=== PATIENT | female | born 1950 | race Caucasian/White ===

== ENCOUNTER 2018-04-12 10:02 | Emergency (ER) | payer OTHER, SELFPAY ==
--- OUTSIDE RECORDS SUMMARY | 2018-04-12 10:05 | XMS REPORT | Clinical Summary ---
:1950 Author Organization [facility] Address [address] [place] [id number] Care Team Providers Name Role Phone Addie Meng MD Primary Care Provider Allergies Active Allergy Reactions Severity Noted Date Comments Alendronate 05/09/2017 Stomach cannot tolerate medication Medications No known medications Active Problems Problem Noted Date Encounter for screening mammogram for breast cancer 05/09/2017 Encounters Date Type Specialty Care Team Description 05/09/2017 Office Visit General Surgery Breann Potter Breast boaz ( Primary Dx); MD Ila Encounter for screening mammogram for breast cancer; Discharge from right nipple after 04/11/2017 Family History Medical History Relation Name Comments Breast cancer Maternal Aunt Breast cancer Paternal Aunt Colon cancer Paternal Aunt Breast cancer Paternal Grandmother Colon cancer Paternal Grandmother Relation Name Status Comments Maternal Aunt Paternal Aunt Paternal Grandmother Social History Tobacco Use Types Packs/Day Years Used Date Never Smoker Smokeless Tobacco: Never Used Alcohol Use Drinks/Week oz/Week Comments Yes 1 Glasses of wine 0.6 weekly Sex Assigned at Date Recorded Not on file Job Start Date Occupation Industry Not on file Not on file Not on file Travel History Travel Start Travel End No recent travel history available. Last Filed Vital Signs Vital Sign Reading Time Taken Blood Pressure 128/74 05/09/2017 9:53 AM CLINICAL LABORATORY SCIENTIST Pulse 68 05/09/2017 9:53 AM CLINICAL LABORATORY SCIENTIST Temperature - - Respiratory Rate - - Oxygen Saturation - - Inhaled Oxygen Concentration - - Weight 98.9 kg (218 lb) 05/09/2017 9:53 AM CLINICAL LABORATORY SCIENTIST Height 157.5 cm (5' 2") 05/09/2017 9:53 AM CLINICAL LABORATORY SCIENTIST Body Mass Index 39.87 05/09/2017 9:53 AM CLINICAL LABORATORY SCIENTIST Plan of Treatment Health Maintenance Due Date Last Done Comments COLON CANCER SCREENING 1998 SHINGRIX VACCINE (1 of 2) 1998 ZOSTER VACCINE 2008 PNEUMOCOCCAL POLYSACCHARIDE VACCINE 2013 AGE 65 AND OVER PNEUMOCOCCAL-13 2013 INFLUENZA VACCINE 12/21/2017 BREAST CANCER SCREENING 05/11/2019 05/11/2017, 05/09/2017, 05/09/2017 Procedures Procedure Name Priority Date/Time Associated Diagnosis Comments MAMMO SCREENING W CAD BILATERAL Routine 05/11/2017 after 04/11/2017 Results Mammo Screening w Cad Bilateral (05/11/2017) Narrative Performed At after 04/11/2017 Insurance Payer Benefit Plan / Group Subscriber ID Type Phone Address MEDICARE MEDICARE PART A AND B xxxxxxxxxx Medicare [place], [place] [employer] OF xxxxxxxxxx [employer] Advance Directives Patient has advance care planning documents on file. For more information, please contact:J[id number] [place] [address]
[2018-04-12] MEDS ORDERED: HYDROMORPHONE HCL 1 MG/ML INJ ONE ×3 (10:30→13:49)
[2018-04-12] MEDS ORDERED: KETOROLAC 30 MG/ML INJ ONE (10:30)
[2018-04-12] MEDS ORDERED: ONDANSETRON 4 MG/2 ML VIAL ONE (10:30)
[2018-04-12 10:35] LABS: Absolute Lymphocytes (CBC) 2.7 K/uL (0.7-4.9); Absolute Monocytes 0.7 K/uL (0.1-1.3); Absolute Neutrophil 4.4 K/uL (1.8-8.0); Basophils % 0.6 % (0-1.3); Eosinophils % 0.9 % (0-4.4); Hematocrit 38.9 % (36.0-45.0); Lymphocytes % 34.2 % (15.3-44.8); MCH 30.4 pg (27.0-35.0); MCV 89.8 fL (80-100); MPV 8.7 fL (7.6-11.3); Monocytes % 9.3 % (3.3-12.3); RBC Red Blood Cell Count 4.33 M/uL (3.86-4.86)
[2018-04-12 11:02] LABS: Albumin 3.4 g/dL (3.4-5.0); Bilirubin Total 0.4 mg/dL (0.2-1.0); Potassium 3.9 mmol/L (3.5-5.1)
--- NOTE | 2018-04-12 12:03 | RAD REPORT ---
EXAM DESCRIPTION: RAD - Shoulder Right 2 View - 04/12/2018 11:09 am CLINICAL HISTORY: PAIN Fall, right shoulder pain COMPARISON: No comparisons FINDINGS: Moderately displaced comminuted fracture involves the proximal right humerus. Mild AC join t degenerative changes are seen.
--- NOTE | 2018-04-12 12:29 | RAD REPORT ---
EXAM DESCRIPTION: RAD - Pelvis - 04/12/2018 11:09 am CLINICAL HISTORY: Right hip pain status post fall FINDINGS: No fracture or dislocation is seen. The bones are osteoporotic. If the patient continues to have symptoms to suggest an occult fracture then MRI would be recommended
--- NOTE | 2018-04-12 12:30 | RAD REPORT ---
EXAM DESCRIPTION: RAD - Hip Right 2 View - 04/12/2018 11:09 am CLINICAL HISTORY: Right hip pain status post fall FINDINGS: No fracture or dislocation is seen. The bones are osteoporotic. If the patient continues to have symptoms to suggest an occult fracture then MRI would be recommended
--- NOTE | 2018-04-12 13:33 | ER ---
Nurse's Notes [facility] Name: Patricia Michael Age: 67 yrs Sex: Female : 1950 Arrival Date: 04/12/2018 Time: 10:07 Bed 6 Private MD: Diagnosis: Fall due to bumping against object;3-part fracture of surgical neck of right humerus;Contusion of right hip Presentation: 04/12 10:09 Presenting complaint: EMS states: Mechanical fall from standing, pt tripped while hb ambulating in parking lot at work, c/o severe right shoulder pain 03/01. Negative LOC/blood thinners. 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 Care prior to arrival: Medication(s) given: Fentanyl 150 mcg IV initiated. 20 GA, in the left antecubital area. Mechanism of Injury: Fall from standing position. Trauma event details: Injury occurred in the [facility], Injury occurred: in a public building. Injury occurred: April 12, 2018. 10:09 Acuity: KAVEH 2 hb 10:09 Method Of Arrival: EMS: [facility] hb 10:15 Transition of care: patient was not received from another setting of care. Onset of hb symptoms was April 12, 2018. Risk Assessment: Do you want to hurt yourself or someone else? Patient reports no desire to harm self or others. Initial Sepsis Screen: Does the patient meet any 2 criteria? No. Patient's initial sepsis screen is negative. Does the patient have a suspected source of infection? No. Patient's initial sepsis screen is negative. Trauma Activation: Alert Physician: ED Physician; Name: ; Notified At: ; Arrived At: Physician: General Surgeon; Name: ; Notified At: ; Arrived At: Physician: Radiology; Name: ; Notified At: ; Arrived At: Physician: Respiratory; Name: ; Notified At: ; Arrived At: Physician: Lab; Name: ; Notified At: ; Arrived At: Historical: - Allergies: 10:14 Fosamax; hb - PMHx: 10:14 Asthma; Glaucoma; Pneumonia; Rheumatoid Arthritis; hb - PSHx: 10:14 KNEE REPLACEMENT X 2; SHOULDER X 2; FOOT SURGERY X 8; HAND SURGERY X2; hb - Immunization history: Last tetanus immunization: < 10 years ago. - Social history:: Smoking status: Patient/guardian denies using tobacco. - Ebola Screening: : No symptoms or risks identified at this time. Screenin:14 Abuse screen: Denies threats or abuse. Denies injuries from another. Tuberculosis hb screening: No symptoms or risk factors identified. 10:15 Nutritional screening: No deficits noted. Fall Risk Total Stroud Fall Scale indicates hb Low Risk Score (25-44 pts). Fall prevention measures have been instituted. Side Rails Up X 2 Frequent Obs/Assesments occuring As available Patient and Family Educated on Fall Prevention Program and strategies. Primary Survey: 10:10 A: Airway: patent, No supplemental oxygen in use on arrival. Oral cavity: clear, hb Trachea midline. Breathing/Chest: Respiratory pattern: regular, Respiratory effort: spontaneous, unlabored, Breath sounds: clear, bilaterally. Chest inspection: symmetrical rise and fall of the chest. Circulation: Pulses: palpable . Skin color: pink, Skin temperature: warm, dry. Disability Alert. 11:00 Reassessment Airway Airway Patent Breathing/Chest Respiratory pattern Regular hb Respiratory effort Spontaneous Unlabored Chest inspection Symmetrical Circulation Pulses Palpable Color Sayre Temperature Warm Dry Disability Alert. 12:00 Reassessment Airway Airway Patent Breathing/Chest Respiratory pattern Regular hb Respiratory effort Spontaneous Unlabored Chest inspection Symmetrical Circulation Pulses Palpable Color Sayre Temperature Warm Dry Disability Alert. 13:00 Reassessment Airway Airway Patent Breathing/Chest Respiratory pattern Regular hb Respiratory effort Spontaneous Unlabored Chest inspection Symmetrical Circulation Color Sayre Temperature Warm Dry Disability Alert. Secondary Survey: 10:12 HEENT: No deficits noted. Gastrointestinal: No deficits noted. : No deficits noted. hb Musculoskeletal: Range of motion: limited in right shoulder. Assessment: 10:16 General: Appears in no apparent distress. uncomfortable, Behavior is cooperative, hb anxious, crying. Pain: Pain currently is 10 out of 10 on a pain scale. Neuro: Level of Consciousness is awake, alert, obeys commands, Oriented to person, place, time, situation. EENT: No signs and/or symptoms were reported regarding the EENT system. Cardiovascular: Heart tones S1 S2 present Capillary refill < 3 seconds Patient's skin is warm and dry. Respiratory: Airway is patent Trachea midline Respiratory effort is even, unlabored, Respiratory pattern is regular, symmetrical, Breath sounds are clear bilaterally. GI: No signs and/or symptoms were reported involving the gastrointestinal system. : No signs and/or symptoms were reported regarding the genitourinary system. Derm: No signs and/or symptoms reported regarding the dermatologic system. Skin is intact, is healthy with good turgor, Skin is pink, warm \T\ dry. Musculoskeletal: Range of motion: limited in right shoulder. 11:00 Reassessment: Patient appears in no apparent distress at this time. Patient and/or hb family updated on plan of care and expected duration. Pain level reassessed. Patient is alert, oriented x 3, equal unlabored respirations, skin warm/dry/pink. 11:35 Reassessment: Pt c/o right wrist pain 8/10. Dr. Goldberg notified, wrist xray ordered. hb Vital Signs: 10:10 BP 113 / 95; Pulse 88; Resp 15; Temp 97.9; Pulse Ox 100% on R/A; Pain 10/10; hb 11:00 BP 133 / 52; Pulse 88; Resp 15; Pulse Ox 100% on R/A; Pain 5/10; hb 12:00 BP 136 / 63; Pulse 58; Resp 15; Pulse Ox 100% on R/A; Pain 6/10; hb 13:00 BP 137 / 63; Pulse 61; Resp 16; Pulse Ox 100% on R/A; Pain 8/10; hb Nate Coma Score: 10:10 Eye Response: spontaneous(4). Verbal Response: oriented(5). Motor Response: obeys hb commands(6). Total: 15. Trauma Score (Adult): 10:10 Eye Response: spontaneous(1); Verbal Response: oriented(1); Motor Response: obeys hb commands(2); Systolic BP: > 89 mm Hg(4); Respiratory Rate: 10 to 29 per min(4); Lathrop Score: 15; Trauma Score: 12 11:00 Eye Response: spontaneous(1); Verbal Response: oriented(1); Motor Response: obeys hb commands(2); Systolic BP: > 89 mm Hg(4); Respiratory Rate: 10 to 29 per min(4); Lathrop Score: 15; Trauma Score: 12 12:00 Eye Response: spontaneous(1); Verbal Response: oriented(1); Motor Response: obeys hb commands(2); Systolic BP: > 89 mm Hg(4); Respiratory Rate: 10 to 29 per min(4); Lathrop Score: 15; Trauma Score: 12 13:00 Eye Response: spontaneous(1); Verbal Response: oriented(1); Motor Response: obeys hb commands(2); Systolic BP: > 89 mm Hg(4); Respiratory Rate: 10 to 29 per min(4); Lathrop Score: 15; Trauma Score: 12 ED Course: 10:07 Patient arrived in ED. sg 10:08 Rm Goldberg MD is Attending Physician. hetal 10:09 Sagrario Rose, RN is Primary Nurse. hb 10:12 Triage completed. hb 10:15 Arm band placed on left wrist. hb 10:15 Patient maintains SpO2 saturation greater than 95% on room air. Thermoregulation: warm hb blanket given to patient. 10:17 Patient has correct armband on for positive identification. Placed in gown. Bed in low hb position. Call light in reach. Side rails up X2. 11:06 X-ray completed. Portable x-ray completed in exam room. Patient tolerated procedure mh1 well. 11:09 Hip Right 2 View XRAY In Process Unspecified. EDMS 11:09 Pelvis XRAY In Process Unspecified. EDMS 11:10 Shoulder Right (2 View) XRAY In Process Unspecified. EDMS 13:33 Willie Hubbard MD is Referral Physician. hetal 14:08 Forearm Right XRAY In Process Unspecified. EDMS 14:08 Wrist Right 3 View XRAY In Process Unspecified. EDMS Administered Medications: 10:28 Drug: Dilaudid 1 mg Route: IVP; Site: left antecubital; hb 11:11 Follow up: Response: No adverse reaction; Pain is decreased hb 10:28 Drug: Zofran 4 mg Route: IVP; Site: left antecubital; hb 11:00 Follow up: Response: No adverse reaction hb 10:29 Drug: TORadol 30 mg Route: IVP; Site: left antecubital; hb 11:11 Follow up: Response: No adverse reaction; Pain is decreased hb 12:05 Drug: Dilaudid 1 mg Route: IVP; Site: left antecubital; hb 12:30 Follow up: Response: No adverse reaction; Pain is decreased hb 13:50 Drug: fentaNYL Patch (25 mcg/hr) 1 patches Route: Transdermal; Site: anterior chest hb wall; 13:50 Follow up: Response: Medication administered at discharge. hb 13:50 Drug: fentaNYL Patch (50 mcg/hr) 1 patches Route: Transdermal; Site: anterior chest hb wall; 19:08 Follow up: Response: Medication administered at discharge. hb Outcome: 13:33 Discharge ordered by . hetal 14:20 Patient left the ED. hb Signatures: Dispatcher [employer] EDSean Marsh RN RN Rm Munoz MD MD cha Harvey, [facility] Sagrario Rose RN RN hb Corrections: (The following items were deleted from the chart) 11:50 11:00 BP 133 / 52; Pulse 88bpm; Resp 15bpm; Pulse Ox 100% RA; Pain 8/10; hb hb
--- NOTE | 2018-04-12 13:34 | EDPHYS ---
Physician Documentation [facility] Name: Patricia Micheal Age: 67 yrs Sex: Female : 1950 Arrival Date: 04/12/2018 Time: 10:07 Bed 6 Private MD: ED Physician Rm Goldberg HPI: 04/12 10:21 This 67 yrs old Female presents to ER via EMS with complaints of Hip Pain, hetal Fall Injury. 10:21 The patient or guardian reports decreased range of motion, pain. hetal Historical: - Allergies: 10:14 Fosamax; hb - PMHx: 10:14 Asthma; Glaucoma; Pneumonia; Rheumatoid Arthritis; hb - PSHx: 10:14 KNEE REPLACEMENT X 2; SHOULDER X 2; FOOT SURGERY X 8; HAND SURGERY X2; hb - Immunization history: Last tetanus immunization: < 10 years ago. - Social history:: Smoking status: Patient/guardian denies using tobacco. - Ebola Screening: : No symptoms or risks identified at this time. ROS: 10:21 Constitutional: Negative for fever, chills, and weight loss, Eyes: Negative for injury, hetal pain, redness, and discharge, ENT: Negative for injury, pain, and discharge, Neck: Negative for injury, pain, and swelling, Cardiovascular: Negative for chest pain, palpitations, and edema, Respiratory: Negative for shortness of breath, cough, wheezing, and pleuritic chest pain, Abdomen/GI: Negative for abdominal pain, nausea, vomiting, diarrhea, and constipation, Back: Negative for injury and pain, : Negative for injury, bleeding, discharge, and swelling, Skin: Negative for injury, rash, and discoloration, Neuro: Negative for headache, weakness, numbness, tingling, and seizure, Psych: Negative for depression, anxiety, suicide ideation, homicidal ideation, and hallucinations, Allergy/Immunology: Negative for hives, rash, and allergies, Endocrine: Negative for neck swelling, polydipsia, polyuria, polyphagia, and marked weight changes, Hematologic/Lymphatic: Negative for swollen nodes, abnormal bleeding, and unusual bruising. 10:21 MS/extremity: Positive for injury or acute deformity, decreased range of motion, pain, of the right femoral area and right hip. Exam: 10:21 Constitutional: This is a well developed, well nourished patient who is awake, alert, hetal and in no acute distress. Head/Face: Normocephalic, atraumatic. Eyes: Pupils equal round and reactive to light, extra-ocular motions intact. Lids and lashes normal. Conjunctiva and sclera are non-icteric and not injected. Cornea within normal limits. Periorbital areas with no swelling, redness, or edema. ENT: Nares patent. No nasal discharge, no septal abnormalities noted. Tympanic membranes are normal and external auditory canals are clear. Oropharynx with no redness, swelling, or masses, exudates, or evidence of obstruction, uvula midline. Mucous membranes moist. Neck: Trachea midline, no thyromegaly or masses palpated, and no cervical lymphadenopathy. Supple, full range of motion without nuchal rigidity, or vertebral point tenderness. No Meningismus. Chest/axilla: Normal chest wall appearance and motion. Nontender with no deformity. No lesions are appreciated. Cardiovascular: Regular rate and rhythm with a normal S1 and S2. No gallops, murmurs, or rubs. Normal PMI, no JVD. No pulse deficits. Respiratory: Lungs have equal breath sounds bilaterally, clear to auscultation and percussion. No rales, rhonchi or wheezes noted. No increased work of breathing, no retractions or nasal flaring. Abdomen/GI: Soft, non-tender, with normal bowel sounds. No distension or tympany. No guarding or rebound. No evidence of tenderness throughout. Back: No spinal tenderness. No costovertebral tenderness. Full range of motion. Female : Normal external genitalia. Skin: Warm, dry with normal turgor. Normal color with no rashes, no lesions, and no evidence of cellulitis. Neuro: Awake and alert, GCS 15, oriented to person, place, time, and situation. Cranial nerves II-XII grossly intact. Motor strength 5/5 in all extremities. Sensory grossly intact. Cerebellar exam normal. Normal gait. Psych: Awake, alert, with orientation to person, place and time. Behavior, mood, and affect are within normal limits. 10:21 Musculoskeletal/extremity: Extremities: noted in the right femoral area and right hip: decreased ROM, pain, noted in the anterior aspect of right shoulder and posterior aspect of right shoulder: ROM: limited active range of motion due to pain, limited passive range of motion due to pain, Circulation is intact in all extremities. DVT Exam: negative Homans' sign noted on exam, no appreciated bluish discoloration, no erythema, no increased warmth, pain, swelling, tenderness. Vital Signs: 10:10 BP 113 / 95; Pulse 88; Resp 15; Temp 97.9; Pulse Ox 100% on R/A; Pain 10/10; hb 11:00 BP 133 / 52; Pulse 88; Resp 15; Pulse Ox 100% on R/A; Pain 5/10; hb 12:00 BP 136 / 63; Pulse 58; Resp 15; Pulse Ox 100% on R/A; Pain 6/10; hb 13:00 BP 137 / 63; Pulse 61; Resp 16; Pulse Ox 100% on R/A; Pain 8/10; hb Ossian Coma Score: 10:10 Eye Response: spontaneous(4). Verbal Response: oriented(5). Motor Response: obeys hb commands(6). Total: 15. Trauma Score (Adult): 10:10 Eye Response: spontaneous(1); Verbal Response: oriented(1); Motor Response: obeys hb commands(2); Systolic BP: > 89 mm Hg(4); Respiratory Rate: 10 to 29 per min(4); Ossian Score: 15; Trauma Score: 12 11:00 Eye Response: spontaneous(1); Verbal Response: oriented(1); Motor Response: obeys hb commands(2); Systolic BP: > 89 mm Hg(4); Respiratory Rate: 10 to 29 per min(4); Ossian Score: 15; Trauma Score: 12 12:00 Eye Response: spontaneous(1); Verbal Response: oriented(1); Motor Response: obeys hb commands(2); Systolic BP: > 89 mm Hg(4); Respiratory Rate: 10 to 29 per min(4); Ossian Score: 15; Trauma Score: 12 13:00 Eye Response: spontaneous(1); Verbal Response: oriented(1); Motor Response: obeys hb commands(2); Systolic BP: > 89 mm Hg(4); Respiratory Rate: 10 to 29 per min(4); Nate Score: 15; Trauma Score: 12 MDM: 10:08 Patient medically screened. [facility] 10:23 Data reviewed: vital signs, nurses notes, radiologic studies, plain films. [facility] 04/12 10:23 Order name: CBC with Diff; Complete Time: 11:33 [facility] 04/12 10:23 Order name: Comprehensive Metabolic Panel; Complete Time: 11:33 [facility] 04/12 10:18 Order name: Hip Right 2 View XRAY [facility] 04/12 10:18 Order name: Pelvis XRAY [facility] 04/12 10:18 Order name: Shoulder Right (2 View) XRAY; Complete Time: 12:26 [facility] 04/12 11:33 Order name: Forearm Right XRAY [facility] 04/12 10:20 Order name: Ice pack; Complete Time: 10:27 [facility] 04/12 11:33 Order name: Wrist Right 3 View XRAY [facility] 04/12 10:21 Order name: Shoulder Immobilizer; Complete Time: 13:43 [facility] Administered Medications: 10:28 Drug: Dilaudid 1 mg Route: IVP; Site: left antecubital; hb 11:11 Follow up: Response: No adverse reaction; Pain is decreased hb 10:28 Drug: Zofran 4 mg Route: IVP; Site: left antecubital; hb 11:00 Follow up: Response: No adverse reaction hb 10:29 Drug: TORadol 30 mg Route: IVP; Site: left antecubital; hb 11:11 Follow up: Response: No adverse reaction; Pain is decreased hb 12:05 Drug: Dilaudid 1 mg Route: IVP; Site: left antecubital; hb 12:30 Follow up: Response: No adverse reaction; Pain is decreased hb 13:50 Drug: fentaNYL Patch (25 mcg/hr) 1 patches Route: Transdermal; Site: anterior chest hb wall; 13:50 Follow up: Response: Medication administered at discharge. hb 13:50 Drug: fentaNYL Patch (50 mcg/hr) 1 patches Route: Transdermal; Site: anterior chest hb wall; 19:08 Follow up: Response: Medication administered at discharge. hb Disposition: 04/12/18 13:33 Discharged to Home. Impression: Fall due to bumping against object, 3-part fracture of surgical neck of right humerus, Contusion of right hip. - Condition is Stable. - Discharge Instructions: Contusion, Fall Prevention in the Home, Humerus Fracture Treated With Immobilization, Shoulder Pain, Humerus Fracture Treated With Immobilization, [id number], Contusion, [id number], Fall Prevention in the Home, [id number]. - Prescriptions for Tylenol- Codeine #3 300-30 mg Oral Tablet - take 2 tablet by ORAL route every 6 hours As needed; 30 tablet. - Medication Reconciliation Form, Thank You Letter, Antibiotic Education, Prescription Opioid Use form. - Follow up: Private Physician; When: 2 - 3 days; Reason: Recheck today's complaints, Continuance of care, Re-evaluation by your physician. Follow up: Dr. Willie Hubbard; When: 2 - 3 days; Reason: Recheck today's complaints, Re-evaluation by your physician. - Problem is new. - Symptoms have improved. Signatures: Dispatcher [employer] EDMS Rm Goldberg MD MD cha Baxter, Heather, RN RN Corrections: (The following items were deleted from the chart) 14:20 13:33 04/12/2018 13:33 Discharged to Home. Impression: Fall due to bumping against hb object; 3-part fracture of surgical neck of right humerus; Contusion of right hip. Condition is Stable. Discharge Instructions: Contusion, Fall Prevention in the Home, Humerus Fracture Treated With Immobilization, Shoulder Pain, Humerus Fracture Treated With Immobilization, [id number], Contusion, [id number], Fall Prevention in the Home, [id number]. Prescriptions for Tylenol-Codeine #3 300-30 mg Oral Tablet - take 2 tablet by ORAL route every 6 hours As needed; 30 tablet. and Forms are Medication Reconciliation Form, Thank You Letter, Antibiotic Education, Prescription Opioid Use. Follow up: Private Physician; When: 2 - 3 days; Reason: Recheck today's complaints, Continuance of care, Re-evaluation by your physician. Follow up: Dr. Willie Hubbard; When: 2 - 3 days; Reason: Recheck today's complaints, Re-evaluation by your physician. Problem is new. Symptoms have improved. hetal
[2018-04-12] MEDS ORDERED: FENTANYL 25 MCG/PATCH TD ONE (14:00)
[2018-04-12] MEDS ORDERED: FENTANYL 50 MCG/PATCH TD ONE (14:01)
--- NOTE | 2018-04-12 14:20 | RAD REPORT ---
EXAM DESCRIPTION: RAD - Wrist Right 3 View - 04/12/2018 2:08 pm CLINICAL HISTORY: PAIN Pain COMPARISON: None FINDINGS: Right forearm and right wrist - multiple projections. Diffuse osteopenia is seen. Radiocarpal joint arthritic changes are present. No acute fracture or dis location is seen.
--- NOTE | 2018-04-12 19:47 | RAD REPORT ---
EXAM DESCRIPTION: RAD - Forearm Right - 04/12/2018 2:08 pm CLINICAL HISTORY: PAIN COMPARISON: None FINDINGS: Right forearm and right wrist - multiple projections. Diffuse osteopenia is seen. Radiocarpal joint arthritic changes are present. No acute fracture or dis location is seen.
== END 2018-04-12 14:20 | disposition home or self-care (01) ==
LOC: ER 10:02
DX: S42.231A 3-part fracture of surgical neck of right humerus, initial encounter for closed fracture (principal); S70.01XA Contusion of right hip, initial encounter; W18.00XA Striking against unspecified object with subsequent fall, initial encounter; Y93.9 Activity, unspecified; Y92.9 Unspecified place or not applicable; Z88.8 Allergy status to other drugs, medicaments and biological substances
CPT/HCPCS: 36415; 72170; 80053; 85025; 96374; 96375; 99284; J1170; J2405

== ENCOUNTER 2019-07-02 11:49 | Observation (INO) | payer OTHER ==
--- OUTSIDE RECORDS SUMMARY | 2019-07-02 11:52 | XMS REPORT ---
:1950 Author Organization [facility] Address [address] [place] [address] Dr. Mos[address] [place] [address] Care Team Providers Name Role Phone RENNY CAVAZOS Unavailable Unavailable Problems This patient has no known problems. Allergies, Adverse Reactions, Alerts This patient has no known allergies or adverse reactions. Medications This patient has no known medications. Results Test Description Test Time Test Comments Text Results Atomic Results Result Comments AFB CULTURE + SMEAR 2018-06-28 12:46:00 Test Item Value Reference Range Comments CULTURE (BEAKER) (test teqj=9275) No acid-fast bacilli isolated in 42 days AFB SMEAR (BEAKER) (test sbsv=641) No acid fast bacilli seen AFB CULTURE + [id number] 12:46:00 Test Item Value Reference Range Comments CULTURE (BEAKER) (test No acid-fast bacilli isolated untm=5253) in 42 days AFB SMEAR (BEAKER) (test No acid fast bacilli seen bofs=118) ANAEROBIC [id number] 17:30:00 Test Item Value Reference Range Comments CULTURE (BEAKER) (test crnx=4718) No anaerobes isolated ANAEROBIC [id number] 03:45:00 Test Item Value Reference Range Comments CULTURE (BEAKER) (test efqv=0646) No anaerobes isolated FUNGUS CULTURE + [id number] 15:26:00 Test Item Value Reference Range Comments CULTURE (BEAKER) (test No fungus isolated in 28 days crkx=1422) FUNGUS SMEAR (BEAKER) (test No fungi seen hynx=9479) FUNGUS CULTURE + [id number] 15:26:00 Test Item Value Reference Range Comments CULTURE (BEAKER) (test No fungus isolated in 28 days wwxh=4818) FUNGUS SMEAR (BEAKER) (test No fungi seen rgtt=2769) VANCOMYCIN LEVEL, [id number] 15:05:00 Test Item Value Reference Range Comments VANCOMYCIN TROUGH (BEAKER) (test jbna=143) 20.7 ug/mL 10.0-20.0 RAD, CHEST, PA OR AP, 1 [id number] 18:32:00VAT/Infusion Therapy Nurse to Call Radiology Department when patient is readyReason for exam:->s/p midline placementShould this be performed at the bedside?->YesFINAL REPORT Portable chest. HISTORY: Status post midline insertion. COMPARISON STUDY: None available. FINDINGS: The cardiac size is unremarkable. The aorta is tortuous. A left-sided PICC line has been inserted, the tip projecting over the SVC. There are mild interstitial markings but no focal opacity, pleural effusion or pneumothorax. Degenerative changes are seen with postsurgical changes in the right humerus. Signed: Richard Hampton Verified Date/ Time: 05/14/2018 18:32:41 Reading Location: [address] Ortho Consult Reading Room PROTHROMBIN [id number] 15:27:00 Test Item Value Reference Range Comments PROTIME (BEAKER) (test lpqs=974) 13.2 seconds 11.7-14.7 INR (BEAKER) (test uafn=056) 1.0 <=5.9 RECOMMENDED COUMADIN/WARFARIN INR THERAPY RANGESSTANDARD DOSE: 2.0 - 3.0 Includes: PROPHYLAXIS forvenous thrombosis, systemic embolization; TREATMENT for venous thrombosis and/or pulmonary embolus.HIGH RISK: Target INR is 2.5-3.5 for patients with mechanical heart valves.CBC W/PLT COUNT & AUTO [id number] 15:11:00 Test Item Value Reference Range Comments WHITE BLOOD CELL COUNT (BEAKER) (test nzog=073) 7.6 K/ L 3.5-10.5 RED BLOOD CELL COUNT (BEAKER) (test ybnn=839) 3.71 M/ L 3.93-5.22 HEMOGLOBIN (BEAKER) (test pttn=366) 11.2 GM/DL 11.2-15.7 HEMATOCRIT (BEAKER) (test ohdr=174) 35.3 % 34.1-44.9 MEAN CORPUSCULAR VOLUME (BEAKER) (test mddv=725) 95.1 fL 79.4-94.8 MEAN CORPUSCULAR HEMOGLOBIN (BEAKER) (test 30.2 pg 25.6-32.2 eaqk=703) MEAN CORPUSCULAR HEMOGLOBIN CONC (BEAKER) (test 31.7 GM/DL 32.2-35.5 ifpk=052) RED CELL DISTRIBUTION WIDTH (BEAKER) (test 14.6 % 11.7-14.4 csfq=132) PLATELET COUNT (BEAKER) (test iecs=640) 356 K/CU MM 150-450 MEAN PLATELET VOLUME (BEAKER) (test vepl=084) 9.7 fL 9.4-12.3 NUCLEATED RED BLOOD CELLS (BEAKER) (test 0 /100 WBC 0-0 ieby=472) NEUTROPHILS RELATIVE PERCENT (BEAKER) (test 54 % hbss=860) LYMPHOCYTES RELATIVE PERCENT (BEAKER) (test 31 % lwtf=755) MONOCYTES RELATIVE PERCENT (BEAKER) (test 10 % wnft=186) EOSINOPHILS RELATIVE PERCENT (BEAKER) (test 3 % qshn=295) BASOPHILS RELATIVE PERCENT (BEAKER) (test 1 % qkfk=757) NEUTROPHILS ABSOLUTE COUNT (BEAKER) (test 4.12 K/ L 1.56-6.13 jdlc=149) LYMPHOCYTES ABSOLUTE COUNT (BEAKER) (test 2.37 K/ L 1.18-3.74 tpxf=610) MONOCYTES ABSOLUTE COUNT (BEAKER) (test 0.76 K/ L 0.24-0.36 hhzu=165) EOSINOPHILS ABSOLUTE COUNT (BEAKER) (test 0.25 K/ L 0.04-0.36 vtxf=146) BASOPHILS ABSOLUTE COUNT (BEAKER) (test 0.06 K/ L 0.01-0.08 btds=377) IMMATURE GRANULOCYTES-RELATIVE PERCENT (BEAKER) 0 % 0-1 (test fctv=9461) SURGICALLY OBTAINED CULTURE + GRAM [id number] 12:05:00 Test Item Value Reference Range Comments CULTURE (BEAKER) (test dgfk=9110) No growth GRAM STAIN RESULT (BEAKER) (test <1+ WBCs vtzu=8605) GRAM STAIN RESULT (BEAKER) (test No organisms seen qtab=02927) SURGICALLY OBTAINED CULTURE + GRAM [id number] 11:25:00 Test Item Value Reference Range Comments CULTURE (BEAKER) (test jsww=7281) No growth GRAM STAIN RESULT (BEAKER) (test <1+ WBCs vfco=8429) GRAM STAIN RESULT (BEAKER) (test No organisms seen egye=46291) BASIC METABOLIC [id number] 10:06:00 Test Item Value Reference Range Comments SODIUM (BEAKER) (test 140 meq/L 136-145 ytjo=675) POTASSIUM (BEAKER) (test 4.1 meq/L 3.5-5.1 hndb=884) CHLORIDE (BEAKER) (test 102 meq/L 98-107 peiy=556) CO2 (BEAKER) (test 28 meq/L 22-29 ympb=860) BLOOD UREA NITROGEN 14 mg/dL 7-21 (BEAKER) (test puwq=591) CREATININE (BEAKER) (test 0.82 mg/dL 0.57-1.25 aezn=890) GLUCOSE RANDOM (BEAKER) 156 mg/dL 70-105 (test skxg=009) CALCIUM (BEAKER) (test 9.3 mg/dL 8.4-10.2 dbel=750) EGFR (BEAKER) (test 69 mL/min/1.73 sq m ESTIMATED GFR IS NOT dryo=4956) ACCURATE CREATININE CLEARANCE IN PREDICTING GLOMERULAR FILTRATION RATE. ESTIMATED GFR IS NOT APPLICABLE FOR DIALYSIS PATIENTS. CBC W/PLT COUNT & AUTO [id number] 09:47:00 Test Item Value Reference Range Comments WHITE BLOOD CELL COUNT (BEAKER) (test vdar=141) 7.7 K/ L 3.5-10.5 RED BLOOD CELL COUNT (BEAKER) (test wyjo=623) 3.68 M/ L 3.93-5.22 HEMOGLOBIN (BEAKER) (test fmjc=952) 10.7 GM/DL 11.2-15.7 HEMATOCRIT (BEAKER) (test axuj=736) 35.0 % 34.1-44.9 MEAN CORPUSCULAR VOLUME (BEAKER) (test fsop=949) 95.1 fL 79.4-94.8 MEAN CORPUSCULAR HEMOGLOBIN (BEAKER) (test 29.1 pg 25.6-32.2 yqnt=457) MEAN CORPUSCULAR HEMOGLOBIN CONC (BEAKER) (test 30.6 GM/DL 32.2-35.5 sfkm=091) RED CELL DISTRIBUTION WIDTH (BEAKER) (test 14.6 % 11.7-14.4 hhvb=599) PLATELET COUNT (BEAKER) (test iqak=855) 431 K/CU MM 150-450 MEAN PLATELET VOLUME (BEAKER) (test hyti=944) 9.5 fL 9.4-12.3 NUCLEATED RED BLOOD CELLS (BEAKER) (test 0 /100 WBC 0-0 uzlu=925) NEUTROPHILS RELATIVE PERCENT (BEAKER) (test 52 % rhvt=066) LYMPHOCYTES RELATIVE PERCENT (BEAKER) (test 38 % fone=096) MONOCYTES RELATIVE PERCENT (BEAKER) (test 8 % muha=896) EOSINOPHILS RELATIVE PERCENT (BEAKER) (test 2 % uova=881) BASOPHILS RELATIVE PERCENT (BEAKER) (test 1 % yulg=378) NEUTROPHILS ABSOLUTE COUNT (BEAKER) (test 4.00 K/ L 1.56-6.13 uwta=189) LYMPHOCYTES ABSOLUTE COUNT (BEAKER) (test 2.91 K/ L 1.18-3.74 rpuu=308) MONOCYTES ABSOLUTE COUNT (BEAKER) (test 0.59 K/ L 0.24-0.36 oigl=801) EOSINOPHILS ABSOLUTE COUNT (BEAKER) (test 0.13 K/ L 0.04-0.36 yzrq=999) BASOPHILS ABSOLUTE COUNT (BEAKER) (test 0.05 K/ L 0.01-0.08 upum=271) IMMATURE GRANULOCYTES-RELATIVE PERCENT (BEAKER) 0 % 0-1 (test wpdh=0282) SPIN/CONCENTRATION [id number] 15:32:00 Test Item Value Reference Range Comments CONCENTRATION CHARGED (BEAKER) (test lrte=1614) Done SPIN/CONCENTRATION [id number] 15:31:00 Test Item Value Reference Range Comments CONCENTRATION CHARGED (BEAKER) (test qalw=7300) Done C-REACTIVE [id number] 11:56:00 Test Item Value Reference Range Comments C-REACTIVE PROTEIN (BEAKER) (test kcoh=254) 0.53 mg/dL 0.00-0.50 CBC W/PLT COUNT & AUTO [id number] 11:43:00 Test Item Value Reference Range Comments WHITE BLOOD CELL COUNT (BEAKER) (test ewpc=340) 7.9 K/ L 3.5-10.5 RED BLOOD CELL COUNT (BEAKER) (test pcfu=976) 3.46 M/ L 3.93-5.22 HEMOGLOBIN (BEAKER) (test kchw=125) 10.4 GM/DL 11.2-15.7 HEMATOCRIT (BEAKER) (test xzfe=470) 33.1 % 34.1-44.9 MEAN CORPUSCULAR VOLUME (BEAKER) (test fove=472) 95.7 fL 79.4-94.8 MEAN CORPUSCULAR HEMOGLOBIN (BEAKER) (test 30.1 pg 25.6-32.2 qton=833) MEAN CORPUSCULAR HEMOGLOBIN CONC (BEAKER) (test 31.4 GM/DL 32.2-35.5 luxp=341) RED CELL DISTRIBUTION WIDTH (BEAKER) (test 14.4 % 11.7-14.4 sqoe=022) PLATELET COUNT (BEAKER) (test lnrp=480) 409 K/CU MM 150-450 MEAN PLATELET VOLUME (BEAKER) (test bcio=629) 9.6 fL 9.4-12.3 NUCLEATED RED BLOOD CELLS (BEAKER) (test 0 /100 WBC 0-0 mgef=809) NEUTROPHILS RELATIVE PERCENT (BEAKER) (test 60 % inig=429) LYMPHOCYTES RELATIVE PERCENT (BEAKER) (test 30 % cgho=718) MONOCYTES RELATIVE PERCENT (BEAKER) (test 8 % vryc=448) EOSINOPHILS RELATIVE PERCENT (BEAKER) (test 2 % nfxm=636) BASOPHILS RELATIVE PERCENT (BEAKER) (test 1 % okuu=857) NEUTROPHILS ABSOLUTE COUNT (BEAKER) (test 4.71 K/ L 1.56-6.13 rqic=180) LYMPHOCYTES ABSOLUTE COUNT (BEAKER) (test 2.33 K/ L 1.18-3.74 vzoc=319) MONOCYTES ABSOLUTE COUNT (BEAKER) (test 0.59 K/ L 0.24-0.36 gfmp=304) EOSINOPHILS ABSOLUTE COUNT (BEAKER) (test 0.18 K/ L 0.04-0.36 nqfk=619) BASOPHILS ABSOLUTE COUNT (BEAKER) (test 0.05 K/ L 0.01-0.08 nbsg=151) IMMATURE GRANULOCYTES-RELATIVE PERCENT (BEAKER) 0 % 0-1 (test jvfa=6132) HEMOGLOBIN AND [id number] 06:00:00 Test Item Value Reference Range Comments HEMOGLOBIN (BEAKER) (test zggj=493) 9.2 GM/DL 11.2-15.7 HEMATOCRIT (BEAKER) (test yzgv=627) 29.6 % 34.1-44.9 FL, ORDER CHECKER PACKER PROCESSER IN OR/30 MINUTE [id number] 21:07:00Reason for exam:-> Fracture of humeral head, closed, rightFINAL REPORT Fluoroscopy 1 view intraoperative 04/27/2018 9:06 PM CLINICAL HISTORY: Instrument localization COMPARISON: None available IMPRESSION: Please correlate imaging report findings with the procedure note prepared by Dr. Cavazos, as an intra-procedure imaging consultation was not requested. Reported fluoroscopy time: 2.4 seconds. Signed: Dominic Samuel MDReport Verified Date/Time: 2017 21:07:27 Reading Location: [facility] Radiology Reading Room BLOOD GAS , [id number] 18:50:00 Test Item Value Reference Range Comments PH ARTERIAL (BEAKER) (test luid=980) 7.45 7.35-7.45 PCO2 ARTERIAL (BEAKER) (test dqwp=064) 38 mmHg 35-45 PO2 ARTERIAL (BEAKER) (test wuwz=255) 203 mmHg 80-90 O2 SATURATION ARTERIAL (BEAKER) (test dldd=273) 99.4 % 96.0-97.0 HCO3 ARTERIAL (BEAKER) (test weds=440) 26 mmol/L 21-29 BASE EXCESS ARTERIAL (BEAKER) (test mdbh=110) 1.6 mmol/L -2.0-3.0 PATIENT TEMPERATURE (BEAKER) (test fpzg=6958) 36.7 C FIO2 (BEAKER) (test esmd=3178) 60.0 % BUN AND [id number] 15:18:00 Test Item Value Reference Range Comments BLOOD UREA NITROGEN 15 mg/dL 7-21 (BEAKER) (test emsk=788) CREATININE (BEAKER) (test 0.72 mg/dL 0.57-1.25 pgld=929) EGFR (BEAKER) (test 80 mL/min/1.73 sq m ESTIMATED GFR IS NOT jysh=5385) ACCURATE CREATININE CLEARANCE IN PREDICTING GLOMERULAR FILTRATION RATE. ESTIMATED GFR IS NOT APPLICABLE FOR DIALYSIS PATIENTS. [id number] 15:06:00 Test Item Value Reference Range Comments SODIUM (BEAKER) (test zkrh=484) 139 meq/L 136-145 POTASSIUM (BEAKER) (test vkpd=471) 4.1 meq/L 3.5-5.1 CHLORIDE (BEAKER) (test sdvl=629) 102 meq/L 98-107 CO2 (BEAKER) (test vfqf=240) 25 meq/L 22-29 [id number] 14:25:00 Test Item Value Reference Range Comments HEMOGLOBIN (BEAKER) (test bnam=532) 11.3 GM/DL 11.2-15.7
[2019-07-02] MEDS ORDERED: NA CHLORIDE 0.9% 1,000 ML ONE (13:12)
--- NOTE | 2019-07-02 13:46 | RAD REPORT ---
EXAM DESCRIPTION: CT - Head Brain Wo Cont - 07/02/2019 1:40 pm CLINICAL HISTORY: Dizziness COMPARISON: 2016 TECHNIQUE: Computed axial tomography of the head was obtained. IV contrast was not requested. All CT scans are performed using dose optimization technique as appropriate and may include automated exposure control or mA/KV adjustment according to patient size. FINDINGS: An intracranial bleed is not seen . The ventricles are normal in caliber. No extra-axial fluid collection is noted. Fluid within the sinuses/ mastoids is not seen. IMPRESSION: No acute intracranial abnormality is seen. If patient's symptoms persist MRI of the bra in would be recommended.
[2019-07-02 13:47] LABS: ALT/SGPT 20 U/L (12-78); AST/SGOT 15 U/L (15-37); Albumin 3.3 g/dL (3.4-5.0); Alkaline Phosphatase 99 U/L (45-117); BUN Blood Urea Nitrogen 15 mg/dL (7-18); Bicarbonate 29 mmol/L (21-32); Bilirubin Direct 0.1 mg/dL (0-0.2); Bilirubin Total 0.3 mg/dL (0.2-1.0); Glucose Level 132 mg/dL (74-106); Magnesium 2.3 mg/dL (1.8-2.4); NT PRO-BNP 298 pg/mL (<125); Potassium 3.8 mmol/L (3.5-5.1); Protein, Total 6.9 g/dL (6.4-8.2); Sodium Level 140 mmol/L (136-145); Troponin (Emerg Dept Use Only) < 0.02 ng/mL (0.0-0.045)
--- NOTE | 2019-07-02 14:01 | RAD REPORT ---
EXAM DESCRIPTION: Anabel Single View07/02/2019 1:52 pm CLINICAL HISTORY: Chest pain/dizziness COMPARISON: 2017 FINDINGS: The lungs appear clear of acute infiltrate. The heart is normal size IMPRESSION: No acute abnormalities displayed
[2019-07-02 14:17] LABS: Absolute Lymphocytes (CBC) 1.6 K/uL (0.7-4.9); Basophils % 0.7 % (0-1.3); Hematocrit 37.7 % (36.0-45.0); Lymphocytes % 21.7 % (15.3-44.8); MPV 8.6 fL (7.6-11.3); Protime INR 0.96; RBC Red Blood Cell Count 4.22 M/uL (3.86-4.86)
[2019-07-02 15:05] LABS: Urine Blood NEGATIVE (NEG); Urine Glucose NEGATIVE (NEG); Urine Protein NEGATIVE (NEG); Urine pH 6.5 (5.0-7.0)
[2019-07-02] MEDS ORDERED: ASPIRIN 81 MG CHEWABLE TABLET ONE (15:06)
[2019-07-02] MEDS ORDERED: FOLIC ACID 5 MG/ML VIAL ONE (15:07)
--- NOTE | 2019-07-02 15:12 | ER ---
Nurse's Notes [facility] Name: Patricia Michael Age: 69 yrs Sex: Female : 1950 Arrival Date: 07/02/2019 Time: 11:52 Bed 20 Private MD: Diagnosis: Dizziness and giddiness;Amaurosis fugax Presentation: 07/02 12:20 Presenting complaint: Patient states: Dizziness and dizzy spells that started last ca1 night, N/V last night. Advised by PCP to come to the ER. Drove herself to the ER. Transition of care: patient was not received from another setting of care. Onset of symptoms was July 01, 2019. Risk Assessment: Do you want to hurt yourself or someone else? Patient reports no desire to harm self or others. Initial Sepsis Screen: Does the patient meet any 2 criteria? No. Patient's initial sepsis screen is negative. Does the patient have a suspected source of infection? Yes:. Care prior to arrival: None. 12:20 Method Of Arrival: Ambulatory ca1 12:20 Acuity: KAVEH 3 ca1 Historical: - Allergies: 12:25 Fosamax; ca1 12:25 Vancomycin; ca1 12:25 cefepime; ca1 - Home Meds: 12:25 atorvastatin 20 mg oral tab 1 tab once daily [Active]; Zyrtec Oral [Active]; ca1 montelukast oral oral [Active]; fluticasone nasal nasal [Active]; Symbicort inhalation inhalation [Active]; Orencia (with maltose) 250 mg intravenous solr every 4 wks [Active]; - PMHx: 12:25 Asthma; Glaucoma; Pneumonia; Rheumatoid Arthritis; Macular Degeneration; ca1 - PSHx: 12:25 KNEE REPLACEMENT X 2; SHOULDER X 2; FOOT SURGERY X 8; HAND SURGERY X2; ca1 - Immunization history:: Adult Immunizations up to date, Flu vaccine is up to date. - Coronavirus screen:: The patient has NOT traveled to [place], [place], or [place] in the past 14 days. The patient has NOT had contact with known/suspected case of Coronavirus?. - Social history:: Smoking status: Patient denies any tobacco usage or history of. - Family history:: not pertinent. - Ebola Screening: : Patient negative for fever greater than or equal to 101.5 degrees Fahrenheit, and additional compatible Ebola Virus Disease symptoms Patient denies exposure to infectious person Patient denies travel to an Ebola-affected area in the 21 days before illness onset No symptoms or risks identified at this time. Screenin:00 Abuse screen: Denies threats or abuse. Denies injuries from another. Nutritional sv screening: No deficits noted. Tuberculosis screening: No symptoms or risk factors identified. Fall Risk None identified. Assessment: 12:40 General: Appears in no apparent distress. comfortable, well groomed, well developed, sv Behavior is calm, cooperative, appropriate for age. Pain: Denies pain. Neuro: Level of Consciousness is awake, alert, obeys commands, Oriented to person, place, time, situation, Rig Builder are equal bilaterally Moves all extremities. Full function Gait is steady, Speech is normal, Facial symmetry appears normal, Reports dizziness, since Tuesday but then went away. States last night around 2200 she started having dizziness and it lasted for about an hour and then it went away and she went to bed. She called her doctor this morning and they told her to come to the ER that she has intermittent right eye vision lost since she was told she has macular degeneration.. Neuro: Denies weakness numbness headache. Cardiovascular: Heart tones S1 S2 present Patient's skin is warm and dry. Respiratory: Airway is patent Respiratory effort is even, unlabored, Respiratory pattern is regular, symmetrical, Breath sounds are clear bilaterally. Derm: Skin is intact, Skin is pink, warm \\T\\ dry. Musculoskeletal: Circulation, motion, and sensation intact. Range of motion: intact in all extremities. 13:30 Reassessment: Patient appears in no apparent distress at this time. No changes from sv previously documented assessment. Patient and/or family updated on plan of care and expected duration. Pain level reassessed. Patient is alert, oriented x 3, equal unlabored respirations, skin warm/dry/pink. 14:04 Reassessment: Jaki from inside lab at the bedside recollecting blood. sv 15:19 Reassessment: Patient appears in no apparent distress at this time. No changes from sv previously documented assessment. Patient and/or family updated on plan of care and expected duration. Pain level reassessed. Patient is alert, oriented x 3, equal unlabored respirations, skin warm/dry/pink. 16:00 Reassessment: Patient appears in no apparent distress at this time. No changes from sv previously documented assessment. Patient and/or family updated on plan of care and expected duration. Pain level reassessed. Patient is alert, oriented x 3, equal unlabored respirations, skin warm/dry/pink. 16:30 Reassessment: Dr Guy at the bedside. sv 17:20 Reassessment: Pt given dinner tray. sv 17:40 Reassessment: Patient appears in no apparent distress at this time. No changes from sv previously documented assessment. Patient and/or family updated on plan of care and expected duration. Pain level reassessed. Patient is alert, oriented x 3, equal unlabored respirations, skin warm/dry/pink. 18:44 Reassessment: Dr Mcmullen at the bedside. sv 19:49 Reassessment: Patient and/or family updated on plan of care and expected duration. Pain ea level reassessed. Reassessment: Reassessment: Pt reports she is ready to leave states "I have been here for 8 hours and my dogs are at home alone" Pt requested to speak to charge nurse. General: Appears in no apparent distress. Behavior is calm, cooperative, appropriate for age. Pain: Denies pain. Neuro: Level of Consciousness is awake, alert, obeys commands, Oriented to person, place, time, situation. Cardiovascular: Patient's skin is warm and dry. Respiratory: Airway is patent Respiratory effort is even, unlabored, Respiratory pattern is regular, symmetrical. Derm: Skin is pink, warm \\T\\ dry. Musculoskeletal: Circulation, motion, and sensation intact. 19:50 Reassessment: Pt refused blood pressure cuff states "that damn thing hurts, I don't ea want it". 19:51 Reassessment: Charge nurse at bedside, pt agreed to speak to the physician. Dr. Margarita santana notified of situation. 20:07 Reassessment: Dr. Avila at bedside. ea 20:15 Reassessment: Dr. Avila at bedside gave the ok to be discharged. ea 20:47 Reassessment: Patient and/or family updated on plan of care and expected duration. Pain ea level reassessed. Patient is alert, oriented x 3, equal unlabored respirations, skin warm/dry/pink. [facility] Discharge instruction given to patient, verbalized the understanding of instruction. Pt left ED ambulatory tolerating well. Vital Signs: 12:25 BP 133 / 73; Pulse 80; Resp 17 S; Temp 98.9(O); Pulse Ox 97% on R/A; Weight 93.89 kg ca1 (R); Height 5 ft. 2 in. (157.48 cm) (R); Pain 3/10; 14:04 BP 146 / 69; Pulse 65 MON; Resp 16; Pulse Ox 99% ; sv 15:00 BP 136 / 77; Pulse 69; Resp 21; Pulse Ox 98% ; sv 16:00 BP 149 / 77; Pulse 67; Resp 22; Pulse Ox 100% ; sv 17:00 BP 117 / 56; Pulse 66; Resp 20; Pulse Ox 96% ; sv 18:46 Pulse 68; Resp 16; Pulse Ox 97% ; sv 19:00 Pulse 70; Resp 18; Temp 98; Pulse Ox 100% on R/A; ea 20:00 Pulse 72; Resp 19; Pulse Ox 98% on R/A; ea 12:25 Body Mass Index 37.86 (93.89 kg, 157.48 cm) ca1 14:04 Sinus Rhythm sv 18:46 Pt is taking off her BP cuff and says that it hurts. Informed pt the importance of sv being monitored. ED Course: 11:52 Patient arrived in ED. rg4 12:21 Triage completed. ca1 12:25 Arm band placed on right wrist. ca1 12:30 Denisse Lester, RN is Primary Nurse. iw 12:31 Rm Goldberg MD is Attending Physician. iw 12:50 Patient has correct armband on for positive identification. Placed in gown. Bed in low sv position. Call light in reach. nuclear monitoring technician on. Pulse ox on. NIBP on. Door closed. Head of bed elevated. 13:00 Missed attempt(s): 20 gauge in left forearm. Bleeding controlled, band aid applied, sv catheter tip intact. 13:05 Inserted saline lock: 22 gauge in right forearm, using aseptic technique. ,using sv aseptic technique. diffusics Blood collected. Flushed right forearm with 5 ml normal saline. 13:[address] via wheelchair. sv 13:30 EKG done, by supply chain tech. reviewed by Rm Goldberg MD. at1 13:34 Patient moved back from CT. sv 13:36 CT Head Brain wo Cont Sent. sv 13:36 Basic Metabolic Panel Sent. sv 13:36 CBC with Diff Sent. sv 13:36 LFT's Sent. sv 13:36 Magnesium Sent. sv 13:36 NT PRO-BNP Sent. sv 13:36 PT-INR Sent. sv 13:36 Troponin (emerg Dept Use Only) Sent. sv 13:43 Primary Nurse role handed off by Denisse Lester, RN sv 13:43 Annie Campoverde, CAMACHO is Primary Nurse. sv 14:58 Tori Guy MD is Hospitalizing Provider. hetal 15:23 Urine Culture Sent. sv 15:23 Urine Dipstick--Ancillary (enter results) Sent. sv 15:23 XRAY Chest (1 view) Sent. sv 19:10 Report given to Lisa SAUER. sv 19:14 Primary Nurse role handed off by Annie Campoverde RN sv 19:43 Lisa Garcia RN is Primary Nurse. ea 20:30 No provider procedures requiring assistance completed. IV discontinued, intact, ea bleeding controlled, No redness/swelling at site. Pressure dressing applied. Administered Medications: 13:18 Drug: NS 0.9% 1000 ml Route: IV; Rate: 125 ml/hr; Site: right forearm; sv 15:19 Drug: Aspirin Chewable Tablet 324 mg Route: PO; sv 15:24 Follow up: Response: No adverse reaction sv 15:19 Drug: foLIC Acid 1 mg Route: IVPB; Site: right forearm; sv 15:24 Follow up: Response: No adverse reaction; IV Status: Completed infusion sv Outcome: 15:00 Decision to Hospitalize by Provider. hetal 20:49 Discharged to home ambulatory. ea 20:49 Condition: stable 20:49 Discharge instructions given to patient, Instructed on discharge instructions, follow up and referral plans. medication usage, Demonstrated understanding of instructions, follow-up care, medications. 20:51 Patient left the ED. ea Signatures: Annie Campoverde, RN Rm Piña MD MD cha Williams, Irene, Violet Wood RN, biotechnologist EKG Tat1 Glenny Field rg4 Lisa Garcia RN RN ea Acob, Cheryl RN CAAMCHO ca1 Corrections: (The following items were deleted from the chart) 19:12 18:46 Pulse 68bpm; Resp 16bpm; Pulse Ox 97%; sv sv 19:58 19:49 Reassessment: Pt reports she is ready to leave states "I have been here for 8 ea hours and my dogs are at home alone" Reassessment: Pt reports she is ready to leave states "I have been here for 8 hours and my dogs are at home alone" ea
--- NOTE | 2019-07-02 15:13 | EDPHYS ---
Physician Documentation [facility] Name: Patricia Michael Age: 69 yrs Sex: Female : 1950 Arrival Date: 07/02/2019 Time: 11:52 Bed 20 Private MD: PAULINO Physician Rm Goldberg HPI: 07/02 14:54 This 69 yrs old Female presents to ER via Ambulatory with complaints of hetal Dizziness. 14:54 The patient presents with dizziness, feeling faint. Onset: The symptoms/episode hetal began/occurred yesterday. Modifying factors: The symptoms are alleviated by nothing, the symptoms are aggravated by nothing. Associated signs and symptoms: Pertinent positives: near-syncope. Severity of symptoms: At their worst the symptoms were mild moderate in the emergency department the symptoms have improved moderately. The patient has experienced similar episodes in the past, a few times, loss of vision in right eye, on off last week. Historical: - Allergies: 12:25 Fosamax; ca1 12:25 Vancomycin; ca1 12:25 cefepime; ca1 - Home Meds: 12:25 atorvastatin 20 mg oral tab 1 tab once daily [Active]; Zyrtec Oral [Active]; ca1 montelukast oral oral [Active]; fluticasone nasal nasal [Active]; Symbicort inhalation inhalation [Active]; Orencia (with maltose) 250 mg intravenous solr every 4 wks [Active]; - PMHx: 12:25 Asthma; Glaucoma; Pneumonia; Rheumatoid Arthritis; Macular Degeneration; ca1 - PSHx: 12:25 KNEE REPLACEMENT X 2; SHOULDER X 2; FOOT SURGERY X 8; HAND SURGERY X2; ca1 - Immunization history:: Adult Immunizations up to date, Flu vaccine is up to date. - Coronavirus screen:: The patient has NOT traveled to [place], [place], or [place] in the past 14 days. The patient has NOT had contact with known/suspected case of Coronavirus?. - Social history:: Smoking status: Patient denies any tobacco usage or history of. - Family history:: not pertinent. - Ebola Screening: : Patient negative for fever greater than or equal to 101.5 degrees Fahrenheit, and additional compatible Ebola Virus Disease symptoms Patient denies exposure to infectious person Patient denies travel to an Ebola-affected area in the 21 days before illness onset No symptoms or risks identified at this time. ROS: 14:54 Constitutional: Negative for fever, chills, and weight loss, ENT: Negative for injury, hetal pain, and discharge, Neck: Negative for injury, pain, and swelling, Cardiovascular: Negative for chest pain, palpitations, and edema, Respiratory: Negative for shortness of breath, cough, wheezing, and pleuritic chest pain, Abdomen/GI: Negative for abdominal pain, nausea, vomiting, diarrhea, and constipation, Back: Negative for injury and pain, : Negative for injury, bleeding, discharge, and swelling, MS/Extremity: Negative for injury and deformity, Skin: Negative for injury, rash, and discoloration, Psych: Negative for depression, anxiety, suicide ideation, homicidal ideation, and hallucinations, Allergy/Immunology: Negative for hives, rash, and allergies, Endocrine: Negative for neck swelling, polydipsia, polyuria, polyphagia, and marked weight changes, Hematologic/Lymphatic: Negative for swollen nodes, abnormal bleeding, and unusual bruising. 14:54 Eyes: Positive for vision loss. 14:54 Neuro: Positive for dizziness, weakness. Exam: 14:54 Constitutional: This is a well developed, well nourished patient who is awake, alert, hetal and in no acute distress. Head/Face: Normocephalic, atraumatic. Eyes: Pupils equal round and reactive to light, extra-ocular motions intact. Lids and lashes normal. Conjunctiva and sclera are non-icteric and not injected. Cornea within normal limits. Periorbital areas with no swelling, redness, or edema. ENT: Nares patent. No nasal discharge, no septal abnormalities noted. Tympanic membranes are normal and external auditory canals are clear. Oropharynx with no redness, swelling, or masses, exudates, or evidence of obstruction, uvula midline. Mucous membranes moist. Neck: Trachea midline, no thyromegaly or masses palpated, and no cervical lymphadenopathy. Supple, full range of motion without nuchal rigidity, or vertebral point tenderness. No Meningismus. Chest/axilla: Normal chest wall appearance and motion. Nontender with no deformity. No lesions are appreciated. Cardiovascular: Regular rate and rhythm with a normal S1 and S2. No gallops, murmurs, or rubs. Normal PMI, no JVD. No pulse deficits. Respiratory: Lungs have equal breath sounds bilaterally, clear to auscultation and percussion. No rales, rhonchi or wheezes noted. No increased work of breathing, no retractions or nasal flaring. Abdomen/GI: Soft, non-tender, with normal bowel sounds. No distension or tympany. No guarding or rebound. No evidence of tenderness throughout. Back: No spinal tenderness. No costovertebral tenderness. Full range of motion. Female : Normal external genitalia. Skin: Warm, dry with normal turgor. Normal color with no rashes, no lesions, and no evidence of cellulitis. MS/ Extremity: Pulses equal, no cyanosis. Neurovascular intact. Full, normal range of motion. Neuro: Awake and alert, GCS 15, oriented to person, place, time, and situation. Cranial nerves II-XII grossly intact. Motor strength 5/5 in all extremities. Sensory grossly intact. Cerebellar exam normal. Normal gait. Psych: Awake, alert, with orientation to person, place and time. Behavior, mood, and affect are within normal limits. Vital Signs: 12:25 BP 133 / 73; Pulse 80; Resp 17 S; Temp 98.9(O); Pulse Ox 97% on R/A; Weight 93.89 kg ca1 (R); Height 5 ft. 2 in. (157.48 cm) (R); Pain 3/10; 14:04 BP 146 / 69; Pulse 65 MON; Resp 16; Pulse Ox 99% ; sv 15:00 BP 136 / 77; Pulse 69; Resp 21; Pulse Ox 98% ; sv 16:00 BP 149 / 77; Pulse 67; Resp 22; Pulse Ox 100% ; sv 17:00 BP 117 / 56; Pulse 66; Resp 20; Pulse Ox 96% ; sv 18:46 Pulse 68; Resp 16; Pulse Ox 97% ; sv 19:00 Pulse 70; Resp 18; Temp 98; Pulse Ox 100% on R/A; ea 20:00 Pulse 72; Resp 19; Pulse Ox 98% on R/A; ea 12:25 Body Mass Index 37.86 (93.89 kg, 157.48 cm) ca1 14:04 Sinus Rhythm sv 18:46 Pt is taking off her BP cuff and says that it hurts. Informed pt the importance of sv being monitored. MDM: 12:32 Patient medically screened. [facility] 14:57 Data reviewed: vital signs, nurses notes, EMS record, lab test result(s), EKG, hetal radiologic studies, CT scan, doppler, MRI, plain films. 07/02 12:45 Order name: Basic Metabolic Panel 07/02 12:45 Order name: CBC with Diff 07/02 12:45 Order name: LFT's 07/02 12:45 Order name: Magnesium sv 07/02 12:45 Order name: NT PRO-BNP 07/02 12:45 Order name: PT-INR 07/02 12:45 Order name: Troponin (emerg Dept Use Only) 07/02 12:53 Order name: Urine Culture [facility] 07/02 13:22 Order name: Glucose, Ancillary Testing; Complete Time: 14:36 EDMS 07/02 13:48 Order name: Basic Metabolic Panel; Complete Time: 14:36 EDMS 07/02 13:48 Order name: Liver (Hepatic) Function; Complete Time: 14:36 EDMS 07/02 13:48 Order name: Troponin (Emerg Dept Use Only); Complete Time: 14:36 EDMS 07/02 13:48 Order name: NT PRO-BNP; Complete Time: 14:36 EDMS 07/02 13:48 Order name: Magnesium; Complete Time: 14:36 EDMS 07/02 12:45 Order name: XRAY Chest (1 view) 07/02 12:45 Order name: EKG; Complete Time: 13:20 07/02 12:45 Order name: Cardiac monitoring; Complete Time: 13:37 sv 07/02 12:53 Order name: CT Head Brain wo Cont [facility] 07/02 14:14 Order name: Urine Dipstick--Ancillary (enter results) 07/02 14:14 Order name: CT; Complete Time: 14:36 EDMS 07/02 14:14 Order name: RAD; Complete Time: 14:36 EDMS 07/02 14:19 Order name: CBC with Automated Diff; Complete Time: 14:36 EDMS 07/02 14:19 Order name: Protime (+INR); Complete Time: 14:36 EDMS 07/02 14:54 Order name: MRI Stroke Protocol [facility] 07/02 15:07 Order name: Urine Dipstick-Ancillary; Complete Time: 16:58 EDMS 07/02 19:11 Order name: Thyroid Stimulating Hormone EDSD 02/10 19:30 Order name: Hemoglobin A1c EDMS 07/02 12:45 Order name: EKG - Nurse/Tech; Complete Time: 13:36 07/02 12:45 Order name: IV Saline Lock; Complete Time: 13:36 07/02 12:45 Order name: Labs collected and sent; Complete Time: 13:36 07/02 12:45 Order name: O2 Per Protocol; Complete Time: 13:36 07/02 12:45 Order name: O2 Sat Monitoring; Complete Time: 13:36 07/02 12:53 Order name: Urine Dipstick-Ancillary (obtain specimen); Complete Time: 15:23 [facility] 07/02 13:44 Order name: Labs - recollect needed: recollect blue and lavender top. clotted; Complete bd Time: 15:23 Administered Medications: 13:18 Drug: NS 0.9% 1000 ml Route: IV; Rate: 125 ml/hr; Site: right forearm; sv 15:19 Drug: Aspirin Chewable Tablet 324 mg Route: PO; sv 15:24 Follow up: Response: No adverse reaction sv 15:19 Drug: foLIC Acid 1 mg Route: IVPB; Site: right forearm; sv 15:24 Follow up: Response: No adverse reaction; IV Status: Completed infusion sv Disposition: 07/02/19 15:00 Hospitalization ordered by Tori Guy for Observation. Preliminary diagnosis are Dizziness and giddiness, Amaurosis fugax. - Bed requested for Telemetry/MedSurg (observation). - Status is Observation. ea - Condition is Fair. - Problem is new. - Symptoms have improved. Signatures: Dispatcher [employer] [facility] IsabellafranciaLiya Stephanie, RN RN sv Anderson, Corey, MD MD cha Antunez, Elena, RN RN ea Acob, Cheryl, RN RN ca1 Corrections: (The following items were deleted from the chart) 18:47 15:00 Hospitalization Ordered by Tori Guy MD for Observation. Preliminary diagnosis is bd Dizziness and giddiness; Amaurosis fugax. Bed requested for Telemetry/MedSurg (observation). Status is Observation. Condition is Fair. Problem is new. Symptoms have improved. hetal 20:51 18:47 07/02/2019 15:00 Hospitalization Ordered by Tori Guy MD for Observation. ea Preliminary diagnosis is Dizziness and giddiness; Amaurosis fugax. Bed requested for Telemetry/MedSurg (observation). Status is Observation. Condition is Fair. Problem is new. Symptoms have improved. bd
[2019-07-02] MEDS ORDERED: ONDANSETRON 4 MG/2 ML VIAL IV PRN (17:00)
[2019-07-02] MEDS ORDERED: ZOLPIDEM TARTRATE 5 MG TABLET PO PRN (17:00)
[2019-07-02] MEDS ORDERED: ACETAMINOPHEN 500 MG TAB PO PRN (17:00)
--- NOTE | 2019-07-02 17:42 | EKG ---
Test Date: 2019-07-02 Test Time: 13:21:18 Package Sorter: ANAT MEASUREMENT RESULTS: Intervals: Rate: 61 ME: 168 QRSD: 86 QT: 432 QTc: 434 [place]: P: 51 ME: 168 QRS: -10 T: 53 INTERPRETIVE STATEMENTS: Normal sinus rhythm Normal ECG Compared to ECG 08/15/2016 12:52:42 No significant changes Electronically Signed On 07-02-19 17:42:24 HEEL PACKER by Gopal Mcmullen
[2019-07-02] MEDS ORDERED: NA CHLORIDE 0.9% 1,000 ML IV SCH (18:00)
[2019-07-02] MEDS ORDERED: ENOXAPARIN 40 MG/0.4 ML SQ SCH (18:00)
[2019-07-02 20:20] VITALS: BP 120/70; TEMP 98
--- NOTE | 2019-07-02 20:20 | P.SSS ---
Patient History Date of Service: 07/02/19 Reason for admission: CP R/O ACS Allergies alendronate sodium [From Fosamax] Allergy (Severe, Verified 08/15/16 21:42) Unknown Home Medications: Atorvastatin Calcium [Lipitor*] 10 mg PO BEDTIME 08/16/16 Benzonatate [Tessalon Perle*] 100 mg PO TIDP PRN 08/16/16 Cetirizine HCl [Zyrtec] 10 mg PO BEDTIME 08/16/16 Fluticasone [Flonase 50MCG Nasal [place]*] 2 sprays NS BID 08/16/16 Fluticasone/Salmeterol [Advair 500/50 Diskus*] 1 puff IH BID 08/16/16 Guaifenesin/Codeine Phosphate [Guaifen-Codeine 100-10 mg/5 ml] 10 ml PO Q6HP PRN 08/16/16 Montelukast [Singulair*] 10 mg PO BEDTIME 08/16/16 Phenylephrine HCl [Nasal Decongestant PE] 10 mg PO PRN 08/16/16 levoFLOXacin [Levaquin*] 500 mg PO DAILY #10 tab 08/18/16 predniSONE [Deltasone*] 10 mg PO SEECOM #14 tab 08/18/16 Aspirin [Ecotrin 81 MG] 162 mg PO DAILY #60 tablet. 07/02/19 - Past Medical/Surgical History -: RA -: Dupuytren's Syndrome -: Asthma -: narrow angle glaucoma -: macular degeneration -: bilateral lymphedema -: bilateral knee replacement -: R hand graft -: L foot surgeryx8 -: Bilateral schoulder surgery -: hysterectomy - Family History Father -: Diabetes, Stroke, Other (see notes) Notes: type 1 DM, alcoholism Mother -: Lung disease, Diabetes, Other (see notes) Notes: Alzheimers, black lung from coal Brother -: Diabetes, Other (see notes) Notes: macular degenreation - Social History Alcohol use: Yes CD- Drugs: No Caffeine use: Yes Review of Systems 10-point ROS is otherwise unremarkable Physical Examination - Vital Signs Temperature: 98 F Blood Pressure: 120/70 Pulse: 80 Respirations: 18 Pulse Ox (%): 99 - Physical Exam General: Alert, In no apparent distress, Oriented x3 HEENT: Atraumatic, PERRLA, Mucous membr. moist/pink, EOMI, Sclerae nonicteric Neck: Supple, 2+ carotid pulse no bruit, No LAD, Without JVD or thyroid abnormality Respiratory: Clear to auscultation bilaterally, Normal air movement Cardiovascular: Regular rate/rhythm, Normal S1 S2, No murmurs Gastrointestinal: Normal bowel sounds, Soft and benign, Non-distended, W/out succussion splash, No tenderness Musculoskeletal: No clubbing, No swelling, No tenderness Integumentary: No rashes Neurological: Normal gait, Normal speech, Normal strength at 5/5 x4 extr, Normal tone, Sensation intact, Cranial nerves 3-12 intact, Normal affect Lymphatics: No axilla or inguinal lymphadenopathy - Studies Laboratory Data (last 24 hrs) 07/02/19 14:05: PT 11.4, INR 0.96 07/02/19 14:05: WBC 7.5, Hgb 12.6, Hct 37.7, Plt Count 292 07/02/19 13:05: Sodium 140, Potassium 3.8, BUN 15, Creatinine 0.85, Glucose 132 H, Magnesium 2.3, Total Bilirubin 0.3, AST 15, ALT 20, Alkaline Phosphatase 99 - Disposition Disposition: ROUTINE DISCHARGE Condition: GOOD Patient Discharge Instructions: OK TO DC IV AND DC HOME. FOLLOW-UP WITH PCP IN 1-2 WEEKS. OUTPT FOLLOW-UP WITH CARDIOLOGY IN 1 WEEK FOR FOLLOW-UP STRESS TESTING. CALL DR. MONIQUE AT [phone] IF ANY QUESTIONS REGARDING HER SHORT STAY IN THE ER. RETURN TO THE ER IF CHEST PAIN WORSENS Diet: AHA Activity: Fall precautions Time Spent Managing Pts Care (In Minutes): 30
--- NOTE | 2019-07-02 23:34 | CON ---
Identification: A 69-year-old woman. History Of Present Illness: Ms. Michael recently had an echo and carotid because her eye doctor though t there were some retinal problems that should be explained. Both of those tests were unremarkable a nd would not explain any cardiac or vascular emboli to the brain. She does not seem to be having any of those anyway. She has macular degeneration and glaucoma. Following those tests, she had an inte nse episode of vertigo. She could barely walk to her bathroom. She threw up, felt better after abou t 15 minutes, and that was yesterday. Today, she felt mildly vertiginous, decided to come to the [facility]. She called her doctor to see what the results of the echo and carotid Doppler were and the do ctor told her to go to the ER. Her doctor is at [facility], but she came to our emergency room. The patie nt has never had myocardial infarction or stroke. She has rheumatoid arthritis, glaucoma, macular de generation, hypertension. Allergies: SHE IS ALLERGIC TO ALENDRONATE. Past Surgical History: She has had ankle surgery. No history of vascular surgery, heart caths, sten ts. Social History: She uses no tobacco. Rare alcohol. No illegal drugs. She also has asthma. Medications: Her outpatient medications are atorvastatin, Zyrtec, montelukast, fluticasone nasal spr ay, Symbicort, Orencia. Physical Examination: General: She is alert, oriented, pleasant, not in distress. Very talkative. HEENT: Unremarkable. No carotid bruit. Heart: Within normal limits. Abdomen: Soft. Extremities: No edema, although her legs have a lot of adipose tissue that looks like edema. Distal pulses are normal. Impression: The patient had an episode of vertigo that prompted her emergency room visit. There is nothing that indicated say arrhythmia or an acute coronary syndrome or threatened stroke and I think if we teach her Apley's maneuvers and reassure her, she can probably be discharged soon. HEATHER/TOBY Voice ID: [id number] Report ID: [id number]
--- NOTE | 2019-07-03 02:23 | HP ---
Date of Admission: 07/02/2019 Chief Complaint: Dizziness. History Of Present Illness: This patient is a 69-year-old female who presented for recurrent dizziness. She has a history of asthma and rheumatoid arthritis. She has been living by herself and had been functional until recently. This patient had reportedly been feeling dizzy recently. She said that she worked 2 days ago in the garden at day time without any issue, but she started to experience dizziness at night. She felt very dizzy and almost fell. She did not pass out. This is associated with some nausea and vomiting. No shortness of breath or chest pain. No fever or chills. The dizziness episode got better , but again it came back yesterday. She had a sensation of spilling and she could not get up from sitting. She did not pass out. This is associated with weakness and fatigue. She reported blurred vision recently for which she saw veterinary medical officer. She also underwent carotid artery ultrasound, which demonstrated very mild stenosis. Her echo at last week demonstrated ejection fraction above 60. This patient drove to the emergency room for recurrent dizziness. In the ED, WBC normal. Renal function normal. Liver function within normal range. Blood sugar 132. Head CT does not demonstrate acute intracranial abnormality. EKG and chest x-ray unremarkable. She was admitted for further observation. Past Medical History: 1. Asthma. 2. Rheumatoid arthritis. 3. Knee replacement. Allergies: THE PATIENT IS ALLERGIC TO FOSAMAX AND VANCOMYCIN AND CEFEPIME. Home Medications: Please see home medication list. Review of Systems: No headaches. No hearing change. No runny nose or sore throat. No cough or chest pain. No abdominal pain. No dysuria or hematuria. For the rest of review of systems, please see HPI. Social History: The patient is living by herself. No alcohol abuse, no tobacco abuse. Physical Examination: General: Patient awake and alert, in no acute distress. Vital Signs: Stable. HEENT: Atraumatic, normocephalic. PERRLA. EOMI. Neck: Supple. No JVD. Chest: Clear to auscultation. No respiratory distress. No wheezing. Heart: Normal S1, S2. Regular rhythm and rate. No murmur. Abdomen: Soft, no tenderness, hypoactive bowel sounds. Extremities: No edema. No cyanosis. Neuro: Patient awake, alert, and oriented x3. Nonfocal. Psych: No anxiety or agitation. Skin: No rashes or eczema. Laboratory Data: CMP and CBC unremarkable. Head CT unremarkable. Assessment And Plan: This patient is 69-year-old female, who presented for recurrent dizziness. Workup including CBC, CMP, EKG, chest x-ray, head CT are unremarkable, so underlying etiology is unknown. The possible causes including viral syndrome and cardiac issue. Wide Piece Goods Inspector will be consulted. 1. Dizziness and near syncope. CT head unremarkable. Recent carotid ultrasound and echo are unremarkable. PT was ordered. Wide Piece Goods Inspector will be consulted. We will give gentle hydration. 2. Asthma, this is stable. No wheezing. No shortness of breath. 3. Rheumatoid arthritis, this is relatively stable. 4. Deep venous thrombosis prophylaxis. Lovenox 40 mg daily. Further plan will be based on patient's condition. QT/MODL Voice ID: [id number] MTDD
[2019-07-04 21:09] VITALS: O2SAT 97
== END 2019-07-02 20:52 | disposition home or self-care (01) ==
LOC: ER 11:49 → ERHOLD 17:05 → 4TH 20:10
PROVIDERS: ADMIT Internal Medicine; ATTEND Internal Medicine
DX: R42 Dizziness and giddiness (principal); R55 Syncope and collapse; J45.909 Unspecified asthma, uncomplicated; M06.9 Rheumatoid arthritis, unspecified; Z96.653 Presence of artificial knee joint, bilateral
CPT/HCPCS: 93005; 87088; 85025; 87086; 80048; 36415; 83735; 85610; 82947; 80076; 84443; 81003; 83036; 84484; 83880; 70450; 71045; 94760; 96374; 99285; J7030; G0378 ×2

== ENCOUNTER → 2020-10-01 | Day surgery (SDC) | payer OTHER ==
[~2020-10-01] MED LIST: BUPIVACAINE 0.25% PF 10 ML VIAL ONE; CEFAZOLIN/SWI 1gm 1 GM/10 ML SYR ONE; FENTANYL CITR 100 MCG/2 ML ONE; GLYCOPYRROLATE 0.2 MG/ML SYR ONE; HEPARIN 500 UNIT/5 ML SYR IV ONE; HYDROCODONE/APAP 7.5/325 MG TAB ONE; HYDROCODONE/APAP 7.5/325 MG TAB PO ONE; LIDOCAINE 2% MPF 5 ML VIAL ONE; MIDAZOLAM HCL 2 MG/2 ML INJ ONE; Ringers Lactate 1,000 ML IV ONE; propofoL 200 MG/20 ML VIAL IV ONE
--- NOTE | 2020-10-01 14:29 | P.OP ---
Preoperative diagnosis: RIGHT lower extremity (bravo) chronic wound Postoperative diagnosis: RIGHT lower extremity (bravo) chronic wound Primary procedure: Debridement of RIGHT lower extremity (bravo) chronic wound Anesthesia: GETA + Local Estimated blood loss: <5cc Specimen: debridement tissue Findings: ~5 cm x 3cm down into adipose tissue Complications: None Transferred to: Recovery Room Condition: Good
[2020-10-01] MEDS: MORPHINE 4 MG/ML SYR ONE ×2 (14:49→14:59)
[2020-10-01] MEDS: MEPERIDINE HCL 25 MG/ML SYR ONE ×2 (15:09→15:15)
[2020-10-01 15:13] VITALS: O2SAT 100
[2020-10-01 16:31] VITALS: BP 133/58; TEMP 98.1
--- NOTE | 2020-10-01 22:47 | OP ---
Date of Procedure: 10/01/2020 Surgeon: Rk Parker MD, Preoperative Diagnosis: Right lower extremity bravo chronic wound. Postoperative Diagnosis: Right lower extremity bravo chronic wound. Procedure Performed: Debridement of right lower extremity bravo chronic wound. Anesthesia: General endotracheal plus local. Estimated Blood Loss: Less than 5 cc. Specimen: Debridement of tissue. Findings: A 5 cm x 3 cm wound with skin ischemia down to adipose tissue. Complications: None. Disposition: The patient transferred to recovery room in good condition. Procedure In Detail: Procedure In Detail: After informed consent was obtained, the patient was brought to the operating r oom, prepped and draped in the usual sterile fashion after adequate anesthesia was achieved. With ge neral anesthesia, I anesthetized the area around the right bravo down to subcutaneous tissues and the fatty plane. At this point, I made an elliptical incision for approximately 5 cm x 3 cm down the sub cutaneous fat with a 15 blade removing the skin and subcutaneous tissues. After this was sent off [facility] pathologic examination as a specimen designated as debridement tissue. Achieved hemostasis with el ectrocautery circumferentially around, irrigated the area copiously multiple times and dried it until completely dry with no additional hemostatic measures required. The wound was then packed with ster ile gauze, damp to dry, and sterile wrap placed over the top. The patient tolerated the procedure we ll without evidence of complication and transferred to PACU in good condition. All counts were corre ct at the end of the case. JOSE/TOBY Voice ID: [id number] Report ID: [id number]
== END | disposition home or self-care (01) ==
LOC: OR 11:10
PROVIDERS: ATTEND Surgery
PROC: 0JBN0ZZ Excision of Right Lower Leg Subcutaneous Tissue and Fascia, Open Approach (ICD-10-PCS; principal; 2020-10-01 13:00)
DX: S81.801D Unspecified open wound, right lower leg, subsequent encounter (principal); Z20.822 Contact with and (suspected) exposure to COVID-19
CPT/HCPCS: 88304; 11042; U0003; J2704; J2250; J3010; J2175; J1642 ×2; J0690; J7120

== ENCOUNTER 2022-11-20 15:05 | Emergency (ER) | payer OTHER ==
--- OUTSIDE RECORDS SUMMARY | 2022-11-20 15:39 | XMS REPORT | Continuity of Care Document ---
:1950 Author Organization [facility] t Address [address] [facility] [address] [place] [address] Care Team Providers Name Role Phone Unknown, Physician Primary Care Physician Unavailable BILL FOFANA Attending Clinician Unavailable BILL FOFANA Attending Clinician Unavailable Calvin Goss Attending Clinician Unavailable RADIOLOGY Attending Clinician Unavailable Cira Guerrero Attending Clinician Unavailable Coral Nava Attending Clinician JOSUE Attending Clinician Unavailable JIMY CANCINO Attending Clinician Unavailable Jimy Cancino Attending Clinician Mary Alvarez Attending Clinician Unavailable Jean Paul Carranza RN Attending Clinician Unavailable IHSAN MARQUEZ Attending Clinician Unavailable IHSAN MARQUEZ Attending Clinician Unavailable Fred Glynn Attending Clinician Ryan Hernandez DO Attending Clinician Kaiser Mejia MD Attending Clinician Valerio Laws MD Attending Clinician Ryan Mendosa CRNA Attending Clinician TRINITY SELF Attending Clinician Unavailable Vanessa Ocampo Attending Clinician Unavailable Glenny Jones MD Attending Clinician Radiology Attending Clinician Unavailable Addie Holbrook Attending Clinician [phone] Carlene Dempsey MD Attending Clinician [email or web address]_[email or web address] Attending Clinician Unavailable Doctor Unassigned, [place] Attending Clinician Unavailable RENNY CAVAZOS Attending Clinician Unavailable BILL FOFANA Admitting Clinician Unavailable Physician, No Primary or Family Admitting Clinician Unavaillexi HOLBROOK_Lexi Admitting Clinician Unavailable Mary Alvarez Admitting Clinician Unavailable KAISER MEJIA Admitting Clinician Unavailable josue Admitting Clinician Unavailable ADDIE HOLBROOK Admitting Clinician Unavailable RENNY CAVAZOS Admitting Clinician Unavailable Payers Payer Name Policy Type Policy Number Effective Date Expiration Date S katya MAKTJIM [id number] 2021 2021 00:00:00 00:00:00 MEDICARE PART A \\T\\ [id number] 2013 B 00:00:00 [employer] [id number] 2014 00:00:00 MEDICARE B-[place]: [id number] 2013 [employer] SOLUTIONS 00:00:00 [employer] [id number] INSURANCE (MEDICARE SUPPLEMENT) MEDICARE PART A AND [id number] 2013 B 00:00:00 [place]AN [id number] CONTINENTAL INS CO - PLAN F (MEDICARE SUPPLEMENT) Problems Condition Condition Condition Status Onset Resolution Last Treating Co mments Source Name Details Category Date Date Treatment Clinician Date I89.0 I89.0 Diagnosis Active 2022-11-08 Mem oria Active 10-27 09:15:00 l 10/27/2022 08:00: Cr TELLEZ TIRR 00 Herpes Herpes Problem Active [place] zoster Zoster -17 Communi 00:00: ty 00 [facility]osp[facility] Clinics LYMPHEDEMA LYMPHEDEM Diagnosis Active 2022-08-12 Memoria LEFT LEG A LEFT LEG 3-10 10:39:00 l Active 00:00: Abundio 07/30/2022 00 [facility] Paroxysmal Paroxysmal Problem Active S [place] atrial Atrial 2-07 Communi flutter Flutter 00:00: ty 00 [facility] Atrial Atrial Disease Active Univers fibrillati fibrillati 1-24 it y of on with on with 00:00: [place] RVR RVR 00 Medical Branch Screening Screening Problem Active Swe eboni for for 6-16 Communi malignant Malignant 00:00: ty neoplasm Neoplasm 00 Hospit a of breast of Breast [facility] 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 01-21 Health nonexudati nonexudati 00:00: ve ve 00 age-relate age-relate d macular d macular degenerati degenerati on of both on of both eyes eyes Anatomical Anatomical Disease Active U T narrow narrow 01-21 Health angle of angle of 00:00: both eyes both eyes 00 Right Right Disease Active [facility] posterior posterior 01-21 Heal th capsular capsular 00:00: opacificat opacificat 00 ion ion Pseudophak Pseudophak Disease Active U T ia ia 01-21 Health 00:00: 00 Cellulitis Cellulitis Problem Active S [place] of lower of Lower 4-26 Commun i limb Limb 00:00: ty 00 [facility] Lymphedema Lymphedema Problem Active 2019-05 S [place] 2-17 Communi 00:00: ty 00 [facility] Long-term Long-term Problem Active 2019-05 Swe e[place]i drug Drug 2-17 Communi therapy Therapy 00:00: ty 00 [facility] Cough Cough Problem Active [place] 1-07 Communi 00:00: ty 00 [facility] Right Right Problem Active [place] flank pain Flank Pain 1-07 Co mmuni 00:00: ty 00 [facility] Seasonal Seasonal Problem Active [place] allergic Allergic 9-16 Commun i rhinitis Rhinitis 00:00: ty 00 [facility] Asthma Asthma Problem Active [place] 9-16 Communi 00:00: ty 00 [facility]ospita [facility] Clinics Impaired Impaired Problem Active [place] glucose Glucose 9-16 Communi tolerance Tolerance 00:00: ty 00 [facility]osp[facility] Clin[facility] Hyperlipid Hyperlipid Problem Active S gold emia emia 3-12 Communi 00:00: ty 00 [facility]ospita [facility] Clinics Rheumatoid Rheumatoid Problem Active S gold arthritis Arthritis 3-12 Comm uni 00:00: ty 00 Hospita l Clinics Hyperglyce Hyperglyce Problem Active S gold harmon faustino 3-12 Communi 00:00: ty 00 [facility]ospita [facility] Clinics Pain of Pain of Problem Active [place] right Right 3-12 Communi shoulder Shoulder 00:00: ty joint Joint 00 Hospita l Clinics Surgical Surgical Disease [facility] 2017[facility] infection infection 00:[facility]: Medi angie 00 Center Rheumatoid Rheumatoid Disease Recurre 2017-[address] [facility] arthritis arthritis nce 2-06 [facility] s 00:00: Medical 00 Center Closed Closed Disease Active 2017-[address] [facility] 4-part 4-part 2-06 [facility] fracture fracture 00:00: Medica l of of 00 Center proximal proximal humerus humerus Closed Closed Disease Active 2017-[address] [facility] fracture fracture 2-06 [facility] of right of right 00:00: Medica l proximal proximal 00 Center humerus humerus Encounter Encounter Disease Active 2016-05 Met elieceri for for 2-18 st screening screening 00:00: Hosp gene mammogram mammogram 00 l for breast for breast cancer cancer Fatigue, Fatigue, Disease Active Unive rs unspecifie unspecifie 11-16 it y of d type d type 00:00: [place] [facility] Hypovitami Hypovitami Disease Active U nivers nosis D nosis D 6 ity of 00:00: [place] [facility] Knee joint Knee joint Disease Active U nivers replacemen replacemen 5-12 it y of t status t status 00:00: [place] [facility] Pain in Pain in Disease Active Univers both hands both hands 5-12 it y of 00:00: [place] [facility] H/O H/O Disease Active Univers rheumatoid rheumatoid 5-12 it y of arthritis arthritis 00:[place] Lymphedema Lymphedema Disease Active 2017-0 U nivers 5-12 ity of 00:00: [place] 00 Medical Branch Knee joint Knee joint Disease Active U nivers replacemen replacemen -12 it y of t status t status 00:00: [place] [facility] At risk At risk Disease Active 2016- Univers for bone for bone 5-12 ity of density density 00:00: [place] loss loss 00 Medical Branch Rheumatoid Rheumatoi Problem Active 2022-10-29 Memoria arthritis d - 09:11:18 l (disorder) arthritis 00:00: Her delgado (disorder) 00 Active 06/12/2014 Problem 10/29/2022 Data migrated from [employer] on 06/09/15. Originally documented as Rheumatoid arthritis. [facility] LYMPHEDEMA LYMPHEDEM Diagnosis Active 2022-08-18 Memoria , NOT A, NOT 08:07:00 l ELSEWHERE ELSEWHERE Herm leana CLASSIFIED CLASSIFIED Active [facility] TIRR Allergies, Adverse Reactions, Alerts Allergy Allergy Status Severity Reaction(s) Onset Inactive Treating Comm ents Source Name Type Date Date Clinician vancomyc DA Active SV SKIN TURNS 2022-0 [facility] in RED AND 6-13 Clear PEELS OFF 00:00: Diaz 00 [facility] cefepime DA Active SV SKIN TURNS 2022-0 [facility] RED AND 6-13 Clear PEELS OFF 00:00: Diaz 00 [facility] vancomyc DA Active SV 2020-0 [facility] in 6-11 Clear 00:00: Diaz 00 [facility] cefepime DA Active SV 2020-0 [facility] 6-11 Clear 00:00: Diaz 00 [facility] vancomyc DA Active SV SKIN TURNS 2020-0 [facility] in RED AND 6-11 Clear PEELS OFF 00:00: Diaz 00 [facility] cefepime DA Active SV SKIN TURNS 2020-0 [facility] RED AND 6-11 Clear PEELS OFF 00:00: Diaz 00 [facility] Cefepime Propensi Active Rash 2020-0 Red and Metho di ty to 2-[address] adverse 00:00: skin on Hospita reaction 00 face, l s to arms, and drug abdomen, swollen face and eyes CEFEPIME DRUG Active High Hives 2020-0 Univers INGREDI 2-07 ity of 00:00: [place] [facility] VANCOMYC DRUG Active High Hives 2020-0 Univers IN INGREDI 2-07 ity of 00:00: [place] [facility] Branch Cefepime Propensi Active Rash Red and Unive rs ty to 2-07 scalding ity of adverse 00:00: skin on [place] reaction face, Medical s arms, and Branch abdomen, swollen face and eyes Vancomyc Propensi Active Rash 2019- Severe Univer s in ty to 2-07 redness ity of adverse 00:00: and skin [place] reaction scaling Medical s on face, Branch arms, and abdomen Vancomyc Propensi Active Rash Severe Method i in ty to 1-[address] adverse 00:00: and skin Hospita reaction scaling l s to on face, drug arms, and abdomen Alendron Propensi Active 2017-[address] ate ty to 2-20 stomach [facility] adverse 00:00: Medical reaction 00 Center s Methotre Propensi Active 2017-[address] xate ty to 2-20 stomach [facility] Analogue adverse 00:00: Medical s reaction 00 Center s Ibandron Propensi Active 2017-05 Stomach [facility] t ate ty to 2-05 upset [facility] adverse 00:00: Medical reaction 00 Center s Alendron Propensi Active 2016-05 Stomach Metho di ate ty to 2-[address] adverse 00:00: tolerate Hospita reaction 00 medicatio l s to n drug IBANDRON DRUG Active Unknown-Cmnt Un lelia ATE 5-12 ity of 00:00: [place] 00 Medical Branch PRAVASTA DRUG Active Unknown-Cmnt Un lelia TIN INGREDI 5-12 ity of SODIUM 00:00: [place] [facility] Ibandron Propensi Active Unknown - Uni vers ate ty to See comments 5-12 ity of adverse 00:00: [place] reaction 00 Medical s Branch Pravasta Propensi Active Unknown - Uni vers tin ty to See comments 5-12 ity of Sodium adverse 00:00: [place] reaction Medical s Branch ALENDRON DRUG Active Unknown-Cmnt Un lelia ATE INGREDI 8-30 ity of SODIUM 00:00: [place] [facility] Alendron Propensi Active Unknown - Uni vers ate ty to See comments 8-30 ity of Sodium adverse 00:00: [place] reaction 00 Medical s Branch alendron alendron Active Memori a ate<sup> ate<sup> l 1</sup> 1</sup> Abundio Boniva Allergy Active [place] to Communi substanc ty e Hospita l Clinics Cefepime Allergy Active Severe Anaphylaxis [place] to Communi substanc ty e Hospita l Clinics Fosamax Allergy Active [place] to Communi substanc ty e Hospita l Clinics Vancomyc Allergy Active Moderate Anaphylaxis [place] in to to severe Communi substanc ty e Hospita l Clinics Family History Family Member Diagnosis Comments Start Date Stop Date Source Paternal aunt Breast cancer [facility] Paternal aunt Colon cancer [facility] [place] [facility] Paternal grandmother Breast cancer [facility] Paternal grandmother Colon cancer [facility] Maternal aunt Breast cancer [facility] Natural daughter [facility]rological [facility] [place] Natural mother Diabetes [facility] Social History Social Habit Start Date Stop Date Quantity Comments Source History SDOH Social Unive rsity of Connections [facility] Med ical Together Branch History SDOH Social Unive rsity of Connections [facility] History SDOH Social Unive rsity of Connections [place] [facility] Membership Branch History SDOH Social Unive rsity of Connections [place] [facility] Meetings Branch Gender identity [facility] [place] [facility] Sexual orientation [facility] Exposure to 2022-06-05 2022-06-15 Not sure University of SARS-CoV-2 (event) 00:00:00 11:36:00 [place] [facility] History SDOH 2022-06-15 2022-06-15 2 University o f Alcohol Frequency 00:00:00 00:00:00 [place] M edical Branch History SDOH 2022-06-15 2022-06-15 1 University o f Alcohol Std Drinks 00:00:00 00:00:00 [place] [facility] History SDOH 2022-06-15 2022-06-15 1 University o f Alcohol Binge 00:00:00 00:00:00 [place] Medic al Branch History SDOH Social 2022-06-15 2022-06-15 5 Unive rsity of Connections Phone 00:00:00 00:00:00 [place] M edical Branch History SDOH Social 2022-06-15 2022-06-15 7 Unive rsity of Connections Living 00:00:00 00:00:00 [place] [facility] History SDOH 2022-06-15 2022-06-15 0 University o f Physical Activity 00:00:00 00:00:00 [place] M edical DPW Branch History SDOH 2022-06-15 2022-06-15 0 University o f Physical Activity 00:00:00 00:00:00 [place] M edical MPS Branch History SDOH 2022-06-15 2022-06-15 5 University o f Financial 00:00:00 00:00:00 [place] [facility] History SDOH Food 2022-06-15 2022-06-15 1 Univers ity of Worry 00:00:00 00:00:00 [place] [facility] History SDOH Food 2022-06-15 2022-06-15 1 Univers ity of Scarcity 00:00:00 00:00:00 [place] [facility] History SDOH 2022-06-15 2022-06-15 2 University o f Transport Med 00:00:00 00:00:00 [place] Medic al Branch History SDOH 2022-06-15 2022-06-15 2 University o f Transport Non-Med 00:00:00 00:00:00 [facility] edical Branch History of Social 2021-12-24 2021-12-[address] function 00:00:00 00:00:00 Hospital Alcohol intake 2018-05-12 2018-05-12 [facility] Alcohol Comment 2018-04-26 2018-04-[address] [facility] 00:00:00 00:00:00 [facility] Center Tobacco use and 2017-05-09 2017-05-09 Smokeless tobacco [facility] exposure 00:00:00 00:00:00 non-user Hospital Sex Assigned At [address] [facility] 00:00:00 00:00:00 Medical Center Smoking Status Start Date Stop Date Source Never smoked tobacco [facility] Medications Ordered Filled Start Stop Current Ordering Indication Dosage Frequency Signature Comments Components Source Medication Medication Date Date Medication? Clinician (SIG) Name Name vitamin Yes [id number] 1000ug Take 1 Univers B-12 1,000 2-01 9109 tablet by ity of mcg tablet 00:00: mouth in [place] 00 the Medical morning. Branch vitamin 2023-0 Yes [id number] 1000ug Take 1 Univers B-12 1,000 2 9109 tablet by ity of mcg tablet 00:00: mouth [place] 00 the Medical morning. Branch vitamin 2022-0 3- No [id number] 1000ug Take 1 Univers B-12 1,000 06-23 9109 tablet by ity of mcg tablet 00:00: 05:59 [place] :00 the Medical morning Branch for 30 days. vitamin 2022-0 3- No [id number] 1000ug Take 1 Univers B-12 1,000 06-23 9109 tablet by ity of mcg tablet 00:00: 00:00 [place] :00 the Medical morning Branch for 30 days. heparin 2022-0 2022- No 500U 500 Units, Uni vers lock flush 06-22 IV Push, ity of (HEPARIN 22:45: 22:11 ONCE, 1 [place] LOCKFLUSH(P 00 :00 dose, On Medi angie ORCINE)(PF) [facility] ) 100 06/22/22 at unit/mL 1645, injection Routine 500 Units Cetirizine Yes Take by Univ ers (ZYRTEC) 10 06-22 mouth. ity of mg capsule 16:36: [address] Branch Cholecalcif Yes Take by Uni vers evelin, 06-22 mouth. ity of Vitamin D3, 16:36: [place] 2,000 unit 46 Medical capsule Branch NaCl 0.9% 0 Yes Inject Univer s (NS) 0.9 % 06-22 intravenou ity of SolP 100 mL 16:36: [place]. [place] [id number] Medical abatacept Branch 250 mg SolR Cetirizine 0 Yes Take by Univ ers (ZYRTEC) 10 06-22 mouth. ity of mg capsule 16:36: [address] Branch Cholecalcif 0 Yes Take by Uni vers evelin, 06-22 mouth. ity of Vitamin D3, 16:36: [place] 2,000 unit 46 Medical capsule Branch NaCl 0.9% 0 Yes Inject Univer s (NS) 0.9 % 06-22 intravenou ity of SolP 100 mL 16:36: sly. [place] with 46 Medical abatacept Branch 250 mg SolR Cetirizine Yes Take by Univ ers (ZYRTEC) 10 1-31 mouth. ity of mg capsule 11:36: [place] 40 Medical Branch Cholecalcif Yes Take by Uni vers evelin, -31 mouth. ity of Vitamin D3, 11:36: [place] 2,000 unit 40 Medical capsule Branch NaCl 0.9% Yes Inject Univer s (NS) 0.9 % 06-22 intravenou ity of SolP 100 mL 11:36: y. [place] with 40 Medical abatacept Branch 250 mg SolR metoprolol Yes 25mg 25 mg, Unive rs tartrate 06-22 Oral, BID, ity o f (LOPRESSOR) 02:00: First dose [place] tablet 25 00 (after Medical mg last Branch modificati on) on Tue06/21/22 at 1999, Until Discontinu ed, Routine apixaban 5 0 Yes 1358 5mg Take 1 Unive rs mg tablet 06-22 tablet by ity o f 00:00: mouth in [place] 00 the Medical morning Branch and 1 tablet in the evening. Indication s: atrial fibrillati on metoprolol 0 Yes [id number] 25mg Take 1 Univers tartrate 25 06-22 9109 tablet by ity of mg tablet 00:00: mouth in [facility] s 00 the Medical morning Branch and 1 tablet in the evening. apixaban 5 2022-0 Yes 1358 5mg Take 1 Unive rs mg tablet 06-22 tablet by ity o f 00:00: mouth in [place] 00 the Medical morning Branch and 1 tablet in the evening. Indication s: atrial fibrillati on metoprolol 0 Yes [id number] 25mg Take 1 Univers tartrate 25 06-22 9109 tablet by ity of mg tablet 00:00: mouth in [facility] s 00 the Medical morning Branch and 1 tablet in the evening. metoprolol 2022-0 2022- No [id number] 25mg Take 1 Univers tartrate 25 06-22 04-02 9109 tablet by it y of mg tablet 00:00: 04:59 mouth in [place] :00 the Medical morning Branch and 1 tablet in the evening. Do all this for 60 days. apixaban 5 2022- No 1358 5mg Take 1 Univ ers mg tablet 06-22 0318 tablet by ity of 00:00: 04:59 mouth in [place] 00 :00 the Medical morning Branch and 1 tablet in the evening. Do all this for 45 days. Indication s: atrial fibrillati on apixaban 5 2022- No 1358 5mg Take 1 Univ ers mg tablet 06-22 tablet by ity of 00:00: 00:00 mouth in [place] 00 :00 the Medical morning Branch and 1 tablet in the evening. Do all this for 45 days. Indication s: atrial fibrillati on metoprolol 2022- No [id number] 25mg Take 1 Univers tartrate 25 06-22 9109 tablet by it y of mg tablet 00:00: 00:00 mouth in [place] 00 :00 the Medical morning Branch and 1 tablet in the evening. Do all this for 60 days. apixaban Yes 5mg 5 mg, Univers (ELIQUIS) 06-20 Oral, BID, ity of tablet 5 mg 02:00: First dose [place] 00 on [facility] 06/19/22 at [place] 1999, Until Discontinu ed, Routine
Indicatio ns: Non-Valvul ar Atrial Fibrillati on amiodarone 2022- No 200mg 200 mg, Un lelia (PACERONE) 06-19 Oral, BID, it y of tablet 200 02:00: 22:38 First dose [place] mg 00 :11 on [facility] 06/18/22 at [place] 1999, Until Discontinu ed, Routine aspirin No 81mg 81 mg, Univers chewable 06-17 Oral, ity of tablet 81 15:00: 18:29 DAILY, [place] mg 00 :50 First dose Medical on [facility] 06/17/22 at 0900, Until Discontinu ed, Routine metoprolol 2022- No 75mg 75 mg, Univ ers tartrate 06-17 Oral, BID, ity of (LOPRESSOR) 14:00: 22:38 First dose [place] tablet 75 00 :11 (after Medical mg last Branch modificati on) on [facility] 06/17/22 at 0800, Until Discontinu ed, Routine metoprolol No 50mg 50 mg, Univ ers tartrate 06-17 Oral, BID, ity of (LOPRESSOR) 02:00: 13:44 First dose [place] tablet 50 00 :09 (after Medical mg last Branch modificati on) on Tue06/16/22 at 2000, Until Discontinu ed, Routine perflutren No [id number] 3mL 3 mL, IV Univers protein-A 06-16 9109 Push, ity of microsphr 18:45: 17:06 ONCE, 1 [place] (OPTISON) 00 :00 dose, On Medica l injection 3 Tue Branch mL 06/16/22 at 1245, Routine metoprolol No 25mg 25 mg, Univ ers tartrate 06-16 Oral, ity of (LOPRESSOR) 16:30: 16:09 ONCE, 1 [place] tablet 25 00 :00 dose, On Medica l mg Tue Branch 06/16/22 at 1030, Routine dextrose Yes 250mL 250 mL, IV Un lelia 10% (D10W) -25 Infusion, ity of bolus 15:47: PRN - SEE [place] infusion 20 INSTRUCTIO Medic al 250 mL NS, Branch Administer over 60 Minutes, Other, If blood glucose is < or = 70 mg/dL and patient is unable to swallow or has mental status changes, Starting on Tue06/16/22 at 0947
If blood glucose is < or = 70 mg/dL and patient is unable to swallow or has mental status changes (Give glucagon order if patient needs fluid restrictio n): IF IV access available: Dextrose 10%. 1. 125 mL (? bag) of D10W IV infusion - equivalent to 12.5 g dextrose 2. Blood glucose - draw blood glucose 15 minutes after D10W Administra tion. 3. If blood glucose is < 80 mg/dL, repeat.
glucagon Yes 1mg 1 mg, Univers (GLUCAGEN 1-25 Intramuscu ity of DIAGNOSTIC 15:47: lar, PRN, [place] KIT) 15 Starting Medical injection 1 on Tue Branch mg 06/16/22 at 0947, Until Discontinu ed, MARYCHUY, Blood Glucose < or = 70 mg/dL and patient is NPO, unable to swallow or has mental changes. vitamin 2022-0 Yes 1000ug 1,000 mcg, Un lelia B-12 -25 Oral, ity of (CYANOCOBAL 15:00: DAILY, [place] DA SILVA) 00 First dose Medical tablet on Tue 1,000 mcg 06/16/22 at 0900, Until Discontinu ed, Routine cholecalcif 2022-0 Yes 2000U 2,000 [facility] [place] [facility] ers evelin 1-25 Units, ity of (vitamin 15:00: Oral, [place] D3) tablet 00 DAILY, Medical 2,000 Units First dose Br anch on Tue06/16/22 at 0900, Until Discontinu ed fluticasone 0 Yes 1{spray 1 [place], Univers propionate 1-25 } Nasal, ity of 50 15:00: DAILY, [place] mcg/actuati 00 First dose Me dical on nasal on Tue spray 1 06/16/22 at [place] 0900, Until Discontinu ed, Routine cetirizine Yes 10mg 10 mg, [facility] [place] [facility] (ZY[facility]EC) -25 Oral, ity of tablet 10 15:00: DAILY, [place] mg 00 First dose Medical on Tue06/16/22 at 0900, Until Discontinu ed enoxaparin 2022- No 1mg/kg 90 mg Uni vers (LOVENOX) 06-16 (rounded ity o f injection 14:00: 18:40 [place] 94.3 [place] 90 mg 00 :44 mg = 1 Medical mg/kg Branch ?94.3 kg), Subcutaneo us, Q12H, First dose on Tue06/16/22 at 0800, Until Discontinu ed, Routine montelukast 0 Yes 10mg 10 mg, Univ ers (SINGULAIR) 1-25 Oral, QHS, it y of tablet 10 03:00: First dose [place] mg 00 on Tue Medical 06/15/22 at Branch 2100, Until Discontinu ed, Routine atorvastati 0 Yes 40mg 40 mg, Univ ers n (LIPITOR) 1-25 Oral, QHS, it y of tablet 40 03:00: First dose [place] mg 00 on [facility] Medical 06/15/22 at Branch 2100, Until Discontinu ed, Routine budesonide- Yes 2{puff} 2 Puff, Univers formoteroL 06-16 Inhalation ity of (SYMBICORT) 02:00: , BID, [place] 160-4.5 00 First dose Medica l mcg/actuati on [facility] on inhaler 06/15/22 at 2 Puff 1999, Until Discontinu ed, Routine metoprolol 2022- No 25mg 25 mg, Univ ers tartrate 06-16 Oral, BID, ity of (LOPRESSOR) 02:00: 15:37 First dose [place] tablet 25 00 :30 on [facility] Medical mg 06/15/22 at Branch 2000, Until Discontinu ed, Routine acetaminoph Yes 650mg 650 mg, Un lelia en 06-15 Oral, ity of (TYLENOL) 20:01: Q6HPRN, [place] tablet 650 50 Starting Medic al mg on [facility] 06/15/22 at 1401, Until Discontinu ed, Routine, Pain (scale 1-3) metoprolol 2022- No 50mg 50 mg, Univ ers succinate 06-15 Oral, ity of XL (TOPROL 19:45: 19:22 ONCE, 1 [place] XL) tablet 00 :00 dose, On Medic al 50 mg [facility] 06/15/22 at 1345, Routine metoprolol 2022- No 5mg 5 mg, Unive rs (LOPRESSOR) 06-15 Intravenou i ty of injection 5 18:15: 18:16 s, ONCE, 1 [place] mg 00 :00 dose, On Medical [facility] 06/15/22 at 1215, STAT abatacept Yes 1mL 1 mL. Methodi (Orencia) 12-24 st 125 mg/mL 12:19: Hospita injection 41 l bacitracin Yes bacitracin M ethodi ophthalmic 12-[address] ointment 12:19: unit/gram Hosp gene 41 eye l ointment doxycycline Yes doxycyclin Methodi (VIBRAMYCIN 8-[address] ) 100 MG 12:19: 100 mg Hospita capsule 41 capsule l abatacept 0 Yes 1mL 1 mL. Methodi (Orencia) 8-04 st 125 mg/mL 12:19: Hospita injection 41 l bacitracin 2021-0 Yes bacitracin M ethodi ophthalmic 8-[address] ointment 12:19: unit/gram Hosp gene 41 eye l ointment doxycycline Yes doxycyclin Methodi (VIBRAMYCIN 8-[address] ) 100 MG 12:19: 100 mg Hospita capsule 41 capsule l abatacept 0 Yes 1mL 1 mL. Methodi (Orencia) 8-04 st 125 mg/mL 12:19: Hospita injection 41 l bacitracin 0 Yes bacitracin M ethodi ophthalmic 8-[address] ointment 12:19: unit/gram Hosp gene 41 eye l ointment doxycycline Yes doxycyclin [facility] (VIBRAMYCIN 8-[address] ) 100 MG 12:19: 100 mg [facility] capsule 41 capsule l abatacept 0 Yes 1mL 1 mL. [facility] (Orencia) 8-04 st 125 mg/mL 12:19: [facility]osp[facility] injection 41 l bacitracin 0 Yes bacitracin [facility] ophthalmic 8-[address] ointment 12:19: unit/gram [facility]osp gene 41 eye l ointment doxycycline Yes doxycyclin [facility] (VIBRAMYCIN 8-[address] ) 100 MG 12:19: 100 mg [facility] capsule 41 capsule l abatacept 0 Yes 1mL 1 mL. [facility] ([facility]rencia) 8-04 st 125 mg/mL 12:19: [facility] injection 41 l bacitracin 2021-0 Yes bacitracin [facility] ophthal[facility] 8-[address] ointment 12:19: unit/gram [facility]osp gene 41 eye l ointment doxycycline Yes doxycyclin [facility] (VIBRAMYCIN 8-[address] ) 100 MG 12:19: 100 mg [facility] capsule 41 capsule l nystatin 2021-0 2021- No [id number] Q.25D Take 5 mL [facility] (MYCOSTATIN 6-02 06-10 (500,000 st ) 100,000 00:00: 04:59 Units Hospit a unit/mL 00 :00 total) by l suspension mouth 4 (four) times a day for 7 days. Swish in mouth nystatin 2021-0 2022- No [id number] Q.25D Take 5 mL [facility] (MYCOSTATIN 6-02 06-10 (500,000 st ) 100,000 00:00: 04:59 Units Hospit a unit/mL 00 :00 total) by l suspension mouth 4 (four) times a day for 7 days. Swish in mouth nystatin 2021-0 2- No [id number] Q.25D Take 5 mL [facility] (MYCOSTATIN 6-02 06-10 (500,000 st ) 100,000 00:00: 04:59 Units Hospit a unit/mL 00 :00 total) by l suspension mouth 4 (four) times a day for 7 days. [place] in mouth fluticasone 0 Yes 1{spray QD 1 spray by [facility] propionate 5-10 } Each [facility] (FLONASE) 00:00: route [facility]osp[facility] 50 00 daily. l mcg/actuati on nasal spray fluticasone 0 Yes 1{spray QD 1 spray by [facility] propionate 5-10 } Each [facility] (FLONASE) 00:00: route [facility] 50 00 daily. l mcg/actuati on nasal spray fluticasone 2021-0 Yes 1{spray QD 1 spray by [facility] propionate 5-10 } Each [facility] (FLONASE) 00:00: route [facility]osp[facility] 50 00 daily. l mcg/actuati on nasal spray fluticasone 0 Yes 1{spray QD 1 spray by [facility] propionate 5-10 } Each [facility] (FLONASE) 00:00: route [facility] 50 00 daily. l mcg/actuati on nasal spray fluticasone 2021-0 Yes 1{spray QD 1 spray by [facility] propionate 5-10 } Each [facility] (FLONASE) 00:00: route [facility] 50 00 daily. l mcg/actuati on nasal spray abatacept Yes 125mg Inject 125 [facility] (Orencia) 9-01 mg [facility] 125 MG/ML 14:18: the skin 1 injection 27 (one) time per week. abatacept Yes 125mg Inject 125 [facility] (Orencia) 01-21 mg [facility] 125 MG/ML 14:18: the skin 1 injection 27 (one) time per week. guaiFENesin Yes codeine 10 [facility] -codeine 01-21 mg-guaifen [facility] (Robitussin 13:34: esin 100 -) 100-10 48 mg/5 mL MG/5ML oral syrup liquid montelukast Yes montelukas [facility] (Singulair) 01-21 t 10 mg [facility]alt [facility] 10 MG 13:34: tablet tablet 48 guaiFENesin Yes codeine 10 [facility] -codeine 01-21 mg-guaifen [facility] (Robitussin 13:34: esin 100 -) 100-10 48 mg/5 mL MG/5ML oral syrup liquid montelukast Yes montelukas [facility] (Singulair) 01-21 t 10 mg [facility]alt [facility] 10 MG 13:34: tablet tablet 48 albuterol Yes ProAir HFA [facility] (ProAir 01-21 90 Health HFA) 108 13:34: mcg/actuat (90 Base) 47 ion MCG/ACT aerosol inhaler inhaler atorvastati Yes QD 1 (one) [facility] n (Lipitor) 01-21 time each [facility]a [facility] 20 MG 13:34: day. tablet 47 Cetirizine Yes Take by [facility] HCl 10 MG 01-21 mouth. [facility] capsule 13:34: 47 Cholecalcif Yes Take by [facility] evelin 01-21 mouth. [facility] (Vitamin 13:34: D-3) 2000 47 unit capsule cyanocobala Yes QD 1 (one) [facility] min 01-21 time each Health (Vitamin 13:34: day. B-12) 1000 47 MCG tablet fluticasone 0 Yes fluticason [facility] (Flonase) 01-21 e Health 50 MCG/ACT 13:34: propionate nasal spray 47 50 mcg/actuat ion nasal spray,susp ension albuterol Yes ProAir HFA [facility] (ProAir 01-21 90 Health HFA) 108 13:34: mcg/actuat (90 Base) 47 ion MCG/ACT aerosol inhaler inhaler atorvastati Yes QD 1 (one) [facility] n (Lipitor) 01-21 time each [facility] 20 MG 13:34: day. tablet 47 Cetirizine Yes Take by [facility] HCl 10 MG 01-21 mouth. Health capsule 13:34: 47 Cholecalcif Yes Take by [facility] evelin 01-21 mouth. Health (Vitamin 13:34: D-3) 2000 47 unit capsule cyanocobala Yes QD 1 (one) [facility] min 01-21 time each Health (Vitamin 13:34: day. B-12) 1000 47 MCG tablet fluticasone Yes fluticason [facility] (Flonase) 01-21 e Health 50 MCG/ACT 13:34: propionate nasal spray 47 50 mcg/actuat ion nasal spray,susp ension Symbicort Yes 2{puff} Q.5D Inhale 2 U T 160-4.5 8-16 puffs 2 Health MCG/ACT 00:00: (two) inhaler 00 times a day. Symbicort Yes 2{puff} Q.5D Inhale 2 U T 160-4.5 8-16 puffs 2 Health MCG/ACT 00:00: (two) inhaler 00 times a day. acetaminoph 2019-05 Yes TAKE 1 UT en-codeine 2-01 TABLET(S) Heal th (Tylenol 00:00: 3 TIMES A #3) 300-30 00 DAY BY MG tablet ORAL ROUTE NEEDED FOR 3 DAYS. acetaminoph 2019-05 Yes TAKE 1 [facility] en-codeine 2-01 TABLET(S) [facility]al [facility] (Tylenol 00:00: 3 TIMES A #3) 300-30 00 DAY BY MG tablet ORAL ROUTE NEEDED FOR 3 DAYS. aspirin 81 2019-0 Yes 162mg 162 mg. UT MG EC 2-10 Health tablet 00:00: 00 aspirin 81 2020-0 Yes 162mg 162 mg. [facility] MG EC 2-10 Health tablet 00:00: 00 atorvastati Yes Q24H daily. [facility] n (LIPITOR) 2-11 st 20 mg 00:00: Hospita tablet 00 l atorvastati Yes Q24H daily. [facility] um[facility] n (LIPITOR) 2-11 st 20 mg 00:00: [facility]ospita tablet 00 l atorvastati 20190 Yes Q24H daily. [facility] n (LIPITOR) 2-11 st 20 mg 00:00: Hospita tablet 00 l atorvastati 2018-0 Yes Q24H daily. [facility] n (LIPITOR) 2-11 st 20 mg 00:00: Hospita tablet 00 l atorvastati 0 Yes Q24H daily. [facility] n (LIPITOR) 2-11 st 20 mg 00:00: Hospita tablet 00 l atorvastati 2017-05 Yes 20mg QD Take [address] [facility] n (LIPITOR) 2-26 by mouth [facility] 20 MG 14:19: daily. Medical tablet [address] [place] cholecalcif 2017-05 Yes Take by [facility] evelin, 2-26 [facility]. [facility] D3, 14:19: Med[facility] l 2,000 unit 49 [facility] budesonide- 2017-05 Yes 2{puff} Q.5D Inhale [address] formoterol 2-26 puffs by [facility] (SYMBICORT) 14:19: mouth via M edical 160-4.5 49 inhaler 2 Center mcg/actuati (two) on inhaler times daily. montelukast 2017-05 Yes 10mg QD Take [address] [facility] (SINGULAIR) 2-26 by mouth [facility] 10 mg 14:19: nightly. Medical tablet [address] [place] cetirizine 2017-05 Yes 10mg QD Take [address] (ZYRTEC) 10 2-26 by mouth [facility] MG tablet 14:19: daily. Medica l [address] [place] atorvastati 2017-05 Yes 20mg QD Take [address] [facility] n (LIPITOR) 2-26 by mouth [facility] 20 MG 14:19: daily. Medical tablet [address] [place] cholecalcif 2017-05 Yes Take by [facility] evelin, 2-26 mouth. [facility] vitamin D3, 14:19: Medica l 2,000 unit 49 [facility] budesonide- 2017-05 Yes 2{puff} Q.5D Inhale [address] formoterol 2-26 puffs by [facility] (SYMBICORT) 14:19: mouth via M edical 160-4.5 49 inhaler 2 Center mcg/actuati (two) on inhaler times daily. montelukast 2017-05 Yes 10mg QD Take [address] [facility] (SINGULAIR) 2-26 by mouth [facility] 10 mg 14:19: nightly. Medical tablet [address] [place] cetirizine 2017-05 Yes 10mg QD Take [address] (ZYRTEC) 10 2-26 by mouth [facility] MG tablet 14:19: daily. Medica l [address] [place] atorvastati 2017-05 Yes 20mg QD Take [address] [facility] n (LIPITOR) 2-26 by mouth [facility] 20 MG 14:19: daily. Medical tablet [address] [place] cholecalcif 2017-05 Yes Take by [facility] evelin, 2-26 mouth. [facility] vitamin D3, 14:19: Medica l 2,000 unit 49 [facility] budesonide- 2017-05 Yes 2{puff} Q.5D Inhale [address] formoterol 2-26 puffs by [facility] (SYMBICORT) 14:19: mouth via M edical 160-4.5 49 inhaler 2 Center mcg/actuati (two) on inhaler times daily. montelukast 2017-05 Yes 10mg QD Take [address] [facility] [address] (SINGULAIR) 2-26 by mouth [facility] 10 mg 14:19: nightly. Medical tablet [address] [place] [address] cetirizine 2017-05 Yes 10mg QD Take [address] (ZYRTEC) 10 2-26 by mouth [facility] MG tablet 14:19: daily. Medica l [address] [place] [address] atorvastati 2017-05 Yes 20mg QD Take [address] [facility] n (LIPITOR) 2-26 by mouth [facility] 20 MG 14:19: daily. Medical tablet [address] [place] [address] cholecalcif 2017-05 Yes Take by [facility] evelin, 2-26 mouth. [facility] vitamin D3, 14:19: Medica l 2,000 unit 49 [facility] budesonide- 2017-05 Yes 2{puff} Q.5D Inhale [address] formoterol 2-26 puffs by [facility] (SYMBICORT) 14:19: mouth via M edical 160-4.5 49 inhaler 2 Center mcg/actuati (two) on inhaler times daily. montelukast 2017-05 Yes 10mg QD Take [address] [facility] [address] (SINGULAIR) 2-26 by mouth [facility] 10 mg 14:19: nightly. Medical tablet [address] [place] cetirizine 2017-05 Yes 10mg QD Take [address] (ZYRTEC) 10 2-26 by mouth [facility] MG tablet 14:19: daily. Medica l [address] [place] atorvasta 2017-05 Yes 20mg QD Take [address] [facility] n (LIPITOR) 2-26 by mouth [facility] 20 MG 14:19: daily. Medical tablet [address] [place] cholecalcif 2017-05 Yes Take by [facility] evelin, 2-26 mouth. [facility] vitamin D3, 14:19: Medica l 2,000 unit 49 [facility] budesonide- 2017-05 Yes 2{puff} Q.5D Inhale [address] formoterol 2-26 puffs by [facility] (SYMBICORT) 14:19: mouth via M edical 160-4.5 49 inhaler 2 Center mcg/actuati (two) on inhaler times daily. montelukast 2017- Yes 10mg QD Take [address] [facility] [address] (SINGULAIR) 2-26 by mouth [facility] 10 mg 14:19: nightly. Medical tablet [address] [place] [address] cetirizior 2017-05 Yes 10mg QD Take [address] (ZYRTEC) 10 2-26 by mouth [facility] MG tablet 14:19: daily. Medica l [address] [place] [address] atorvasta 2017-05 Yes 20mg QD Take [address] [facility] n (LIPITOR) 2-26 by mouth [facility] 20 MG 14:19: daily. Medical tablet [address] [place] cholecalcif 2017-05 Yes Take by [facility] evelin, 2-26 mouth. [facility] vitamin D3, 14:19: Medica l 2,000 unit 49 [facility] budesonide- 2017-05 Yes 2{puff} Q.5D Inhale [address] formoterol 2-26 puffs by [facility] (SYMBICORT) 14:19: mouth via M edical 160-4.5 49 inhaler 2 Center mcg/actuati (two) on inhaler times daily. montelukast 2017- Yes 10mg QD Take [address] [facility] (SINGULAIR) 2-26 by mouth [facility] 10 mg 14:19: nightly. Medical tablet [address] [place] cetirizine 2017-05 Yes 10mg QD Take [address] (ZYRTEC) 10 2-26 by mouth [facility] MG tablet 14:19: daily. Medica l [address] [place] [address] cefePIME 2017-05 Yes 1g Inject [address] [facility] (MAXIPIME) 2-26 intravenou [facility] intramuscul 00:00: sly every M edical ar 00 8 (eight) Center injection 1 hours. g heparin 2017-05 Yes 20U 2 mLs (20 [facility] (PF) 2-26 Units [facility] injection 00:00: total) by Med ical 10 units/mL [address] route every 8 (eight) hours. sodium 2017-05 Yes 10mL [address] [facility] chloride 2-26 Intracathe [facility] 0.9%, NS, 00:00: ter route Med ical injection 00 as needed Cente r (for PICC Lines). vancomycin 2017-05 Yes 1500mg Inject [facility] (VANCOCIN) 2-26 1,500 mg [facility] 1500 mg in 00:00: intravenou M edical NS 250 mL 00 sly every Cente r (V2B) IVPB 12 (twelve) hours. cefePIME 2017-05 Yes 1g Inject [address] (MAXIPIME) 2-26 intravenou [facility] intramuscul 00:00: sly every M edical ar 00 8 (eight) Center injection 1 hours. g heparin 2017-05 Yes 20U 2 mLs (20 [facility] (PF) 2-26 Units [facility] injection 00:00: total) by Med ical 10 units/mL [address] route every 8 (eight) hours. sodium 2017-05 Yes 10mL [address] [facility] chloride 2-26 Intracathe [facility] 0.9%, NS, 00:00: ter route Med ical injection 00 as needed Cente r (for PICC Lines). vancomycin 2017-05 Yes 1500mg Inject [facility] (VANCOCIN) 2-26 1,500 mg [facility] 1500 mg in 00:00: intravenou M edical NS 250 mL 00 sly every Cente r (V2B) IVPB 12 (twelve) hours. cefePIME 2017-05 Yes 1g Inject [address] (MAXIPIME) 2-26 intravenou [facility] intramuscul 00:00: sly every M edical ar 00 8 (eight) Center injection 1 hours. g heparin 2017-05 Yes 20U 2 mLs (20 [facility] (PF) 2-26 Units [facility] injection 00:00: total) by Med ical 10 units/mL [address] route every 8 (eight) hours. sodium 2017-05 Yes 10mL [address] [facility] chloride 2-26 Intracathe [facility] 0.9%, NS, 00:00: ter route Med ical injection 00 as needed Cente r (for PICC Lines). vancomycin 2017-05 Yes 1500mg Inject [facility] (VANCOCIN) 2-26 1,500 mg [facility] 1500 mg in 00:00: intravenou M edical NS 250 mL 00 sly every Cente r (V2B) IVPB 12 (twelve) hours. cefePIME 2017-05 Yes 1g Inject [address] (MAXIPIME) 2-26 intravenou [facility] intramuscul 00:00: sly every M edical ar 00 8 (eight) Center injection 1 hours. g heparin 2017-05 Yes 20U 2 mLs (20 [facility] (PF) 2-26 Units [facility] injection 00:00: total) by Med ical 10 units/mL [address] route every 8 (eight) hours. sodium 2017-05 Yes 10mL [address] [facility] chloride 2-26 Intracathe [facility] 0.9%, NS, 00:00: ter route Med ical injection 00 as needed Cente r (for PICC Lines). vancomycin 2017-05 Yes 1500mg Inject [facility] (VANCOCIN) 2-26 1,500 mg [facility] 1500 mg in 00:00: intravenou M edical NS 250 mL 00 sly every Cente r (V2B) IVPB 12 (twelve) hours. cefePIME 2017-05 Yes 1g Inject [address] (MAXIPIME) 2-26 intravenou [facility] intramuscul 00:00: sly every M edical ar 00 8 (eight) Center injection 1 hours. g heparin 2017-05 Yes 20U 2 mLs (20 [facility] (PF) 2-26 Units [facility] injection 00:00: total) by Med ical 10 units/mL [address] route every 8 (eight) hours. sodium 2017-05 Yes 10mL [address] [facility] chloride 2-26 Intracathe [facility] 0.9%, NS, 00:00: ter route Med ical injection 00 as needed Cente r (for PICC Lines). vancomycin 2017-05 Yes 1500mg Inject [facility] (VANCOCIN) 2-26 1,500 mg [facility] 1500 mg in 00:00: intravenou M edical NS 250 mL 00 sly every Cente r (V2B) IVPB 12 (twelve) hours. cefePIME 2017-05 Yes 1g Inject [address] (MAXIPIME) 2-26 intravenou [facility] intramuscul 00:00: sly every M edical ar 00 8 (eight) Center injection 1 hours. g heparin 2017-05 Yes 20U 2 mLs (20 [facility] (PF) 2-26 Units [facility] injection 00:00: total) by Med ical 10 units/mL [address] route every 8 (eight) hours. sodium 2017-05 Yes 10mL [address] [facility] chloride 2-26 Intracathe [facility] 0.9%, NS, 00:00: ter route Med ical injection 00 as needed Cente r (for PICC Lines). vancomycin 2017-05 Yes 1500mg Inject [facility] (VANCOCIN) 2-26 1,500 mg [facility] 1500 mg in 00:00: intravenou M edical NS 250 mL 00 sly every Cente r (V2B) IVPB 12 (twelve) hours. Cholecalcif Yes Take by Uni vers evelin, 11-16 mouth. ity of Vitamin D3, 14:32: [place] 2,000 unit 40 Medical capsule Branch NaCl 0.9% Yes Inject Univer s (NS) 0.9 % 11-16 intravenou ity of SolP 100 mL 14:32: sly. [place] with 40 Medical abatacept Branch 250 mg SolR Cetirizine Yes Take by [facility] [place] [facility] ers (ZYRTEC) 10 11-16 mouth. ity of mg capsule 14:32: [place] 40 Medical Branch Cholecalcif Yes Take by Uni vers evelin, 11-16 mouth. ity of Vitamin D3, 14:32: [place] 2,000 unit 40 Medical capsule Branch NaCl 0.9% 2017 Yes Inject Univer s (NS) 0.9 % 11-16 intravenou ity of SolP 100 mL 14:32: sly. [place] with 40 Medical abatacept Branch 250 mg SolR Cetirizine Yes Take by [facility] ers ([facility]) 10 11-16 mouth. ity of mg capsule 14:32: [place] 40 Medical Branch Cholecalcif 2017 Yes Take by Uni vers evelin, 11-16 mouth. ity of Vitamin D3, 14:32: [place] 2,000 unit 40 Medical capsule Branch NaCl 0.9% 2017 Yes Inject Univer s (NS) 0.9 % 11-16 intravenou ity of SolP 100 mL 14:32: sly. [place] with 40 Medical abatacept Branch 250 mg SolR Cetirizine Yes Take by Univ ers ([facility]) 10 11-16 mouth. ity of mg capsule 14:32: [place] 40 Medical Branch Cholecalcif Yes Take by Uni vers evelin, 11-16 mouth. ity of Vitamin D3, 14:32: [place] 2,000 unit 40 Medical capsule Branch NaCl 0.9% 2017 Yes Inject Univer s (NS) 0.9 % 11-16 intravenou ity of SolP 100 mL 14:32: sly. [place] with 40 Medical abatacept Branch 250 mg SolR Cetirizine Yes Take by [facility] [place] [facility] ers ([facility]) 10 11-16 mouth. ity of mg capsule 14:32: [place] 40 Medical Branch Cholecalcif 2017 Yes Take by Uni vers evelin, 11-16 mouth. ity of Vitamin D3, 14:32: [place] 2,000 unit 40 Medical capsule Branch NaCl 0.9% Yes Inject Univer s (NS) 0.9 % 11-16 intravenou ity of SolP 100 mL 14:32: sly. [place] with 40 Medical abatacept Branch 250 mg SolR Cetirizine Yes Take by Univ ers ([facility]) 10 - mouth. ity of mg capsule 14:32: [place] 40 Medical Branch Cetirizine Yes Take by Univ ers ([facility]) 10 6-27 mouth. ity of mg capsule 09:32: [place] 40 Medical Branch Cholecalcif Yes Take by Uni vers evelin, 11-16 mouth. ity of Vitamin D3, 09:32: [place] 2,000 unit 40 Medical capsule Branch NaCl 0.9% Yes Inject Univer s (NS) 0.9 % 11-16 intravenou ity of SolP 100 mL 09:32: sly. [place] with 40 Medical abatacept Branch 250 mg SolR Cetirizine Yes Take by Univ ers (ZYRTEC) 10 11-16 mouth. ity of mg capsule 09:32: [place] 40 Medical Branch Cholecalcif Yes Take by Uni vers evelin, 11-16 mouth. ity of Vitamin D3, 09:32: [place] 2,000 unit 40 Medical capsule Branch NaCl 0.9% Yes Inject Univer s (NS) 0.9 % 11-16 intravenou ity of SolP 100 mL 09:32: sly. [place] with 40 Medical abatacept Branch 250 mg SolR fluticasone Yes Univer s 50 6-04 ity of mcg/actuati 00:00: [place] on nasal 00 Medical spray Branch fluticasone Yes Univer s 50 6-04 ity of mcg/actuati 00:00: [place] on nasal 00 Medical spray Branch fluticasone Yes Univer s 50 6-04 ity of mcg/actuati 00:00: [place] on nasal 00 Medical spray Branch fluticasone Yes Univer s 50 6-04 ity of mcg/actuati 00:00: [place] on nasal 00 Medical spray Branch fluticasone 2017 Yes Univer s 50 6-04 ity of mcg/actuati 00:00: [place] on nasal 00 Medical spray Branch fluticasone 2017 Yes Univer s 50 6-04 ity of mcg/actuati 00:00: [place] on nasal 00 Medical spray Branch fluticasone Yes Univer s 50 6-04 ity of mcg/actuati 00:00: [place] on nasal 00 Medical spray Branch fluticasone Yes Univer s 50 6-04 ity of mcg/actuati 00:00: [place] on nasal 00 Medical spray Branch fluticasone 2017-0 Yes Univer s 50 6-04 ity of mcg/actuati 00:00: [place] on nasal 00 Medical spray Branch fluticasone 2016-0 Yes Univer s 50 6-04 ity of mcg/actuati 00:00: [place] on nasal 00 Medical spray Branch atorvastati 0 Yes 10mg Take 1 Univ ers n 10 mg 5-12 tablet by ity of tablet 00:00: mouth at [place] [address] bedtime. Medical Branch montelukast 0 Yes 10mg Take 1 Univ ers 10 mg 5-12 tablet by ity of tablet 00:00: mouth. Medical Branch albuterol 20170 Yes 2{puff} Inhale 2 U nivers (VENTOLIN 5-12 Puffs ity of HFA) 90 00:00: every 6 [place] mcg/actuati 00 (six) Medical on inhaler hours as Branc h needed for Wheezing or Shortness of Breath. atorvastati 0 Yes 10mg Take 1 Univ ers n 10 mg 5-12 tablet by ity of tablet 00:00: mouth at [place] [address] bedtime. Medical Branch montelukast 0 Yes 10mg Take 1 Univ ers 10 mg 5-12 tablet by ity of tablet 00:00: mouth. [place] [facility] Branch albuterol 0 Yes 2{puff} Inhale 2 U nivers (VENTOLIN 5-12 Puffs ity of HFA) 90 00:00: every 6 [place] mcg/actuati 00 (six) Medical on inhaler hours as Branc h needed for Wheezing or Shortness of Breath. atorvastati 20170 Yes 10mg Take 1 Univ ers n 10 mg 5-12 tablet by ity of tablet 00:00: mouth at [place] [address] bedtime. Medical Branch montelukast 20170 Yes 10mg Take 1 Univ ers 10 mg 5-12 tablet by ity of tablet 00:00: mouth. [place] [facility] atorvastati 2017-0 Yes 10mg Take 1 Univ ers n 10 mg 5-12 tablet by ity of tablet 00:00: mouth at [place] [address] bedtime. Medical Branch montelukast 2017-0 Yes 10mg Take 1 Univ ers 10 mg 5-12 tablet by ity of tablet 00:00: mouth. [place] [facility] atorvastati 2017-0 Yes 10mg Take 1 Univ ers n 10 mg 5-12 tablet by ity of tablet 00:00: mouth at [place] bedtime. Medical Branch montelukast 0 Yes 10mg Take 1 Univ ers 10 mg 5-12 tablet by ity of tablet 00:00: mouth. Medical Branch atorvastati 2017-0 Yes 10mg Take 1 Univ ers n 10 mg 5-12 tablet by ity of tablet 00:00: mouth at [place] bedtime. Medical Branch montelukast 0 Yes 10mg Take 1 Univ ers 10 mg 5-12 tablet by ity of tablet 00:00: mouth. Medical Branch albuterol 20170 Yes 2{puff} Inhale 2 U nivers (VENTOLIN 5-12 Puffs ity of HFA) 90 00:00: every 6 [place] mcg/actuati 00 (six) Medical on inhaler hours as Branc h needed for Wheezing or Shortness of Breath. atorvastati 0 Yes 10mg Take 1 Univ ers n 10 mg 5-12 tablet by ity of tablet 00:00: mouth at [place] bedtime. Medical Branch montelukast 0 Yes 10mg Take 1 Univ ers 10 mg 5-12 tablet by ity of tablet 00:00: mouth. Medical Branch albuterol 0 Yes 2{puff} Inhale 2 U nivers (VENTOLIN 5-12 Puffs ity of HFA) 90 00:00: every 6 [place] mcg/actuati 00 (six) Medical on inhaler hours as Branc h needed for Wheezing or Shortness of Breath. atorvastati 20170 Yes 10mg Take 1 Univ ers n 10 mg 5-12 tablet by ity of tablet 00:00: mouth at [place] [address] bedtime. Medical Branch montelukast 20170 Yes 10mg Take 1 Univ ers 10 mg 5-12 tablet by ity of tablet 00:00: mouth. Medical Branch albuterol 2017-0 Yes 2{puff} Inhale 2 U nivers (VENTOLIN 5-12 Puffs ity of HFA) 90 00:00: every 6 [place] mcg/actuati 00 (six) Medical on inhaler hours as Branc h needed for Wheezing or Shortness of Breath. atorvastati 2017-0 Yes 10mg Take 1 Univ ers n 10 mg 5-12 tablet by ity of tablet 00:00: mouth at [place] 00 bedtime. Medical Branch montelukast 2017-0 Yes 10mg Take 1 Univ ers 10 mg 5-12 tablet by ity of tablet 00:00: mouth. [place] [facility] Branch albuterol 2017-0 Yes 2{puff} Inhale 2 U nivers (VENTOLIN 5-12 Puffs ity of HFA) 90 00:00: every 6 [place] mcg/actuati 00 (six) Medical on inhaler hours as Branc h needed for Wheezing or Shortness of Breath. atorvastati 20170 Yes 10mg Take 1 Univ ers n 10 mg 5-12 tablet by ity of tablet 00:00: mouth at [place] 00 bedtime. Medical Branch montelukast 2017-0 Yes 10mg Take 1 Univ ers 10 mg 5-12 tablet by ity of tablet 00:00: mouth. [place] [facility] Branch albuterol Yes 2{puff} Inhale 2 U nivers (VENTOLIN 5-12 Puffs ity of HFA) 90 00:00: every 6 [place] mcg/actuati 00 (six) Medical on inhaler hours as Branc h needed for Wheezing or Shortness of Breath. albuterol Yes Pro[facility] HFA [facility] (PROAIR 5-[address] HFA) 90 00:00: mcg/actuat [facility] mcg/actuati 00 ion l on inhaler aerosol inhaler albuterol Yes [facility] HFA [facility] (PROAIR 5-[address] HFA) 90 00:00: mcg/actuat [facility] mcg/actuati 00 ion l on inhaler aerosol inhaler albuterol Yes [facility] HFA [facility] (PROAIR 5-[address] HFA) 90 00:00: mcg/actuat [facility] mcg/actuati 00 ion l on inhaler aerosol inhaler albuterol Yes ProAir HFA [facility] (PROAIR 5-[address] HFA) 90 00:00: mcg/actuat [facility] gene mcg/actuati 00 ion l on inhaler aerosol inhaler albuterol Yes ProAir HFA [facility] (PROAIR 5-[address] HFA) 90 00:00: mcg/actuat [facility]osp gene mcg/actuati 00 ion l on inhaler aerosol inhaler albuterol 2022- No 2{puff} Inhale 2 [facility] (VENTOLIN 5-12 01-31 Puffs ity of HFA) 90 00:00: 00:00 every 6 [place] mcg/actuati 00 :00 (six) Medical on inhaler hours as Branc h needed for Wheezing or Shortness of Breath. albuterol 2022- No 2{puff} Inhale 2 [facility] (VENTOLIN 5-12 01-31 Puffs ity of HFA) 90 00:00: 00:00 every 6 [place] mcg/actuati 00 :00 (six) Medical on inhaler hours as Branc h needed for Wheezing or Shortness of Breath. SYMBICORT 20170 Yes TAKE 2 Univer s 160-4.5 4-20 PUFFS BY ity of mcg/actuati 00:00: MOUTH [place] on inhaler 00 TWICE A Medica l DAY Branch SYMBICORT 2017-0 Yes TAKE 2 Univer s 160-4.5 4-20 PUFFS BY ity of mcg/actuati 00:00: MOUTH [place] on inhaler 00 TWICE A Medica l DAY Branch SYMBICORT 2017-0 Yes TAKE 2 Univer s 160-4.5 4-20 PUFFS BY ity of mcg/actuati 00:00: MOUTH [place] on inhaler 00 TWICE A Medica l DAY Branch SYMBICORT 2017-0 Yes TAKE 2 Univer s 160-4.5 4-20 PUFFS BY ity of mcg/actuati 00:00: MOUTH [place] on inhaler 00 TWICE A Medica l DAY Branch SYMBICORT 2017-0 Yes TAKE 2 Univer s 160-4.5 4-20 PUFFS BY ity of mcg/actuati 00:00: MOUTH [place] on inhaler 00 TWICE A Medica l DAY Branch SYMBICORT 2017-0 Yes TAKE 2 [facility] 160-4.5 4-20 PUFFS BY ity of mcg/actuati 00:00: MOUTH [place] on inhaler 00 TWICE A [facility] DAY [facility] SYMBICORT 2017-0 Yes TAKE 2 [facility] 160-4.5 4-20 PUFFS BY ity of mcg/actuati 00:00: MOUTH [place] on inhaler 00 TWICE A [facility] DAY [facility] SYMBICORT 2017-0 Yes TAKE 2 [facility] 160-4.5 4-20 PUFFS BY ity of mcg/actuati 00:00: MOUTH [place] on inhaler 00 TWICE A [facility] DAY [facility] SYMBICORT Yes TAKE 2 Univer [facility] 160-4.5 4-20 PUFFS BY ity of mcg/actuati 00:00: MOUTH [place] on inhaler 00 TWICE A [facility] DAY [facility] SYMBICORT Yes TAKE 2 [facility] 160-4.5 4-20 PUFFS BY ity of mcg/actuati 00:00: MOUTH [place] on inhaler 00 TWICE A [facility] DAY [facility] albuterol Yes USE IN [facility] 2.5 mg /3 4-10 NEBULIZER ity o f mL (0.083 00:00: 1 VIAL [place] %) 00 EVERY 3 Medical nebulizer HOURS Branch solution NEEDED FOR COUGH/WHEE ZING/SHORT NESS OF BREATH albuterol Yes USE IN [facility]iver [facility] 2.5 mg /3 4-10 NEBULIZER ity o f mL (0.083 00:00: 1 VIAL [place] %) 00 EVERY 3 Medical nebulizer HOURS Branch solution NEEDED FOR COUGH/WHEE ZING/SHORT NESS OF BREATH albuterol Yes USE IN [facility] 2.5 mg /3 4-10 NEBULIZER ity o f mL (0.083 00:00: 1 VIAL [place] %) 00 EVERY 3 Medical nebulizer HOURS Branch solution NEEDED FOR COUGH/WHEE ZING/SHORT NESS OF BREATH albuterol Yes USE IN [facility] 2.5 mg /3 4-10 NEBULIZER ity o f mL (0.083 00:00: 1 VIAL [place] %) 00 EVERY 3 Medical nebulizer HOURS Branch solution NEEDED FOR COUGH/WHEE ZING/SHORT NESS OF BREATH albuterol Yes USE IN [facility] 2.5 mg /3 4-10 NEBULIZER ity o f mL (0.083 00:00: 1 VIAL [place] %) 00 EVERY 3 Medical nebulizer HOURS Branch solution NEEDED FOR COUGH/WHEE ZING/SHORT NESS OF BREATH albuterol Yes USE IN [facility] 2.5 mg /3 4-10 NEBULIZER ity o f mL (0.083 00:00: 1 VIAL [place] %) 00 EVERY 3 Medical nebulizer HOURS Branch solution NEEDED FOR COUGH/WHEE ZING/SHORT NESS OF BREATH albuterol Yes USE IN [facility] 2.5 mg /3 4-10 NEBULIZER ity o f mL (0.083 00:00: 1 VIAL [place] %) 00 EVERY 3 Medical nebulizer HOURS Branch solution NEEDED FOR COUGH/WHEE ZING/SHORT NESS OF BREATH albuterol 2022- No USE IN [facility] 2.5 mg /3 4-10 06-22 NEBULIZER ity of mL (0.083 00:00: 00:00 1 VIAL [place] %) 00 :00 EVERY 3 Medical nebulizer HOURS Branch solution NEEDED FOR COUGH/WHEE ZING/SHORT NESS OF BREATH albuterol 2022- No USE IN [facility] 2.5 mg /3 -06-22 NEBULIZER ity of mL (0.083 00:00: 00:00 1 VIAL [place] %) 00 :00 EVERY 3 Medical nebulizer HOURS Branch solution NEEDED FOR COUGH/WHEE ZING/SHORT NESS OF BREATH budesonide- Yes [facility] formoteroL 01-[address] (SYMBICORT) 00:00: mcg-4.5 [facility] 160-4.5 00 mcg/actuat l mcg/actuati ion HFA on inhaler aerosol inhaler budesonide- Yes [facility] formoteroL 01-[address] (SYMBICORT) 00:00: mcg-4.5 [facility] 160-4.5 00 mcg/actuat l mcg/actuati ion HFA on inhaler aerosol inhaler budesonide- Yes [facility]ort [facility] formoteroL 01-[address] (SYMBICORT) 00:00: mcg-4.5 [facility] 160-4.5 00 mcg/actuat l mcg/actuati ion HFA on inhaler aerosol inhaler budesonide- Yes [facility] form[facility]eroL [address] (SYMBICORT) 00:00: mcg-4.5 [facility] 160-4.5 00 mcg/actuat l mcg/actuati ion HFA on inhaler aerosol inhaler budesonide- Yes [facility] form[facility]eroL 9-[address] (SYMBICORT) 00:00: mcg-4.5 [facility] 160-4.5 00 mcg/actuat l mcg/actuati ion HFA on inhaler aerosol inhaler montelukast 2009-05 Yes montelukas [facility] (SINGULAIR) 2-[address] 10 mg 00:00: tablet [facility] tablet 00 l montelukast 2009-05 Yes montelukas [facility] (SINGULAIR) 2-[address] 10 mg 00:00: tablet [facility] tablet 00 l montelukast 2009-05 Yes montelukas [facility] (SINGULAIR) 2-[address] 10 mg 00:00: tablet [facility] tablet 00 l montelukast 2009-05 Yes montelukas [facility] (SINGULAIR) 2-[address] 10 mg 00:00: tablet [facility] tablet 00 l montelukast 2009-05 Yes montelukas [facility] (SINGULAIR) 2-[address] 10 mg 00:00: tablet [facility] tablet 00 l No known No [facility] medications [facility] l atorvastati atorvastati No atorvastat [place] n 20 mg n 20 mg in 20 mg Com[facility] ni tablet TAKE tablet TAKE tablet ty 1 TABLET BY 1 TABLET BY TAKE 1 Hospita MOUTH EVERY MOUTH EVERY TABLET BY l DAY DAY MOUTH Clinics EVERY DAY D3-1999 one D3-1999 one No D3-1999 [place] tablet tablet one tablet Commu ni daily daily daily ty Hospita l Clinics fluticasone fluticasone No fluticason [place] propionate propionate e Com gaby 50 50 propionate ty mcg/actuati mcg/actuati 50 H [facility]sp[facility] on nasal on nasal mcg/actuat l spray,suspe spray,suspe ion nasal Clinics nsion SPRAY nsion SPRAY spray,susp 1 SPRAY 1 SPRAY ension INTO EACH INTO EACH SPRAY 1 NOSTRIL NOSTRIL SPRAY INTO EVERY DAY EVERY DAY EACH NOSTRIL EVERY DAY hydrocodone hydrocodone No hydrocodon [place] 10 10 e 10 Communi mg-acetamin mg-acetamin mg-acetami ty ophen 325 ophen 325 nophen 325 [facility]ospita mg tablet mg tablet mg tablet l TAKE 1 TAKE 1 TAKE 1 Clinics TABLET BY TABLET BY TABLET BY MOUTH EVERY MOUTH EVERY MOUTH 6 TO 8 6 TO 8 EVERY 6 TO HOURS HOURS 8 HOURS NEEDED NEEDED NEEDED hydrocodone hydrocodone No hydrocodon [place] 5 5 e 5 Communi mg-acetamin mg-acetamin mg-acetami ty ophen 325 ophen 325 nophen 325 [facility]ospita mg tablet mg tablet mg tablet l Clinics montelukast montelukast No montelukas [place] 10 mg 10 mg t 10 mg Communi tablet TAKE tablet TAKE tablet ty 1 TABLET BY 1 TABLET BY TAKE 1 Hospita MOUTH EVERY MOUTH EVERY TABLET BY l DAY DAY MOUTH Clinics EVERY DAY multivitami multivitami No multivitam [place] n one tab n one tab in one tab Communi daily daily daily ty [facility] Orencia Orencia No Orencia [place] 1000 mg IV 1000 mg IV 1000 mg IV Communi q month q month q month ty Hospita Clinics sodium sodium No sodium [place] chloride chloride chloride Com gaby 0.9 % 0.9 % 0.9 % ty irrigation irrigation irrigation Hospita solution solution solution l [facility] Symbicort Symbicort No Symbicort [place] 160 mcg-4.5 160 mcg-4.5 160 C [facility] mcg/actuati mcg/actuati mcg-4.5 ty on HFA on HFA mcg/actuat Hospi ta aerosol aerosol ion HFA l inhaler inhaler aerosol Clinic s TAKE 2 TAKE 2 inhaler PUFFS BY PUFFS BY TAKE 2 MOUTH TWICE MOUTH TWICE PUFFS BY A DAY A DAY MOUTH TWICE A DAY Ventolin Ventolin No Ventolin Swe eboni HFA 90 HFA 90 HFA 90 Communi mcg/actuati mcg/actuati mcg/actuat ty on aerosol on aerosol ion [facility] inhaler inhaler aerosol l Inhale 2 Inhale 2 inhaler Clin ics puffs every puffs every Inhale 2 4 hours by 4 hours by puffs inhalation inhalation every 4 route as route as hours by needed. needed. inhalation route as needed. Vitamin Vitamin No 2 Q1D Vitamin [place] B-12 1,000 B-12 1,000 B-12 1,000 Communi mcg tablet mcg tablet mcg tablet ty Take 2 Take 2 Take 2 Hospita tablets tablets tablets l every day every day every day Clinics by oral by oral by oral route. route. route. Zyrtec 10 Zyrtec 10 No 1 Q1D Zyrtec 10 [place] mg tablet mg tablet mg tablet Communi Take 1 Take 1 Take 1 ty tablet tablet tablet Hospita every day every day every day l by oral by oral by oral Clinic s route. route. route. atorvastati atorvastati No atorvastat [place] n 40 mg n 40 mg in 40 mg Commu ni tablet TAKE tablet TAKE tablet ty 1 TABLET BY 1 TABLET BY TAKE 1 Hospita MOUTH EVERY MOUTH EVERY TABLET BY l DAY DAY MOUTH Clinics EVERY DAY D3-1999 one D3-1999 one No [place] tablet tablet one tablet Commu ni daily daily daily ty [facility] fluticasone fluticasone No fluticason [place] propionate propionate e Com gaby 50 50 propionate ty mcg/actuati mcg/actuati 50 H ospita on nasal on nasal mcg/actuat l spray,suspe spray,suspe ion nasal Clinics nsion SPRAY nsion SPRAY spray,susp 1 SPRAY 1 SPRAY ension INTO EACH INTO EACH SPRAY 1 NOSTRIL NOSTRIL SPRAY INTO EVERY DAY EVERY DAY EACH NOSTRIL EVERY DAY hydrocodone hydrocodone No hydrocodon [place] 10 10 e 10 Communi mg-acetamin mg-acetamin mg-acetami ty ophen 325 ophen 325 nophen 325 Hospita mg tablet mg tablet mg tablet l TAKE 1 TAKE 1 TAKE 1 Clinics TABLET BY TABLET BY TABLET BY MOUTH EVERY MOUTH EVERY MOUTH 6 TO 8 6 TO 8 EVERY 6 TO HOURS HOURS 8 HOURS NEEDED NEEDED NEEDED hydrocodone hydrocodone No hydrocodon [place] 5 5 e 5 Communi mg-acetamin mg-acetamin mg-acetami ty ophen 325 ophen 325 nophen 325 Hospita mg tablet mg tablet mg tablet l Clinics montelukast montelukast No montelukas [place] 10 mg 10 mg t 10 mg Communi tablet TAKE tablet TAKE tablet ty 1 TABLET BY 1 TABLET BY TAKE 1 Hospita MOUTH EVERY MOUTH EVERY TABLET BY l DAY DAY MOUTH Clinics EVERY DAY multivitami multivitami No multivitam [place] n one tab n one tab in one tab Communi daily daily daily ty [facility] Orencia Orencia No Orencia [place] 1000 mg IV 1000 mg IV 1000 mg IV Communi q month q month q month ty [facility] sodium sodium No sodium [place] chloride chloride chloride Com gaby 0.9 % 0.9 % 0.9 % ty irrigation irrigation irrigation Hospita solution solution solution l Clinics sulfamethox sulfamethox No sulfametho [place] azole 800 azole 800 xazole 800 Communi mg-trimetho mg-trimetho mg-trimeth ty prim 160 mg prim 160 mg oprim 160 Hospita tablet TAKE tablet TAKE mg tablet l 1 TABLET BY 1 TABLET BY TAKE 1 Clinics MOUTH TWICE MOUTH TWICE TABLET BY A DAY FOR A DAY FOR MOUTH 10 DAYS 10 DAYS TWICE A DAY FOR 10 DAYS Symbicort Symbicort No Symbicort [place] 160 mcg-4.5 160 mcg-4.5 160 C [facility] mcg/actuati mcg/actuati mcg-4.5 ty on HFA on HFA mcg/actuat Hospi ta aerosol aerosol ion HFA l inhaler inhaler aerosol Clinic s TAKE 2 TAKE 2 inhaler PUFFS BY PUFFS BY TAKE 2 MOUTH TWICE MOUTH TWICE PUFFS BY A DAY A DAY MOUTH TWICE A DAY Ventolin Ventolin No Ventolin Swe eboni HFA 90 HFA 90 HFA 90 Communi mcg/actuati mcg/actuati mcg/actuat ty on aerosol on aerosol ion [facility] inhaler inhaler aerosol l Inhale 2 Inhale 2 inhaler Clin ics puffs every puffs every Inhale 2 4 hours by 4 hours by puffs inhalation inhalation every 4 route as route as hours by needed. needed. inhalation route as needed. Vitamin Vitamin No 2 Q1D Vitamin [place] B-12 1,000 B-12 1,000 B-12 1,000 Communi mcg tablet mcg tablet mcg tablet ty Take 2 Take 2 Take 2 Hospita tablets tablets tablets l every day every day every day Clinics by oral by oral by oral route. route. route. Zyrtec 10 Zyrtec 10 No 1 Q1D Zyrtec 10 [place] mg tablet mg tablet mg tablet Communi Take 1 Take 1 Take 1 ty tablet tablet tablet Hospita every day every day every day l by oral by oral by oral Clinic s route. route. route. atorvastati atorvastati No atorvastat [place] n 40 mg n 40 mg in 40 mg Commu ni tablet TAKE tablet TAKE tablet ty 1 TABLET BY 1 TABLET BY TAKE 1 Hospita MOUTH EVERY MOUTH EVERY TABLET BY l DAY DAY MOUTH Clinics EVERY DAY D3-1999 one D3-1999 one No D3-1999 [place] tablet tablet one tablet Commu ni daily daily daily ty [facility] fluticasone fluticasone No fluticason [place] propionate propionate e Com gaby 50 50 propionate ty mcg/actuati mcg/actuati 50 H ospita on nasal on nasal mcg/actuat l spray,suspe spray,suspe ion nasal Clinics nsion SPRAY nsion SPRAY spray,susp 1 SPRAY 1 SPRAY ension INTO EACH INTO EACH SPRAY 1 NOSTRIL NOSTRIL SPRAY INTO EVERY DAY EVERY DAY EACH NOSTRIL EVERY DAY hydrocodone hydrocodone No hydrocodon [place] 10 10 e 10 Communi mg-acetamin mg-acetamin mg-acetami ty ophen 325 ophen 325 nophen 325 Hospita mg tablet mg tablet mg tablet l TAKE 1 TAKE 1 TAKE 1 Clinics TABLET BY TABLET BY TABLET BY MOUTH EVERY MOUTH EVERY MOUTH 6 TO 8 6 TO 8 EVERY 6 TO HOURS HOURS 8 HOURS NEEDED NEEDED NEEDED montelukast montelukast No montelukas [place] 10 mg 10 mg t 10 mg Communi tablet TAKE tablet TAKE tablet ty 1 TABLET BY 1 TABLET BY TAKE 1 Hospita MOUTH EVERY MOUTH EVERY TABLET BY l DAY DAY MOUTH Clinics EVERY DAY multivitami multivitami No multivitam [place] n one tab n one tab in one tab [facility] No Orencia [place] 1000 mg IV 1000 mg IV 1000 mg IV [facility]i q month q month q [facility] sodium sodium No sodium [place] chloride chloride chloride Com gaby 0.9 % 0.9 % 0.9 % ty irrigation irrigation irrigation Hospita solution solution solution l [facility] Symbicort Symbicort No Symbicort [place] 160 mcg-4.5 160 mcg-4.5 160 C [facility] mcg/actuati mcg/actuati mcg-4.5 ty on HFA on HFA mcg/actuat Hospi ta aerosol aerosol ion HFA l inhaler inhaler aerosol Clinic s TAKE 2 TAKE 2 inhaler PUFFS BY PUFFS BY TAKE 2 MOUTH TWICE MOUTH TWICE PUFFS BY A DAY A DAY MOUTH TWICE A DAY Ventolin Ventolin No Ventolin Swe eboni HFA 90 HFA 90 HFA 90 Communi mcg/actuati mcg/actuati mcg/actuat ty on aerosol on aerosol ion [facility] inhaler inhaler aerosol l Inhale 2 Inhale 2 inhaler Clin ics puffs every puffs every Inhale 2 4 hours by 4 hours by puffs inhalation inhalation every 4 route as route as hours by needed. needed. inhalation route as needed. Vitamin Vitamin No 2 Q1D Vitamin [place] B-12 1,000 B-12 1,000 B-12 1,000 Communi mcg tablet mcg tablet mcg tablet ty Take 2 Take 2 Take 2 Hospita tablets tablets tablets l every day every day every day Clinics by oral by oral by oral route. route. route. Zyrtec 10 Zyrtec 10 No 1 Q1D Zyrtec 10 [place] mg tablet mg tablet mg tablet Communi Take 1 Take 1 Take 1 ty tablet tablet tablet Hospita every day every day every day l by oral by oral by oral Clinic s route. route. route. atorvastati atorvastati No atorvastat [place] n 40 mg n 40 mg in 40 mg Commu ni tablet TAKE tablet TAKE tablet ty 1 TABLET BY 1 TABLET BY TAKE 1 Hospita MOUTH EVERY MOUTH EVERY TABLET BY l DAY DAY MOUTH Clinics EVERY DAY D3-2000 one D3-1999 one No D3-1999 [place] tablet tablet one tablet Commu ni daily daily daily ty Hospita l Clinics fluticasone fluticasone No fluticason [place] propionate propionate e Com gaby 50 50 propionate ty mcg/actuati mcg/actuati 50 H ospita on nasal on nasal mcg/actuat l spray,suspe spray,suspe ion nasal Clinics nsion SPRAY nsion SPRAY spray,susp 1 SPRAY 1 SPRAY ension INTO EACH INTO EACH SPRAY 1 NOSTRIL NOSTRIL SPRAY INTO EVERY DAY EVERY DAY EACH NOSTRIL EVERY DAY montelukast montelukast No montelukas [place] 10 mg 10 mg t 10 mg Communi tablet TAKE tablet TAKE tablet ty 1 TABLET BY 1 TABLET BY TAKE 1 Hospita MOUTH EVERY MOUTH EVERY TABLET BY l DAY DAY MOUTH Clinics EVERY DAY multivitami multivitami No multivitam [place] n one tab n one tab in one tab Communi daily daily daily ty Hospita l Clinics Orencia Orencia No Orencia [place] 1000 mg IV 1000 mg IV 1000 mg IV Communi q month q month q month ty Hospita l Clinics prednisone prednisone No prednisone [place] 5 mg tablet 5 mg tablet 5 mg C [facility] TAKE 1 TAKE 1 tablet ty TABLET BY TABLET BY TAKE 1 [facility] MOUTH EVERY MOUTH EVERY TABLET BY l DAY DAY MOUTH Clinics NEEDED NEEDED EVERY DAY NEEDED sodium sodium No sodium [place] chloride chloride chloride Com gaby 0.9 % 0.9 % 0.9 % ty irrigation irrigation irrigation Hospita solution solution solution l Clinics Symbicort Symbicort No Symbicort [place] 160 mcg-4.5 160 mcg-4.5 160 C [facility] mcg/actuati mcg/actuati mcg-4.5 ty on HFA on HFA mcg/actuat Hospi ta aerosol aerosol ion HFA l inhaler inhaler aerosol Clinic s TAKE 2 TAKE 2 inhaler PUFFS BY PUFFS BY TAKE 2 MOUTH TWICE MOUTH TWICE PUFFS BY A DAY A DAY MOUTH TWICE A DAY Ventolin Ventolin No Ventolin Swe eboni HFA 90 HFA 90 HFA 90 Communi mcg/actuati mcg/actuati mcg/actuat ty on aerosol on aerosol ion [facility] inhaler inhaler aerosol l Inhale 2 Inhale 2 inhaler Clin ics puffs every puffs every Inhale 2 4 hours by 4 hours by puffs inhalation inhalation every 4 route as route as hours by needed. needed. inhalation route as needed. Vitamin Vitamin No 2 Q1D Vitamin [place] B-12 1,000 B-12 1,000 B-12 1,000 Communi mcg tablet mcg tablet mcg tablet ty Take 2 Take 2 Take 2 Hospita tablets tablets tablets l every day every day every day Clinics by oral by oral by oral route. route. route. Zyrtec 10 Zyrtec 10 No 1 Q1D Zyrtec 10 [place] mg tablet mg tablet mg tablet Communi Take 1 Take 1 Take 1 ty tablet tablet tablet Hospita every day every day every day l by oral by oral by oral Clinic s route. route. route. atorvastati atorvastati No atorvastat [place] n 40 mg n 40 mg in 40 mg Commu ni tablet TAKE tablet TAKE tablet ty 1 TABLET BY 1 TABLET BY TAKE 1 Hospita MOUTH EVERY MOUTH EVERY TABLET BY l DAY DAY MOUTH Clinics EVERY DAY D3-2000 one D3-1999 one No D3-1999 [place] tablet tablet one tablet Commu ni daily daily daily ty Hospita l Clinics doxycycline doxycycline No doxycyclin [place] monohydrate monohydrate e C [facility]i 100 mg 100 mg monohydrat ty capsule capsule e 100 mg Hospi ta TAKE 1 TAKE 1 capsule l CAPSULE BY CAPSULE BY TAKE 1 C linics MOUTH EVERY MOUTH EVERY CAPSULE BY DAY FOR 10 DAY FOR 10 MOUTH DAYS DAYS EVERY DAY FOR 10 DAYS fluticasone fluticasone No fluticason [place] propionate propionate e Com gaby 50 50 propionate ty mcg/actuati mcg/actuati 50 H ospita on nasal on nasal mcg/actuat l spray,suspe spray,suspe ion nasal Clinics nsion SPRAY nsion SPRAY spray,susp 1 SPRAY 1 SPRAY ension INTO EACH INTO EACH SPRAY 1 NOSTRIL NOSTRIL SPRAY INTO EVERY DAY EVERY DAY EACH NOSTRIL EVERY DAY montelukast montelukast No montelukas [place] 10 mg 10 mg t 10 mg Communi tablet TAKE tablet TAKE tablet ty 1 TABLET BY 1 TABLET BY TAKE 1 Hospita MOUTH EVERY MOUTH EVERY TABLET BY l DAY DAY MOUTH Clinics EVERY DAY multivitami multivitami No multivitam [place] n one tab n one tab in one tab Communi daily daily daily ty Hospita l Clinics Orencia Orencia No Orencia [place] 1000 mg IV 1000 mg IV 1000 mg IV Communi q month q month q month ty Hospita l Clinics prednisone prednisone No prednisone [place] 5 mg tablet 5 mg tablet 5 mg C [facility]i TAKE 1 TAKE 1 tablet ty TABLET BY TABLET BY TAKE 1 [facility] MOUTH EVERY MOUTH EVERY TABLET BY l DAY DAY MOUTH Clinics NEEDED NEEDED EVERY DAY NEEDED Symbicort Symbicort No Symbicort [place] 160 mcg-4.5 160 mcg-4.5 160 C [facility] mcg/actuati mcg/actuati mcg-4.5 ty on HFA on HFA mcg/actuat Hospi ta aerosol aerosol ion HFA l inhaler inhaler aerosol Clinic s TAKE 2 TAKE 2 inhaler PUFFS BY PUFFS BY TAKE 2 MOUTH TWICE MOUTH TWICE PUFFS BY A DAY A DAY MOUTH TWICE A DAY Ventolin Ventolin No Ventolin Swe eboni HFA 90 HFA 90 HFA 90 Communi mcg/actuati mcg/actuati mcg/actuat ty on aerosol on aerosol ion [facility] inhaler inhaler aerosol l Inhale 2 Inhale 2 inhaler Clin ics puffs every puffs every Inhale 2 4 hours by 4 hours by puffs inhalation inhalation every 4 route as route as hours by needed. needed. inhalation route as needed. Vitamin Vitamin No 2 Q1D Vitamin [place] B-12 1,000 B-12 1,000 B-12 1,000 [facility]i mcg tablet mcg tablet mcg tablet ty Take 2 Take 2 Take 2 Hospita tablets tablets tablets l every day every day every day Clinics by oral by oral by oral route. route. route. Zyrtec 10 Zyrtec 10 No 1 Q1D Zyrtec 10 [place] mg tablet mg tablet mg tablet Communi Take 1 Take 1 Take 1 ty tablet tablet tablet Hospita every day every day every day l by oral by oral by oral Clinic s route. route. route. amiodarone amiodarone No amiodarone [place] 200 mg 200 mg 200 mg Communi tablet TAKE tablet TAKE tablet ty 1 TABLET BY 1 TABLET BY TAKE 1 Hospita MOUTH TWICE MOUTH TWICE TABLET BY l A DAY A DAY MOUTH Clinics TWICE A DAY atorvastati atorvastati No atorvastat [place] n 40 mg n 40 mg in 40 mg Commu ni tablet TAKE tablet TAKE tablet ty 1 TABLET BY 1 TABLET BY TAKE 1 Hospita MOUTH EVERY MOUTH EVERY TABLET BY l DAY DAY MOUTH Clinics EVERY DAY D3-2000 one D3-2000 one No D3-2000 [place] tablet tablet one tablet Commu ni daily daily daily ty Hospita l Clinics Eliquis 5 Eliquis 5 No Eliquis 5 [place] mg tablet mg tablet mg tablet Communi TAKE 1 TAKE 1 TAKE 1 ty TABLET BY TABLET BY TABLET BY Hospita MOUTH TWICE MOUTH TWICE MOUTH l A DAY A DAY TWICE A Clinics DAY fluticasone fluticasone No fluticason [place] propionate propionate e Com gaby 50 50 propionate ty mcg/actuati mcg/actuati 50 H ospita on nasal on nasal mcg/actuat l spray,suspe spray,suspe ion nasal Clinics nsion SPRAY nsion SPRAY spray,susp 1 SPRAY 1 SPRAY ension INTO EACH INTO EACH SPRAY 1 NOSTRIL NOSTRIL SPRAY INTO EVERY DAY EVERY DAY EACH NOSTRIL EVERY DAY metoprolol metoprolol No metoprolol [place] tartrate 25 tartrate 25 tartrate Communi mg tablet mg tablet 25 mg ty TAKE 1 TAKE 1 tablet Hospita TABLET BY TABLET BY TAKE 1 l MOUTH IN MOUTH IN TABLET BY Cl inics THE MORNING THE MORNING MOUTH IN AND 1 AND 1 THE TABLET IN TABLET IN MORNING THE THE AND 1 EVENING. DO EVENING. DO TABLET IN ALL THIS ALL THIS THE FOR 60 FOR 60 EVENING. DAYS. DAYS. DO ALL THIS FOR 60 DAYS. montelukast montelukast No montelukas [place] 10 mg 10 mg t 10 mg Communi tablet TAKE tablet TAKE tablet ty 1 TABLET BY 1 TABLET BY TAKE 1 Hospita MOUTH EVERY MOUTH EVERY TABLET BY l DAY DAY MOUTH Clinics EVERY DAY multivitami multivitami No multivitam [place] n one tab n one tab in one tab Communi daily daily daily ty [facility]ospita Clinics Orencia Orencia No Orencia [place] 1000 mg IV 1000 mg IV 1000 mg IV Communi q month q month q month ty Hospita Clinics Symbicort Symbicort No Symbicort [place] 160 mcg-4.5 160 mcg-4.5 160 [facility] mcg/actuati mcg/actuati mcg-4.5 ty on HFA on HFA mcg/actuat Hospi ta aerosol aerosol ion HFA l inhaler inhaler aerosol Clinic s TAKE 2 TAKE 2 inhaler PUFFS BY PUFFS BY TAKE 2 MOUTH TWICE MOUTH TWICE PUFFS BY A DAY A DAY MOUTH TWICE A DAY Vitamin Vitamin No 2 Q1D Vitamin [place] B-12 1,000 B-12 1,000 B-12 1,000 Communi mcg tablet mcg tablet mcg tablet ty Take 2 Take 2 Take 2 Hospita tablets tablets tablets l every day every day every day Clinics by oral by oral by oral route. route. route. Zyrtec 10 Zyrtec 10 No 1 Q1D Zyrtec 10 [place] mg tablet mg tablet mg tablet Communi Take 1 Take 1 Take 1 ty tablet tablet tablet Hospita every day every day every day l by oral by oral by oral Clinic s route. route. route. acetaminoph acetaminoph No acetaminop [place] en 300 en 300 hen 300 Communi mg-codeine mg-codeine mg-codeine ty 30 mg 30 mg 30 mg Hospita tablet TAKE tablet TAKE tablet l 1 TABLET BY 1 TABLET BY TAKE 1 Clinics MOUTH EVERY MOUTH EVERY TABLET BY 4 HOURS 4 HOURS MOUTH NEEDED FOR NEEDED FOR EVERY 4 PAIN PAIN HOURS NEEDED FOR PAIN amiodarone amiodarone No amiodarone [place] 200 mg 200 mg 200 mg Communi tablet TAKE tablet TAKE tablet ty 1 TABLET BY 1 TABLET BY TAKE 1 Hospita MOUTH EVERY MOUTH EVERY TABLET BY l DAY FOR 90 DAY FOR 90 MOUTH Cl inics DAYS DAYS EVERY DAY FOR 90 DAYS atorvastati atorvastati No atorvastat [place] n 40 mg n 40 mg in 40 mg Commu ni tablet TAKE tablet TAKE tablet ty 1 TABLET BY 1 TABLET BY TAKE 1 Hospita MOUTH EVERY MOUTH EVERY TABLET BY l DAY FOR 90 DAY FOR 90 MOUTH Cl inics DAYS DAYS EVERY DAY FOR 90 DAYS D3-1999 one D3-1999 one No D3 [place] tablet tablet one tablet Commu ni daily daily daily ty [facility] doxycycline doxycycline No doxycyclin [place] hyclate 100 hyclate 100 e hyclate Communi mg tablet mg tablet 100 mg ty tablet [facility] Eliquis 5 Eliquis 5 No Eliquis 5 [place] mg tablet mg tablet mg tablet Communi TAKE 1 TAKE 1 TAKE 1 ty TABLET BY TABLET BY TABLET BY Hospita MOUTH TWICE MOUTH TWICE MOUTH l A DAY A DAY TWICE A Clinics DAY fluticasone fluticasone No fluticason [place] propionate propionate e Com gaby 50 50 propionate ty mcg/actuati mcg/actuati 50 H ospita on nasal on nasal mcg/actuat l spray,suspe spray,suspe ion nasal Clinics nsion SPRAY nsion SPRAY spray,susp 1 SPRAY 1 SPRAY ension INTO EACH INTO EACH SPRAY 1 NOSTRIL NOSTRIL SPRAY INTO EVERY DAY EVERY DAY EACH NOSTRIL EVERY DAY furosemide furosemide No furosemide [place] 40 mg 40 mg 40 mg [facility]i tablet TAKE tablet TAKE tablet ty 1 TABLET 1 TABLET TAKE 1 Hospi ta ORALLY ORALLY TABLET l NEEDED 30 NEEDED 30 ORALLY Clinics DAY(S) DAY(S) NEEDED 30 DAY(S) gabapentin gabapentin No 1capsul TID gabapentin [place] 300 mg 300 mg e(s) 300 mg Communi capsule capsule capsule ty Take 1 Take 1 Take 1 Hospita capsule 3 capsule 3 capsule 3 l times a day times a day times a Clinics by oral by oral day by route. route. oral route. metoprolol metoprolol No metoprolol [place] succinate succinate succinate Communi ER 50 mg ER 50 mg ER 50 mg ty tablet,exte tablet,exte tablet,ext Hospita nded nded ended l release 24 release 24 release 24 Clinics hr TAKE 1 hr TAKE 1 hr TAKE 1 TABLET BY TABLET BY TABLET BY MOUTH TWICE MOUTH TWICE MOUTH A DAY A DAY TWICE A DAY montelukast montelukast No montelukas [place] 10 mg 10 mg t 10 mg Communi tablet TAKE tablet TAKE tablet ty 1 TABLET BY 1 TABLET BY TAKE 1 Hospita MOUTH EVERY MOUTH EVERY TABLET BY l DAY DAY MOUTH Clinics EVERY DAY multivitami multivitami No multivitam [place] n one tab n one tab in one tab [facility] 2 mupirocin 2 No mupirocin [place] % topical % topical 2 % Commu ni ointment ointment topical ty ointment [facility] Orencia Orencia No Orencia [place] 1000 mg IV 1000 mg IV 1000 mg IV Communi q month q month q month ty [facility] sulfamethox sulfamethox No sulfametho [place] azole 800 azole 800 xazole 800 Communi mg-trimetho mg-trimetho mg-trimeth ty prim 160 mg prim 160 mg oprim 160 Hospita tablet TAKE tablet TAKE mg tablet l 1 TABLET BY 1 TABLET BY TAKE 1 Clinics MOUTH EVERY MOUTH EVERY TABLET BY 12 HOURS 12 HOURS MOUTH FOR 7 DAYS FOR 7 DAYS EVERY 12 HOURS FOR 7 DAYS Symbicort Symbicort No Symbicort [place] 160 mcg-4.5 160 mcg-4.5 160 C ommuni mcg/actuati mcg/actuati mcg-4.5 ty on HFA on HFA mcg/actuat Hospi ta aerosol aerosol ion HFA l inhaler inhaler aerosol Clinic s TAKE 2 TAKE 2 inhaler PUFFS BY PUFFS BY TAKE 2 MOUTH TWICE MOUTH TWICE PUFFS BY A DAY A DAY MOUTH TWICE A DAY valacyclovi valacyclovi No valacyclov [place] r 1 gram r 1 gram ir 1 gram Co [facility]i tablet TAKE tablet TAKE tablet ty 1 TABLET BY 1 TABLET BY TAKE 1 Hospita MOUTH EVERY MOUTH EVERY TABLET BY l 8 HOURS FOR 8 HOURS FOR MOUTH Clinics 7 DAYS 7 DAYS EVERY 8 HOURS FOR 7 DAYS Vitamin Vitamin No 2 Q1D Vitamin [place] B-12 1,000 B-12 1,000 B-12 1,000 Communi mcg tablet mcg tablet mcg tablet ty Take 2 Take 2 Take 2 Hospita tablets tablets tablets l every day every day every day Clinics by oral by oral by oral route. route. route. Zyrtec 10 Zyrtec 10 No 1 Q1D Zyrtec 10 [place] mg tablet mg tablet mg tablet Communi Take 1 Take 1 Take 1 ty tablet tablet tablet Hospita every day every day every day l by oral by oral by oral Clinic s route. route. route. atorvastati atorvastati No atorvastat [place] n 40 mg n 40 mg in 40 mg Commu ni tablet TAKE tablet TAKE tablet ty 1 TABLET BY 1 TABLET BY TAKE 1 Hospita MOUTH EVERY MOUTH EVERY TABLET BY l DAY FOR 90 DAY FOR 90 MOUTH Cl inics DAYS DAYS EVERY DAY FOR 90 DAYS D3-1999 one D3-1999 one No [place] tablet tablet one tablet Commu ni daily daily daily ty Hospita l Clinics Eliquis 5 Eliquis 5 No Eliquis 5 [place] mg tablet mg tablet mg tablet Communi TAKE 1 TAKE 1 TAKE 1 ty TABLET BY TABLET BY TABLET BY Hospita MOUTH TWICE MOUTH TWICE MOUTH l A DAY A DAY TWICE A Clinics DAY fluticasone fluticasone No fluticason [place] propionate propionate e Com gaby 50 50 propionate ty mcg/actuati mcg/actuati 50 H ospita on nasal on nasal mcg/actuat l spray,suspe spray,suspe ion nasal Clinics nsion SPRAY nsion SPRAY spray,susp 1 SPRAY 1 SPRAY ension INTO EACH INTO EACH SPRAY 1 NOSTRIL NOSTRIL SPRAY INTO EVERY DAY EVERY DAY EACH NOSTRIL EVERY DAY furosemide furosemide No furosemide [place] 40 mg 40 mg 40 mg Communi tablet TAKE tablet TAKE tablet ty 1 TABLET 1 TABLET TAKE 1 Hospi ta ORALLY ORALLY TABLET l NEEDED 30 NEEDED 30 ORALLY Clinics DAY(S) DAY(S) NEEDED 30 DAY(S) gabapentin gabapentin No 1capsul QID gabapentin [place] 300 mg 300 mg e(s) 300 mg Communi capsule capsule capsule ty Take 1 Take 1 Take 1 Hospita capsule 4 capsule 4 capsule 4 l times a day times a day times a Clinics by oral by oral day by route. route. oral route. metoprolol metoprolol No metoprolol [place] succinate succinate succinate Communi ER 50 mg ER 50 mg ER 50 mg ty tablet,exte tablet,exte tablet,ext Hospita nded nded ended l release 24 release 24 release 24 Clinics hr TAKE 1 hr TAKE 1 hr TAKE 1 TABLET BY TABLET BY TABLET BY MOUTH TWICE MOUTH TWICE MOUTH A DAY A DAY TWICE A DAY montelukast montelukast No montelukas [place] 10 mg 10 mg t 10 mg Communi tablet TAKE tablet TAKE tablet ty 1 TABLET BY 1 TABLET BY TAKE 1 Hospita MOUTH EVERY MOUTH EVERY TABLET BY l DAY DAY MOUTH Clinics EVERY DAY multivitami multivitami No multivitam [place] n one tab n one tab in one tab Communi daily daily daily ty Hospita l Clinics mupirocin 2 mupirocin 2 No mupirocin [place] % topical % topical 2 % Commu ni ointment [facility] Orencia Orencia No Orencia [place] 1000 mg IV 1000 mg IV 1000 mg IV Communi q month q month q month ty Hospita Clinics Symbicort Symbicort No Symbicort [place] 160 mcg-4.5 160 mcg-4.5 160 C om[facility]i mcg/actuati mcg/actuati mcg-4.5 ty on HFA on HFA mcg/actuat Hospi ta aerosol aerosol ion HFA l inhaler inhaler aerosol Clinic s TAKE 2 TAKE 2 inhaler PUFFS BY PUFFS BY TAKE 2 MOUTH TWICE MOUTH TWICE PUFFS BY A DAY A DAY MOUTH TWICE A DAY valacyclovi valacyclovi No valacyclov [place] r 1 gram r 1 gram ir 1 gram Co mmuni tablet TAKE tablet TAKE tablet ty ONE BY ONE BY TAKE ONE Hospita MOUTH 3X MOUTH 3X BY MOUTH l DAILY FOR 7 DAILY FOR 7 3X DAILY Clinics DAYS DAYS FOR 7 DAYS Vitamin Vitamin No 2 Q1D Vitamin [place] B-12 1,000 B-12 1,000 B-12 1,000 Communi mcg tablet mcg tablet mcg tablet ty Take 2 Take 2 Take 2 Hospita tablets tablets tablets l every day every day every day Clinics by oral by oral by oral route. route. route. Zyrtec 10 Zyrtec 10 No 1 Q1D Zyrtec 10 [place] mg tablet mg tablet mg tablet Communi Take 1 Take 1 Take 1 ty tablet tablet tablet Hospita every day every day every day l by oral by oral by oral Clinic s route. route. route. atorvastati atorvastati No atorvastat [place] n 40 mg n 40 mg in 40 mg Commu ni tablet TAKE tablet TAKE tablet ty 1 TABLET BY 1 TABLET BY TAKE 1 Hospita MOUTH EVERY MOUTH EVERY TABLET BY l DAY FOR 90 DAY FOR 90 MOUTH Cl inics DAYS DAYS EVERY DAY FOR 90 DAYS one one No [place] tablet tablet one tablet Commu ni daily daily daily ty Hospita Clinics Eliquis 5 Eliquis 5 No Eliquis 5 [place] mg tablet mg tablet mg tablet Communi TAKE 1 TAKE 1 TAKE 1 ty TABLET BY TABLET BY TABLET BY Hospita MOUTH TWICE MOUTH TWICE MOUTH l A DAY A DAY TWICE A Clinics DAY fluticasone fluticasone No fluticason [place] propionate propionate e Com gaby 50 50 propionate ty mcg/actuati mcg/actuati 50 H ospita on nasal on nasal mcg/actuat l spray,suspe spray,suspe ion nasal Clinics nsion SPRAY nsion SPRAY spray,susp 1 SPRAY 1 SPRAY ension INTO EACH INTO EACH SPRAY 1 NOSTRIL NOSTRIL SPRAY INTO EVERY DAY EVERY DAY EACH NOSTRIL EVERY DAY furosemide furosemide No furosemide [place] 40 mg 40 mg 40 mg Communi tablet TAKE tablet TAKE tablet ty 1 TABLET BY 1 TABLET BY TAKE 1 Hospita MOUTH MOUTH TABLET BY l NEEDED NEEDED MOUTH Clinics NEEDED gabapentin gabapentin No gabapentin [place] 300 mg 300 mg 300 mg Communi capsule capsule capsule ty TAKE 1 TAKE 1 TAKE 1 Hospita CAPSULE BY CAPSULE BY CAPSULE BY l MOUTH FOUR MOUTH FOUR MOUTH FOUR Clinics TIMES A DAY TIMES A DAY TIMES A DAY metoprolol metoprolol No 1 Q1D metoprolol [place] succinate succinate succinate Communi ER 50 mg ER 50 mg ER 50 mg ty tablet,exte tablet,exte tablet,ext Hospita nded nded ended l release 24 release 24 release 24 Clinics hr Take 1 hr Take 1 hr Take 1 tablet tablet tablet every day every day every day by oral by oral by oral route. route. route. metoprolol metoprolol No metoprolol [place] tartrate 25 tartrate 25 tartrate Communi mg tablet mg tablet 25 mg ty TAKE 1 TAKE 1 tablet Hospita TABLET BY TABLET BY TAKE 1 l MOUTH IN MOUTH IN TABLET BY inics THE MORNING THE MORNING MOUTH IN AND 1 AND 1 THE TABLET IN TABLET IN MORNING THE THE AND 1 EVENING. DO EVENING. DO TABLET IN ALL THIS ALL THIS THE FOR 60 FOR 60 EVENING. DAYS. DAYS. DO ALL THIS FOR 60 DAYS. montelukast montelukast No montelukas [place] 10 mg 10 mg t 10 mg Communi tablet TAKE tablet TAKE tablet ty 1 TABLET BY 1 TABLET BY TAKE 1 Hospita MOUTH EVERY MOUTH EVERY TABLET BY l DAY DAY MOUTH Clinics EVERY DAY multivitami multivitami No multivitam [place] n one tab n one tab in one tab [facility] mupirocin 2 No mupirocin [place] % topical % topical 2 % Commu ni ointment ointment topical ty ointment [facility] Orencia Orencia No Orencia [place] 1000 mg IV 1000 mg IV 1000 mg IV Communi q month q month [facility] Symb[facility]ort Symbicort No Symbicort [place] 160 mcg-4.5 160 mcg-4.5 160 C ommuni mcg/actuati mcg/actuati mcg-4.5 ty on HFA on HFA mcg/actuat Hospi ta aerosol aerosol ion HFA l inhaler inhaler aerosol Clinic s TAKE 2 TAKE 2 inhaler PUFFS BY PUFFS BY TAKE 2 MOUTH TWICE MOUTH TWICE PUFFS BY A DAY A DAY MOUTH TWICE A DAY valacyclovi valacyclovi No valacyclov [place] r 1 gram r 1 gram ir 1 gram Co mmuni tablet TAKE tablet TAKE tablet ty ONE BY ONE BY TAKE ONE Hospita MOUTH 3X MOUTH 3X BY MOUTH l DAILY FOR 7 DAILY FOR 7 3X DAILY Clinics DAYS DAYS FOR 7 DAYS Vitamin Vitamin No 2 Q1D Vitamin [place] B-12 1,000 B-12 1,000 B-12 1,000 Communi mcg tablet mcg tablet mcg tablet ty Take 2 Take 2 Take 2 Hospita tablets tablets tablets l every day every day every day Clinics by oral by oral by oral route. route. route. Zyrtec 10 Zyrtec 10 No 1 Q1D Zyrtec 10 [place] mg tablet mg tablet mg tablet Communi Take 1 Take 1 Take 1 ty tablet tablet tablet Hospita every day every day every day l by oral by oral by oral Clinic s route. route. route. aspirin 81 aspirin 81 No aspirin 81 [place] mg mg mg Communi tablet,nahed tablet,nahed tablet,del ty yed release yed release ayed H ospita TAKE 1 TAKE 1 release l TABLET BY TABLET BY TAKE 1 Cli nics MOUTH EVERY MOUTH EVERY TABLET BY DAY DAY MOUTH EVERY DAY atorvastati atorvastati No atorvastat [place] n 40 mg n 40 mg in 40 mg Commu ni tablet TAKE tablet TAKE tablet ty 1 TABLET BY 1 TABLET BY TAKE 1 Hospita MOUTH EVERY MOUTH EVERY TABLET BY l DAY FOR 90 DAY FOR 90 MOUTH Cl inics DAYS DAYS EVERY DAY FOR 90 DAYS clopidogrel clopidogrel No clopidogre [place] 75 mg 75 mg l 75 mg Communi tablet TAKE tablet TAKE tablet ty 1 TABLET BY 1 TABLET BY TAKE 1 Hospita MOUTH EVERY MOUTH EVERY TABLET BY l DAY DAY MOUTH Clinics EVERY DAY D3-1999 one -1999 one No [place] tablet tablet one tablet Commu ni daily daily daily ty Hospita l Clinics fluticasone fluticasone No fluticason [place] propionate propionate e Com gaby 50 50 propionate ty mcg/actuati mcg/actuati 50 H ospita on nasal on nasal mcg/actuat l spray,suspe spray,suspe ion nasal Clinics nsion SPRAY nsion SPRAY spray,susp 1 SPRAY 1 SPRAY ension INTO EACH INTO EACH SPRAY 1 NOSTRIL NOSTRIL SPRAY INTO EVERY DAY EVERY DAY EACH NOSTRIL EVERY DAY furosemide furosemide No furosemide [place] 40 mg 40 mg 40 mg Communi tablet TAKE tablet TAKE tablet ty 1 TABLET BY 1 TABLET BY TAKE 1 Hospita MOUTH MOUTH TABLET BY l NEEDED NEEDED MOUTH Clinics NEEDED gabapentin gabapentin No 1capsul QID gabapentin [place] 300 mg 300 mg e(s) 300 mg Communi capsule capsule capsule ty Take 1 Take 1 Take 1 Hospita capsule 4 capsule 4 capsule 4 l times a day times a day times a Clinics by oral by oral day by route as route as oral route needed. needed. as needed. metoprolol metoprolol No metoprolol [place] succinate succinate succinate Communi ER 50 mg ER 50 mg ER 50 mg ty tablet,exte tablet,exte tablet,ext Hospita nded nded ended l release 24 release 24 release 24 Clinics hr TAKE 1 hr TAKE 1 hr TAKE 1 TABLET BY TABLET BY TABLET BY MOUTH EVERY MOUTH EVERY MOUTH DAY DAY EVERY DAY montelukast montelukast No montelukas [place] 10 mg 10 mg t 10 mg Communi tablet TAKE tablet TAKE tablet ty 1 TABLET BY 1 TABLET BY TAKE 1 Hospita MOUTH EVERY MOUTH EVERY TABLET BY l DAY DAY MOUTH Clinics EVERY DAY multivitami multivitami No multivitam [place] n one tab n one tab in one tab [facility] Orencia Orencia No Orencia [place] 1000 mg IV 1000 mg IV 1000 mg IV Communi q month q month q month ty Hospita Clinics Symbicort Symbicort No Symbicort [place] 160 mcg-4.5 160 mcg-4.5 160 C ommuni mcg/actuati mcg/actuati mcg-4.5 ty on HFA on HFA mcg/actuat Hospi ta aerosol aerosol ion HFA l inhaler inhaler aerosol Clinic s TAKE 2 TAKE 2 inhaler PUFFS BY PUFFS BY TAKE 2 MOUTH TWICE MOUTH TWICE PUFFS BY A DAY A DAY MOUTH TWICE A DAY Vitamin Vitamin No 2 Q1D Vitamin [place] B-12 1,000 B-12 1,000 B-12 1,000 Communi mcg tablet mcg tablet mcg tablet ty Take 2 Take 2 Take 2 Hospita tablets tablets tablets l every day every day every day Clinics by oral by oral by oral route. route. route. Zyrtec 10 Zyrtec 10 No 1 Q1D Zyrtec 10 [place] mg tablet mg tablet mg tablet Communi Take 1 Take 1 Take 1 ty tablet tablet tablet Hospita every day every day every day l by oral by oral by oral Clinic s route. route. route. atorvastati atorvastati No atorvastat [place] n 20 mg n 20 mg in 20 mg Commu ni tablet TAKE tablet TAKE tablet ty 1 TABLET BY 1 TABLET BY TAKE 1 Hospita MOUTH EVERY MOUTH EVERY TABLET BY l DAY DAY MOUTH Clinics EVERY DAY Bactrim DS Bactrim DS No 1 Q12H Bactrim DS [place] 800 mg-160 800 mg-160 800 mg-160 Communi mg tablet mg tablet mg tablet ty Take 1 Take 1 Take 1 Hospita tablet tablet tablet l every 12 every 12 every 12 Cli nics hours by hours by hours by oral route. oral route. oral route. D3-2000 one D3-1999 one No D3-2000 [place] tablet tablet one tablet [facility] ni [facility] fluticasone fluticasone No fluticason [place] propionate propionate e Com gaby 50 50 propionate ty mcg/actuati mcg/actuati 50 H ospita on nasal on nasal mcg/actuat l spray,suspe spray,suspe ion nasal Clinics nsion USE 1 nsion USE 1 spray,susp SPRAY IN SPRAY IN ension USE EACH EACH 1 SPRAY IN NOSTRIL NOSTRIL EACH EVERY DAY EVERY DAY NOSTRIL EVERY DAY hydrocodone hydrocodone No hydrocodon [place] 10 10 e 10 Communi mg-acetamin mg-acetamin mg-acetami ty ophen 325 ophen 325 nophen 325 Hospita mg tablet mg tablet mg tablet l TAKE 1 TAKE 1 TAKE 1 Clinics TABLET BY TABLET BY TABLET BY MOUTH EVERY MOUTH EVERY MOUTH 6 TO 8 6 TO 8 EVERY 6 TO HOURS HOURS 8 HOURS NEEDED NEEDED NEEDED montelukast montelukast No montelukas [place] 10 mg 10 mg t 10 mg Communi tablet TAKE tablet TAKE tablet ty 1 TABLET BY 1 TABLET BY TAKE 1 Hospita MOUTH EVERY MOUTH EVERY TABLET BY l DAY DAY MOUTH Clinics EVERY DAY multivitami multivitami No multivitam [place] n one tab n one tab in one tab Communi daily daily daily ty Hospita l Clinics mupirocin 2 mupirocin 2 No mupirocin [place] % topical % topical 2 % Commu ni ointment ointment topical ty APPLY A APPLY A ointment Hospi ta SMALL SMALL APPLY A l AMOUNT TO AMOUNT TO SMALL Clin ics THE THE AMOUNT TO AFFECTED AFFECTED THE AREA BY AREA BY AFFECTED TOPICAL TOPICAL AREA BY ROUTE 3 ROUTE 3 TOPICAL TIMES PER TIMES PER ROUTE 3 DAY DAY TIMES PER DAY Orencia Orencia No Orencia [place] 1000 mg IV 1000 mg IV 1000 mg IV Communi q month q month q month ty Hospita l Clinics Symbicort Symbicort No Symbicort [place] 160 mcg-4.5 160 mcg-4.5 160 C ommuni mcg/actuati mcg/actuati mcg-4.5 ty on HFA on HFA mcg/actuat Hospi ta aerosol aerosol ion HFA l inhaler inhaler aerosol Clinic s TAKE 2 TAKE 2 inhaler PUFFS BY PUFFS BY TAKE 2 MOUTH TWICE MOUTH TWICE PUFFS BY A DAY A DAY MOUTH TWICE A DAY Ventolin Ventolin No Ventolin Swe eboni HFA 90 HFA 90 HFA 90 Communi mcg/actuati mcg/actuati mcg/actuat ty on aerosol on aerosol ion Hos shakir inhaler inhaler aerosol l Inhale 2 Inhale 2 inhaler Clin ics puffs every puffs every Inhale 2 4 hours by 4 hours by puffs inhalation inhalation every 4 route as route as hours by needed. needed. inhalation route as needed. Vitamin Vitamin No 2 Q1D Vitamin [place] B-12 1,000 B-12 1,000 B-12 1,000 Communi mcg tablet mcg tablet mcg tablet ty Take 2 Take 2 Take 2 Hospita tablets tablets tablets l every day every day every day Clinics by oral by oral by oral route. route. route. Zyrtec 10 Zyrtec 10 No 1 Q1D Zyrtec 10 [place] mg tablet mg tablet mg tablet Communi Take 1 Take 1 Take 1 ty tablet tablet tablet Hospita every day every day every day l by oral by oral by oral Clinic s route. route. route. atorvastati atorvastati No atorvastat [place] n 20 mg n 20 mg in 20 mg Commu ni tablet TAKE tablet TAKE tablet ty 1 TABLET BY 1 TABLET BY TAKE 1 Hospita MOUTH EVERY MOUTH EVERY TABLET BY l DAY DAY MOUTH Clinics EVERY DAY Bactrim DS Bactrim DS No 1 Q12H Bactrim DS [place] 800 mg-160 800 mg-160 800 mg-160 Communi mg tablet mg tablet mg tablet ty Take 1 Take 1 Take 1 Hospita tablet tablet tablet l every 12 every 12 every 12 Cli nics hours by hours by hours by oral route. oral route. oral route. D3-1999 one D3-1999 one No D3-1999 [place] tablet tablet one tablet Commu ni daily daily daily ty Hospita l Clinics fluticasone fluticasone No fluticason [place] propionate propionate e Com gbay 50 50 propionate ty mcg/actuati mcg/actuati 50 H ospita on nasal on nasal mcg/actuat l spray,suspe spray,suspe ion nasal Clinics nsion USE 1 nsion USE 1 spray,susp SPRAY IN SPRAY IN ension USE EACH EACH 1 SPRAY IN NOSTRIL NOSTRIL EACH EVERY DAY EVERY DAY NOSTRIL EVERY DAY hydrocodone hydrocodone No hydrocodon [place] 10 10 e 10 Communi mg-acetamin mg-acetamin mg-acetami ty ophen 325 ophen 325 nophen 325 Hospita mg tablet mg tablet mg tablet l TAKE 1 TAKE 1 TAKE 1 Clinics TABLET BY TABLET BY TABLET BY MOUTH EVERY MOUTH EVERY MOUTH 6 TO 8 6 TO 8 EVERY 6 TO HOURS HOURS 8 HOURS NEEDED NEEDED NEEDED montelukast montelukast No montelukas [place] 10 mg 10 mg t 10 mg Communi tablet TAKE tablet TAKE tablet ty 1 TABLET BY 1 TABLET BY TAKE 1 Hospita MOUTH EVERY MOUTH EVERY TABLET BY l DAY DAY MOUTH Clinics EVERY DAY multivitami multivitami No multivitam [place] n one tab n one tab in one tab Communi daily daily daily ty Hospita l Clinics mupirocin 2 mupirocin 2 No mupirocin [place] % topical % topical 2 % Commu ni ointment ointment topical ty APPLY A APPLY A ointment Hospi ta SMALL SMALL APPLY A l AMOUNT TO AMOUNT TO SMALL Clin ics THE THE AMOUNT TO AFFECTED AFFECTED THE AREA BY AREA BY AFFECTED TOPICAL TOPICAL AREA BY ROUTE 3 ROUTE 3 TOPICAL TIMES PER TIMES PER ROUTE 3 DAY DAY TIMES PER DAY Orencia Orencia No Orencia [place] 1000 mg IV 1000 mg IV 1000 mg IV Communi q month q month q month ty Hospita l Clinics Symbicort Symbicort No Symbicort [place] 160 mcg-4.5 160 mcg-4.5 160 C ommuni mcg/actuati mcg/actuati mcg-4.5 ty on HFA on HFA mcg/actuat Hospi ta aerosol aerosol ion HFA l inhaler inhaler aerosol Clinic s TAKE 2 TAKE 2 inhaler PUFFS BY PUFFS BY TAKE 2 MOUTH TWICE MOUTH TWICE PUFFS BY A DAY A DAY MOUTH TWICE A DAY Ventolin Ventolin No Ventolin Swe eboni HFA 90 HFA 90 HFA 90 Communi mcg/actuati mcg/actuati mcg/actuat ty on aerosol on aerosol ion Hos shakir inhaler inhaler aerosol l Inhale 2 Inhale 2 inhaler Clin ics puffs every puffs every Inhale 2 4 hours by 4 hours by puffs inhalation inhalation every 4 route as route as hours by needed. needed. inhalation route as needed. Vitamin Vitamin No 2 Q1D Vitamin [place] B-12 1,000 B-12 1,000 B-12 1,000 Communi mcg tablet mcg tablet mcg tablet ty Take 2 Take 2 Take 2 Hospita tablets tablets tablets l every day every day every day Clinics by oral by oral by oral route. route. route. Zyrtec 10 Zyrtec 10 No 1 Q1D Zyrtec 10 [place] mg tablet mg tablet mg tablet Communi Take 1 Take 1 Take 1 ty tablet tablet tablet Hospita every day every day every day l by oral by oral by oral Clinic s route. route. route. Immunizations Ordered Immunization Filled Immunization Date Status Commen ts Source Name Name influenza, influenza, 2021-03-03 Completed [place] [facility] high-dose, high-dose, 00:00:[facility] quadrivalent quadrivalent influenza, influenza, 2021-03-03 Completed [place] [facility] ty high-dose, high-dose, 00:00:00 [facility] quadrivalent quadrivalent influenza, influenza, 2021-03-03 Completed [place] [facility] ty high-dose, high-dose, 00:00:00 Hospital [facility] quadrivalent quadrivalent influenza, influenza, 2021-03-03 Completed [place] [facility] ty high-dose, high-dose, 00:00:00 Hospital [facility] quadrivalent quadrivalent influenza, influenza, 2021-03-03 Completed [place] [facility] ty high-dose, high-dose, 00:00:00 Hospital [facility] quadrivalent quadrivalent influenza, influenza, 2021-03-03 Completed [place] [facility] ty high-dose, high-dose, 00:00:00 Hospital [facility] quadrivalent quadrivalent influenza, influenza, 2021-03-03 Completed [place] [facility] ty high-dose, high-dose, 00:00:00 Hospital [facility] quadrivalent quadrivalent influenza, influenza, 2021-03-03 Completed [place] [facility] ty high-dose, high-dose, 00:00:00 Hospital [facility] quadrivalent quadrivalent Vital Signs Vital Name Observation Time Observation Value Comments Source BP Diastolic 2022-11-17 00:00:00 80 mm[Hg[facility] Height 2022-11-17 00:00:00 62 [in_i] [facility] BP Systolic 2022-11-17 00:00:00 138 mm[Hg] [facility] BP Diastolic 2022-10-06 00:00:00 62 mm[Hg] [facility] Height 2022-10-06 00:00:00 62 [in_i] [facility] BMI (Body Mass 2022-10-06 00:00:00 37.9 kg/m2 [facility] s BP Systolic 2022-10-06 00:00:00 128 mm[Hg] [facility] Body Weight 2022-10-06 00:00:00 3312 [oz_av] [facility] s BP Diastolic 2022-09-16 00:00:00 72 mm[Hg] [facility] s Height 2022-09-16 00:00:00 62 [in_i] [facility] BMI (Body Mass 2022-09-16 00:00:00 0.5 kg/m2 [facility] s BP Systolic 2022-09-16 00:00:00 120 mm[Hg] [facility] Body Weight 2022-09-16 00:00:00 47.36 [oz_av] [facility] s BP Diastolic 2022-09-06 00:00:00 60 mm[Hg] [facility] s Height 2022-09-06 00:00:00 62 [in_i] [facility] BMI (Body Mass 2022-09-06 00:00:00 38.2 kg/m2 [facility] s BP Systolic 2022-09-06 00:00:00 139 mm[Hg] [facility] Body Weight 2022-09-06 00:00:00 3344 [oz_av] [facility] s BP Diastolic 2022-06-29 00:00:00 58 mm[Hg] [facility] s Height 2022-06-29 00:00:00 62 [in_i] [facility] s BMI (Body Mass 2022-06-29 00:00:00 38.8 kg/m2 [facility] s BP Systolic 2022-06-29 00:00:00 112 mm[Hg] [facility] Body Weight 2022-06-29 00:00:00 3392 [oz_av] [facility] Systolic blood 2022-06-22 21:55:00 138 mm[Hg] Univer sity of pressure [facility] Diastolic blood 2022-06-22 21:55:00 105 mm[Hg] Unive rsity of pressure [facility] Heart rate 2022-06-22 21:55:00 60 /min [facility] Body temperature 2022-06-22 21:55:00 36.89 [facility] 2022-06-22 21:55:00 17 /min [facility] Oxygen saturation in 2022-06-22 21:55:00 97 /min [facility] blood by [facility] Pulse oximetry Branch Body height 2022-06-16 13:19:00 157.5 cm [facility] Body weight 2022-06-16 13:19:00 94.3 kg [facility] BMI 2022-06-16 13:19:00 38.01 kg/m2 [facility] BP Diastolic 2022-05-06 00:00:00 80 mm[Hg] [facility] s Height 2022-05-06 00:00:00 62 [in_i] [facility] BMI (Body Mass 2022-05-06 00:00:00 39.1 kg/m2 [facility] s BP Systolic 2022-05-06 00:00:00 122 mm[Hg] [facility] Body Weight 2022-05-06 00:00:00 3424 [oz_av] [facility] BP Diastolic 2021-11-05 00:00:00 72 mm[Hg] [facility] s Height 2021-11-05 00:00:00 62 [in_i] [facility] BMI (Body Mass 2021-11-05 00:00:00 37.9 kg/m2 [facility] Clinic s BP Systolic 2021-11-05 00:00:00 158 mm[Hg] [facility] s Body Weight 2021-11-05 00:00:00 3312 [oz_av] [facility] BP Diastolic 2021-05-04 00:00:00 68 mm[Hg] [facility] Height 2021-05-04 00:00:00 62 [in_i] [facility] BMI (Body Mass 2021-05-04 00:00:00 38 kg/m2 [facility] BP Systolic 2021-05-04 00:00:00 140 mm[Hg] [facility] Body Weight 2021-05-04 00:00:00 3328 [oz_av] [facility] Height 2021-01-15 00:00:00 62 [in_i] [facility] BMI (Body Mass 2021-01-15 00:00:00 37.7 kg/m2 [facility] Body Weight 2021-01-15 00:00:00 3296 [oz_av] [facility] BP Diastolic 2020-11-10 00:00:00 80 mm[Hg] [facility] Height 2020-11-10 00:00:00 62 [in_i] [facility] BMI (Body Mass 2020-11-10 00:00:00 37.8 kg/m2 [facility] BP Systolic 2020-11-10 00:00:00 112 mm[Hg] [facility] Body Weight 2020-11-10 00:00:00 3308.8 [oz_av] [facility] s BP Diastolic 2020-09-17 00:00:00 60 mm[Hg] [facility] Height 2020-09-17 00:00:00 62 [in_i] [facility] (Body Mass 2020-09-17 00:00:00 38.4 kg/m2 [facility] BP Systolic 2020-09-17 00:00:00 136 mm[Hg] [facility] Body Weight 2020-09-17 00:00:00 3360 [oz_av] [facility] BP Diastolic 2020-09-15 00:00:00 68 mm[Hg] [facility] Height 2020-09-15 00:00:00 62 [in_i] [facility] BMI (Body Mass 2020-09-15 00:00:00 38.2 kg/m2 [facility] BP Systolic 2020-09-15 00:00:00 148 mm[Hg] [facility] Body Weight 2020-09-15 00:00:00 3344 [oz_av] [facility] Systolic blood 2022-06-22 17:43:00 129 mm[Hg] Univer sity of pressure [facility] Diastolic blood 2022-06-22 17:43:00 70 mm[Hg] Unive rsity of pressure [facility] Heart rate 2022-06-22 17:43:00 53 /min [facility] Body temperature 2022-06-22 17:43:00 36.94 Amie [facility] Respiratory rate 2022-06-22 17:43:00 17 /min Univ [facility] Oxygen saturation in 2022-06-22 17:43:00 98 /min [facility] Arterial blood by [facility] Pulse oximetry Branch Body height 2022-06-16 13:19:00 157.5 cm [facility] Body weight 2022-06-16 13:19:00 94.3 kg [facility] BMI 2022-06-16 13:19:00 38.01 kg/m2 [facility] Heart rate 2021-12-24 17:19:00 71 /min [facility] Oxygen saturation in 2021-12-24 17:19:00 97 /min [facility] Arterial blood by Pulse oximetry Body height 2021-12-24 16:56:00 157.5 cm [facility] Body weight 2021-12-24 16:56:00 94.348 kg [facility] BMI 2021-12-24 16:56:00 38.04 kg/m2 [facility] Systolic blood 2021-10-22 15:06:00 130 mm[Hg] Method [facility] pressure Diastolic blood 2021-10-22 15:06:00 63 mm[Hg] [facility] pressure Body temperature 2021-10-22 15:06:00 36.89 Amie [facility] Procedures Procedure Date / Time Performing Clinician Source Performed MAMMO, screening, digital, 2022-11-17 00:00:00 S [facility] Transesophageal 2022-11-02 00:00:00 [facility]ly [facility] Echocardiography [facility] [id number] 2022-08-24 00:00:[address] [place] [address] BASIC METABOLIC PANEL (NA, 2022-06-22 10:34:00 Heidari[facility], CL, CO2, GLUCOSE, BUN, Medica l Branch CREATININE, CA) BASIC METABOLIC PANEL (NA, 2022-06-22 10:34:00 Heidari, Ihsan U niversity [facility] K, CL, CO2, GLUCOSE, BUN, Medica l Branch CREATININE, CA) CARDIOVERSION EXTERNAL 2022-06-21 22:06:10 [facility] CARDI[facility]ERS[facility] EXTERNAL 2022-06-21 22:06:[address] [facility] TRANSESOPHAGEAL ECHO (DEYSI) 2022-06-21 22:05:49 Ca [facility] COMPLETE W/ DOPPLER AND Medical Branch COLOR TRANSESOPHAGEAL ECHO (DEYSI) 2022-06-21 22:05:49 Ca [facility] COMPLETE W/ DOPPLER AND Medical Branch COLOR CBC WITHOUT DIFF 2022-06-21 11:44:00 Kaiser Mejia [facility] BASIC METABOLIC PANEL (NA, 2022-06-21 11:44:00 Goldy Mejia [facility] K, CL, CO2, GLUCOSE, BUN, Medica l Branch CREATININE, CA) BASIC METABOLIC PANEL (NA, 2022-06-21 11:44:00 Goldy Mejia [facility] K, CL, CO2, GLUCOSE, BUN, Medica l Branch CREATININE, CA) CBC WITHOUT DIFF 2022-06-21 11:44:00 Kaiser Mejia [facility] Cardioversion 2022-06-21 00:00:00 [facility] CBC WITHOUT DIFF 2022-06-19 10:22:00 Roberto [facility] BASIC METABOLIC PANEL (NA, 2022-06-19 10:22:00 Goldy Mejia [facility] K, CL, CO2, GLUCOSE, BUN, Medica l Branch CREATININE, CA) BASIC METABOLIC PANEL (NA, 2022-06-19 10:22:00 Goldy Mejia [facility] K, CL, CO2, GLUCOSE, BUN, Medica l Branch CREATININE, CA) CBC WITHOUT DIFF 2022-06-19 10:22:00 [facility] 2022-06-18 10:07:00 [facility] CBC WITHOUT DIFF 2022-06-18 10:07:00 Roberto [facility] BASIC METABOLIC PANEL (NA, 2022-06-18 10:07:00 Goldy Mejia [facility] K, CL, CO2, GLUCOSE, BUN, Medica l Branch CREATININE, CA) MAGNESIUM 2022-06-18 10:07:00 [facility] BASIC METABOLIC PANEL (NA, 2022-06-18 10:07:00 Goldy Mejia [facility] K, CL, CO2, GLUCOSE, BUN, Medica l Branch CREATININE, CA) CBC WITHOUT DIFF 2022-06-18 10:07:00 Roberto [facility] POCT GLUCOSE (AUTOMATED) 2022-06-17 13:56:00 Roberto [facility] POCT GLUCOSE (AUTOMATED) 2022-06-17 13:56:00 Roberto [facility] CBC WITHOUT DIFF 2022-06-17 11:00:00 Kaiser Mejia [facility] BASIC METABOLIC PANEL (NA, 2022-06-17 11:00:00 Goldy Mejia [facility] K, CL, CO2, GLUCOSE, BUN, Medica l Branch CREATININE, CA) BASIC METABOLIC PANEL (NA, 2022-06-17 11:00:00 Goldy Mejia [facility] K, CL, CO2, GLUCOSE, BUN, Medica l Branch CREATININE, CA) CBC WITHOUT DIFF 2022-06-17 11:00:00 Kaiser Mejia [facility] POCT GLUCOSE (AUTOMATED) 2022-06-17 02:58:00 Roberto [facility] POCT GLUCOSE (AUTOMATED) 2022-06-17 02:58:00 Roberto [facility] POCT GLUCOSE (AUTOMATED) 2022-06-16 23:07:00 Roberto [facility] POCT GLUCOSE (AUTOMATED) 2022-06-16 23:07:00 Roberto [facility] POCT GLUCOSE (AUTOMATED) 2022-06-16 17:50:00 [facility] ([facility]OMATED) 2022-06-16 17:50:00 [facility] TRAN[facility]ORAC[facility] (TTE) 2022-06-16 17:10:00 [facility] TRANSTHORACIC ECHO (TTE) 2022-06-16 17:10:00 Ryan Hernandez [facility] W/ CONTRAST [facility] POCT GLUCOSE (AUTOMATED) 2022-06-16 02:44:00 [facility] POCT GLU[facility]SE (AUTOMATED) 2022-06-16 02:44:[address] [facility] COVID-19 (ID NOW RAPID 2022-06-15 20:32:00 Ryan Hernandez [facility] TESTING) Medical Branch RAPID INFLUENZA A/B 2022-06-15 20:32:00 Ryan Hernandez [facility] Medical Branch LAB ONLY COVID 2022-06-15 20:32:00 Ryan Hernandez [facility] INTERPRETATION [facility] Branch RAPID INFLUENZA A/B 2022-06-15 20:32:00 Ryan Hernandez [facility] Medical Branch COVID-19 (ID NOW RAPID 2022-06-15 20:32:00 Ryan Hernandez [facility] TESTING) Medical Branch LAB ONLY COVID 2022-06-15 20:32:00 Ryan Hernandez o f [place] INTERPRETATION [facility] Branch CBC WITH DIFF 2022-06-15 18:11:00 Fred Dyer [facility] COMP. METABOLIC PANEL 2022-06-15 18:11:00 Fred Dyer [facility] ([id number]) [facility] TROPONIN I 2022-06-15 18:11:00 Fred Dyer [facility] N-TERMINAL PRO-BNP 2022-06-15 18:11:00 Fred Dyer [facility] PROTHROMBIN TIME / INR 2022-06-15 18:11:00 Gomez [facility] GLYCOSYLATED HEMOGLOBIN 2022-06-15 18:11:[address] [facility] (A1C) [facility] TROPONIN I 2022-06-15 18:11:00 Fred Dyer [facility] COMP. METABOLIC PANEL 2022-06-15 18:11:00 Gomez Fred [facility] ([id number]) [facility] CBC WITH DIFF 2022-06-15 18:11:00 Fred Dyer B [facility] GLYCOSYLATED HEMOGLOBIN 2022-06-15 18:11:[address] [facility] (A1C) [facility] PROTHROMBIN TIME / INR 2022-06-15 18:11:00 Gomez [facility] N-TERMINAL PRO-BNP 2022-06-15 18:11:00 Fred Dyer [facility] XR CHEST 1 VW 2022-06-15 18:04:00 Fred Dyer [facility] XR CHEST 1 VW 2022-06-15 18:04:00 Fred Dyer [facility] HB ECG ROUTINE & RHYTHM 2022-06-15 17:37:44 Fred Dyer [facility] HB ECG ROUTINE & RHYTHM 2022-06-15 17:37:44 Fred Dyer [facility] CONSENT/REFUSAL FOR 2022-06-15 17:30:05 Doctor Verónica, [facility] DIAGNOSIS AND TREATMENT [facility] CONSENT/REFUSAL FOR 2022-06-15 17:30:05 Doctor Verónica, [facility] DIAGNOSIS AND TREATMENT [facility] Orthopedic Surgery 2022-04-09 00:00:00 [facility] PULMONARY FUNCTION TEST 2021-12-24 16:25:[address] [facility] DEXA AXIAL (HIP AND SPINE) 2021-12-03 14:41:18 Requisition, Gerald fraga [facility] NOTICE OF PRIVACY 2021-12-03 14:02:27 Doctor Verónica, [facility] PRACTICES [facility] CONSENT/REFUSAL FOR 2021-12-03 14:02:09 Doctor Verónica, [facility] DIAGNOSIS AND TREATMENT [facility] ASSIGNMENT OF BENEFITS 2021-12-03 14:01:56 Doctor Unasshugo, [facility] [place] MAMMO, screening, digital, 2021-11-05 00:00:00 [facility] Biopsy of Skin 2021-11-04 00:00:00 [facility] XR WRIST 3+ VW LEFT 2021-11-03 14:49:17 Carlene Dempsey [facility] XR HAND 3+ VW LEFT 2021-11-03 14:49:04 Carlene Dempsey [facility] XR ELBOW 3+ VW LEFT 2021-11-03 14:48:47 Carlene Dempsey [facility] OCT, RETINA - OU - BOTH 2021-01-21 15:04:21 [facility] OCT, RETINA - OU - BOTH 2021-01-21 15:04:21 [facility] ABDOMEN PELVIS WO 2021-01-09 17:43:44 Requisition, Paper [facility] CONTRAST Medical Branch CT, abdomen + pelvis, w/o 2021-01-05 00:00:00 [facility] BI SCREENING TOMOSYNTHESIS 2020-12-03 15:19:00 Requisition, Gerald r [facility] BILATERAL Medical Branch CONSENT/REFUSAL FOR 2020-12-03 14:55:00 Doctor Unassigned, [facility] DIAGNOSIS AND TREATMENT [facility] ASSIGNMENT OF BENEFITS 2020-12-03 14:54:43 [facility] Surgical Debridement of 2020-10-01 00:00:00 Formerly [facility] DEXA AXIAL (HIP AND SPINE) 2019-12-03 16:54:00 Requisition, Gerald r [facility] Medical Branch ASSIGNMENT OF BENEFITS 2019-06-28 18:39:07 Doctor Unassigned, [facility] Total Hysterectomy [facility] Eye Surgery [facility] Plan of Care Planned Activity Planned Date Details Comments Source Future Scheduled Test 2022-11-18 Screening for [facility] 16:11:57 malignant neoplasm of colon (procedure) [code = 918335936] Future Scheduled Test 2022-11-18 Screening for [facility] 16:11:57 malignant neoplasm of colon (procedure) [code = 804367771] Future Scheduled Test 2022-11-18 COVID-19 VACCINE (#1) [facility] 16:11:57 [code = COVID-19 VACCINE (#1)] Future Scheduled Test 2022-11-18 Hepatitis C screening [facility] 16:11:57 (procedure) [code = 554271580] Future Scheduled Test 2022-11-18 Screening for [facility] 16:11:57 malignant neoplasm of colon (procedure) [code = 387787080] Future Scheduled Test 2022-11-18 SHINGLES VACCINES (1 [facility] 16:11:57 of 2) [code = SHINGLES VACCINES (1 of 2)] Future Scheduled Test 2022-11-18 65+ PNEUMOCOCCAL [facility] 16:11:57 VACCINE (3 - PPSV23 if available, else PCV20) [code = 65+ PNEUMOCOCCAL VACCINE (3 - PPSV23 if available, else PCV20)] Future Scheduled Test 2022-11-18 BREAST CANCER [facility] 16:11:57 SCREENING [code = BREAST CANCER SCREENING] Future Scheduled Test 2022-11-18 Screening for [facility] 16:11:57 malignant neoplasm of colon (procedure) [code = 703936947] Future Scheduled Test 2022-11-18 Screening for [facility] 16:11:57 malignant neoplasm of colon (procedure) [code = 233903459] Future Scheduled Test 2022-11-18 INFLUENZA VACCINE [facility] 16:11:57 [code = INFLUENZA VACCINE] Diagnostic Test 2022-11-17 HbA1c (hemoglobin [facility] Pending 00:00:00 A1c), blood [code = Hospital Clinics HbA1c (hemoglobin A1c), blood] Diagnostic Test 2022-11-17 lipid panel, serum [facility] Pending 00:00:00 [code = lipid panel, [facility] serum] Diagnostic Test 2022-11-17 TSH + T4, serum [code Swe eboni [facility] Pending 00:00:00 = TSH + T4, serum] Hospital Clinics Diagnostic Test 2022-11-17 vitamin D, [place] [facility] Pending 00:00:00 25-hydroxy, total, Hospital Clinics serum [code = vitamin D, 25-hydroxy, total, serum] Diagnostic Test 2022-11-17 vitamin B12 + folate, Swe eboni [facility] Pending 00:00:00 serum or blood [code [facility] = vitamin B12 + folate, serum or blood] Diagnostic Test 2022-11-17 urinalysis complete, [facility] Pending 00:00:00 reflex culture [code [facility] = urinalysis complete, reflex culture] Diagnostic Test 2022-11-17 microalbumin, urine [facility] Pending 00:00:00 [code = microalbumin, Hospit al Clinics urine] Future Scheduled Test 2022-10-28 Screening for [facility] 01:16:42 malignant neoplasm of colon (procedure) [code = 602683679] Future Scheduled Test 2022-10-28 Screening for [facility] 01:16:42 malignant neoplasm of colon (procedure) [code = 715894256] Future Scheduled Test 2022-10-28 COVID-19 VACCINE (#1) [facility] 01:16:42 [code = COVID-19 VACCINE (#1)] Future Scheduled Test 2022-10-28 Hepatitis C screening [facility] 01:16:42 (procedure) [code = 437874744] Future Scheduled Test 2022-10-28 SHINGLES VACCINES (1 [facility] 01:16:42 of 2) [code = SHINGLES VACCINES (1 of 2)] Future Scheduled Test 2022-10-28 65+ PNEUMOCOCCAL [facility] 01:16:42 VACCINE (3 - PPSV23 if available, else PCV20) [code = 65+ PNEUMOCOCCAL VACCINE (3 - PPSV23 if available, else PCV20)] Future Scheduled Test 2022-10-28 BREAST CANCER [facility] 01:16:42 SCREENING [code = BREAST CANCER SCREENING] Future Scheduled Test 2022-10-28 Screening for [facility] 01:16:42 malignant neoplasm of colon (procedure) [code = 106304700] Future Scheduled Test 2022-10-28 INFLUENZA VACCINE [facility] 01:16:42 [code = INFLUENZA VACCINE] Future Scheduled Test 2022-10-28 Screening for [facility] 01:16:42 malignant neoplasm of colon (procedure) [code = 702057032] Future Scheduled Test 2022-10-28 Screening for [facility] 01:16:42 malignant neoplasm of colon (procedure) [code = 358796483] Future Scheduled Test 2022-08-26 BREAST CANCER [facility] 18:51:04 SCREENING [code = BREAST CANCER SCREENING] Future Scheduled Test 2022-08-26 INFLUENZA VACCINE [facility] 18:51:04 [code = INFLUENZA VACCINE] Future Scheduled Test 2022-08-26 COVID-19 VACCINE (#1) [facility] 18:51:04 [code = COVID-19 VACCINE (#1)] Future Scheduled Test 2022-08-26 Hepatitis C screening [facility] 18:51:04 (procedure) [code = 748460356] Future Scheduled Test 2022-08-26 COLONOSCOPY SCREENING [facility] 18:51:04 [code = COLONOSCOPY SCREENING] Future Scheduled Test 2022-08-26 SHINGLES VACCINES (1 [facility] 18:51:04 of 2) [code = SHINGLES VACCINES (1 of 2)] Future Scheduled Test 2022-08-26 65+ PNEUMOCOCCAL [facility] 18:51:04 VACCINE (3 - PPSV23 if available, else PCV20) [code = 65+ PNEUMOCOCCAL VACCINE (3 - PPSV23 if available, else PCV20)] Future Scheduled Test 2022-08-26 BREAST CANCER [facility] 18:51:04 SCREENING [code = BREAST CANCER SCREENING] Future Scheduled Test 2022-08-26 INFLUENZA VACCINE [facility] 18:51:04 [code = INFLUENZA VACCINE] Future Scheduled Test 2022-08-26 COVID-19 VACCINE (#1) [facility] 18:51:04 [code = COVID-19 VACCINE (#1)] Future Scheduled Test 2022-08-26 Hepatitis C screening [facility] 18:51:04 (procedure) [code = 171111034] Future Scheduled Test 2022-08-26 COLONOSCOPY SCREENING [facility] 18:51:04 [code = COLONOSCOPY SCREENING] Future Scheduled Test 2022-08-26 SHINGLES VACCINES (1 [facility] 18:51:04 of 2) [code = SHINGLES VACCINES (1 of 2)] Future Scheduled Test 2022-08-26 65+ PNEUMOCOCCAL [facility] 18:51:04 VACCINE (3 - PPSV23 if available, else PCV20) [code = 65+ PNEUMOCOCCAL VACCINE (3 - PPSV23 if available, else PCV20)] Future Scheduled Test 2022-08-26 BREAST CANCER [facility] 18:51:04 SCREENING [code = BREAST CANCER SCREENING] Future Scheduled Test 2022-08-26 INFLUENZA VACCINE [facility] 18:51:04 [code = INFLUENZA VACCINE] Future Scheduled Test 2022-08-26 COVID-19 VACCINE (#1) [facility] 18:51:04 [code = COVID-19 VACCINE (#1)] Future Scheduled Test 2022-08-26 Hepatitis C screening [facility] 18:51:04 (procedure) [code = [id number]] Future Scheduled Test 2022-08-26 COLONOSCOPY SCREENING [facility] 18:51:04 [code = COLONOSCOPY SCREENING] Future Scheduled Test 2022-08-26 SHINGLES VACCINES (1 [facility] 18:51:04 of 2) [code = SHINGLES VACCINES (1 of 2)] Future Scheduled Test 2022-08-26 65+ PNEUMOCOCCAL [facility] 18:51:04 VACCINE (3 - PPSV23 if available, else PCV20) [code = 65+ PNEUMOCOCCAL VACCINE (3 - PPSV23 if available, else PCV20)] Future Scheduled Test 2020-01-[address] [facility] 00:00:00 (#1) [code = Medical Center INFLUENZA VACCINE (#1)] Future Scheduled Test 2019-05-11 [facility] (procedure) [code = 542186545] Future Scheduled Test [address] [facility] 00:00:00 WELLNESS (YEAR 2 or Medical Center FIRST YEAR if no IPPE) [code = MEDICARE ANNUAL WELLNESS (YEAR 2 or FIRST YEAR if no IPPE)] Future Scheduled Test 2013 PNEUMOCOCCAL 65+ YRS [facility] 00:00:00 (2 of 2 - PPSV23) Medical Ce nter [code = PNEUMOCOCCAL 65+ YRS (2 of 2 - PPSV23)] Future Scheduled Test 1948 [facility] 00:00:00 malignant neoplasm of [facility] colon (procedure) [code = 238769761] Future Scheduled Test COVID-19 VACCINE (1) [facility] [code = COVID-19 VACCINE (1)] Future Scheduled Test COLONOSCOPY SCREENING [facility] [code = COLONOSCOPY SCREENING] Future Scheduled Test SHINGLES VACCINES [facility] (#1) [code = SHINGLES VACCINES (#1)] Future Scheduled Test 65+ PNEUMOCOCCAL [facility] VACCINE (1 of 1 - PPSV23) [code = 65+ PNEUMOCOCCAL VACCINE (1 of 1 - PPSV23)] Future Scheduled Test BREAST CANCER [facility] SCREENING [code = BREAST CANCER SCREENING] Future Scheduled Test INFLUENZA VACCINE [facility] [code = INFLUENZA VACCINE] Future Appointment 2023-02-17 Addie Holbrook, [address] [facility] 00:00:00 [address]; [facility] [address] [place] [address] Instructions [facility] Encounters Start End Encounter Admission Attending Care Care Encounter Source Date/Time Date/Time Type Type Clinicians Facility Department ID 2022-09-02 Outpatient [id number] Memoria 08:47:08 [id number] [place] [id number] 2022-08-30 Outpatient [facility] [id number] [facility] 13:11:27 [id number] [facility] 2022-08-21 Outpatient [facility] [id number] [facility] 12:18:44 [id number] [facility] 2022-07-30 Outpatient [facility] [id number] [facility] 08:54:06 [id number] [facility] 2022-06-28 Outpatient R BILL FOFANA [facility] [id number] [facility] 14:33:17 BILL FOFANA milla [facility] 2022-01-13 Outpatient [facility] [id number] [facility] 10:14:45 [id number] [facility] 2021-01-21 Outpatient [facility] [id number] [facility] 09:44:08 [facility] 2019-11-01 Inpatient Wolfgang, [facility] DAYS [id number] [facility] 15:00:00 Calvin 71 [facility] 2022-11-17 2022-11-17 Add[facility] [facility] [address] [place] 00:00:00 00:00:00 Sweta Holbrook MD: [address] [facility] a [address], [facility] [address], HOSPITAL [facility] [place], [place] CL[place]IC, [address] YUSEF , Ph. 2022-11-02 2022-11-02 Outpatient SHAWNA Guerrero, HCACL OUTD G00 [id number] [facility] 06:14:00 06:14:00 Fetde 75 [facility] 2022-09-27 2022-10-27 Tots MHIE TIRR [id number] Memoria 13:41:00 04:59:00 Therapy [facility] pérez Del Castillo 2022-09-27 2022-10-27 Tots MHIE TIRR [id number] Memoria 13:41:00 04:59:00 Therapy [facility] pérez Del Castillo 2022-09-27 2022-10-26 Outpatient PABLITO Nava MHTIRR [id number] 08:41:00 23:59:00 [facility] 2022-10-08 2022-10-08 Outpatient KEFFER_A [facility] 4728-2 [address] [place] 00:00:00 00:00:00 628 Commun i ty Hospita l [facility] 2022-10-06 2022-10-06 Addie Cantrell [facility] [place] [address] [place] 00:00:00 00:00:00 Sweta Holbrook MD: [address] [facility] Hospit a [address], [facility] [address], HOSPITAL [facility], [facility], [address] YUSEF , Ph. 2022-09-30 2022-09-30 Outpatient YUSEF_A [facility] 4728-2 [address] [place] 00:00:00 00:00:00 511 Commun i ty [facility]ospita [facility] 2022-09-30 2022-09-30 Outpatient YUSEF_A [facility] 4728-2 [address] [place] 00:00:00 00:00:00 517 Commun i ty [facility]ospita l [facility] 2022-08-18 2022-09-17 Tots MHIE TIRR [id number] Memoria 12:59:00 04:59:00 Therapy [facility] Caridad Del Castillo 2022-08-18 2022-09-17 Tots MHIE TIRR [id number] Memoria 12:59:00 04:59:00 Therapy [facility] Caridad Del Castillo 2022-08-18 2022-09-16 Outpatient PABLITO NavaTIRR [id number] 07:59:00 23:59:00 [facility] 2022-09-16 2022-09-16 Addie Cantrell [facility] [place] [address] [place] 00:00:00 00:00:00 Sweta Holbrook MD: [address]. [facility] SCOTT [facility] Hospit a [address], COMMUNITY l [address], [facility], [address] YUSEF , Ph. 2022-09-06 2022-09-06 Addie Cantrell [facility] [place] [address] [place] 00:00:00 00:00:00 Sweta Holbrook MD: [address]. [facility] Hospit a [address], [facility] [address], [facility], [address] YUSEF , Ph. 2022-08-04 2022-09-03 Wound Care [facility] [id number] Memoria 12:50:00 04:59:[address] 2022-08-04 2022-09-03 Wound Care [facility] [id number] Memoria 12:50:00 04:59:[address] 2022-08-04 2022-09-02 Outpatient [facility] 9604 [facility] 07:50:00 23:59:00 JIMY 2022-08-04 2022-09-02 Outpatient Canc[place], [facility] [id number] 07:50:00 23:59:00 Jimy 2022-08-24 2022-08-25 Inpatient SHAWNA Alvarez HCACL INTE.02 [id number] [facility] 11:58:00 11:47:00 [facility] 70 [facility] 2022-08-20 2022-08-20 Outpatient SHAWNA Alvarez HCACL 3DAY [id number] [facility] 08:00:00 09:00:00 [facility] 13 [facility] 2022-06-29 2022-06-29 Addie Cantrell [facility] [place] [address] [place] 00:00:00 00:00:00 Sweta Holbrook MD: [address] [facility] [address], COMMUNITY l [address], HOSPITAL [place], [place] CL[place]IC, [address] YUSEF , Ph. 2022-06-23 2022-06-23 Transition TASHA Carranza 1.2.840.114 [id number] Univers 00:00:00 00:00:00 of Care Jean Paul CHAIREZ 350.1.13.10 ity of [id number] [place] [address] [address] 2022-06-15 2022-06-22 Inpatient X IHSAN MARQUEZ [facility] [id number] Univers 11:34:00 16:36:00 IHSAN MARQUEZ ity of [facility] 2022-06-15 2022-06-22 [facility] 1.2.840. 114 [id number] Univers 11:34:00 16:36:00 Encounter Ryan Hernandez [facility] 350.1.13.10 ity of [facility] 4.2.7.2.686 [facility] [id number] [address] ([facility]) 2022-06-21 2022-06-21 Anesthesia Valerio Laws 1.2.840.1 [id number] Univers 14:43:00 15:26:00 Event Ryan Mendosa 29551.1.1 ity of 3.104.2.7 [place] .3.514038 Medica l .8 Branch 2022-06-15 2022-06-15 Travel 1.2.840.1 1.2.270.602 0535 [id number] Univers 00:00:00 00:00:00 38486.1.1 350.1.13.10 ity of 3.104.2.7 4.[place].3.698 [place] .3.082432 084.8 Medica l .8 Branch 2022-05-06 2022-05-06 Outpatient YUSEF_Lexi [facility] 4728-2 [address] [place] 00:00:00 00:00:00 215 Commun i ty Hospita l Clinics 2022-05-06 2022-05-06 Outpatient YUSEF_A [facility] 4728-2 [address] [place] 00:00:00 00:00:00 207 Commun i ty Hospita l Clinics 2022-05-06 2022-05-06 Outpatient ANA PAULAFFER_A [facility] 4728-2 [address] [place] 00:00:00 00:00:00 417 Commun i ty Hospita l Clinics 2022-05-06 2022-05-06 Outpatient ANA PAULAFFER_A [facility] 4728-2 [address] [place] 00:00:00 00:00:00 427 Commun i ty Hospita l Clinics 2022-05-06 2022-05-06 Addie Valdovinosn [facility] [place] [address] [place] 00:00:00 00:00:00 Sweta Holbrook MD: [address] [facility] Hospit a [address], [facility] [address], HOSPITAL Clinic [facility], [place] CL[place], [address] YUSEF , Ph. 2022-05-05 2022-05-05 Outpatient YUSEF_A [facility] 4728-2 [address] [place] 00:00:00 00:00:00 214 Commun i ty Hospita l Clinics 2022-01-27 2022-01-27 Outpatient LOCATED WITHIN [facility] [id number] [place] 08:45:00 08:45:00 [facility] 2021-12-24 2021-12-25 Clinical Demetri Ocampo.2.840.1 [id number] Methodi 11:45:00 15:31:50 Support Vanessa 81885.1.[address] 3.430.2.7 Hospit a .3.115054 l .8 2021-12-24 2021-12-25 Clinical Demetri Ocampo.2.840.1 [id number] Methodi 11:45:00 15:31:50 Support Vanessa 29864.1.[address] 3.430.2.7 Hospit a .3.395991 l .8 2021-12-24 2021-12-24 Clinical Arnold, 1.2.840.1 [id number] 15119 Methodi 11:00:00 16:56:00 Support Vanessa 83535.1.[address] 3.430.2.7 Hospit a .3.907865 l .8 2021-12-24 2021-12-24 Clinical Arnold, 1.2.840.1 [id number] 77090 Methodi 11:00:00 16:56:00 Support Vanessa 10877.1.[address] 3.430.2.7 Hospit a .3.004747 l .8 2021-12-24 2021-12-24 Office [place], 1.2.840.1 [id number] 9086 Methodi 12:00:00 12:26:16 Visit Glenny 61305.1.[address] 3.430.2.7 Hospit a .3.452239 l .8 2021-12-24 2021-12-24 Office [place], 1.2.840.1 [id number] 6790 Methodi 12:00:00 12:26:16 Visit Glenny 27361.1.[address] 3.430.2.7 Hospit a .3.526504 l .8 2021-12-24 2021-12-24 Travel 1.2.840.1 1.2.659.997 2329 [id number] Methodi 00:00:00 00:00:[address] 3.430.2.7 0.2.7.3.698 Ho spita .3.251337 084.8 l .8 2021-12-24 2021-12-24 Travel 1.2.840.1 1.2.028.602 5483 837120 Methodi 00:00:00 00:00:[address] 3.430.2.7 0.2.7.3.698 Ho spita .3.789599 084.8 l .8 2021-12-03 2021-12-03 [facility] Radiology [facility] 1.2.840.114 [id number] Univers 09:06:32 23:59:00 Encounter [place] 350.1.13.10 ity of [place] 4.2.7.2.686 [facility] [id number] [address] 2021-12-03 2021-12-03 Outpatient R RADIOLOGY [facility] [id number] Univers 09:03:38 09:05:00 ity of [facility] 2021-12-03 2021-12-03 Hospital Radiology [facility] 1.2.840.114 [id number] Univers 09:03:38 09:05:00 Encounter [place] 350.1.13.10 ity of [place] 4.2.7.2.686 [facility] [id number] [address] 2021-11-05 2021-11-05 Outpatient JOSUE [facility] 4728-2 0 [place] 11:57:00 11:57:00 616 [facility] i ty Hospita [facility] 2021-11-05 2021-11-05 Addie Cantrell [facility] [address] [place] 00:00:00 00:00:00 Sweta Holbrook MD: [address] [facility] Hospit a [address], [facility] [address], [facility], [address] YUSEF , Ph. 2021-11-05 2021-11-05 Outpatient Addie Holbrook [facility] 6af [id number] 00:00:00 00:00:00 Tamia [id number] 2021-11-03 2021-11-03 Office Tino, 1.2.840.1 [id number] 5227 Methodi 10:20:00 10:20:00 Visit Carlene Kamara 49561.1.[address] 3.430.2.7 Hospit a .3.138811 l .8 2021-11-03 2021-11-03 Outpatient TINO [facility] [id number] [address] [place] 00:00:00 00:00:[address] 2021-11-03 2021-11-03 Outpatient TINO [facility] [id number] [address] [place] 00:00:00 00:00:00 CARLENE 658 Method i 2021-11-03 2021-11-03 Outpatient TINO [facility] [id number] [address] [place] 00:00:00 00:00:[address] 2021-11-03 2021-11-03 Travel 1.2.840.1 1.2.624.447 [id number] [id number] Methodi 00:00:00 00:00:[address] 3.430.2.7 0.2.7.3.698 Ho spita .3.230118 084.8 l .8 2021-10-22 2021-10-22 Office [facility], 1.2.840.1 [id number] 8197 Methodi 10:30:00 10:41:31 Visit Glenny 88841.1.[address] 3.430.2.7 Hospit a .3.650254 l .8 2021-10-22 2021-10-22 Travel 1.2.840.1 1.2.107.568 0316 [id number] Methodi 00:00:00 00:00:[address] 3.430.2.7 0.2.7.3.698 Ho spita .3.530611 084.8 l .8 2021-09-24 2021-09-24 Travel 1.2.840.1 1.2.527.410 7426 718310 Methodi 00:00:00 00:00:[address] 3.430.2.7 0.2.7.3.698 Ho spita .3.538466 084.8 l .8 2021-06-17 2021-06-17 Outpatient [facility]_A [facility] 4728-2 [address] [place] 08:51:00 08:51:00 126 Commun i ty Hospita l Clinics 2021-05-04 2021-05-04 Outpatient KEFFER_A [facility] 4728-2 1 [place] 02:07:00 02:07:00 213 Commun i ty Hospita l Clinics 2021-05-04 2021-05-04 Addie Cantrell [facility] [place] - [place] [address] [place] 00:00:00 00:00:00 Sweta Holbrook MD: [address] [facility] SCOTT [place] Hospit a [address], COMMUNITY l [address], HOSPITAL Clinic [place], [address] YUSEF , Ph. 2021-05-04 2021-05-04 Outpatient Yusef Addie [facility] 133 [id number] 00:00:00 00:00:00 Tamia [id number] 2021-01-21 2021-01-21 Office [place], [facility] 6400 1.2.840.114 [id number] 1025 [place] 08:09:55 10:13:[address] 350.1.13.58 Health 9.2.7.2.686 [id number] 4 2021-01-21 2021-01-21 Office Aramis, [facility] 6400 1.2.840.114 95541 1025 [place] 08:09:55 10:13:[address] 350.1.13.58 Health 9.2.7.2.686 [id number] 4 2021-01-16 2021-01-16 Outpatient YUSEF_Lexi [facility] 4728-2 0 [place] 02:18:00 02:18:00 827 Commun i ty Hospita l Clinics 2021-01-15 2021-01-15 Outpatient YUSEF_Lexi [facility] 4728-2 0210 [place] 03:18:00 03:18:00 826 Commun i ty Hospita l Clinics 2021-01-15 2021-01-15 Addie Cantrell [facility] [place] [address] [place] 00:00:00 00:00:00 Sweta Holbrook MD: [address] N. [facility] - ty [facility] [place] Hospit a [address], COMMUNITY l [address], HOSPITAL Clinic [place], [place] CL[place], [address] YUSEF , Ph. 2021-01-15 2021-01-15 Outpatient Addie Holbrook [facility] 64b [id number] 00:00:00 00:00:00 Tamia [id number] 2021-01-09 2021-01-09 Hospital Radiology [facility] 1.2.840.114 [id number] Univers 12:33:01 23:59:00 Encounter [place] 350.1.13.10 ity [facility] 4.2.7.2.686 [facility] [id number] [facility] [address] 2021-01-09 2021-01-09 Outpatient R RADIOLOGY [facility] [id number] Univers 00:00:00 00:00:00 ity of [facility] 2020-12-03 2020-12-03 Hospital Radiology [facility] 1.2.840.114 [id number] Univers 09:55:29 23:59:00 Encounter [place] 350.1.13.10 ity [facility] 4.2.7.2.686 [facility] [id number] [facility] [address] 2020-12-03 2020-12-03 Outpatient R RADIOLOGY [facility] [id number] Univers 00:00:00 00:00:00 ity of [facility] 2020-11-10 2020-11-10 Outpatient JOSUE [facility] 4728-2 [address] [place] 10:14:00 10:14:00 621 Commun i ty Hospita l [facility] 2020-11-10 2020-11-10 Addie Cantrell [facility] [place] [address] [place] 00:00:00 00:00:00 Sweta Holbrook MD: [address] [facility] Hospit a [address], [facility] [address], [place], [place] CLINIC, [address] YUSEF , Ph. 2020-11-10 2020-11-10 Outpatient Addie Holbrook [facility] 250 [id number] 00:00:00 00:00:00 Tamia [id number] 2020-09-17 2020-09-17 Outpatient KEFFER_A [facility] 4728-2 [address] [place] 03:53:00 03:53:00 428 Commun i ty Hospita l Clinics 2020-09-17 2020-09-17 Outpatient Yusef Addie [facility] 198 [id number] 00:00:00 00:00:00 Tamia [id number] 2020-09-17 2020-09-17 Addie Tamia [facility] [place] [address] [place] 00:00:00 00:00:00 Sweta Holbrook MD: [address] [facility] Hospit a [address], COMMUNITY l [address], HOSPITAL [place], [place] CL[place]IC, [address] YUSEF , Ph. 2020-09-16 2020-09-16 Outpatient KEFFER_A [facility] 4728-2 [address] [place] 10:13:00 10:13:00 427 Commun i ty Hospita l Clinics 2020-09-15 2020-09-15 Outpatient KEFFER_A [facility] 4728-2 [address] [place] 05:05:00 05:05:00 426 Commun i ty Hospita l Clinics 2020-09-15 2020-09-15 Outpatient Addie Holbrook [facility] 196 [id number] 00:00:00 00:00:00 Tamia [id number] 2020-09-15 2020-09-15 Addie Cantrell [facility] [place] [address] [place] 00:00:00 00:00:00 Sweta Holrbook MD: [address] [facility] Hospit a [address], COMMUNITY l [address], HOSPITAL [place], [place], [address] YUSEF , Ph. 2020-05-08 2020-05-08 Outpatient KEFFER_A [place] [id number] [address] [place] 04:04:00 04:04:00 217 Commun i ty Hospita l Clinics 2020-04-09 2020-04-09 Outpatient keffer_a MMG [facility] 2019 [place] 02:20:00 02:20:00 1118 [facility] 2019-12-03 2019-12-03 Hospital Radiology [facility] 1.2.840.114 [id number] Univers 11:11:00 23:59:00 Encounter [place] 350.1.13.10 ity of [place].2.686 [place] [id number] [facility] [address] 2019-12-03 2019-12-03 [facility] Radiology [facility] 1.2.840.114 [id number] Univers 10:28:00 11:10:00 Encounter [place] 350.1.13.10 ity of [place] 4.2.7.2.686 [facility] [id number] [place] [address] [address] 2019-12-03 2019-12-03 Outpatient R RADIOLOGY [facility] [id number] Univers 00:00:00 00:00:00 ity of [facility] 2019-07-03 2019-07-03 Outpatient keffer_a G [facility] 2019 [place] 12:19:00 12:19:00 0211 [facility] 2019-07-03 2019-07-03 Outpatient keffer_a MMG [facility] 2019 [place] 12:19:00 12:19:00 0218 [facility] 2019-06-28 2019-06-28 Orders Doctor QUINTANILLA 1.2.840.114 [id number] 00:00:00 00:00:00 Only Unassigned, MIK 350.1.13.10 [place] [facility] 4.2.7.2.686 [id number] 2019-06-28 2019-06-28 Orders Doctor QUINTANILLA 1.2.840.114 [id number] Univers 00:00:00 00:00:00 Only Unassigned, MIK 350.1.13.10 ity of [place] [facility]ITAL 4.2.7.2.686 [place] [id number] [place] [address] [address] 2019-06-01 2019-06-01 Outpatient R RADIOLOGY [facility] [id number] Univers 08:16:50 08:17:00 ity of [facility] Results Test Description Test Time Test Comments Results Result Comments Source BASIC METABOLIC PANEL 2022-10-29 15:56:00 Test Item Value Reference Range Interpretation Comme nts SODIUM (test code = NA) 140 mEq/L 134-147 N POTASSIUM (test code = K) 4.2 mEq/L 3.4-5.0 N CHLORIDE (test code = CL) 105 mEq/L 100-108 N CARBON DIOXIDE (test code = 28 mEq/l 21-33 N CO2) ANION GAP (test code = GAP) 12 0-20 N GLUCOSE (test code = GLU) 121 mg/dL 70-110 H BLOOD UREA NITROGEN (test code 24 mg/dL 7-18 H = BUN) GLOMERULAR FILTRATION RATE 43.2 70-80 L T he Glomerular Filtration Rate is (test code = GFR) a calculat ed parameterbased on serum Creatinin e, patient age and sex. GFR values less than 60 mL/min/1.73 squ are meters are indicative ofCh ronic Kidney Disease. Values less than 15 mL/min/1.73squa re meters indicate Kidney failure. The calculation forGFR is based on the CKD-EPI (2020) calculat ion. This formulais race indifferen t and is the recommended for abhishek for GFRby the National Kidney Foundation for Adults.The GFR will not calculate if the sex is u nknown or if thepatient's ag e is <18 years. CREATININE (test code = CREAT) 1.3 mg/dL 0.6-1.3 N CALCIUM (test code = CA) 9.0 mg/dL 8.0-10.5 N PROTHROMBIN [id number] 15:54:00 Test Item Value Reference Range Interpretation Comments PROTHROMBIN TIME 13.1 SECONDS 9.3-12.9 H PATIENT (test code = PTP) INTERNATIONAL NORMAL 1.2 0.8-1.2 N TARGET INR BY RATIO (test code = INDICATIO N Indication INR) INR1. Prophylax is of venous thrombos is 2.0 - 3.0 (orthoped ic surgery), Proph ylaxis of venous throm bosis (other than hig h-risk surgery), Treat ment of Deep Vein Thrombosis/Pulm onary Embolism, Preve ntion of systemic emb olism - Tissue heart va lves, Acute Myocardia l Infarction (to prevent systemic emboli sm), Valvular heart disease, Atrial Fibrillation, Bileaflet mecha nical valve in aortic position.2. Mec hanical prosthetic valv es (high risk), 2. 5 - 3.5 Presence of Lup us Anticoagulant o r Antiphospholipi d Antibodies, Pre vention of systemic emb olism - Acute Myocardia l Infarction (to prevent recurrent infar ct). CBC W/AUTO [id number] 15:35:00 Test Item Value Reference Range Interpretation Comments WHITE BLOOD CELL (test code = 7.9 x10 3/uL 4.5-11.0 N WBC) RED BLOOD CELL (test code = 4.36 x10 6/uL 3.54-5.02 N RBC) HEMOGLOBIN (test code = HGB) 13.5 g/dL 11.0-15.0 N HEMATOCRIT (test code = HCT) 41.4 % 33.0-45.0 N MEAN CELL VOLUME (test code = 95.0 fL 81.0-99.0 N MCV) MEAN CELL HGB (test code = MCH) 31.0 pg 27.0-33.0 N MEAN CELL HGB CONCETRATION 32.6 g/dL 33.0-37.0 L (test code = MCHC) RED CELL DISTRIBUTION WIDTH CV 16.5 % 11.5-14.5 H (test code = RDW) PLATELET COUNT (test code = 312 x10 3/uL 150-400 N PLT) NEUTROPHIL % (test code = NT%) 68.7 % 56.0-77.0 N LYMPHOCYTE % (test code = LY%) 20.2 % 14.0-32.0 N NEUTROPHIL # (test code = NT#) 5.41 x10 3/uL 2.0-7.6 N LYMPHOCYTE # (test code = LY#) 1.59 x10 3/uL 1.0-3.8 N MANUAL DIFF REQUIRED (test code NO = MDIFF) RED CELL DISTRIBUTION WIDTH SD 57.7 fL 37.0-54.0 H (test code = RDW-SD) MEAN PLATELET VOLUME (test code 10.5 fL 7.0-9.0 H = MPV) IMMATURE GRANULOCYTE % (test 0.3 % 0.0-2.0 N code = IG%) MONOCYTE % (test code = MO%) 8.9 % 4.8-9.0 N EOSINOPHIL % (test code = EO%) 1.3 % 0.3-3.7 N BASOPHIL % (test code = BA%) 0.6 % 0.0-2.0 N NUCLEATED RBC % (test code = 0.0 % 0-0 N NRBC%) IMMATURE GRANULOCYTE # (test 0.02 x10 3/uL 0.00-0.03 N code = IG#) MONOCYTE # (test code = MO#) 0.70 x10 3/uL 0.1-0.8 N EOSINOPHIL # (test code = EO#) 0.10 x10 3/uL 0.0-0.2 N BASOPHIL # (test code = BA#) 0.05 x10 3/uL 0.0-0.2 N NUCLEATED RBC # (test code = 0.00 x10 3/uL 0.0-0.1 N NRBC#) BASIC METABOLIC [id number] 04:17:00 Test Item Value Reference Range Interpretation Comments SODIUM (test code = 137 mEq/L 134-147 N NA) POTASSIUM (test code 4.7 mEq/L 3.4-5.0 N = K) CHLORIDE (test code 105 mEq/L 100-108 N = CL) CARBON DIOXIDE (test 25 mEq/l 21-33 N code = CO2) ANION GAP (test code 12 0-20 N = GAP) GLUCOSE (test code = 291 mg/dL 70-110 H GLU) BLOOD UREA NITROGEN 18 mg/dL 7-18 N (test code = BUN) GLOMERULAR 67.1 70-80 L The Glomerular FILTRATION RATE Filtration R ate is a (test code = GFR) calculated parameterbased on serum Creatinine, pat ient age and sex. GFR va luesless than 60 mL/min/ 1.73 square meters a re indicative ofCh ronic Kidney Disease. Values less than 15 mL/min/1.73squa re meters indicate Kidney failure. The calculation forGFR is based on the CKD-EPI (2020) calculat ion. This formulais race indifferent and is the recommended for abhishek for GFRby the Natio nal Kidney Foundati on for Adults.The GFR will not calculate if th e sex is unknown or if thepatient's ag e is <18 years. CREATININE (test 0.9 mg/dL 0.6-1.3 N code = CREAT) CALCIUM (test code = 8.3 mg/dL 8.0-10.5 N CA) CBC W/AUTO [id number] 04:00:00 Test Item Value Reference Range Interpretation Comments WHITE BLOOD CELL (test code = 8.4 x10 3/uL 4.5-11.0 N WBC) RED BLOOD CELL (test code = 3.93 x10 6/uL 3.54-5.02 N RBC) HEMOGLOBIN (test code = HGB) 11.6 g/dL 11.0-15.0 N HEMATOCRIT (test code = HCT) 35.4 % 33.0-45.0 N MEAN CELL VOLUME (test code = 90.1 fL 81.0-99.0 N MCV) MEAN CELL HGB (test code = MCH) 29.5 pg 27.0-33.0 N MEAN CELL HGB CONCETRATION 32.8 g/dL 33.0-37.0 L (test code = MCHC) RED CELL DISTRIBUTION WIDTH CV 15.2 % 11.5-14.5 H (test code = RDW) RED CELL DISTRIBUTION WIDTH SD 50.4 fL 37.0-54.0 N (test code = RDW-SD) PLATELET COUNT (test code = 259 x10 3/uL 150-400 N PLT) MEAN PLATELET VOLUME (test code 10.4 fL 7.0-9.0 H = MPV) NEUTROPHIL % (test code = NT%) 87.2 % 56.0-77.0 H IMMATURE GRANULOCYTE % (test 0.2 % 0.0-2.0 N code = IG%) LYMPHOCYTE % (test code = LY%) 9.7 % 14.0-32.0 L MONOCYTE % (test code = MO%) 2.9 % 4.8-9.0 L EOSINOPHIL % (test code = EO%) 0.0 % 0.3-3.7 L BASOPHIL % (test code = BA%) 0.0 % 0.0-2.0 N NUCLEATED RBC % (test code = 0.0 % 0-0 N NRBC%) NEUTROPHIL # (test code = NT#) 7.30 x10 3/uL 2.0-7.6 N IMMATURE GRANULOCYTE # (test 0.02 x10 3/uL 0.00-0.03 N code = IG#) LYMPHOCYTE # (test code = LY#) 0.81 x10 3/uL 1.0-3.8 L MONOCYTE # (test code = MO#) 0.24 x10 3/uL 0.1-0.8 N EOSINOPHIL # (test code = EO#) 0.00 x10 3/uL 0.0-0.2 N BASOPHIL # (test code = BA#) 0.00 x10 3/uL 0.0-0.2 N NUCLEATED RBC # (test code = 0.00 x10 3/uL 0.0-0.1 N NRBC#) MANUAL DIFF REQUIRED (test code NO = MDIFF) [id number] 12:15:00 Test Item Value Reference Range Interpretation Comments ACT-ISTAT (test code 389 SEC 74-137 H Perform ed by certified = ACTI) 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 at 1421 Reported and signed by: Sona Jay M.D. Report PROCEDURE INFORMATION:Exam: XR Chest Exam date and time: 08/24/2022 12:57 PM Age: 72 years old Clinical indication: Device placement; Other: Watchman TECHNIQUE: Imaging protocol: Radiologic exam of the chest. Views: 1 view. CO MPARISON: DX XR CHEST 2 V 08/20/2022 11:08 AM FINDINGS: Tubes, catheters and devices: Right IJ Port-A-Cath tip overlying the distal SVC. Lungs: Hypoinflation with increasing central pulmonary vascular congestion and increasing interstitial prominence that may be related to increasing hypoinflation versus mild interstitial pulmonary edema. Pleural spaces: Unremarkable. No pleural effusion. No pneumothorax. Heart/Mediastinum: Mild cardiomegaly. Bones/joints: No acute fracture or dislocation. Incompletely visualized right shoulder prosthesis. IMPRESSION: 1. Hypoinflation with increasing central pulmonary vascular congestion and increasing interstitial prominence that may be related to increasing hypoinflation versus mild interstitial pulmonary edema. 2. Mild cardiomegaly. PAGE 1 Signed Report (CONTINUED) FAX: Deandre Rodriguez [phone] Wilder: St: ADM FAX: Steve Beltran [phone] Name: CHRIS WILEY [facility] : 1950 Age/S: 72/F [address] [place] [address] Unit #: [id number] Loc: [place] [address] Phys: Steve Beltran Acct: [id number] Dis Date: Status: ADM IN PHONE #: Exam Date: 08/24/2022 1300 FAX #: [phone] Reason: WATCHMAN Report Has Been Amended EXAMS: CPT CODE: [id number] XR CHEST 1 V 22823 (Continued) at 1420 Reported and signed by: Sona Jay M.D. CC: Deandre Wisdom MD; Steve Beltran Technologist: RT Lauren(R) Trnscrd Date/Time/By:08/24/2022 (1419) : By: [email or web address] Orig Print D/T: S: 08/24/2022 (142) PAGE 2 Signed ReportBASIC METABOLIC [id number] 11:50:00 Test Item Value Reference Range Interpretation Comments SODIUM (test code = 141 mEq/L 134-147 N NA) POTASSIUM (test code 4.1 mEq/L 3.4-5.0 N = K) CHLORIDE (test code 105 mEq/L 100-108 N = CL) CARBON DIOXIDE (test 30 mEq/l 21-33 N code = CO2) ANION GAP (test code 10 0-20 N = GAP) GLUCOSE (test code = 123 mg/dL 70-110 H GLU) BLOOD UREA NITROGEN 23 mg/dL 7-18 H (test code = BUN) GLOMERULAR 67.1 70-80 L The Glomerular FILTRATION RATE Filtration R ate is a (test code = GFR) calculated parameterbased on serum Creatinine, pat ient age and sex. GFR va luesless than 60 mL/min/ 1.73 square meters a re indicative ofCh ronic Kidney Disease. Values less than 15 mL/min/1.73squa re meters indicate Kidney failure. The calculation forGFR is based on the CKD-EPI (2020) calculat ion. This formulais race indifferent and is the recommended for abhishek for GFRby the Natio nal Kidney Foundati on for Adults.The GFR will not calculate if th e sex is unknown or if thepatient's ag e is <18 years. CREATININE (test 0.9 mg/dL 0.6-1.3 N code = CREAT) CALCIUM (test code = 9.0 mg/dL 8.0-10.5 N CA) [id number] 11:50:00 Test Item Value Reference Range Interpretation Comments PREALBUMIN (test code = PREALB) 18.7 mg/dL 16.0-40.0 N PROTHROMBIN [id number] 11:40:00 Test Item Value Reference Range Interpretation Comments PROTHROMBIN TIME 13.2 SECONDS 9.3-12.9 H PATIENT (test code = PTP) INTERNATIONAL NORMAL 1.2 0.8-1.2 N TARGET INR BY RATIO (test code = INDICATIO N Indication INR) INR1. Prophylax is of venous thrombos is 2.0 - 3.0 (orthoped ic surgery), Proph ylaxis of venous throm bosis (other than hig h-risk surgery), Treat ment of Deep Vein Thrombosis/Pulm onary Embolism, Preve ntion of systemic emb olism - Tissue heart va lves, Acute Myocardia l Infarction (to prevent systemic emboli sm), Valvular heart disease, Atrial Fibrillation, Bileaflet mecha nical valve in aortic position.2. Mec hanical prosthetic valv es (high risk), 2. 5 - 3.5 Presence of Lup us Anticoagulant o r Antiphospholipi d Antibodies, Pre vention of systemic emb olism - Acute Myocardia l Infarction (to prevent recurrent infar ct). CBC W/AUTO [id number] 11:31:00 Test Item Value Reference Range Interpretation Comments WHITE BLOOD CELL (test code = 7.1 x10 3/uL 4.5-11.0 N WBC) RED BLOOD CELL (test code = 4.34 x10 6/uL 3.54-5.02 N RBC) HEMOGLOBIN (test code = HGB) 12.6 g/dL 11.0-15.0 N HEMATOCRIT (test code = HCT) 39.5 % 33.0-45.0 N MEAN CELL VOLUME (test code = 91.0 fL 81.0-99.0 N MCV) MEAN CELL HGB (test code = MCH) 29.0 pg 27.0-33.0 N MEAN CELL HGB CONCETRATION 31.9 g/dL 33.0-37.0 L (test code = MCHC) RED CELL DISTRIBUTION WIDTH CV 15.2 % 11.5-14.5 H (test code = RDW) RED CELL DISTRIBUTION WIDTH SD 51.3 fL 37.0-54.0 N (test code = RDW-SD) PLATELET COUNT (test code = 288 x10 3/uL 150-400 N PLT) MEAN PLATELET VOLUME (test code 10.3 fL 7.0-9.0 H = MPV) NEUTROPHIL % (test code = NT%) 72.5 % 56.0-77.0 N IMMATURE GRANULOCYTE % (test 0.4 % 0.0-2.0 N code = IG%) LYMPHOCYTE % (test code = LY%) 19.2 % 14.0-32.0 N MONOCYTE % (test code = MO%) 6.6 % 4.8-9.0 N EOSINOPHIL % (test code = EO%) 0.7 % 0.3-3.7 N BASOPHIL % (test code = BA%) 0.6 % 0.0-2.0 N NUCLEATED RBC % (test code = 0.0 % 0-0 N NRBC%) NEUTROPHIL # (test code = NT#) 5.15 x10 3/uL 2.0-7.6 N IMMATURE GRANULOCYTE # (test 0.03 x10 3/uL 0.00-0.03 N code = IG#) LYMPHOCYTE # (test code = LY#) 1.36 x10 3/uL 1.0-3.8 N MONOCYTE # (test code = MO#) 0.47 x10 3/uL 0.1-0.8 N EOSINOPHIL # (test code = EO#) 0.05 x10 3/uL 0.0-0.2 N BASOPHIL # (test code = BA#) 0.04 x10 3/uL 0.0-0.2 N NUCLEATED RBC # (test code = 0.00 x10 3/uL 0.0-0.1 N NRBC#) MANUAL DIFF REQUIRED (test code NO = HENOK) - XR CHEST 2 [id number] 00:00:00 [facility] : 1950 Sex: F FAX:Deandre Rodriguez [phone] Wilder: St: PRE Name: ZAC WILEYCYNDEE Rizvi [facility] : 1950 Age/S: 72/F [address] [place] [address] Unit #: [id number] Loc: [place] [address] Phys: Deandre Devlin MD Acct: [id number] Dis Date: Status: PRE SDC PHONE #: [phone] Exam Date: 08/20/2022 1108 FAX #: Reason: PREOP EXAMS: CPT CODE: [id number] XR CHEST 2 V 96171 PROCEDURE INFORMATION: Exam: XR Chest Exam date and time: 08/20/2022 11:08 AM Age: 72 years old Clinical indication: Pre-operative exam; Respiratory screening exam; Additional info: Preop TECHNIQUE: Imaging protocol: Radiologic examof the chest. Views: 2 views. PA and Lateral COMPARISON: CR XR CHEST 1V 11/05/2019 9:31 AM FINDINGS: Lungs: There are slightly increased reticular markings bilaterally. A right IJ port catheter remainsin place. Pleural spaces: Unremarkable. No pleural effusion. No pneumothorax. Heart/Mediastinum: Theheart size is normal. The mediastinal contour is normal. The trachea is midline. Bones/joints: Previous total right shoulder replacement. IMPRESSION: Findings suggesting minimal chronic interstitial change. at 1238 Reported and signed by: Kennedy Tobias M.D. CC: Deandre Wisdom MD Technologist: RT Wang(Marisol) Trnscrd Date/Time/By: 08/20/2022 (1238) : By: VolodymyrTDO Orig Print D/T: S: 08/20/2022 (1238) PAGE 1 Signed ReportBASIC METABOLIC PANEL (NA, K, CL, CO2, GLUCOSE, BUN, CREATININE, CA)2022-06-19 10:59:12 Test Item Value Reference Range Interpretation Comments NA (test code = 137 mmol/L 135-145 3315980116) K (test code = 4.4 mmol/L 3.5-5.0 3016354909) CL (test code = 106 mmol/L 98-108 5356677078) CO2 TOTAL (test code 26 mmol/L 23-31 = 9078478904) AGAP (test code = 5 2-16 9794159678) BUN (test code = 20 mg/dL 7-23 5880631300) GLUCOSE (test code = 106 mg/dL 70-110 1270408660) CREATININE (test code 0.76 mg/dL 0.50-1.04 = 9518101616) CALCIUM (test code = 8.9 mg/dL 8.6-10.6 4120029052) eGFR (test code = 74.4 mL/min/1.73m2 1344813183) ROMA (test code = ROMA) Association of Glomerular Filtration Rate (GFR) and Staging of Kidney Disease* + + +- +| GFR (mL/min/1.73 m2) ?| With Kidney Damage ?| ?Without Kidney Damage+ ------+ ----+ ------+| ?>90 ?| ?Stage one ?| ? Normal ?+ -+ + -+| ?60-89 ?| ?Stage two ?| ? Decreased GFR ? + + +- +| ?30-59 ?| ?Stage three ?| ? Stage three ? + + +- +| ?15-29 ?| ?Stage four ? | ? Stage four ?+ -+ + -+| ?<15 (or dialysis) ? ?| ?Stage five ? | ? Stage five ?+ -+ + -+ *Each stage assumes the associated GFR level has been in effect for at least three months. ?Stages 1 to 5, with or without kidney disease, indicate chronic kidney disease. Notes: Determination of stages one and two (with eGFR >59mL/min/1.73 m2) requires estimation of kidney damage for at least three months as defined by structural or functional abnormalities of the kidney, manifested by either:Pathological abnormalities or Markers of kidney damage (including abnormalities in the composition of the blood or urine or abnormalities in imaging tests). [facility] WITHOUT [id number] 10:36:49 Test Item Value Reference Range Interpretation Comments WBC (test code = 5.90 See_Comment [Automated message] The 6690-2) system which Opt[employer] nerated this result tra nsmitted reference range : 4.30 - 11.10 10*3/?L. The reference range was not used to interpr et this result as normal/abnormal . RBC (test code = 4.54 See_Comment [Automated message] The 789-8) system which Opt[employer] nerated this result tra nsmitted reference range : 3.93 - 5.25 10*6/?L. T he reference range was not used to interpr et this result as normal/abnormal . HGB (test code = 13.2 g/dL 11.6-15.0 718-7) HCT (test code = 41.6 % 35.7-45.2 4544-3) MCH (test code = 29.1 pg 25.9-32.8 785-6) MCV (test code = 91.6 fL 80.6-95.5 787-2) MCHC (test code = 31.7 g/dL 31.6-35.1 786-4) PLT (test code = 251 See_Comment [Automated message] The 777-3) system which ge nerated this result tra nsmitted reference range : 166 - 358 10*3/?L. Th e reference range was not used to interpr et this result as normal/abnormal . MPV (test code = 10.3 fL 9.5-12.9 60681-1) RDW-CV (test code = 13.5 % 12.0-15.5 788-0) RDW-SD (test code = 45.8 fL 39.0-49.9 68267-0) NRBC x10^3 (test See_Comment [Automated message] The code = 0781578651) system [facility] generated this result tra nsmitted reference range : 10*3/?L. The reference r ab was not used to int erpret this result as normal/abnormal . NRBC/100 WBC (test 0.0 See_Comment [Automat ed message] The code = 1683545834) system [facility] generated this result tra nsmitted reference range : 0.0 - 10.0 /100 WBCs. The reference range was not used to interpr et this result as normal/abnormal . IPF % (test code = 8411676325) [facility] GLUCOSE (AUTOMATED)2022-06-17 13:57:37 Test Item Value Reference Range Interpretation Comments POCT GLU (test code = 5940779132) 142 mg/dL 70-110 H Lab Interpretation (test code = Abnormal 22728-0) [facility] GLUCOSE (AUTOMATED)2022-06-17 13:57:37 Test Item Value Reference Range Interpretation Comments POCT GLU (test code = 9350415554) 142 mg/dL 70-110 H Lab Interpretation (test code = Abnormal 00097-4) [facility] GLUCOSE (AUTOMATED)2022-06-17 02:59:59 Test Item Value Reference Range Interpretation Comments POCT GLU (test code = 9549023705) 112 mg/dL 70-110 H Lab Interpretation (test code = Abnormal 17972-6) [facility]-16 23:31:44 Test Item Value Reference Range Interpretation Comments Height (test code = 62 in 1262985688) Weight (test code = 207 lbs 5797946949) Systolic BP (test code 149 mmHg = 0671781286) Diastolic BP (test code 87 mmHg = 1344885864) Heart Rate (test code = 106 bpm 3128889620) LVOT stroke volume 51.90 cm3 (test code = 5979686594) EF(Teich) (test code = 51.50 % 8592061218) LVIDD (test code = 4.70 cm 7930032958) LVIDS (test code = 3.40 cm 4031574805) Left Ventricular End 48.9 mL Systolic Volume by Teichholz Method (test code = 1010601) Left Ventricular End 100.9 mL Diastolic Volume by Teichholz Method (test code = 3984650) IVS (test code = 1.21 cm 4258192174) LVPWD (test code = 1.25 cm 8738760664) LVOT diameter (test 1.92 cm code = 6786411749) LVOT area (test code = 2.90 cm2 0409043128) FS (test code = 26 % 3856472277) MV Peak E Roland (test 120.3 cm/s code = 6244661020) E wave decelartion time 0.17 s (test code = 4053816348) LA Volume Index (BP) 45.0 mL/m2 (test code = 8281219937) LA volume (BP) (test 87.3 mL code = 0834882465) LVOT peak roland (test 96.7 cm/s code = 1790063003) LVOT mn grad (test code 2.0 mmHg = 1306461176) BSA (test code = 1.94 m2 7126661951) LA size (test code = 5.2 cm 2235026588) LAV(MOD-sp2) (test code 85.50 mL = 6402733465) LAV(MOD-sp4) (test code 89.40 mL = 4452878481) Tapse (test code = 1.60 cm 5712460263) Ao peak roland (test code 136.3 cm/s = 5494245088) AV LVOT peak gradient 3.7 mmHg (test code = 4712865759) LVOT peak VTI (test 18.0 cm code = 2722745291) AV area peak roland (test 2.0 cm2 code = 1896801109) LV V1 mean (test code = 66.90 cm/s 9753146679) Ao max PG (test code = 7.50 mm[Hg] 0223453257) MV Prop V (test code = 28.00 cm/s 3051819186) Ao root diam (test code 3.30 cm = 3485256918) AV peak gradient (test 7.5 mmHg code = 4287365355) Aortic root (test code 3.3 cm = 0403043144) Ao root annulus (test 3.3 cm code = 4849667806) PW (test code = 1.25 cm 0.6-1.3 8389398400) EF - 2D (test code = 51.50 % 51468740) Interventricular Septum 1.21 cm Diastolic Thickness by 2D (test code = 2223827) Radiology Study observation (narrative) (test code = 83657-5) ROMA (test code = ROMA) ?Left?Ventricle: Left ventricle size is normal. Increased wall thickness. There is concentric hypertrophy. No LV thrombus. Normal systolic function with a visually estimated EF of 55 - 60%. Unable to assess diastolic function due to arrhythmia. ?Left?Atrium: Left atrium is moderately dilated. ?Right?Ventricle: Right ventricle size is normal. Normal systolic function. ?IVC/SVC: IVC diameter is greater than 21 mm and decreases greater than 50% during inspiration; therefore the estimated right atrial pressure is intermediate (~8 mmHg). Left VentricleLeft ventricle size is normal. Increased wall thickness. There is concentric hypertrophy. No LV thrombus. Normal systolic function with a visually estimated EF of 55 - 60%. Unable to assess diastolic function due to arrhythmia.Right VentricleRight ventricle size is normal. Normal systolic function.Left AtriumLeft atrium is moderately dilated.Right AtriumRight atrium is dilated.IVC/SVCIVC diameter is greater than 21 mm and decreases greater than 50% during inspiration; therefore the estimated right atrial pressure is intermediate (~8 mmHg).Mitral ValveMitral valve structure is normal. Trace transvalvular regurgitation.Tricuspi d ValveTricuspid valve structure is normal. Trace transvalvular regurgitation. Insufficient regurgant jet to estimate RVSP.Aortic ValveModerately thickened cusps. Mildly calcified cusps. No transvalvular regurgitation. No hemodynamically significant .Pulmonic ValveNot well visualized.Ascending AortaNormal sized sinus of Valsalva.PericardiumTh e pericardium is normal. No pericardial effusion. Epicardial fat pad.Study DetailsA complete echocardiogram was performed using 2D, color flow Doppler and spectral Doppler. 3 mL of Optison ultrasound enhancing agent used. [facility] GLUCOSE (AUTOMATED)2022-06-16 23:08:12 Test Item Value Reference Range Interpretation Comments POCT GLU (test code = 8982005987) 99 mg/dL 70-110 Lab Interpretation (test code = Normal 67920-1) [facility] GLUCOSE (AUTOMATED)2022-06-16 17:51:58 Test Item Value Reference Range Interpretation Comments POCT GLU (test code = 0868324034) 140 mg/dL 70-110 H Lab Interpretation (test code = Abnormal 73850-0) [facility] (A1C)2022-06-16 16:42:47 Test Item Value Reference Range Interpretation Comments HGB A1C (test code = 6.8 % 4.0-5.7 H 4548-4) ROMA (test code = ROMA) Reference RangesNormal: <5.7%Prediabetes: 5.7 - 6.4%Diabetes: > 6.5% Lab Interpretation (test Abnormal code = 24557-4) [facility]A1C)2022-06-16 16:42:47 Test Item Value Reference Range Interpretation Comments HGB A1C (test code = 6.8 % 4.0-5.7 H 4548-4) ROMA (test code = ROMA) Reference RangesNormal: <5.7%Prediabetes: 5.7 - 6.4%Diabetes: > 6.5% Lab Interpretation (test Abnormal code = 42936-6) [facility] GLUCOSE (AUTOMATED)2022-06-16 02:45:24 Test Item Value Reference Range Interpretation Comments POCT GLU (test code = 3328957586) 138 mg/dL 70-110 H Lab Interpretation (test code = Abnormal 27059-2) [facility] [id number] 18:45:50 Test Item Value Reference Interpretation Comments Range TROPONIN I (test 0.004 ng/mL See_Comment [Automated code = 0201015958) message] The system which generated this result transmitted reference range : <=0.034. The reference range was not used to interpret this result as normal/abnormal . ROMA (test code = Reference (Normal) ROMA) Range (defined by the 99th percentile reference limit): <= 0.034 ng/mL Note: Cardiac troponin begins to rise 3-4 hours after the onset of ischemia. Repeat in 4-6 hours if the sample was drawn within 3-4 hours of the onset of the symptom and found normal. Diagnosis of myocardial injury is made with acute changes in cTn concentrations with at least one serial sample above the 99th percentile upper reference limit (URL), taken together with the patient's clinical presentation. Biotin has been reported to cause a negative bias, interpret results relative to patient's use of biotin. Lab Interpretation Normal (test code = 92220-7) [facility] [id number] 18:45:50 Test Item Value Reference Range Interpretation Comments NT-proBNP (test code 1100 pg/mL See_Comment H [Autom ated = 9031647912) message] The system which generated this result transmitted reference range : <=125. The reference range was not used to interpret this result as normal/abnormal . ROMA (test code = ROMA) Biotin has been reported to cause a negative bias, interpret results relative to patient's use of biotin. Lab Interpretation Abnormal (test code = 09048-2) [facility] [id number] 18:45:50 Test Item Value Reference Interpretation Comments Range TROPONIN I (test 0.004 ng/mL See_Comment [Automated code = 0379381249) message] The system which generated this result transmitted reference range : <=0.034. The reference range was not used to interpret this result as normal/abnormal . ROMA (test code = Reference (Normal) ROMA) Range (defined by the 99th percentile reference limit): <= 0.034 ng/mL Note: Cardiac troponin begins to rise 3-4 hours after the onset of ischemia. Repeat in 4-6 hours if the sample was drawn within 3-4 hours of the onset of the symptom and found normal. Diagnosis of myocardial injury is made with acute changes in cTn concentrations with at least one serial sample above the 99th percentile upper reference limit (URL), taken together with the patient's clinical presentation. Biotin has been reported to cause a negative bias, interpret results relative to patient's use of biotin. Lab Interpretation Normal (test code = 79559-5) [facility] [id number] 18:45:50 Test Item Value Reference Range Interpretation Comments NT-proBNP (test code 1100 pg/mL See_Comment H [Autom ated = 0629230815) message] The system which generated this result transmitted reference range : <=125. The reference range was not used to interpret this result as normal/abnormal . ROMA (test code = ROMA) Biotin has been reported to cause a negative bias, interpret results relative to patient's use of biotin. Lab Interpretation Abnormal (test code = 19456-0) [facility] METABOLIC PANEL (03986)2022-06-15 18:34:07 Test Item Value Reference Range Interpretation Comments NA (test code = 137 mmol/L 135-145 6962914201) K (test code = 4.0 mmol/L 3.5-5.0 7289473505) CL (test code = 104 mmol/L 98-108 9830921867) CO2 TOTAL (test code = 29 mmol/L 23-31 0872704363) AGAP (test code = 4 2-16 9360158993) BUN (test code = 15 mg/dL 7-23 9509581689) GLUCOSE (test code = 151 mg/dL 70-110 H 7131994382) CREATININE (test code = 0.74 mg/dL 0.50-1.04 6188686119) TOTAL BILI (test code = 0.6 mg/dL 0.1-1.8 2764693861) CALCIUM (test code = 8.7 mg/dL 8.6-10.6 5347446629) T PROTEIN (test code = 6.5 g/dL 6.3-8.2 5555995374) ALBUMIN (test code = 3.6 g/dL 3.5-5.0 7471267534) ALK PHOS (test code = 114 U/L 34-122 8137646756) ALTv (test code = 39 U/L 5-35 H 1742-6) AST(SGOT) (test code = 27 U/L 13-40 3964890656) eGFR (test code = 76.7 mL/min/1.73m2 7683678668) ROMA (test code = ROMA) Association of Glomerular Filtration Rate (GFR) and Staging of Kidney Disease* + --+ --+ ------+| GFR (mL/min/1.73 m2) ?| With Kidney Damage ?| ?Without Kidney Damage+ --------+ --------+ +| ?>90 ?| ?Stage one ?| ? Normal ?+ ---+ ---+ -------+| ?60-89 ?| ?Stage two ?| ? Decreased GFR ? + --+ --+ ------+| ?30-59 ?| ?Stage three ?| ? Stage three ? + --+ --+ ------+| ?15-29 ?| ?Stage four ? | ? Stage four ?+ ---+ ---+ -------+| ?<15 (or dialysis) ? ?| ?Stage five ? | ? Stage five ?+ ---+ ---+ -------+ *Each stage assumes the associated GFR level has been in effect for at least three months. ?Stages 1 to 5, with or without kidney disease, indicate chronic kidney disease. Notes: Determination of stages one and two (with eGFR >59mL/min/1.73 m2) requires estimation of kidney damage for at least three months as defined by structural or functional abnormalities of the kidney, manifested by either:Pathological abnormalities or Markers of kidney damage (including abnormalities in the composition of the blood or urine or abnormalities in imaging tests). Lab Interpretation Abnormal (test code = 45801-6) [facility]. METABOLIC PANEL (69281)2022-06-15 18:34:07 Test Item Value Reference Range Interpretation Comments NA (test code = 137 mmol/L 135-145 3767886223) K (test code = 4.0 mmol/L 3.5-5.0 8993015964) CL (test code = 104 mmol/L 98-108 7947112277) CO2 TOTAL (test code = 29 mmol/L 23-31 0046982561) AGAP (test code = 4 2-16 0191543984) BUN (test code = 15 mg/dL 7-23 5061897628) GLUCOSE (test code = 151 mg/dL 70-110 H 1830067666) CREATININE (test code = 0.74 mg/dL 0.50-1.04 7696300582) TOTAL BILI (test code = 0.6 mg/dL 0.1-1.2 2917270162) CALCIUM (test code = 8.7 mg/dL 8.6-10.6 4243033745) T PROTEIN (test code = 6.5 g/dL 6.3-8.2 5075524499) ALBUMIN (test code = 3.6 g/dL 3.5-5.0 4890582892) ALK PHOS (test code = 114 U/L 34-122 1285142531) ALTv (test code = 39 U/L 5-35 H 1742-6) AST(SGOT) (test code = 27 U/L 13-40 4874457050) eGFR (test code = 76.7 mL/min/1.73m2 4095665765) ROMA (test code = ROMA) Association of Glomerular Filtration Rate (GFR) and Staging of Kidney Disease* + --+ --+ ------+| GFR (mL/min/1.73 m2) ?| With Kidney Damage ?| ?Without Kidney Damage+ --------+ --------+ +| ?>90 ?| ?Stage one ?| ? Normal ?+ ---+ ---+ -------+| ?60-89 ?| ?Stage two ?| ? Decreased GFR ? + --+ --+ ------+| ?30-59 ?| ?Stage three ?| ? Stage three ? + --+ --+ ------+| ?15-29 ?| ?Stage four ? | ? Stage four ?+ ---+ ---+ -------+| ?<15 (or dialysis) ? ?| ?Stage five ? | ? Stage five ?+ ---+ ---+ -------+ *Each stage assumes the associated GFR level has been in effect for at least three months. ?Stages 1 to 5, with or without kidney disease, indicate chronic kidney disease. Notes: Determination of stages one and two (with eGFR >59mL/min/1.73 m2) requires estimation of kidney damage for at least three months as defined by structural or functional abnormalities of the kidney, manifested by either:Pathological abnormalities or Markers of kidney damage (including abnormalities in the composition of the blood or urine or abnormalities in imaging tests). Lab Interpretation Abnormal (test code = 38309-1) [facility] / [id number] 18:30:07 Test Item Value Reference Range Interpretation Comments PROTIME PATIENT (test 18.6 See_Comment H [Auto mated message] code = 5964-2) The system [employer] generated this result transmitted ref erence range: 10.1 - 1 2.6 Seconds. The reference range was not used to int erpret this result as normal/abnormal . INR (test code = 6301-6) 1.6 Nor mal INR <1.1; Warfarin Therap eutic range 2.0 to 3. 0 or 2.5 to 3.5, dep ending upon the indica tions. Lab Interpretation (test Abnormal code = 49935-7) [facility] / [id number] 18:30:07 Test Item Value Reference Range Interpretation Comments PROTIME PATIENT (test 18.6 See_Comment H [Auto mated message] code = 5964-2) The system [employer] generated this result transmitted ref erence range: 10.1 - 1 2.6 Seconds. The reference range was not used to int erpret this result as normal/abnormal . INR (test code = 6301-6) 1.6 Nor mal INR <1.1; Warfarin Therap eutic range 2.0 to 3. 0 or 2.5 to 3.5, dep ending upon the indica tions. Lab Interpretation (test Abnormal code = 42660-3) [facility] [id number] 18:22:28 Test Item Value Reference Range Interpretation Comments WBC (test code = 5.99 See_Comment [Automated 5691-2) message] The sy stem which generated this result transmitted reference range : 4.30 - 11.10 10*3/?L. The reference range was not used to interpret this result as normal/abnormal . RBC (test code = 4.45 See_Comment [Automated 789-8) message] The sy stem which generated this result transmitted reference range : 3.93 - 5.25 10*6/?L. The reference range was not used to interpret this result as normal/abnormal . HGB (test code = 12.9 g/dL 11.6-15.0 718-7) HCT (test code = 40.9 % 35.7-45.2 4544-3) MCV (test code = 91.9 fL 80.6-95.5 787-2) MCH (test code = 29.0 pg 25.9-32.8 785-6) MCHC (test code = 31.5 g/dL 31.6-35.1 L 786-4) RDW-SD (test code = 45.5 fL 39.0-49.9 83854-8) RDW-CV (test code = 13.4 % 12.0-15.5 788-0) PLT (test code = 254 See_Comment [Automated 777-3) message] The sy stem which generated this result transmitted reference range : 166 - 358 10*3/ ?L. The reference r ab was not used to interpret this result as normal/abnormal . MPV (test code = 10.2 fL 9.5-12.9 02299-5) NRBC/100 WBC (test 0.0 See_Comment [Automat ed code = [id number]) message] The system which generated this result transmitted reference range : 0.0 - 10.0 /100 WBCs. The refer ence range was not u sed to interpret th is result as normal/abnormal . NRBC x10^3 (test code See_Comment [Auto mated = [id number]) message] The s ystem which generated this result transmitted reference range : 10*3/?L. The reference range was not used to interpret this result as normal/abnormal . GRAN MAT (NEUT) % 70.3 % (test code = 770-8) IMM GRAN % (test code 0.30 % = 3403429149) LYMPH % (test code = 20.5 % 736-9) MONO % (test code = 8.3 % 5905-5) EOS % (test code = 0.3 % 713-8) BASO % (test code = 0.3 % 706-2) GRAN MAT x10^3(ANC) 4.20 10*3/uL 1.88-7.09 (test code = [id number]) IMM GRAN x10^3 (test 0.00-0.06 code = 6618368636) LYMPH x10^3 (test code 1.23 10*3/uL 1.32-3.29 L = 731-0) MONO x10^3 (test code 0.50 10*3/uL 0.33-0.92 = 742-7) EOS x10^3 (test code = 0.03-0.39 L 711-2) BASO x10^3 (test code 0.01-0.07 = 704-7) Lab Interpretation Abnormal (test code = 00330-1) [facility] WITH [id number] 18:22:28 Test Item Value Reference Range Interpretation Comments WBC (test code = 5.99 See_Comment [Automated 3613-2) message] The sy stem which generated this result transmitted reference range : 4.30 - 11.10 10*3/?L. The reference range was not used to interpret this result as normal/abnormal . RBC (test code = 4.45 See_Comment [Automated 671-8) message] The sy stem which generated this result transmitted reference range : 3.93 - 5.25 10*6/?L. The reference range was not used to interpret this result as normal/abnormal . HGB (test code = 12.9 g/dL 11.6-15.0 718-7) HCT (test code = 40.9 % 35.7-45.2 4544-3) MCV (test code = 91.9 fL 80.6-95.5 787-2) MCH (test code = 29.0 pg 25.9-32.8 785-6) MCHC (test code = 31.5 g/dL 31.6-35.1 L 786-4) RDW-SD (test code = 45.5 fL 39.0-49.9 26338-5) RDW-CV (test code = 13.4 % 12.0-15.5 788-0) PLT (test code = 254 See_Comment [Automated 189-3) message] The sy stem which generated this result transmitted reference range : 166 - 358 10*3/ ?L. The reference r ab was not used to interpret this result as normal/abnormal . MPV (test code = 10.2 fL 9.5-12.9 41355-9) NRBC/100 WBC (test 0.0 See_Comment [Automat ed code = [id number]) message] The system which generated this result transmitted reference range : 0.0 - 10.0 /100 WBCs. The refer ence range was not u sed to interpret th is result as normal/abnormal . NRBC x10^3 (test code See_Comment [Auto mated = [id number]) message] The s ystem which generated this result transmitted reference range : 10*3/?L. The reference range was not used to interpret this result as normal/abnormal . GRAN MAT (NEUT) % 70.3 % (test code = 770-8) IMM GRAN % (test code 0.30 % = 0084425137) LYMPH % (test code = 20.5 % 736-9) MONO % (test code = 8.3 % 5905-5) EOS % (test code = 0.3 % 713-8) BASO % (test code = 0.3 % 706-2) GRAN MAT x10^3(ANC) 4.20 10*3/uL 1.88-7.09 (test code = 7732033817) IMM GRAN x10^3 (test 0.00-0.06 code = 0198424278) LYMPH x10^3 (test code 1.23 10*3/uL 1.32-3.29 L = 731-0) MONO x10^3 (test code 0.50 10*3/uL 0.33-0.92 = 742-7) EOS x10^3 (test code = 0.03-0.39 L 711-2) BASO x10^3 (test code 0.01-0.07 = 704-7) Lab Interpretation Abnormal (test code = 76903-9) [facility] [id number] 16:25:41 Test Item Value Reference Range Interpretation Comments VC Pre (test code = 2.73 L 2.00-3.30 5374) VC Predicted (test 2.65 code = 5372) VC LLN (test code = 2.00 5373) VC % Pre of 103.0 % Predicted (test code = 5375) TLC Pre (test code = 4.46 L 3.62-5.59 5416) TLC Predicted (test 4.60 code = 5414) TLC LLN (test code = 3.62 5415) TLC % Pre of 96.8 % Predicted (test code = 5417) RV Pre (test code = 1.73 L 1.44-2.59 5402) RV Predicted (test 2.02 code = 5400) RV LLN (test code = 1.44 5401) RV % Pre of 85.7 % Predicted (test code = 5403) RV % TLC Pre (test 38.82 % 34.19-53.37 code = 5409) RV % TLC Predicted 44 (test code = 5407) RV % TLC LLN (test 34 code = 5408) RV % TLC % Pre of 88.7 % Predicted (test code = 5410) R0.5IN Pre (test 1.83 See_Comment [Automated message] code = 5514) The system [employer] generated this result transmitted ref erence range: 3.06 - 3 .06 cmH2O*s/L. The reference range was not used to int erpret this result as normal/abnormal . R0.5IN Predicted 3.06 (test code = 5512) R0.5IN LLN (test 3.06 code = 5513) R0.5IN % Pre of 59.8 % Predicted (test code = 5515) FRCpl Pre (test code 2.30 L 1.78-3.42 = 5388) FRCpl % Predicted 2.60 (test code = 5386) FRCpl % LLN (test 1.78 code = 5387) FRCpl % Pre of 88.5 % Predicted (test code = 5389) ERV Pre (test code = 0.57 L 0.58-0.58 5381) ERV Predicted (test 0.58 code = 5379) ERV LLN (test code = 0.58 5380) ERV % Pre of 98.3 % Predicted (test code = 5382) IC Pre (test code = 2.15 L 1.72-1.72 5395) IC Predicted (test 1.72 code = 5393) IC LLN (test code = 1.72 5394) IC % Pre of 124.9 % Predicted (test code = 5396) sR0.5IN Pre (test 4.88 cmH2O*s code = 5521) Raw Pre (test code = 3.07 See_Comment [Autom ated message] 5507) The system [employer] generated this result transmitted ref erence range: 3.06 - 3 .06 cmH2O*s/L. The reference range was not used to int erpret this result as normal/abnormal . Raw Predicted (test 3.06 code = 5505) Raw LLN (test code = 3.06 5506) Raw % Pre of 100.5 % Predicted (test code = 5508) sGaw Predicted (test 0.12 See_Comment [Autom ated message] code = 5528) The system [employer] generated this result transmitted ref erence range: 0.10 - 0 .10 1/(cmH2O*s). Th e reference range was not used to int erpret this result as normal/abnormal . sGaw Predicted (test 0.10 code = 5526) sGaw LLN (test code 0.10 = 5527) sGaw % Pre of 119.4 % Predicted (test code = 5529) FEV1 Pre (test code 2.11 L 1.44-2.54 = 5348) FEV1 Predicted (test 1.99 code = 5302) FEV1 LLN (test code 1.44 = 5347) FEV1 % Pre of 106.4 % Predicted (test code = 5308) FVC Pre (test code = 2.69 L 2.00-3.30 5354) FVC Predicted (test 2.65 code = 5307) FVC LLN (test code = 2.00 5353) FVC % Pre of 101.6 % Predicted (test code = 5355) FEV1/FVC % Pre (test 78.61 % 65.50-85.09 code = 5361) FEV1/FVC % Predicted 75 (test code = 5359) FEV1/FVC % LLN (test 66 code = 5360) FEV1/FVC % Pre of 104.4 % Predicted (test code = 5362) FEF 25-75% Pre (test 1.92 L/s 0.48-2.80 code = 5547) FEF 25-75% Predicted 1.64 (test code = 5546) FEF 25-75% LLN (test 0.48 code = 5545) FEF 25-75% % Pre of 116.9 % Predicted (test code = 5548) PEF Pre (test code = 7.96 L/s 3.50-6.71 5367) PEF Predicted (test 5.11 code = 5310) PEF LLN (test code = 3.50 5366) PEF % Pre of 155.7 % Predicted (test code = 5368) MVV Pre (test code = 77.79 L/min 61.05-82.59 5590) MVV Predicted (test 72 code = 5544) MVV LLN (test code = 61 5543) MVV % Pre of 108.3 % Predicted (test code = 5587) DLCO Pre (test code 16.45 See_Comment [Automa ismael message] = 5423) The system [employer] generated this result transmitted ref erence range: 9.65 - 2 4.34 ml/(min*mmHg). The reference range was not used to int erpret this result as normal/abnormal . DLCO Predicted (test 16.99 code = 5421) DLCO LLN (test code 9.65 = 5422) DLCO % Pre of 96.8 % Predicted (test code = 5424) DL/VA Pre (test code 3.85 See_Comment [Autom ated message] = 5437) The system [employer] generated this result transmitted ref erence range: 2.93 - 5 .68 ml/(min*mmHg*L) . The reference range was not used to int erpret this result as normal/abnormal . DL/VA Predicted 4.30 (test code = 5435) DL/VA LLN (test code 2.93 = 5436) DL/VA % Pre of 89.4 % Predicted (test code = 5438) VA SB Pre (test code 4.28 L 4.45-4.45 = 5444) VA SB Predicted 4.45 (test code = 5442) VA SB LLN (test code 4.45 = 5443) VA SB % Pre of 96.0 % Predicted (test code = 5445) [facility] [id number] 16:25:41 Test Item Value Reference Range Interpretation Comments VC Pre (test code = 2.73 L 2.00-3.30 5374) VC Predicted (test 2.65 code = 5372) VC LLN (test code = 2 5373) VC % Pre of 103 % Predicted (test code = 5375) TLC Pre (test code = 4.46 L 3.62-5.59 5416) TLC Predicted (test 4.6 code = 5414) TLC LLN (test code = 3.62 5415) TLC % Pre of 96.8 % Predicted (test code = 5417) RV Pre (test code = 1.73 L 1.44-2.59 5402) RV Predicted (test 2.02 code = 5400) RV LLN (test code = 1.44 5401) RV % Pre of 85.7 % Predicted (test code = 5403) RV % TLC Pre (test 38.82 % 34.19-53.37 code = 5409) RV % TLC Predicted 44 (test code = 5407) RV % TLC LLN (test 34 code = 5408) RV % TLC % Pre of 88.7 % Predicted (test code = 5410) R0.5IN Pre (test 1.83 See_Comment [Automated message] code = 5514) The system [employer] generated this result transmitted ref erence range: 3.06 - 3 .06 cmH2O*s/L. The reference range was not used to int erpret this result as normal/abnormal . R0.5IN Predicted 3.06 (test code = 5512) R0.5IN LLN (test 3.06 code = 5513) R0.5IN % Pre of 59.8 % Predicted (test code = 5515) FRCpl Pre (test code 2.3 L 1.78-3.42 = 5388) FRCpl % Predicted 2.6 (test code = 5386) FRCpl % LLN (test 1.78 code = 5387) FRCpl % Pre of 88.5 % Predicted (test code = 5389) ERV Pre (test code = 0.57 L 0.58-0.58 5381) ERV Predicted (test 0.58 code = 5379) ERV LLN (test code = 0.58 5380) ERV % Pre of 98.3 % Predicted (test code = 5382) IC Pre (test code = 2.15 L 1.72-1.72 5395) IC Predicted (test 1.72 code = 5393) IC LLN (test code = 1.72 5394) IC % Pre of 124.9 % Predicted (test code = 5396) sR0.5IN Pre (test 4.88 cmH2O*s code = 5521) Raw Pre (test code = 3.07 See_Comment [Autom ated message] 5507) The system [employer] generated this result transmitted ref erence range: 3.06 - 3 .06 cmH2O*s/L. The reference range was not used to int erpret this result as normal/abnormal . Raw Predicted (test 3.06 code = 5505) Raw LLN (test code = 3.06 5506) Raw % Pre of 100.5 % Predicted (test code = 5508) sGaw Predicted (test 0.12 See_Comment [Autom ated message] code = 5528) The system [employer] generated this result transmitted ref erence range: 0.10 - 0 .10 1/(cmH2O*s). Th e reference range was not used to int erpret this result as normal/abnormal . sGaw Predicted (test 0.1 code = 5526) sGaw LLN (test code 0.1 = 5527) sGaw % Pre of 119.4 % Predicted (test code = 5529) FEV1 Pre (test code 2.11 L 1.44-2.54 = 5348) FEV1 Predicted (test 1.99 code = 5302) FEV1 LLN (test code 1.44 = 5347) FEV1 % Pre of 106.4 % Predicted (test code = 5308) FVC Pre (test code = 2.69 L 2.00-3.30 5354) FVC Predicted (test 2.65 code = 5307) FVC LLN (test code = 2 5353) FVC % Pre of 101.6 % Predicted (test code = 5355) FEV1/FVC % Pre (test 78.61 % 65.50-85.09 code = 5361) FEV1/FVC % Predicted 75 (test code = 5359) FEV1/FVC % LLN (test 66 code = 5360) FEV1/FVC % Pre of 104.4 % Predicted (test code = 5362) FEF 25-75% Pre (test 1.92 L/s 0.48-2.80 code = 5547) FEF 25-75% Predicted 1.64 (test code = 5546) FEF 25-75% LLN (test 0.48 code = 5545) FEF 25-75% % Pre of 116.9 % Predicted (test code = 5548) PEF Pre (test code = 7.96 L/s 3.50-6.71 5367) PEF Predicted (test 5.11 code = 5310) PEF LLN (test code = 3.5 5366) PEF % Pre of 155.7 % Predicted (test code = 5368) MVV Pre (test code = 77.79 L/min 61.05-82.59 5590) MVV Predicted (test 72 code = 5544) MVV LLN (test code = 61 5543) MVV % Pre of 108.3 % Predicted (test code = 5587) DLCO Pre (test code 16.45 See_Comment [Automa ismael message] = 5423) The system [facility] [facility] generated this result transmitted ref erence range: 9.65 - 2 4.34 ml/(min*mmHg). The reference range was not used to int erpret this result as normal/abnormal . DLCO Predicted (test 16.99 code = 5421) DLCO LLN (test code 9.65 = 5422) DLCO % Pre of 96.8 % Predicted (test code = 5424) DL/VA Pre (test code 3.85 See_Comment [Autom ated message] = 5437) The system [facility] generated this result transmitted ref erence range: 2.93 - 5 .68 ml/(min*mmHg*L) . The reference range was not used to int erpret this result as normal/abnormal . DL/VA Predicted 4.3 (test code = 5435) DL/VA LLN (test code 2.93 = 5436) DL/VA % Pre of 89.4 % Predicted (test code = 5438) VA SB Pre (test code 4.28 L 4.45-4.45 = 5444) VA SB Predicted 4.45 (test code = 5442) VA SB LLN (test code 4.45 = 5443) VA SB % Pre of 96 % Predicted (test code = 5445) [facility] [id number] 16:25:41 Test Item Value Reference Range Interpretation Comments VC Pre (test code = 2.73 L 2.00-3.30 5374) VC Predicted (test 2.65 code = 5372) VC LLN (test code = 2.00 5373) VC % Pre of 103.0 % Predicted (test code = 5375) TLC Pre (test code = 4.46 L 3.62-5.59 5416) TLC Predicted (test 4.60 code = 5414) TLC LLN (test code = 3.62 5415) TLC % Pre of 96.8 % Predicted (test code = 5417) RV Pre (test code = 1.73 L 1.44-2.59 5402) RV Predicted (test 2.02 code = 5400) RV LLN (test code = 1.44 5401) RV % Pre of 85.7 % Predicted (test code = 5403) RV % TLC Pre (test 38.82 % 34.19-53.37 code = 5409) RV % TLC Predicted 44 (test code = 5407) RV % TLC LLN (test 34 code = 5408) RV % TLC % Pre of 88.7 % Predicted (test code = 5410) R0.5IN Pre (test 1.83 See_Comment [Automated message] code = 5514) The system [facility] generated this result transmitted ref erence range: 3.06 - 3 .06 cmH2O*s/L. The reference range was not used to int erpret this result as normal/abnormal . R0.5IN Predicted 3.06 (test code = 5512) R0.5IN LLN (test 3.06 code = 5513) R0.5IN % Pre of 59.8 % Predicted (test code = 5515) FRCpl Pre (test code 2.30 L 1.78-3.42 = 5388) FRCpl % Predicted 2.60 (test code = 5386) FRCpl % LLN (test 1.78 code = 5387) FRCpl % Pre of 88.5 % Predicted (test code = 5389) ERV Pre (test code = 0.57 L 0.58-0.58 5381) ERV Predicted (test 0.58 code = 5379) ERV LLN (test code = 0.58 5380) ERV % Pre of 98.3 % Predicted (test code = 5382) IC Pre (test code = 2.15 L 1.72-1.72 5395) IC Predicted (test 1.72 code = 5393) IC LLN (test code = 1.72 5394) IC % Pre of 124.9 % Predicted (test code = 5396) sR0.5IN Pre (test 4.88 cmH2O*s code = 5521) Raw Pre (test code = 3.07 See_Comment [Autom ated message] 5507) The system [facility] generated this result transmitted ref erence range: 3.06 - 3 .06 cmH2O*s/L. The reference range was not used to int erpret this result as normal/abnormal . Raw Predicted (test 3.06 code = 5505) Raw LLN (test code = 3.06 5506) Raw % Pre of 100.5 % Predicted (test code = 5508) sGaw Predicted (test 0.12 See_Comment [Autom ated message] code = 5528) The system [facility] generated this result transmitted ref erence range: 0.10 - 0 .10 1/(cmH2O*s). Th e reference range was not used to int erpret this result as normal/abnormal . sGaw Predicted (test 0.10 code = 5526) sGaw LLN (test code 0.10 = 5527) sGaw % Pre of 119.4 % Predicted (test code = 5529) FEV1 Pre (test code 2.11 L 1.44-2.54 = 5348) FEV1 Predicted (test 1.99 code = 5302) FEV1 LLN (test code 1.44 = 5347) FEV1 % Pre of 106.4 % Predicted (test code = 5308) FVC Pre (test code = 2.69 L 2.00-3.30 5354) FVC Predicted (test 2.65 code = 5307) FVC LLN (test code = 2.00 5353) FVC % Pre of 101.6 % Predicted (test code = 5355) FEV1/FVC % Pre (test 78.61 % 65.50-85.09 code = 5361) FEV1/FVC % Predicted 75 (test code = 5359) FEV1/FVC % LLN (test 66 code = 5360) FEV1/FVC % Pre of 104.4 % Predicted (test code = 5362) FEF 25-75% Pre (test 1.92 L/s 0.48-2.80 code = 5547) FEF 25-75% Predicted 1.64 (test code = 5546) FEF 25-75% LLN (test 0.48 code = 5545) FEF 25-75% % Pre of 116.9 % Predicted (test code = 5548) PEF Pre (test code = 7.96 L/s 3.50-6.71 5367) PEF Predicted (test 5.11 code = 5310) PEF LLN (test code = 3.50 5366) PEF % Pre of 155.7 % Predicted (test code = 5368) MVV Pre (test code = 77.79 L/min 61.05-82.59 5590) MVV Predicted (test 72 code = 5544) MVV LLN (test code = 61 5543) MVV % Pre of 108.3 % Predicted (test code = 5587) DLCO Pre (test code 16.45 See_Comment [Automa ismael message] = 5423) The system [facility] generated this result transmitted ref erence range: 9.65 - 2 4.34 ml/(min*mmHg). The reference range was not used to int erpret this result as normal/abnormal . DLCO Predicted (test 16.99 code = 5421) DLCO LLN (test code 9.65 = 5422) DLCO % Pre of 96.8 % Predicted (test code = 5424) DL/VA Pre (test code 3.85 See_Comment [Autom ated message] = 5437) The system [facility] generated this result transmitted ref erence range: 2.93 - 5 .68 ml/(min*mmHg*L) . The reference range was not used to int erpret this result as normal/abnormal . DL/VA Predicted 4.30 (test code = 5435) DL/VA LLN (test code 2.93 = 5436) DL/VA % Pre of 89.4 % Predicted (test code = 5438) VA SB Pre (test code 4.28 L 4.45-4.45 = 5444) VA SB Predicted 4.45 (test code = 5442) VA SB LLN (test code 4.45 = 5443) VA SB % Pre of 96.0 % Predicted (test code = 5445) [facility] [id number] 16:25:41 Test Item Value Reference Range Interpretation Comments VC Pre (test code = 2.73 L 2.00-3.30 5374) VC Predicted (test 2.65 code = 5372) VC LLN (test code = 2 5373) VC % Pre of 103 % Predicted (test code = 5375) TLC Pre (test code = 4.46 L 3.62-5.59 5416) TLC Predicted (test 4.6 code = 5414) TLC LLN (test code = 3.62 5415) TLC % Pre of 96.8 % Predicted (test code = 5417) RV Pre (test code = 1.73 L 1.44-2.59 5402) RV Predicted (test 2.02 code = 5400) RV LLN (test code = 1.44 5401) RV % Pre of 85.7 % Predicted (test code = 5403) RV % TLC Pre (test 38.82 % 34.19-53.37 code = 5409) RV % TLC Predicted 44 (test code = 5407) RV % TLC LLN (test 34 code = 5408) RV % TLC % Pre of 88.7 % Predicted (test code = 5410) R0.5IN Pre (test 1.83 See_Comment [Automated message] code = 5514) The system [facility] generated this result transmitted ref erence range: 3.06 - 3 .06 cmH2O*s/L. The reference range was not used to int erpret this result as normal/abnormal . R0.5IN Predicted 3.06 (test code = 5512) R0.5IN LLN (test 3.06 code = 5513) R0.5IN % Pre of 59.8 % Predicted (test code = 5515) FRCpl Pre (test code 2.3 L 1.78-3.42 = 5388) FRCpl % Predicted 2.6 (test code = 5386) FRCpl % LLN (test 1.78 code = 5387) FRCpl % Pre of 88.5 % Predicted (test code = 5389) ERV Pre (test code = 0.57 L 0.58-0.58 5381) ERV Predicted (test 0.58 code = 5379) ERV LLN (test code = 0.58 5380) ERV % Pre of 98.3 % Predicted (test code = 5382) IC Pre (test code = 2.15 L 1.72-1.72 5395) IC Predicted (test 1.72 code = 5393) IC LLN (test code = 1.72 5394) IC % Pre of 124.9 % Predicted (test code = 5396) sR0.5IN Pre (test 4.88 cmH2O*s code = 5521) Raw Pre (test code = 3.07 See_Comment [Autom ated message] 5507) The system [facility] generated this result transmitted ref erence range: 3.06 - 3 .06 cmH2O*s/L. The reference range was not used to int erpret this result as normal/abnormal . Raw Predicted (test 3.06 code = 5505) Raw LLN (test code = 3.06 5506) Raw % Pre of 100.5 % Predicted (test code = 5508) sGaw Predicted (test 0.12 See_Comment [Autom ated message] code = 5528) The system [facility] generated this result transmitted ref erence range: 0.10 - 0 .10 1/(cmH2O*s). Th e reference range was not used to int erpret this result as normal/abnormal . sGaw Predicted (test 0.1 code = 5526) sGaw LLN (test code 0.1 = 5527) sGaw % Pre of 119.4 % Predicted (test code = 5529) FEV1 Pre (test code 2.11 L 1.44-2.54 = 5348) FEV1 Predicted (test 1.99 code = 5302) FEV1 LLN (test code 1.44 = 5347) FEV1 % Pre of 106.4 % Predicted (test code = 5308) FVC Pre (test code = 2.69 L 2.00-3.30 5354) FVC Predicted (test 2.65 code = 5307) FVC LLN (test code = 2 5353) FVC % Pre of 101.6 % Predicted (test code = 5355) FEV1/FVC % Pre (test 78.61 % 65.50-85.09 code = 5361) FEV1/FVC % Predicted 75 (test code = 5359) FEV1/FVC % LLN (test 66 code = 5360) FEV1/FVC % Pre of 104.4 % Predicted (test code = 5362) FEF 25-75% Pre (test 1.92 L/s 0.48-2.80 code = 5547) FEF 25-75% Predicted 1.64 (test code = 5546) FEF 25-75% LLN (test 0.48 code = 5545) FEF 25-75% % Pre of 116.9 % Predicted (test code = 5548) PEF Pre (test code = 7.96 L/s 3.50-6.71 5367) PEF Predicted (test 5.11 code = 5310) PEF LLN (test code = 3.5 5366) PEF % Pre of 155.7 % Predicted (test code = 5368) MVV Pre (test code = 77.79 L/min 61.05-82.59 5590) MVV Predicted (test 72 code = 5544) MVV LLN (test code = 61 5543) MVV % Pre of 108.3 % Predicted (test code = 5587) DLCO Pre (test code 16.45 See_Comment [Automa ismael message] = 5423) The system [facility] generated this result transmitted ref erence range: 9.65 - 2 4.34 ml/(min*mmHg). The reference range was not used to int erpret this result as normal/abnormal . DLCO Predicted (test 16.99 code = 5421) DLCO LLN (test code 9.65 = 5422) DLCO % Pre of 96.8 % Predicted (test code = 5424) DL/VA Pre (test code 3.85 See_Comment [Autom ated message] = 5437) The system [facility] generated this result transmitted ref erence range: 2.93 - 5 .68 ml/(min*mmHg*L) . The reference range was not used to int erpret this result as normal/abnormal . DL/VA Predicted 4.3 (test code = 5435) DL/VA LLN (test code 2.93 = 5436) DL/VA % Pre of 89.4 % Predicted (test code = 5438) VA SB Pre (test code 4.28 L 4.45-4.45 = 5444) VA SB Predicted 4.45 (test code = 5442) VA SB LLN (test code 4.45 = 5443) VA SB % Pre of 96 % Predicted (test code = 5445) [facility] [id number] 16:25:41 Test Item Value Reference Range Interpretation Comments VC Pre (test code = 2.73 L 2.00-3.30 5374) VC Predicted (test 2.65 code = 5372) VC LLN (test code = 2 5373) VC % Pre of 103 % Predicted (test code = 5375) TLC Pre (test code = 4.46 L 3.62-5.59 5416) TLC Predicted (test 4.6 code = 5414) TLC LLN (test code = 3.62 5415) TLC % Pre of 96.8 % Predicted (test code = 5417) RV Pre (test code = 1.73 L 1.44-2.59 5402) RV Predicted (test 2.02 code = 5400) RV LLN (test code = 1.44 5401) RV % Pre of 85.7 % Predicted (test code = 5403) RV % TLC Pre (test 38.82 % 34.19-53.37 code = 5409) RV % TLC Predicted 44 (test code = 5407) RV % TLC LLN (test 34 code = 5408) RV % TLC % Pre of 88.7 % Predicted (test code = 5410) R0.5IN Pre (test 1.83 See_Comment [Automated message] code = 5514) The system [facility] generated this result transmitted ref erence range: 3.06 - 3 .06 cmH2O*s/L. The reference range was not used to int erpret this result as normal/abnormal . R0.5IN Predicted 3.06 (test code = 5512) R0.5IN LLN (test 3.06 code = 5513) R0.5IN % Pre of 59.8 % Predicted (test code = 5515) FRCpl Pre (test code 2.3 L 1.78-3.42 = 5388) FRCpl % Predicted 2.6 (test code = 5386) FRCpl % LLN (test 1.78 code = 5387) FRCpl % Pre of 88.5 % Predicted (test code = 5389) ERV Pre (test code = 0.57 L 0.58-0.58 5381) ERV Predicted (test 0.58 code = 5379) ERV LLN (test code = 0.58 5380) ERV % Pre of 98.3 % Predicted (test code = 5382) IC Pre (test code = 2.15 L 1.72-1.72 5395) IC Predicted (test 1.72 code = 5393) IC LLN (test code = 1.72 5394) IC % Pre of 124.9 % Predicted (test code = 5396) sR0.5IN Pre (test 4.88 cmH2O*s code = 5521) Raw Pre (test code = 3.07 See_Comment [Autom ated message] 5507) The system [facility] generated this result transmitted ref erence range: 3.06 - 3 .06 cmH2O*s/L. The reference range was not used to int erpret this result as normal/abnormal . Raw Predicted (test 3.06 code = 5505) Raw LLN (test code = 3.06 5506) Raw % Pre of 100.5 % Predicted (test code = 5508) sGaw Predicted (test 0.12 See_Comment [Autom ated message] code = 5528) The system [facility] generated this result transmitted ref erence range: 0.10 - 0 .10 1/(cmH2O*s). Th e reference range was not used to int erpret this result as normal/abnormal . sGaw Predicted (test 0.1 code = 5526) sGaw LLN (test code 0.1 = 5527) sGaw % Pre of 119.4 % Predicted (test code = 5529) FEV1 Pre (test code 2.11 L 1.44-2.54 = 5348) FEV1 Predicted (test 1.99 code = 5302) FEV1 LLN (test code 1.44 = 5347) FEV1 % Pre of 106.4 % Predicted (test code = 5308) FVC Pre (test code = 2.69 L 2.00-3.30 5354) FVC Predicted (test 2.65 code = 5307) FVC LLN (test code = 2 5353) FVC % Pre of 101.6 % Predicted (test code = 5355) FEV1/FVC % Pre (test 78.61 % 65.50-85.09 code = 5361) FEV1/FVC % Predicted 75 (test code = 5359) FEV1/FVC % LLN (test 66 code = 5360) FEV1/FVC % Pre of 104.4 % Predicted (test code = 5362) FEF 25-75% Pre (test 1.92 L/s 0.48-2.80 code = 5547) FEF 25-75% Predicted 1.64 (test code = 5546) FEF 25-75% LLN (test 0.48 code = 5545) FEF 25-75% % Pre of 116.9 % Predicted (test code = 5548) PEF Pre (test code = 7.96 L/s 3.50-6.71 5367) PEF Predicted (test 5.11 code = 5310) PEF LLN (test code = 3.5 5366) PEF % Pre of 155.7 % Predicted (test code = 5368) MVV Pre (test code = 77.79 L/min 61.05-82.59 5590) MVV Predicted (test 72 code = 5544) MVV LLN (test code = 61 5543) MVV % Pre of 108.3 % Predicted (test code = 5587) DLCO Pre (test code 16.45 See_Comment [Automa ismael message] = 5423) The system [facility] generated this result transmitted ref erence range: 9.65 - 2 4.34 ml/(min*mmHg). The reference range was not used to int erpret this result as normal/abnormal . DLCO Predicted (test 16.99 code = 5421) DLCO LLN (test code 9.65 = 5422) DLCO % Pre of 96.8 % Predicted (test code = 5424) DL/VA Pre (test code 3.85 See_Comment [Autom ated message] = 5437) The system [facility] generated this result transmitted ref erence range: 2.93 - 5 .68 ml/(min*mmHg*L) . The reference range was not used to int erpret this result as normal/abnormal . DL/VA Predicted 4.3 (test code = 5435) DL/VA LLN (test code 2.93 = 5436) DL/VA % Pre of 89.4 % Predicted (test code = 5438) VA SB Pre (test code 4.28 L 4.45-4.45 = 5444) VA SB Predicted 4.45 (test code = 5442) VA SB LLN (test code 4.45 = 5443) VA SB % Pre of 96 % Predicted (test code = 5445) [facility] [id number] 15:04:21Right EyeQuality was good. Progression has been stable. Left EyeQuality was good. Progression has been stable. NotesRight Eye: Stable small drusen, no SRF/HLeft Eye: Stable small drusen, no SRF/HUT [facility] Macula - OU - Both Eyes 2021-01-21 15:04:21Right EyeQuality was good. Progression has been stable. Left EyeQuality was good. Progression has been stable. NotesRight Eye: Stable small drusen, no SRF/HLeft Eye: Stable small drusen, no SRF/HUT [facility] ABDOMEN PELVIS WO [id number] 21:09:59 1. No acute inflammatory abnormality involving the abdomen/pelvis areidentified.2. Colonic diverticulosis.3. Patchy peripherally oriented interseptal thickening in both lung basesare nonspecific and could reflect infectious/inflammatory process or morelikely chronic interstitial lung changes.4. Tiny fat-containing umbilical hernia.5. Grade 2 spondylolisthesis of L5 on S1 with associated spondylolysis. RL: 2121 ORDERING PHYSICIAN: ADDIE HOLBROOK CLINICAL HISTORY: Abdominal pain TECHNIQUE: CT of the abdomen and pelvis was performed withoutadministration of intravenous contrast. CT was performed according to ALARA(as low as reasonably achievable) principle. COMPARISON: none FINDINGS: The included lung bases demonstrate peripherally oriented interstitialseptal thickening without evidence of pulmonary nodules or masses. Thecardiac silhouette is nonenlarged without evidence of pericardial orpleural effusions. Evaluation of the abdominal solid organs is limited without administrationof intravenous contrast. The liver, spleen, kidneys, pancreas , gallbladderand adrenal glands are normal in appearance. Scattered diverticula are present without CT evidence of acutediverticulitis. Otherwise the remaining ?stomach, small bowel and colondemonstrate appropriate course and caliber without evidence of focalstrictures or wall thickening. The appendix is normal in appearance. No evidence of pathologic lymphadenopathy, free intraperitoneal air orfluid is present. The urinary bladder is decompressed but grossly unremarkable in appearance.The uterusis surgically absent without evidence of adnexal mass lesions..Scattered calcified atherosclerotic plaque in the aorta which isnondilated. There is tiny fat-containing umbilical hernia. No acute osseous abnormalities are identified. There is approximately 12 mmof anterolisthesis of L5 on S1 with associative bilateral pars defects.Severe degenerative disc disease and disc height loss at this level.Intervertebral injection site granulomas in the gluteal region. [facility], Radiant Results Inft User - 01/09/2021 4:11 PM CDT ORDERING PHYSICIAN: ADDIE ELLISINICAL HISTORY: Abdominal painTECHNIQUE: CT of the abdomen and pelvis was performed withoutadministration of intravenous contrast. CT was performed according to ALARA(as low as reasonably achievable) principle.COMPARISON: noneFINDINGS:The included lung bases demonstrate peripherally oriented interstitialseptal thickening without evidence of pulmonary nodules or masses. Thecardiac silhouette is nonenlarged without evidence of pericardial orpleural effusions.Evaluation of the abdominal solid organs is limited without administrationof intravenous contrast. The liver, spleen, kidneys, pancreas, gallbladderand adrenal glands are normal in appearance.Scattered diverticula are present without CT evidence of acutediverticulitis. Otherwise the remaining stomach, small bowel and colondemonstrate appropriate course and caliber without evidence of focalstrictures or wall thickening. The appendix is normal in appearance.No evidence of pathologic lymphadenopathy, free intraperitoneal air orfluid is present.The urinary bladder is decompressed but grossly unremarkable in appearance.The uterus is surgically absent without evidence of adnexal mass lesions..Scattered calcified atherosclerotic plaque in the aorta which isnondilated. There is tiny fat-containing umbilical hernia.No acute osseous abnormalities are identified. There is approximately 12 mmof anterolisthesis of L5 on S1 with associative bilateral pars defects.Severe degenerative disc disease and disc height loss at this level.Intervertebral injection site granulomas in the gluteal region.IMPRESSION1. No acute inflammatory abnormality involving the abdomen/pelvis areidentified.2. Colonic diverticulosis.3. Patchy peripherally oriented interseptal thickening in both lung basesare nonspecific and could reflect infectious/inflammatory process or morelikely chronic interstitial lung changes.4. Tiny fat-containing umbilical hernia.5. Grade 2 spondylolisthesis of L5 on S1 with associated spondylolysis.RL: [address] [facility] CenterBI SCREEN[facility] TOMOSYNTHESIS [id number] 19:28:39 Examination:BI SCREENING TOMOSYNTHESIS BILATERAL History:Patient is 70 year old and is seen for: ?Encounter for screening mammogram for breast cancer. Computer- aided detection (CAD) utilized. Comparisons: 12/03/2019 BI SCREENING TOMOSYNTHESIS BILATERAL Outside imaging dating back to 2012. Findings:Thebreasts are heterogeneously dense, which may obscure small masses. There is no evidence of suspicious masses, calcifications, or other abnormal findings. Impression:No mammographic evidence of malignancy. Recommendation:Annual mammographic follow- up BI-RADS Category: Both 1 - NegativeUnCH[facility] Patients [facility] CenterDEXA AXIAL (HIP AND SPINE)2019-12-03 17:17:52 1. Lumbar Spine L1-L4: The calculated total T-score is ?-1.1, and the Z-score is -0.5, which isosteopenia.The total bone mineral density is calculated at 1.054 g/cm2. This puts the patient at slightlyincreased risk for compression fractures. 2. Right Hip:The calculated T- score at the femoral neck is-0.8, and the Z-score is 0.3,normal.The calculated total T-score is -0.5, and the Z-score is 0.3, which isnormal. The total bone mineral density is calculated at 0.939 g/cm2. There is no increased riskfor femoral neck fractures. EXAM: Dual-energy X-ray absorptiometry. HISTORY: Asymptomatic menopausalstate EXTERNAL ORDERS COMPARISON: 08/25/2017. TECHNIQUE and FINDINGS: Bone densitometry of the lumbar spine and left hip was performed. WHO-definitions: T-score normal: +/- 1 SD around the meanosteopenia: >1 to 2.4 SD below the meanosteoporosis: >2.5 SD below the meanFracture risk doubles for each 1.5 SD below the mean. [facility], Radiant Results Inft User - 12/03/2019 12:18 PM CDTEXAM: Dual-energy X-ray absorptiometry.HISTORY: Asymptomatic menopausal state EXTERNAL ORDERS COMPARISON: 08/25/2017.TECHNIQUE and FINDINGS:Bone densitometry of the lumbar spine and left hip was performed. WHO-definitions: T- scorenormal: +/- 1 SD around the meanosteopenia: >1 to 2.4 SD belowthe meanosteoporosis: >2.5 SD below the meanFracture risk doubles for each 1.5 SD below the mean. IMPRESSION1. Lumbar Spine L1-L4: The calculated total T-score is -1.1, and the Z-score is -0.5, which isosteopenia.The total bone mineral density is calculated at 1.054 g/cm2. This puts the patient at slightly increased risk for compression fractures.2. Right Hip:The calculated T-score at the femoral neck is -0.8, and the Z-score is 0.3,normal.The calculated total T-score is -0.5, and the Z-score is 0.3, which isnormal. The total bone mineral density is calculated at 0.939 g/cm2. There is no increased risk for femoral neck fractures.[facility]- XR FLUOROSCOPY 0-60 [id number] 16:32:00 FAX: Calvin Preciado MD [phone] [place]: St: REG Name: CHRIS WILEY [facility] [place] : 1950 Age/S: 69/F[address] [facility] Unit #: [id number] Loc: [place] [address] Phys: Calvin Goss MD Acct: [id number] Dis Date: Status: [place] [facility] [place] PHONE #: [phone] Exam Date: 11/05/2019 0900 FAX #: [phone] Reason: RA EXAMS: CPT CODE: [id number] XR FLUOROSCOPY 0-60 MIN 43337 Intraprocedural fluoroscopy was provided by the Department of Radiology. Any images obtained were interpreted by the surgeon intraoperatively. FLUOROSCOPY TIME: 20 seconds REFERENCE AIR KERMA : 4.4 mGy SL: [id number] Rhiannon ctronically Signed by Elzbieta Borden on 11/05/2019 at 1632 Reported and signed by: John Borden M.D. CC: Calvin Goss MD Technologist: RT Cassie(Marisol) Trnscrd Date/Time/By: 11/05/2019 (163) : By: [email or web address] Orig Print D/T: S: 11/05/2019 (2025) PAGE 1 Signed Report- XR CHEST 1 [id number] 10:08:00 FAX: Calvin Preciado MD [phone] [place]: St: REG Name: CHRIS WILEY [facility] [place] : 1950 Age/S: 69/F[address] Unit #: [id number] Loc: [place] [address] Phys: Calvin Goss MD Acct: [id number] Dis Date: Status: [place] [facility] [place] PHONE #: [phone] Exam Date: 11/05/2019 0945 FAX #: [phone] Reason: Post Op EXAMS: CPT CODE: [id number] XR CHEST 1 V 22955 PROCEDURE: CHEST SINGLE VIEWINDICATION: Postoperative exam COMPARISON: Chest x-ray 11/01/2019 FINDINGS: The cardiomediastinal silhouette is within normal limits. Tortuosity and calcification of the aorta. Right port catheter with tip at the mid superior vena cava. Mild pulmonary vascular congestion. No focal consolidation. No pneu mothorax or pleural effusion. Right humeral replacement. Degenerative changes of the spine. IMPRESSION: Mild pulmonary vasculature congestion SL: [id number] at 1008 Reported and signed by: Mona Saucedo M.D. CC: Calvin Goss MD Technologist: Violet Gonzalez RT(R) Trnscrd Date/Time/By: 11/05/2019 (1008) : By: [email or web address] Orig Print D/T: S: 11/05/2019 (1016) PAGE 1 Signed ReportNovel Coronavirus 2019 [id number] 03:19:00 Test Item Value Reference Range Interpretation Comments Novel Coronavirus 2019 Inhouse (test Negative Negative code = COVNONPUI) CBC W/AUTO [id number] 12:09:00 Test Item Value Reference Range Interpretation Comments WHITE BLOOD CELL (test code = 7.60 x10 3/uL 4.5-11.0 N WBC) RED BLOOD CELL (test code = 4.24 x10 6/uL 3.54-5.02 N RBC) HEMOGLOBIN (test code = HGB) 12.7 g/dL 11.0-15.0 N HEMATOCRIT (test code = HCT) 40.0 % 33.0-45.0 N MEAN CELL VOLUME (test code = 94.3 fL 81.0-99.0 N MCV) MEAN CELL HGB (test code = MCH) 30.0 pg 27.0-33.0 N MEAN CELL HGB CONCETRATION 31.8 g/dL 33.0-37.0 L (test code = MCHC) RED CELL DISTRIBUTION WIDTH CV 14.0 % 11.5-14.5 N (test code = RDW) RED CELL DISTRIBUTION WIDTH SD 48.3 fL 37.0-54.0 N (test code = RDW-SD) PLATELET COUNT (test code = 272 x10 3/uL 150-400 N PLT) MEAN PLATELET VOLUME (test code 10.4 fL 7.0-9.0 H = MPV) NEUTROPHIL % (test code = NT%) 56.5 % 56.0-77.0 N IMMATURE GRANULOCYTE % (test 0.3 % 0.0-2.0 N code = IG%) LYMPHOCYTE % (test code = LY%) 32.5 % 14.0-32.0 H MONOCYTE % (test code = MO%) 8.6 % 4.8-9.0 N EOSINOPHIL % (test code = EO%) 1.6 % 0.3-3.7 N BASOPHIL % (test code = BA%) 0.5 % 0.0-2.0 N NUCLEATED RBC % (test code = 0.0 % 0-0 N NRBC%) NEUTROPHIL # (test code = NT#) 4.30 x10 3/uL 2.0-7.6 N IMMATURE GRANULOCYTE # (test 0.02 x10 3/uL 0.00-0.03 N code = IG#) LYMPHOCYTE # (test code = LY#) 2.47 x10 3/uL 1.0-3.8 N MONOCYTE # (test code = MO#) 0.65 x10 3/uL 0.1-0.8 N EOSINOPHIL # (test code = EO#) 0.12 x10 3/uL 0.0-0.2 N BASOPHIL # (test code = BA#) 0.04 x10 3/uL 0.0-0.2 N NUCLEATED RBC # (test code = 0.00 x10 3/uL 0.0-0.1 N NRBC#) MANUAL DIFF REQUIRED (test code NO = MDIFF) BASIC METABOLIC [id number] 12:05:00 Test Item Value Reference Range Interpretation Comments SODIUM (test code = NA) 138 mEq/L 134-147 N POTASSIUM (test code = 4.6 mEq/L 3.4-5.0 N K) CHLORIDE (test code = 105 mEq/L 100-108 N CL) CARBON DIOXIDE (test 27 mEq/L 21-33 N code = CO2) ANION GAP (test code = 11 0-20 N GAP) GLUCOSE (test code = 115 mg/dL 70-110 H GLU) BLOOD UREA NITROGEN 21 mg/dL 7-18 H (test code = BUN) GLOMERULAR FILTRATION 54.7 70-80 L Units of measure = RATE (test code = GFR) ml/mi n/1.73 m2 CREATININE (test code = 1.0 mg/dL 0.6-1.3 N CREAT) CALCIUM (test code = 9.4 mg/dL 8.0-10.5 N CA) BASIC METABOLIC [id number] 12:03:00 Test Item Value Reference Range Interpretation Comments SODIUM (test code = NA) 138 mEq/L 134-147 N POTASSIUM (test code = K) 4.6 mEq/L 3.4-5.0 N CHLORIDE (test code = CL) 105 mEq/L 100-108 N CARBON DIOXIDE (test code = CO2) 27 mEq/L 21-33 N ANION GAP (test code = GAP) 11 0-20 N GLUCOSE (test code = GLU) 115 mg/dL 70-110 H BLOOD UREA NITROGEN (test code = 21 mg/dL 7-18 H BUN) GLOMERULAR FILTRATION RATE (test 70-80 code = GFR) CREATININE (test code = CREAT) mg/dL 0.6-1.3 CALCIUM (test code = CA) 9.4 mg/dL 8.0-10.5 N - XR CHEST 2 [id number] 11:47:00 FAX: Calvin Preciado MD [phone] [place]: MIQUEL St: PRE Name: CHRIS WILEY [facility] : 1950 Age/S: 69/F [address] [place] [address] Blvd Unit #: [id number] Loc: [place] [address] Phys: Calvin Goss MD Acct: [id number] Dis Date: Status: PRE SDC PHONE #: [phone] Exam Date: 11/01/2019 1146 FAX #: [phone] Reason: PRE-OP PORT PLACEMENT EXAMS: CPT CODE: [id number] XR CHEST 2 V 43678 EXAM: PA and lateral chest. EXAM DATE: November 01, 2019 CLINICAL HISTORY: PRE-OP PORT PLACEMENT COMPARISON: None Heart size is within normal limits. Atherosclerotic calcifications and tortuosity of the intrathoracic aorta is identified.. The lungs appear free of acute disease. Right humeral replacement is noted as well as degenerative changes in the thoracic spine. IMPRESSION: No evidence of acute cardiopulmonary disease. at 1147 Reported and signed by: Elba Law M.D. CC: Calvin Goss MD Technologist: RT Zohra(Marisol) Trnscrd Date/Time/By: 11/01/2019 (8566) : By: Cuco Orig Print D/T: S: 11/01/2019 (2682) PAGE 1 Signed ReportAFB CULTURE + [id number] 12:46:00 Test Item Value Reference Range Interpretation Comments CULTURE (BEAKER) (test No acid-fast bacilli code = 1095) isolated in 42 days AFB SMEAR (BEAKER) No acid fast bacilli (test code = 994) seen AFB CULTURE + [id number] 12:46:00 Test Item Value Reference Range Interpretation Comments CULTURE (BEAKER) (test No acid-fast bacilli code = 1095) isolated in 42 days AFB SMEAR (BEAKER) No acid fast bacilli (test code = 994) seen ANAEROBIC [id number] 17:30:00 Test Item Value Reference Range Interpretation Comments CULTURE (BEAKER) (test No anaerobes isolated code = 1095) ANAEROBIC [id number] 03:45:00 Test Item Value Reference Range Interpretation Comments CULTURE (BEAKER) (test No anaerobes isolated code = 1095) FUNGUS CULTURE + [id number] 15:26:00 Test Item Value Reference Range Interpretation Comments CULTURE (BEAKER) (test No fungus isolated in code = 1095) 28 days FUNGUS SMEAR (BEAKER) No fungi seen (test code = 1406) FUNGUS CULTURE + [id number] 15:26:00 Test Item Value Reference Range Interpretation Comments CULTURE (BEAKER) (test No fungus isolated in code = 1095) 28 days FUNGUS SMEAR (BEAKER) No fungi seen (test code = 1406) VANCOMYCIN LEVEL, [id number] 15:05:00 Test Item Value Reference Range Interpretation Comments VANCOMYCIN TROUGH (BEAKER) (test 20.7 ug/mL 10.0-20.0 H code = 522) RAD, CHEST, PA OR AP, 1 [id number] 18:32:00VAT/Infusion Therapy Nurse to Call Radiology Department when patient is readyReason for exam:->s/p midline placementShould this be performed at the bedside?->YesFINAL REPORT Portable chest. HISTORY: Status post midline insertion. COMPARISON STUDY: None available. FINDINGS: The cardiac size is unremarkable. The aorta is tortuous. A left-sided PICC line has been inserted, the tip projecting over the SVC. There are mild interstitial markingsbut no focal opacity, pleural effusion or pneumothorax. Degenerative changes are seen with postsurgical changes in the right humerus. Signed: Vinny Hatch MDReport Verified Date/Time: 05/14/2018 18:32:41 Reading Location: [facility] C0X Ortho Consult Reading Room PROTHROMBIN TIME/[id number] 15:27:00 Test Item Value Reference Range Interpretation Comments PROTIME (BEAKER) (test code = 13.2 seconds 11.7-14.7 759) INR (BEAKER) (test code = 370) 1.0 <=5.9 RECOMMENDED COUMADIN/WARFARIN INR THERAPY RANGESSTANDARD DOSE: 2.0 - 3.0 Includes: PROPHYLAXIS for venous thrombosis, systemic embolization; TREATMENT for venous thrombosis and/or pulmonary embolus.HIGH RISK: Target INR is 2.5-3.5 for patients with mechanical heart valves.CBC W/PLT COUNT & AUTO [id number] 15:11:00 Test Item Value Reference Range Interpretation Comments WHITE BLOOD CELL COUNT (BEAKER) 7.6 K/ L 3.5-10.5 (test code = 775) RED BLOOD CELL COUNT (BEAKER) 3.71 M/ L 3.93-5.22 L (test code = 761) HEMOGLOBIN (BEAKER) (test code = 11.2 GM/DL 11.2-15.7 410) HEMATOCRIT (BEAKER) (test code = 35.3 % 34.1-44.9 411) MEAN CORPUSCULAR VOLUME (BEAKER) 95.1 fL 79.4-94.8 H (test code = 753) MEAN CORPUSCULAR HEMOGLOBIN 30.2 pg 25.6-32.2 (BEAKER) (test code = 751) MEAN CORPUSCULAR HEMOGLOBIN CONC 31.7 GM/DL 32.2-35.5 L (BEAKER) (test code = 752) RED CELL DISTRIBUTION WIDTH 14.6 % 11.7-14.4 H (BEAKER) (test code = 412) PLATELET COUNT (BEAKER) (test 356 K/CU MM 150-450 code = 756) MEAN PLATELET VOLUME (BEAKER) 9.7 fL 9.4-12.3 (test code = 754) NUCLEATED RED BLOOD CELLS 0 /100 WBC 0-0 (BEAKER) (test code = 413) NEUTROPHILS RELATIVE PERCENT 54 % (BEAKER) (test code = 429) LYMPHOCYTES RELATIVE PERCENT 31 % (BEAKER) (test code = 430) MONOCYTES RELATIVE PERCENT 10 % (BEAKER) (test code = 431) EOSINOPHILS RELATIVE PERCENT 3 % (BEAKER) (test code = 432) BASOPHILS RELATIVE PERCENT 1 % (BEAKER) (test code = 437) NEUTROPHILS ABSOLUTE COUNT 4.12 K/ L 1.56-6.13 (BEAKER) (test code = 670) LYMPHOCYTES ABSOLUTE COUNT 2.37 K/ L 1.18-3.74 (BEAKER) (test code = 414) MONOCYTES ABSOLUTE COUNT (BEAKER) 0.76 K/ L 0.24-0.36 H (test code = 415) EOSINOPHILS ABSOLUTE COUNT 0.25 K/ L 0.04-0.36 (BEAKER) (test code = 416) BASOPHILS ABSOLUTE COUNT (BEAKER) 0.06 K/ L 0.01-0.08 (test code = 417) IMMATURE GRANULOCYTES-RELATIVE 0 % 0-1 PERCENT (BEAKER) (test code = 2801) SURGICALLY OBTAINED CULTURE + GRAM [id number] 12:05:00 Test Item Value Reference Range Interpretation Comments CULTURE (BEAKER) (test code No growth = 1095) GRAM STAIN RESULT (BEAKER) <1+ WBCs (test code = 1123) GRAM STAIN RESULT (BEAKER) No organisms seen (test code = 36384) SURGICALLY OBTAINED CULTURE + GRAM [id number] 11:25:00 Test Item Value Reference Range Interpretation Comments CULTURE (BEAKER) (test code No growth = 1095) GRAM STAIN RESULT (BEAKER) <1+ WBCs (test code = 1123) GRAM STAIN RESULT (BEAKER) No organisms seen (test code = 38834) BASIC METABOLIC [id number] 10:06:00 Test Item Value Reference Range Interpretation Comments SODIUM (BEAKER) 140 meq/L 136-145 (test code = 381) POTASSIUM (BEAKER) 4.1 meq/L 3.5-5.1 (test code = 379) CHLORIDE (BEAKER) 102 meq/L 98-107 (test code = 382) CO2 (BEAKER) (test 28 meq/L 22-29 code = 355) BLOOD UREA NITROGEN 14 mg/dL 7-21 (BEAKER) (test code = 354) CREATININE (BEAKER) 0.82 mg/dL 0.57-1.25 (test code = 358) GLUCOSE RANDOM 156 mg/dL 70-105 H (BEAKER) (test code = 652) CALCIUM (BEAKER) 9.3 mg/dL 8.4-10.2 (test code = 697) EGFR (BEAKER) (test 69 mL/min/1.73 ESTIMA ISMAEL GFR IS code = 1092) sq m NOT ACCURATE CREATININE CLEARANCE IN PREDICTING GLOMERULAR FILTRATION RATE . ESTIMATED GFR I S NOT APPLICABLE FOR DIALYSIS PATIEN TS. CBC W/PLT COUNT & AUTO [id number] 09:47:00 Test Item Value Reference Range Interpretation Comments WHITE BLOOD CELL COUNT (BEAKER) 7.7 K/ L 3.5-10.5 (test code = 775) RED BLOOD CELL COUNT (BEAKER) 3.68 M/ L 3.93-5.22 L (test code = 761) HEMOGLOBIN (BEAKER) (test code = 10.7 GM/DL 11.2-15.7 L 410) HEMATOCRIT (BEAKER) (test code = 35.0 % 34.1-44.9 411) MEAN CORPUSCULAR VOLUME (BEAKER) 95.1 fL 79.4-94.8 H (test code = 753) MEAN CORPUSCULAR HEMOGLOBIN 29.1 pg 25.6-32.2 (BEAKER) (test code = 751) MEAN CORPUSCULAR HEMOGLOBIN CONC 30.6 GM/DL 32.2-35.5 L (BEAKER) (test code = 752) RED CELL DISTRIBUTION WIDTH 14.6 % 11.7-14.4 H (BEAKER) (test code = 412) PLATELET COUNT (BEAKER) (test 431 K/CU MM 150-450 code = 756) MEAN PLATELET VOLUME (BEAKER) 9.5 fL 9.4-12.3 (test code = 754) NUCLEATED RED BLOOD CELLS 0 /100 WBC 0-0 (BEAKER) (test code = 413) NEUTROPHILS RELATIVE PERCENT 52 % (BEAKER) (test code = 429) LYMPHOCYTES RELATIVE PERCENT 38 % (BEAKER) (test code = 430) MONOCYTES RELATIVE PERCENT 8 % (BEAKER) (test code = 431) EOSINOPHILS RELATIVE PERCENT 2 % (BEAKER) (test code = 432) BASOPHILS RELATIVE PERCENT 1 % (BEAKER) (test code = 437) NEUTROPHILS ABSOLUTE COUNT 4.00 K/ L 1.56-6.13 (BEAKER) (test code = 670) LYMPHOCYTES ABSOLUTE COUNT 2.91 K/ L 1.18-3.74 (BEAKER) (test code = 414) MONOCYTES ABSOLUTE COUNT (BEAKER) 0.59 K/ L 0.24-0.36 H (test code = 415) EOSINOPHILS ABSOLUTE COUNT 0.13 K/ L 0.04-0.36 (BEAKER) (test code = 416) BASOPHILS ABSOLUTE COUNT (BEAKER) 0.05 K/ L 0.01-0.08 (test code = 417) IMMATURE GRANULOCYTES-RELATIVE 0 % 0-1 PERCENT (BEAKER) (test code = 2801) SPIN/CONCENTRATION [id number] 15:32:00 Test Item Value Reference Range Interpretation Comments CONCENTRATION CHARGED (BEAKER) (test Done code = 2657) SPIN/CONCENTRATION [id number] 15:31:00 Test Item Value Reference Range Interpretation Comments CONCENTRATION CHARGED (BEAKER) (test Done code = 2657) C-REACTIVE [id number] 11:56:00 Test Item Value Reference Range Interpretation Comments C-REACTIVE PROTEIN (BEAKER) (test 0.53 mg/dL 0.00-0.50 H code = 676) CBC W/PLT COUNT & AUTO [id number] 11:43:00 Test Item Value Reference Range Interpretation Comments WHITE BLOOD CELL COUNT (BEAKER) 7.9 K/ L 3.5-10.5 (test code = 775) RED BLOOD CELL COUNT (BEAKER) 3.46 M/ L 3.93-5.22 L (test code = 761) HEMOGLOBIN (BEAKER) (test code = 10.4 GM/DL 11.2-15.7 L 410) HEMATOCRIT (BEAKER) (test code = 33.1 % 34.1-44.9 L 411) MEAN CORPUSCULAR VOLUME (BEAKER) 95.7 fL 79.4-94.8 H (test code = 753) MEAN CORPUSCULAR HEMOGLOBIN 30.1 pg 25.6-32.2 (BEAKER) (test code = 751) MEAN CORPUSCULAR HEMOGLOBIN CONC 31.4 GM/DL 32.2-35.5 L (BEAKER) (test code = 752) RED CELL DISTRIBUTION WIDTH 14.4 % 11.7-14.4 (BEAKER) (test code = 412) PLATELET COUNT (BEAKER) (test 409 K/CU MM 150-450 code = 756) MEAN PLATELET VOLUME (BEAKER) 9.6 fL 9.4-12.3 (test code = 754) NUCLEATED RED BLOOD CELLS 0 /100 WBC 0-0 (BEAKER) (test code = 413) NEUTROPHILS RELATIVE PERCENT 60 % (BEAKER) (test code = 429) LYMPHOCYTES RELATIVE PERCENT 30 % (BEAKER) (test code = 430) MONOCYTES RELATIVE PERCENT 8 % (BEAKER) (test code = 431) EOSINOPHILS RELATIVE PERCENT 2 % (BEAKER) (test code = 432) BASOPHILS RELATIVE PERCENT 1 % (BEAKER) (test code = 437) NEUTROPHILS ABSOLUTE COUNT 4.71 K/ L 1.56-6.13 (BEAKER) (test code = 670) LYMPHOCYTES ABSOLUTE COUNT 2.33 K/ L 1.18-3.74 (BEAKER) (test code = 414) MONOCYTES ABSOLUTE COUNT (BEAKER) 0.59 K/ L 0.24-0.36 H (test code = 415) EOSINOPHILS ABSOLUTE COUNT 0.18 K/ L 0.04-0.36 (BEAKER) (test code = 416) BASOPHILS ABSOLUTE COUNT (BEAKER) 0.05 K/ L 0.01-0.08 (test code = 417) IMMATURE GRANULOCYTES-RELATIVE 0 % 0-1 PERCENT (BEAKER) (test code = 2801) HEMOGLOBIN AND [id number] 06:00:00 Test Item Value Reference Range Interpretation Comments HEMOGLOBIN (BEAKER) (test code = 9.2 GM/DL 11.2-15.7 L 410) HEMATOCRIT (BEAKER) (test code = 29.6 % 34.1-44.9 L 411) [place], LAW RESEARCHER IN OR/30 MINUTE [id number] 21:07:00Reason for exam:- >Fracture of humeral head, closed, rightFINAL REPORT Fluoroscopy 1 view intraoperative 04/27/2018 9:06 PM CLINICAL HISTORY: Instrument localization COMPARISON: None available IMPRESSION: Please correlate imaging report findings with the procedure note prepared by Dr. Cavazos, as an intra- procedure imaging consultation wasnot requested. Reported fluoroscopy time: 2.4 seconds. Signed: Sona Oliver MDRmacario Verified Date/Time: 04/27/2018 21:07:27 Reading Location: [facility] Radiology Reading Room BLOOD GAS, ARTERIAL 2018-04-27 18:50:00 Test Item Value Reference Range Interpretation Comments PH ARTERIAL (BEAKER) (test code = 7.45 7.35-7.45 383) PCO2 ARTERIAL (BEAKER) (test code 38 mmHg 35-45 = 384) PO2 ARTERIAL (BEAKER) (test code = 203 mmHg 80-90 H 385) O2 SATURATION ARTERIAL (BEAKER) 99.4 % 96.0-97.0 H (test code = 386) HCO3 ARTERIAL (BEAKER) (test code 26 mmol/L 21-29 = 388) BASE EXCESS ARTERIAL (BEAKER) 1.6 mmol/L -2.0-3.0 (test code = 387) PATIENT TEMPERATURE (BEAKER) (test 36.7 C code = 1818) FIO2 (BEAKER) (test code = 1819) 60.0 % BUN AND [id number] 15:18:00 Test Item Value Reference Range Interpretation Comments BLOOD UREA NITROGEN 15 mg/dL 7-21 (BEAKER) (test code = 354) CREATININE (BEAKER) 0.72 mg/dL 0.57-1.25 (test code = 358) EGFR (BEAKER) (test 80 mL/min/1.73 ESTIMA ISMAEL GFR IS code = 1092) sq m NOT ACCURATE CREATININE CLEARANCE IN PREDICTING GLOMERULAR FILTRATION RATE . ESTIMATED GFR I S NOT APPLICABLE FOR DIALYSIS PATIEN TS. [id number] 15:06:00 Test Item Value Reference Range Interpretation Comments SODIUM (BEAKER) (test code = 381) 139 meq/L 136-145 POTASSIUM (BEAKER) (test code = 4.1 meq/L 3.5-5.1 379) CHLORIDE (BEAKER) (test code = 382) 102 meq/L 98-107 CO2 (BEAKER) (test code = 355) 25 meq/L 22-29 [id number] 14:25:00 Test Item Value Reference Range Interpretation Comments HEMOGLOBIN (BEAKER) (test code = 11.3 GM/DL 11.2-15.7 410) Notes Date/Time Note Provider Source 2022-10-29 14:27:00-00:00 [id number] [place] [address] PATIENT NAME: CHRIS WILEY ADMIT DATE: ACCOUNT NO: [id number] ROOM NO: AGE: 72 REPORT TYPE: eELECTROCARDIOGRAM REPORT SEX: F ADMITTING PHYSICIAN: ATTENDING PHYSICIAN:Cira Guerrero MD Order: [id number] Test Reason : PRE OP Test Date/Time Stamp: TueOct 29 2022 14:27:21 Blood Pressure : / mmHG Vent. Rate : 060 BPM Atrial Rate : 060 BPM P-R Int : 152 ms QRS Dur : 084 ms QT Int : 440 ms P-R-T Axes : 078 062 060 degree s QTc Int : 440 ms Normal sinus rhythm Anteroseptal infarct (cited on or before 2022) Abnormal ECG PRE_OP Confirmed by KELLEE PRASAD MD ([id number]) on 3 2:54:06 PM Referred By: Cira Guerrero Confirmed by:MAURISIO PRASAD MD at 1454 PATIENT NAME: CHRIS WILEY 875 2022-10-04 02:03:00-00:00 [facility] ([facility]) Discharge Summary REPORT#:[id number] REPORT STATUS: Signed DATE:10/04/22 TIME: 0203 PATIENT: CHRIS WILEY UNIT #: [id number] ROOM/BED: [place] [address] : 48 AGE: 72 SEX: F ATTEND: Carlos Alvarez MD ADM AUTHOR: Mary Alvarez MD * ALL edits or amendments must be made on the [employer]computer document * General Information Problem List/A P: 1. HTN (hypertension) 2. HLD (hyperlipidemia) 3. CAD (coronary artery disease) 4. A-fib Discharge date: 08/25/22 Discharge diagnosis: s/p watchman procedure Hospital course: admitted s/p watchman procedure for hx of a fib tolerated well and discharged home in stable con dition Consultants: cardiology Med Rec Med Rec Discharge meds: Continue taking these medications: BUDESONIDE/FORMOTEROL (SYMBICORT 160/4.5 MCG/ACT 10.2GM) 160 MCG-4.5 MCG/ ACTUATION INHALER 2 PUFF INHALATION RT - TWICE DAILY. CETIRIZINE (ZyrTEC) 10 MG TAB 10 MILLIGRAM ORAL BEDTIME. ATORVASTATIN (LIPITOR) 40 MG TAB 40 MILLIGRAM ORAL DAILY. APIXABAN (ELIQUIS) 5 MG TAB 5 MILLIGRAM ORAL TWICE DAILY. METOPROLOL TARTRATE (LOPRESSOR) 50 MG TAB 50 MILLIGRAM ORAL TWICE DAILY. FUROSEMIDE (LASIX) 40 MG TAB 40 MILLIGRAM ORAL DAILY. as needed for HTN Instructions: PT STATES SHE TAKES PRN IF SBP >130 FLUTICASONE PROPIONATE (FLONASE 50 MCG/ACT NASAL ) 50 MCG/ACTUATION SPRAY 1 SPRAY NASAL BEDTIME. [ABADICEPT] 750 MILLIGRAM INTRAVENOUS MONTHLY Discharge Instructions PCP )( Discharge to: Home/Self Care Discharge Instructions Additional Discharge Routines: PCP Follow-Up )( Diet: Resume Home Diet/Feeds Follow-up Appointments PCP follow up: PCP: No Primary or Family Physician PCP follow up timeframe: In 1-2 weeks at 0204 RPT #:[id number] END OF REPORT 2022-08-25 12:34:00-00:00 [facility] Progress Note REPORT#:[id number] REPORT STATUS: Signed DATE:08/25/22 TIME: 1234 PATIENT: CHRIS WILEY UNIT #: [id number] ROOM/BED: [address] : [address] AGE: 72 SEX: F ATTEND: Carlos Alvarez MD ADM AUTHOR: Tish Dye PULP PILER * ALL edits or amendments must be made on the [employer]computer document * Nunu Dye 08/25/22 1234: Subjective Chief complaint: atrial fibrillation HPI: The patient is a 72-year-old woman wit h past medical history of arthritis, atrial fibrillati on, HTN, CHF, and bleeding (not candidate for long- term anticoagulation) who is s/p Watchman proced ure 08/24/2022. Patient is hemodynamically stable, awake and alert, on room air, tele SB 50s, denies SOB, chest pain, or palpitations. States she is ready to go home. Right groin site is soft, no hematoma, bleeding, or infection noted. Review of Systems Constitutional: Denies: fatigue, generalized weakness. Skin: Denies: abrasion, bruising. Allergy/Immun: Denies: allergic reaction. Eyes: Denies: visual loss/blurred. ENT: Denies: mouth pain, nose bleeding, throat pain, throat swelling. Respiratory: Denies: LU (dyspnea on exertion), SOB, wheezing . Cardiovascular: Reports: edema. Denies: chest pain, LU (dyspnea on exertion), palpitations. GI: Denies: abdominal pain, nausea, vomiting. : Denies: dysuria, flank pain. Musculoskeletal: Extremity swelling: Reports: bilateral. Heme: Denies: bleeding. Endocrine: Denies: cold intolerance, heat intolerance. Neuro: Denies: change in LOC, dizziness. Psych: Denies: agitation, anxiety. All systems rev neg: except as marked Objective General VS/I O Laboratory Tests 08/25/22 0346: [Embedded Image Not Available] Current Medications Sig/Radha Start time Last Medication Dose Route Stop Time Status Admin Budesonide 0.5 MG RTBID 08/24 2200 DCD INH 09/23 215 Apixaban 5 MG BID 08/24 2100 DCD 08/25 PO 09/23 2058 0913 Atorvastatin Calcium 40 MG BEDTIME 08/24 2100 D CD PO 09/23 2058 Fluticasone 1 SPRAY BEDTIME 08/24 2100 DCD Propionate NASAL 09/23 2058 Loratadine 10 MG BEDTIME 08/24 2100 DCD 08/24 PO 09/23 2058 1951 Metoprolol Tartrate 50 MG BID 08/24 2100 DCD PO 09/23 2058 194 Albuterol Sulfate 2.5 MG RTQ6H 08/24 1500 DCD NEB 09/23 1459 Furosemide 40 MG DAILY PRN PRN 08/24 1200 DCD PO 09/23 1159 Sodium Chloride 5 ML ASDIR PRN 08/24 1200 DCD IV 09/23 1159 Sodium Chloride 10 ML ASDIR PRN 08/24 1200 DCD IV 09/23 1159 Sodium Chloride 250 ML ASDIR PRN 08/24 1200 DCD IV 09/23 1159 Clindamycin Phosphate 50 ML PREOP ONCALL 08/24 1145 DC 08/24 IV 08/24 2359 1159 Diphenhydramine HCl 12.5 MG PACU ONCE PRN 08/24 1045 DC IV 08/25 2031 Fentanyl Citrate 100 MCG PACU Q10MIN PRN PRN 1045 DC IV 08/25 2031 Fentanyl Citrate 50 MCG PACU Q10MIN PRN PRN 04/ 04 1045 DC IV 08/25 2031 Hydralazine HCl 5 MG PACU Q10MIN PRN PRN 08/24 1045 DC IV 08/25 2031 Hydrocodone Bitart/ 1 TAB PACU ONCE 08/24 1045 DC Acetaminophen PO 08/25 2031 Hydromorphone HCl 1 MG PACU Q10MIN PRN PRN 04 4 1045 DC IV 08/25 2031 Hydromorphone HCl 0.5 MG PACU Q5MIN PRN PRN 1045 DC IV 08/25 2031 Insulin Human Lispro 0 PACU ONCE PRN 08/24 1045 DC SUBQ 08/25 2031 Labetalol HCl 5 MG PACU Q10MIN PRN PRN 08/24 10 45 DC IV 08/25 2031 Meperidine HCl 12.5 MG PACU ONCE PRN 08/24 1045 DC IV 08/25 2031 Morphine Sulfate 2 MG PACU Q10MIN PRN PRN 08/24 1045 DC IV 08/25 2031 Ondansetron HCl 4 MG PACU ONCE PRN 08/24 1045 D C IV 08/25 2031 Promethazine HCl 25 MG PACU ONCE PRN 08/24 1045 DC PO 08/25 2031 Ropivacaine 150 MG ASDIR PRN 08/24 1045 DC LOCAL 08/25 2031 Tramadol HCl 50 MG PACU ONCE 08/24 1045 DC PO 08/25 2031 Last Documented: Result Date Time Pulse 49 08/25 1112 Resp 39 08/25 1112 Pulse Ox 97 08/25 1111 B/P 121/52 08/25 1111 B/P Mean 74.8 08/25 1111 O2 Delivery Room air 08/25 1111 Temp 36.6 08/25 1111 O2 Flow Rate 2 08/24 1319 24 hour I O ending at 0700: 08/25 0700 08/24 1900 Intake Total 240 Output Total Balance 240 Intake, Oral 240 Number 1 Bowel Movements Number Voids 1 1 PATIENT WEIGHT: Weight (lb): 212 Weight (oz): 4.88 Weight (kg): 96.300 Status post: Watchman procedure Dietitian nutrition assessment The data set between the solid lines has been im ported from the dietitian's assessment. BMI Calculated: 38.8 Nutrition related diagnosis: Nutrition diagnosis details: Nutrition problem: Nutrition etiology: Nutrition signs and symptoms: Nutrition prescription: Dietitian name: Assessment completed: Physical Exam General appearance: alert, awake, oriented, no a cute distress, no respiratory distress HEENT: mucosal membranes moist Neck: non-tender Cardiovascular: CV assessment: bradycardia, regular rate and rh ythm, pedal pulses present Respiratory: clear to auscultation, no distress Abdomen: soft, non-tender Genitourinary: no flank pain Extremities: edema, dry, moves all Musculoskeletal: normal inspection Neuro/HOT DIPPER: alert, oriented X 3 Skin: dry Psychiatry: normal affect Results: labs reviewed, vital signs reviewed, vi ashlie signs stable EKG Interpretation: sinus bradycardia Treatment Prophylaxis Treatment Prophylaxis Oxygen: room air Diagnosis, Assessment Plan Free Text A P: 1. Paroxysmal atrial fibrillation - s/p successful implantation of a 24mm Watchman device in the left atrial appendage - CHADSVASC score of 3, and intolerance to long- term anticoagulation due to severe bruising/ bleeding - Patient tolerated the procedure without post-o p complications. - No thrombus was identified in the pre-/intra-o p DEYSI. - Postoperatively, chest x-ray is negati ve for any acute process. Post-op echo did not show a pericardial effusion. - Patient ambulated without any difficulty, and heart rate and blood pressure are stable. - Right groin soft. No infection, bleeding, or h ematoma. - Patient is to follow up with PCP and cardiolog ist in 1 to 2 weeks post discharge. - Patient is to follow up with online marketing strategist for the 45-day DEYSI, and for anticoagulation recommendation. - Patient is to continue Eliquis for 6 weeks, th en transition to aspirin and Plavix. - Duration of aspirin is lifelong. - Duration of Plavix is 6 months post 45-day DEYSI . - Patient to discharge home Consultants: cardiology Code status: full code Plan discussed with: patient Deandre Devlin 08/26/22 0903: Attestations Physician Attestation Agree w/findings plan: Patient seen and examined on 08/25/2022. I agree w ith the findings and plan as documented by Tish Dye NP. at 1448 at 0904 RPT #:[id number] END OF REPORT 2022-08-25 12:07:00-00:00 [facility] ([facility]) EP Progress Note REPORT#:[id number] REPORT STATUS: Signed DATE:08/25/22 TIME: 1207 PATIENT: CHRIS WILEY UNIT #: [id number] ROOM/BED: [place] [address] : 48 AGE: 72 SEX: F ATTEND: Carlos Alvarez MD ADM AUTHOR: Steve Beltran * ALL edits or amendments must be made on the [employer]computer document * Objective General VS/I O Last Documented: Result Date Time Pulse Ox 97 08/25 1111 B/P 121/52 08/25 1111 B/P Mean 74.8 08/25 1111 O2 Delivery Room air 08/25 1111 Temp 36.6 08/25 1111 Pulse 52 08/25 1111 Resp 19 08/25 1111 O2 Flow Rate 2 08/24 1319 24 hour I O ending at 0700: 08/25 0700 08/24 1900 Intake Total 240 Output Total Balance 240 Intake, Oral 240 Number 1 Bowel Movements Number Voids 1 1 PATIENT WEIGHT: Weight (lb): 212 Weight (oz): 4.88 Weight (kg): 96.300 Medications: Active Meds + DC'd Last 24 Hrs Budesonide (PULMICORT RESPULES) 0.5 MG RTBID INH (DCD) Apixaban (ELIQUIS 5MG TABLET) 5 MG BID PO (DCD) Atorvastatin Calcium (LIPITOR) 40 MG BEDTIME PO (DCD) Fluticasone Propionate (Flonase Nasal Browns) 1 S PRAY BEDTIME NASAL (DCD) Loratadine (CLARITIN) 10 MG BEDTIME PO (DCD) Metoprolol Tartrate (LOPRESSOR) 50 MG BID PO (DC D) Albuterol Sulfate (ALBUTEROL SULFATE) 2.5 MG RTQ 6H NEB (DCD) Furosemide (LASIX) 40 MG DAILY PRN PRN PO (DCD) Sodium Chloride (SODIUM CHLORIDE) 5 ML ASDIR PRN IV (DCD) Sodium Chloride (SODIUM CHLORIDE) 10 ML ASDIR IA N IV (DCD) Sodium Chloride (SODIUM CHLORIDE 0.9%) 250 ML DIR PRN IV (DCD) Clindamycin Phosphate (CLEOCIN 600 MG/NS 50 ML) 50 ML PREOP ONCALL IV ( DC) Diphenhydramine HCl (BENADRYL) 12.5 MG PACU ONCE PRN IV (DC) Fentanyl Citrate (SUBLIMAZE) 100 MCG PACU Q10MIN PRN PRN IV (DC) Fentanyl Citrate (SUBLIMAZE) 50 MCG PACU Q10MIN PRN PRN IV (DC) Hydralazine HCl (APRESOLINE) 5 MG PACU Q10MIN IA N PRN IV (DC) Hydrocodone Bitart/Acetaminophen (NORCO 5/325) 1 TAB PACU ONCE PO (DC) Hydromorphone HCl (DILAUDID) 1 MG PACU Q10MIN IA N PRN IV (DC) Hydromorphone HCl (DILAUDID) 0.5 MG PACU Q5MIN P RN PRN IV (DC) Insulin Human Lispro (HUMALOG) 0 PACU ONCE PRN S UBQ (DC) Labetalol HCl (LABETALOL HCL) 5 MG PACU Q10MIN P RN PRN IV (DC) Meperidine HCl (MEPERIDINE HCL/PF) 12.5 MG PACU ONCE PRN IV (DC) Morphine Sulfate (morphine SULFATE) 2 MG PACU Q1 0MIN PRN PRN IV (DC) Ondansetron HCl (ZOFRAN) 4 MG PACU ONCE PRN IV ( DC) Promethazine HCl (PHENERGAN) 25 MG PACU ONCE PRN PO (DC) Ropivacaine (NAROPIN 0.5% 150 MG/30mL) 150 MG DIR PRN LOCAL (DC) Tramadol HCl (ULTRAM) 50 MG PACU ONCE PO (DC) Physical Exam General appearance: alert, awake, oriented Cardiovascular: CV assessment: regular rate and rhythm Respiratory: clear to auscultation, no distress Abdomen: soft, non-tender Extremities: moves all Neuro/HOT DIPPER: alert, oriented X 3 Skin: dry Wound/incision: Location: Right groin soft. No infection, bleeding, or hem atoma. Findings/Data: Laboratory Tests: 08/25 0346 Chemistry Sodium (134 - 147 mEq/L) 137 Potassium (3.4 - 5.0 mEq/L) 4.7 Chloride (100 - 108 mEq/L) 105 Carbon Dioxide (21 - 33 mEq/l) 25 Anion Gap (0 - 20) 12 BUN (7 - 18 mg/dL) 18 Creatinine (0.6 - 1.3 mg/dL) 0.9 Glomerular Filtr Rate (70 - 80) 67.1 L Glucose (70 - 110 mg/dL) 291 H Calcium (8.0 - 10.5 mg/dL) 8.3 Hematology WBC (4.5 - 11.0 x10 3/uL) 8.4 RBC (3.54 - 5.02 x10 6/uL) 3.93 Hgb (11.0 - 15.0 g/dL) 11.6 Hct (33.0 - 45.0 %) 35.4 MCV (81.0 - 99.0 fL) 90.1 MCH (27.0 - 33.0 pg) 29.5 MCHC (33.0 - 37.0 g/dL) 32.8 L RDW (11.5 - 14.5 %) 15.2 H Plt Count (150 - 400 x10 3/uL) 259 MPV (7.0 - 9.0 fL) 10.4 H Neut % (Auto) (56.0 - 77.0 %) 87.2 H Lymph % (Auto) (14.0 - 32.0 %) 9.7 L [place] % (Auto) (4.8 - 9.0 %) 2.9 L Eos % (Auto) (0.3 - 3.7 %) 0.0 L Baso % (Auto) (0.0 - 2.0 %) 0.0 Neut # (Auto) (2.0 - 7.6 x10 3/uL) 7.30 Lymph # (Auto) (1.0 - 3.8 x10 3/uL) 0.81 L [place] # (Auto) (0.1 - 0.8 x10 3/uL) 0.24 Eos # (Auto) (0.0 - 0.2 x10 3/uL) 0.00 Baso # (Auto) (0.0 - 0.2 x10 3/uL) 0.00 Abs Immat Gran (auto) (0.00 - 0.03 x10 3/uL) 0. 02 Add Manual Diff NO Immature Gran % (0.0 - 2.0 %) 0.2 Nucleated RBC % (0 - 0 %) 0.0 Nucleated RBCs # (Man) (0.0 - 0.1 x10 3/uL) 0. 00 Recent Impressions: RADIOLOGY - XR CHEST 1 V 08/24 1300 Report Impression - Status: SIGNED Entered: 08/24/2022 1420 IMPRESSION: 1. Hypoinflation with increasing central pulmona ry vascular congestion and increasing interstitial prominenc e that may be related to increasing hypoinflation versus mild interstitial pulmonary edema. 2. Mild cardiomegaly. Impression By: [email or web address] - Sona Jay M.D. Diagnosis, Assessment Plan Free Text A P: Patient with long standing p ersistent atrial fibrillation, CHADSVASC score of 3, and intolerance to long-term anticoagulation due to severe bruising/bleeding. Patient is s/p successful implantation of a 24mm Watchman device in the left atrial appendage. Patient tolerated the procedure without post-op complications. No thrombus was identified in the pre-/intra-op DEYSI. Postoperatively, chest x-ray is negative for any acute process. Post-op echo did not show a pericardial effusion. Patient ambulated without an y difficulty, and heart rate and blood pressure are stable. Right groin soft. No infection, bleeding, or hem atoma. Patient was provided with post-Watchman discharg e instructions. Patient is to follow up with PCP and online marketing strategist in 1 to 2 we eks post discharge. Patient is to follow up with online marketing strategist for th e 45-day DEYSI, and for anticoagulation recommendation. Patient is to continue Eliquis for 6 weeks, then transition to aspirin and Plavix. Duration of aspirin is lifelong. Duration of Plavix is 6 months post 45-day DEYSI. Post-Watchman discharge instructions given to th e patient who verbalized understanding, and patient w as instructed to report any complaints of chest pain , shortness of breath, lightheadedness, or dizzi ness to the online marketing strategist. Electronically Signed by Steve Beltran o n 08/25/22 at 1211 at 1143 RPT #:[id number] END OF REPORT 2022-08-25 09:23:00-00:00 [facility] ([facility]) History Physical - Adult REPORT#:[id number] REPORT STATUS: Signed DATE:08/25/22 TIME: 922 PATIENT: CHRIS WILEY UNIT #: [id number] ROOM/BED: [place] [address] : 48 AGE: 72 SEX: F ATTEND: Carlos Alvarez MD ADM AUTHOR: Mary Alvarez MD * ALL edits or amendments must be made on the [employer]computer document * History of Present Illness Free Text HPI Notes Free Text HPI Notes: 72 year old female with past medical history of paroxysmal a.fib, DM HTN, HLD and rheumatoid arthritis who was admitted s/p wa tchman procedure. History Past medical history: Reports: Arthritis, Atrial fibrillation. Additional surgical history: Ablation of atrial fibrillation Additional family history: reviewed, [place] Alcohol use: Denies EtOH use, Alcohol use, In re covery Drug use: Denies recreational drugs Smoking status for patients 13 years old or olde r: Never Smoker Medication/Allergy-Vaccine Hx Allergies: Coded Allergies: cefepime (Severe, SKIN TURNS RED AND PEELS OFF 0 11/01/19) vancomycin (Severe, SKIN TURNS RED AND PEELS OFF 11/01/19) Review of Systems All systems rev neg: except as marked Physical Exam VS/I O PATIENT WEIGHT: Weight (lb): 212 Weight (oz): 4.88 Weight (kg): 96.300 General appearance: alert, awake, oriented Head/Eyes: atraumatic, EOMI, normocephalic, PERR LA ENT: normal pharynx Neck: non-tender, no JVD Cardiovascular: regular rate rhythm, normal hear t sounds, no murmur Respiratory: clear to auscultation, no distress, no tenderness, aerating well Abdomen/GI: active bowel sounds, soft, non-tende r, no guarding Extremities: moves all Musculoskeletal: normal inspection Neuro/HOT DIPPER: alert, oriented X 3 Diagnosis, Assessment Plan Problem List/A P: 1. HTN (hypertension) 2. HLD (hyperlipidemia) 3. CAD (coronary artery disease) 4. A-fib Free Text DxA P Notes Free Text DxA P Notes: medications reviewed, continue same post op care resume home meds follow labs supportive care d/c planning at 0203 RPT #:[id number] END OF REPORT 2022-08-25 09:21:00-00:00 [facility] Cardiology Progress Note REPORT#:[id number] REPORT STATUS: Signed DATE:08/25/22 TIME: 920 PATIENT: CHRIS WILEY UNIT #: [id number] ROOM/BED: [place] [address] : 48 AGE: 72 SEX: F ATTEND: Carlos Alvarez MD ADM AUTHOR: Leonela Chen APRNNP * ALL edits or amendments must be made on the [employer]computer document * Leonela Chen 08/25/22 0921: Subjective Chief complaint: atrial fibrillation s/p Watchman procedure HPI: Patient is a 72 year old female with pas t medical history of paroxysmal a.fib, DM HTN, HLD and rheumatoid arthritis who was adm itted s/p watchman procedure. Patient taking Eliquis for a.fib but wan ismael to proceed procedure to eventually come off the anticoaguation therapy. Yesterday, patient underwent left atrial appendage closure with 24 mm Watchman device. Free Text Subj Notes Free Text Subj Notes: Patient is awake and alert, sitting up in chair by bedside. She reports feeling well without chest pain, pal pitation, or shortness of breath. No acute distress noted. Objective General VS/I O: 24 hour I O ending at 0700: 08/25 0700 04/04 1900 Intake Total 240 Output Total Balance 240 Intake, Oral 240 Number 1 Bowel Movements Number Voids 1 1 Vital Signs: Date Time Temp Pulse Resp B/P B/P Pulse O2 O2 F low FiO2 Mean Ox Delivery Rate 08/25 0734 98.1 72 16 114/53 0.0 97 Room air 04/05 0500 58 19 96/46 67 04/05 0424 59 19 106/55 76 04/05 0424 99.0 59 18 106/55 0.0 97 04/05 0400 58 20 106/51 73 04/05 0300 55 19 106/53 76 04/05 0200 58 20 108/53 77 04/05 0100 63 20 112/55 79 04/05 0000 66 19 112/56 81 04/04 2315 97.9 72 20 113/56 0.0 96 04/04 2313 70 26 113/56 80 04/04 2300 65 18 116/58 83 04/04 2200 67 18 111/56 81 04/04 2100 21 117/59 85 04/04 2100 69 89 04/04 2001 73 36 114/58 82 04/04 2000 74 04/04 1856 97.9 84 20 127/60 0.0 94 04/04 1815 74 35 92 04/04 1800 72 33 93 04/04 1745 76 27 94 04/04 1730 66 18 112/56 93 Room air 04/04 1715 65 36 140/63 95 04/04 1645 62 22 133/60 97 04/04 1630 61 20 134/58 97 04/04 1615 59 18 125/60 98 04/04 1415 116/56 04/04 1400 60 20 133/59 99 04/04 1345 60 17 120/56 98 04/04 1330 61 18 121/57 98 04/04 1325 59 17 97 04/04 1320 60 16 97 04/04 1319 Nasal 2 cannula 04/04 1315 61 16 115/58 97 04/04 1314 Simple 10 mask 04/04 1310 62 15 97 04/04 1305 63 7 97 04/04 1300 63 14 126/59 96 04/04 1255 66 16 90 04/04 1250 67 13 93 04/04 1245 66 15 115/52 100 PATIENT WEIGHT: Weight (lb): 212 Weight (oz): 4.88 Weight (kg): 96.300 Medications: Active Meds + DC'd Last 24 Hrs Budesonide (PULMICORT RESPULES) 0.5 MG RTBID INH Apixaban (ELIQUIS 5MG TABLET) 5 MG BID PO Atorvastatin Calcium (LIPITOR) 40 MG BEDTIME PO Fluticasone Propionate (Flonase Nasal Browns) 1 S PRAY BEDTIME NASAL (CKD) Loratadine (CLARITIN) 10 MG BEDTIME PO Metoprolol Tartrate (LOPRESSOR) 50 MG BID PO Albuterol Sulfate (ALBUTEROL SULFATE) 2.5 MG RTQ 6H NEB Furosemide (LASIX) 40 MG DAILY PRN PRN PO Sodium Chloride (SODIUM CHLORIDE) 5 ML ASDIR PRN IV Sodium Chloride (SODIUM CHLORIDE) 10 ML ASDIR IA N IV Sodium Chloride (SODIUM CHLORIDE 0.9%) 250 ML DIR PRN IV Heparin Sodium (HEPARIN SODIUM) 0 .STK-MED ONE . ROUTE (DC) Heparin Sodium/Sodium Chloride (HEPARIN 2,000 UN ITS/NS 1,000mL) 2,000 ML .STK-MED ONE IV (DC) Clindamycin Phosphate (CLEOCIN 600 MG/NS 50 ML) 50 ML PREOP ONCALL IV ( DC) Bupivacaine HCl (MARCAINE 0.5%) 0 .STK-MED ONE . ROUTE (DC) Heparin Sodium (HEPARIN SODIUM) 0 .STK-MED ONE . ROUTE (DC) Diphenhydramine HCl (BENADRYL) 12.5 MG PACU ONCE PRN IV (DC) Fentanyl Citrate (SUBLIMAZE) 100 MCG PACU Q10MIN PRN PRN IV (DC) Fentanyl Citrate (SUBLIMAZE) 50 MCG PACU Q10MIN PRN PRN IV (DC) Hydralazine HCl (APRESOLINE) 5 MG PACU Q10MIN IA N PRN IV (DC) Hydrocodone Bitart/Acetaminophen (NORCO 5/325) 1 TAB PACU ONCE PO (DC) Hydromorphone HCl (DILAUDID) 1 MG PACU Q10MIN IA N PRN IV (DC) Hydromorphone HCl (DILAUDID) 0.5 MG PACU Q5MIN P RN PRN IV (DC) Insulin Human Lispro (HUMALOG) 0 PACU ONCE PRN S UBQ (DC) Labetalol HCl (LABETALOL HCL) 5 MG PACU Q10MIN P RN PRN IV (DC) Meperidine HCl (MEPERIDINE HCL/PF) 12.5 MG PACU ONCE PRN IV (DC) Morphine Sulfate (morphine SULFATE) 2 MG PACU Q1 0MIN PRN PRN IV (DC) Ondansetron HCl (ZOFRAN) 4 MG PACU ONCE PRN IV ( DC) Promethazine HCl (PHENERGAN) 25 MG PACU ONCE PRN PO (DC) Ropivacaine (NAROPIN 0.5% 150 MG/30mL) 150 MG DIR PRN LOCAL (DC) Tramadol HCl (ULTRAM) 50 MG PACU ONCE PO (DC) Dexamethasone Sodium Phosphate (DECADRON) 0 .STK -MED ONE .ROUTE (DC) Fentanyl Citrate (SUBLIMAZE) 0 .STK-MED ONE IV ( DC) Lidocaine HCl (XYLOCAINE) 0 .STK-MED ONE .ROUTE (DC) Midazolam HCl (VERSED) 0 .STK-MED ONE .ROUTE (DC ) Ondansetron HCl (ZOFRAN) 0 .STK-MED ONE .ROUTE ( DC) Propofol (DIPRIVAN 200MG/20ML INJECTION) 20 ML . STK-MED ONE IV (DC) Rocuronium [place] (ZEMURON) 0 .STK-MED ONE IV ( DC) Lidocaine HCl (XYLOCAINE) 0 .STK-MED ONE .ROUTE (DC) Physical Exam General appearance: alert, awake, oriented Head/Eyes: atraumatic, EOMI, normocephalic, PERR LA Cardiovascular: CV assessment: regular rate and rhythm, normal heart sounds Respiratory: clear to auscultation, no distress Abdomen: soft, non-tender, normal bowel sounds Genitourinary: no bladder distention, no flank p ain Upper extremity: UE assessment: no clubbing, no cyanosis, no abad ma Lower extremity: LE assessment: normal temperature, no clubbing, no cyanosis, 2+ peripheral pulses Neuro/HOT DIPPER: alert, oriented X 3 Skin: dry, intact Psychiatry: normal affect, normal mood, no hallu cinations Results Findings/Data: Laboratory Tests 08/25 0346 Chemistry Sodium (134 - 147 mEq/L) 137 Potassium (3.4 - 5.0 mEq/L) 4.7 Chloride (100 - 108 mEq/L) 105 Carbon Dioxide (21 - 33 mEq/l) 25 Anion Gap (0 - 20) 12 BUN (7 - 18 mg/dL) 18 Creatinine (0.6 - 1.3 mg/dL) 0.9 Glomerular Filtr Rate (70 - 80) 67.1 L Glucose (70 - 110 mg/dL) 291 H Calcium (8.0 - 10.5 mg/dL) 8.3 Laboratory Tests 08/24 08/24 1208 1153 Coagulation Activated Coag Time (74 - 137 SEC) 389 H 203 H Laboratory Tests 08/25 0346 Hematology WBC (4.5 - 11.0 x10 3/uL) 8.4 RBC (3.54 - 5.02 x10 6/uL) 3.93 Hgb (11.0 - 15.0 g/dL) 11.6 Hct (33.0 - 45.0 %) 35.4 MCV (81.0 - 99.0 fL) 90.1 MCH (27.0 - 33.0 pg) 29.5 MCHC (33.0 - 37.0 g/dL) 32.8 L RDW (11.5 - 14.5 %) 15.2 H Plt Count (150 - 400 x10 3/uL) 259 MPV (7.0 - 9.0 fL) 10.4 H Neut % (Auto) (56.0 - 77.0 %) 87.2 H Lymph % (Auto) (14.0 - 32.0 %) 9.7 L [place] % (Auto) (4.8 - 9.0 %) 2.9 L Eos % (Auto) (0.3 - 3.7 %) 0.0 L Baso % (Auto) (0.0 - 2.0 %) 0.0 Neut # (Auto) (2.0 - 7.6 x10 3/uL) 7.30 Lymph # (Auto) (1.0 - 3.8 x10 3/uL) 0.81 L [place] # (Auto) (0.1 - 0.8 x10 3/uL) 0.24 Eos # (Auto) (0.0 - 0.2 x10 3/uL) 0.00 Baso # (Auto) (0.0 - 0.2 x10 3/uL) 0.00 Abs Immat Gran (auto) (0.00 - 0.03 x10 3/uL) 0. 02 Add Manual Diff NO Immature Gran % (0.0 - 2.0 %) 0.2 Nucleated RBC % (0 - 0 %) 0.0 Nucleated RBCs # (Man) (0.0 - 0.1 x10 3/uL) 0.0 0 Radiology data: Recent Impressions: RADIOLOGY - XR CHEST 1 V 08/24 1300 Report Impression - Status: SIGNED Entered: 08/24/2022 1420 IMPRESSION: 1. Hypoinflation with increasing central pulmona ry vascular congestion and increasing interstitial prominenc e that may be related to increasing hypoinflation versus mild interstitial pulmonary edema. 2. Mild cardiomegaly. Impression By: [id number] - Sona Jay M.D. Review of Systems Constitutional: Denies: chills, fever. Skin: Denies: rash, swelling. Respiratory: Denies: SOB, wheezing. Cardiovascular: Denies: chest pain, palpitations. GI: Denies: abdominal pain, nausea, vomiting. : Denies: dysuria, flank pain. Heme: Denies: bleeding. Neuro: Denies: dizziness, headache, lightheaded. All systems rev neg: except as marked Diagnosis, Assessment Plan Free Text DxA P Notes Free Text DxA P Notes: Patient is a 72 year old female with pas t medical history of paroxysmal a.fib, DM HTN, HLD and rheumatoid arthritis who was adm itted s/p watchman procedure. 1. Paroxysmal a.fib s/p watchman - 08/24/2022 s/p Left atrial appendage closure usi ng a 24 mm Watchman device. - will continue Eliquis 5 mg PO BID for about 45 days and then will proceed with DEYSI procedure to confirm closure before stopping the anticoagulation therapy. - cont amiodarone 200 mg PO daily - cont metoprolol tartrate 50 mg PO BID 2. HLD - continue atorvastatin 40 mg QHS Okay to discharge per cardiology standpoint and follow up outpatient. Discussed patient case with supervising MD, Dr. Cira Guerrero, who agrees with plan of care. Cira Guerrero 09/07/22 1832: Diagnosis, Assessment Plan Free Text DxA P Notes Free Text DxA P Notes: Patient seen and examined. Labs and imaging revi ewed. I agree with the assessment and plan as documented by the PULP PILER. Patient is a 72 year old female with pas t medical history of paroxysmal a.fib, DM HTN, HLD and rheumatoid arthritis who was adm itted s/p watchman procedure. 1. Paroxysmal a.fib s/p watchman - 08/24/2022 s/p Left atrial appendage closure usi ng a 24 mm Watchman device. - will continue Eliquis 5 mg PO BID for about 45 days and then will proceed with DEYSI procedure to confirm closure before stopping the anticoagulation therapy. - cont amiodarone 200 mg PO daily - cont metoprolol tartrate 50 mg PO BID Electronically Signed by Leonela Chen 08/25/22 at 2016 at 1834 RPT #:[id number] END OF REPORT 2022-08-24 17:59:00-00:00 [id number] [place] [address] PATIENT NAME: CHRIS WILEY ADMIT DATE: 08/24/22 ACCOUNT NO: [id number] ROOM NO: [facility] AGE: 72 REPORT TYPE: OPERATIVE REPORT SEX: F ADMITTING PHYSICIAN:Mary Alvarez MD ATTENDING PHYSICIAN:Mary Alvarez MD OPERATION DATE: 08/24/2022 PREPROCEDURE DIAGNOSES: 1. Atrial fibrillation. 2. Hypertension. 3. Congestive heart failure. 4. Bleeding, not a candidate for long-term antic oagulation. POSTPROCEDURE DIAGNOSES: 1. Atrial fibrillation. 2. Hypertension. 3. Congestive heart failure. 4. Bleeding, not a candidate for long-term antic oagulation. ATTENDING PHYSICIAN: Deandre Wisdom M.D. CO-SURGEON: Dr. Ozuna. PROCEDURE PERFORMED: Implantation of a left atri al appendage closure device/Watchman. ANESTHESIA: General. DESCRIPTION OF PROCEDURE: After informed consent was obtained, the patient was brought to the electrophysiology laboratory in a fasting sedated state. Area over her groin was prepped and draped in the usu al sterile fashion. General anesthesia was started. Transesophageal echo demonstrated the appendage had no clots in the ostium measured about 18 mm. We the n obtained vascular access x1 in the right common femoral vein. We gav e heparin to maintain ACT greater than 300. Transseptal access was performed x1 and the angiogram of the appendage confirmed the anatomy. We then advanced and depl oyed a 24 mm Watchman device successfully. The compression rate was close to 20%. There were no leaks, no gaps. Tug test was satisfactory. Device was rele ased without any issues. The sheath was removed from the body. There was no pericardial effusion at the end of the study. We did not reverse the heparin. We used Perclose to the right groin. The patient tolerated the procedure well. Procedure was complete. I personally assisted Dr. Kadeem scott as a cosurgeon and personally assisted with vascular access and manipulation of the transsep ashlie sheath. IMPRESSION: Successful implantation of a 24 mm W atchman device. PLAN: 1. Routine postop monitoring on telemetry. PATIENT NAME: CHRIS WILEY 670 2. Continue oral anticoagulation for [address] Wilian Ozuna to arrange for transesophageal echo in 6 weeks. Dictated By: Deandre Wisdom MD Date Dictated: 08/24/2022 17:59:30 Date Transcribed: 08/24/2022 20:35:38 [facility] Receipt ID: [id number] Authenticated and Edited by Deandre Wisdom MD On 08/25/22 9:53:26 AM at 0955 PATIENT NAME: CHRIS WILEY 670 2022-08-24 13:44:00-00:00 [id number] [address] PATIENT NAME: CHRIS WILEY ADMIT DATE: 08/24/22 ACCOUNT NO: [id number] ROOM NO: [id number] AGE: 72 REPORT TYPE: CARDIAC CATHETERIZATION REPORT SEX: F ADMITTING PHYSICIAN:Mary Alvarez MD ATTENDING PHYSICIAN:Mary Alvarez MD PROCEDURE DATE: 08/24/2022 INDICATION: Paroxysmal atrial fibrillation with a high CHADS-VASc score and high risk of bleeding. POSTOPERATIVE DIAGNOSIS: Paroxysmal atri al fibrillation with a high CHADS-VASc score and high risk of bleeding. PROCEDURES PERFORMED: Left atrial appendage clos ure using a 24 mm Watchman device. SURGEON: Deandre Nguyen MD and Cira gill MD This procedure was co-performed by Dr. Cira rahman and Dr. Deandre Nguyen. DESCRIPTION OF PROCEDURE: After obtaining inform ed consent, the patient was brought to the cardiac catheterization lab, prep ped and draped in sterile fashion technique. Access established in the [facility] common femoral vein. The patient was [TIME: 01:0 2] access and then we went with Watchman sheath and then we went to the fossa, we were posterior as well as anterior, then we crossed [TIME: 01:25] device. Then, we advanced the guidewire through the pigtail. Then, we positioned our sheath actually at the ostium of the appendage. Then, we went with pigtail ca theter positioned into the left atrial appendage advanced the Watchman sheath, then, we took more pictures. After performing measurement on the angiogram as well as DEYSI, 24 mm seems to be the right appropriate size. Afte r de-airing the system, we went with 24 mm Watchman advanced into the appendage. After some maneuvering, the Watchman was deployed. A tug test was performed. There also was good c ompression between 21-24%. Then, DEYSI was performed showed also that the Patrick chman was in good position. There was no tami-device leak. CONCLUSION: Successful deployment of 24 mm Watchman device to occlude the left atrial appendage. RECOMMENDATIONS: We will continue Eliquis [TIME: 02:48]. Dictated By: Cira Guerrero MD Date Dictated: 08/24/2022 13:44:26 Date Transcribed: 08/24/2022 14:17:09 RJ/ROB/CONCEPCION/DONG PATIENT NAME: CHRIS WILEY 670 Receipt ID: [id number] Authenticated by Cira Guerrero MD On 023 02:30:02 PM at 0230 PATIENT NAME: CHRIS WILEY 670 2022-08-24 12:57:00-00:00 [id number] [place] [address] PATIENT NAME: CHRIS WILEY ADMIT DATE: 08/24/22 ACCOUNT NO: [id number] ROOM NO: [id number] AGE: 72 REPORT TYPE: eELECTROCARDIOGRAM REPORT SEX: F ADMITTING PHYSICIAN:Mary Alvarez MD ATTENDING PHYSICIAN:Mary Alvarez MD Order: [id number] Test Reason : WATCHMAN Test Date/Time Stamp: TueAug 24 2022 12:57:11 Blood Pressure : / mmHG Vent. Rate : 066 BPM Atrial Rate : 066 BPM P-R Int : 172 ms QRS Dur : 094 ms QT Int : 478 ms P-R-T Axes : 009 -11 027 degree s QTc Int : 501 ms Normal sinus rhythm Poor R wave progression Abnormal ECG Confirmed by LIVAN PORRAS ([id number]) on 08/25/2022 3:2 5:24 PM Referred By: Deandre Wisdom Confirmed by:TAISHA PORRAS Electronically Signed by Livan Porras MD on at 1525 PATIENT NAME: CHRIS WILEY 670 2022-08-21 08:33:00-00:00 [facility] ([facility]) Consultation Note - Brief REPORT#:[id number] REPORT STATUS: Signed DATE:08/21/22 TIME: 832 PATIENT: CHRIS WILEY UNIT #: [id number] ROOM/BED: : 48 AGE: 72 SEX: F ATTEND: Deandre Ramirez MD ADM AUTHOR: Johnson Pa MD * ALL edits or amendments must be made on the el [employer]ronic/computer document * History of Present Illness HPI Requesting Clinician: Dr. Nguyen Reason for consult: Watchman shared decision Chief complaint: Patient here for outpatient preop evaluation and watchman shared decision. PCP: PCP: No Primary or Family Physician History of present illness: 72-year-old woman with past medical history of a rthritis which was recently found to have atrial fibrillation and is here to day for preop evaluation and watchman shared decision. History - Adult longitudinal Past medical history: Reports: Arthritis, Atrial fibrillation. Additional surgical history: Ablation of atrial fibrillation Alcohol use: Denies EtOH use, Alcohol use, In re covery Smoking status for patients 13 years old or olde r: Never Smoker Medications: Home Medications: Medication Dose/Rte/Freq Days Qty Entered Last Max Daily Dose Reviewed ATORVASTATIN (LIPITOR) 40 MG PO DAILY 08/20/22 Strength: 40 MG TAB 1031 APIXABAN (ELIQUIS) 5 MG PO BID 08/20/22 Strength: 5 MG TAB 1031 METOPROLOL TARTRATE 50 MG PO BID 08/20/22 (LOPRESSOR) 1032 Strength: 50 MG TAB FUROSEMIDE (LASIX) 40 MG PO 08/20/22 Strength: 40 MG TAB DAILY PRN HTN 1053 FLUTICASONE PROPIONATE 1 SPRAY NASAL 08/20/22 (FLONASE 50 MCG/ACT BEDTIME 1111 NASAL) Strength: 50 MCG/ACTUATION SPRAY [ABADICEPT] 750 MG IV MONTHLY 08/20/22 Strength: 1136 BUDESONIDE/FORMOTEROL 2 PUFF INH RTBID 11/01/19 (SYMBICORT 160/4.5 1213 MCG/ACT 10.2GM) Strength: 160 MCG-4.5 MCG/ACTUATION INHALER CETIRIZINE (ZyrTEC) 10 MG PO BEDTIME 11/01/19 Strength: 10 MG TAB 1214 Allergies: Coded Allergies: cefepime (Severe, SKIN TURNS RED AND PEELS OFF 0 11/01/19) vancomycin (Severe, SKIN TURNS RED AND PEELS OFF 11/01/19) Brief Consult Note Physical Exam Vitals: Blood pressure is 147/64, pu lse of 65, weight is 208 pounds, respiratory rate of 14, temperature 98.6 General appearance: alert, awake, oriented HEENT: anicteric, mucosal me mbranes moist, pale conjunctivae, pupils reactive to light Neck: full range of motion, no bruit/NL carotids , no JVD Cardiovascular: regular rate rhythm, normal hear t sounds Respiratory: clear to auscultation, no d istress, no tenderness, aerating well, symmetric expansion Abdomen: soft, non-tender, no guarding, no rebou nd, no distention Neuro/HOT DIPPER: alert, oriented X 3, normal speech, n o motor deficits Extremities: Bilat moves all, Bilat no edema Skin: dry, intact, no gross abnormalities, von l color Findings/Data: Recent Impressions: RADIOLOGY - XR CHEST 2 V 08/20 1109 Report Impression - Status: SIGNED Entered: 08/20/2022 1238 IMPRESSION: Findings suggesting minimal chronic interstitial change. Impression By: Shima Oconnor Laboratory Tests 08/20/22 1030: [Embedded Image Not Available] Free Text A P: Patient with atrial fibrillation. Status post ab lation. Patient meets criteria for watchman insertion. N ice questionnaire was filled. [id number] score - 3 HAS-BLED score - 3 Time spent: Time spent on patient care (minutes): 15 at 0844 RPT #:[id number] END OF REPORT 2022-08-20 11:25:00-00:00 [id number] [place] [address] PATIENT NAME: CHRIS WILEY ADMIT DATE: ACCOUNT NO: [id number] ROOM NO: AGE: 72 REPORT TYPE: eELECTROCARDIOGRAM REPORT SEX: F ADMITTING PHYSICIAN: ATTENDING PHYSICIAN:Deandre Devlin MD Order: [id number] Test Reason : PRE OP Test Date/Time Stamp: TueAug 20 2022 11:25:17 Blood Pressure : / mmHG Vent. Rate : 058 BPM Atrial Rate : 058 BPM P-R Int : 168 ms QRS Dur : 088 ms QT Int : 442 ms P-R-T Axes : 027 061 032 degree s QTc Int : 433 ms Sinus bradycardia Septal infarct (cited on or before 01-NOV-2019) Abnormal ECG When compared with ECG of 01-NOV-2019 11:35, No significant change was found Confirmed by YANA PORRAS MD ([id number]) on 08/22/2022 11:15:31 AM Referred By: Deandre Wisdom Confirmed by:YASH PORRAS MD Electronically Signed by Yana Porras MD on 07/15 at 1115 PATIENT NAME: CHRIS WILEY 670 2019-11-05 08:19:00-00:00 [facility] ([facility]) Operative Note - Full REPORT#:[id number] REPORT STATUS: Signed DATE:11/05/19 TIME: 818 PATIENT: CHRIS WILEY UNIT #: [id number] ROOM/BED: : 48 AGE: 69 SEX: F ATTEND: Casper Goss MD ADM AUTHOR: Calvin Goss MD * ALL edits or amendments must be made on the [employer]computer document * Operative Report ORM Surgeries: Surgery Date and Time: 11/05/2019 0800 Proposed Primary Procedure: INS OF JUGULAR PORT A CATH Start date: 11/05/19 Start time: 829 Pre-procedure diagnosis: 1. Rheumatoid arthritis 2. Need for chronic infusions with therapy 3. Lack of peripheral access Post-procedure diagnosis: same Procedures performed: Placement of right internal jugular Port-A-Cath, tunneled central line with subcutaneous port [id number] Technique/Procedure: The patient was brought into the abdomen prepped and draped in usual sterile manner. Percutaneous ultrasound-guided active ac cess was obtained to right internal jugular vein a microcatheter system and a wire was placed under fluoroscopic guidance into the inferior vena cava. A pocket was created in the right upper chest with a 4 to 5 cm incis ion carried down with sharp dissection and electrocautery. The catheter was yamilex neled into place. Peel-away sheath was placed under fluoroscopic guidance and the balaji ter was placed under fluoroscopic guidance to the right atriu m. The catheter was cut to appropriate length and approximated to t he port and the port was placed in the pocket. Good flush and withdrawal was noted in the port. Ther e was copiously irrigated. Prolene stitch was used to approximate t he port to the subcutaneous tissues to prevent flipping. 3-0 Vicryl stitch was used to close the subcutaneous tissues and running fashion. The skin was closed with 4-0 Monocryl stitch in a running subcuticular fashion. Patient tolerated procedur e well with no complications. Patient was stable and discharged to PACU. Primary Surgeon: Dr. Calvin Goss Degreasing Solution Mixer(s): none Anesthesia: general anesthesia Operative findings: Good flush and withdrawal through port and good placement of port at right atrium without kinking or twisting. Complications: none Estimated blood loss in ml's: none Specimens removed/altered: none Implant(s): port-a-cath Electronically Signed by Calvin Goss MD on 0 11/05/19 at 0911 RPT #:[id number] END OF REPORT 2019-11-05 08:15:00-00:00 [facility] ([facility]) Brief Op Note REPORT#:[id number] REPORT STATUS: Signed DATE:11/05/19 TIME: 814 PATIENT: CHRIS WILEY UNIT #: [id number] ROOM/BED: : 48 AGE: 69 SEX: F ATTEND: Stanley Goss MD ADM AUTHOR: Calvin Goss MD * ALL edits or amendments must be made on the el [employer]/computer document * Op/Inv Proc Note - Brief ORM Surgeries: Surgery Date and Time: 11/05/2019 0800 Proposed Primary Procedure: INS OF JUGULAR PORT A CATH Pre-procedure diagnosis: 1. Rheumatoid arthritis 2. Need for chronic infusions with therapy 3. Lack of peripheral access Post-procedure diagnosis: same as pre procedure dx Procedures performed: Placement of right internal jugular Port-A-Cath, tunneled central line with subcutaneous port [id number] Primary Surgeon: Dr. Calvin Goss Degreasing Solution Mixer(s): none Anesthesia: general anesthesia Findings: Good flush and withdrawal through port and good placement of port at right atrium without kinking or twisting. Complications: none Estimated blood loss in ml's: none Specimens removed/altered: none Electronically Signed by Calvin Goss MD on 0 11/05/19 at 0912 RPT #:[id number] END OF REPORT 2019-11-05 08:14:00-00:00 [facility] ([facility]) Brief Discharge Note w/Med Rec REPORT#:[id number] REPORT STATUS: Signed DATE:11/05/19 TIME: 813 PATIENT: CHRIS WILEY UNIT #: [id number] ROOM/BED: : 48 AGE: 69 SEX: F ATTEND: Casper Goss MD ADM AUTHOR: Calvin Goss MD * ALL edits or amendments must be made on the el [employer]/computer document * Med Rec Med Rec Discharge meds: Continue taking these medications: [SIMPONI] INTRAVENOUS DIRECTED. Instructions: TAKES EVERY 2 MONTHS BUDESONIDE/FORMOTEROL (SYMBICORT 160/4.5 MCG/ACT ) 160 MCG-4.5 MCG/ACTUATION INHALER 2 PUFF INHALATION RT - TWICE DAILY. FLUTICASONE PROPIONATE (FLONASE 50 MCG/ACT NASAL ) 50 MCG/ACTUATION SPRAY 1 SPRAY NASAL TWICE DAILY. ATORVASTATIN (LIPITOR) 20 MG TAB 20 MILLIGRAM ORAL DAILY. MONTELUKAST (SINGULAIR) 10 MG TAB 10 MILLIGRAM ORAL BEDTIME. CETIRIZINE (ZyrTEC) 10 MG TAB 10 MILLIGRAM ORAL BEDTIME. CHOLECALCIFEROL (VITAMIN D3) (VITAMIN D3) 2,000 UNIT CAP 2,000 UNITS ORAL DAILY. CYANOCOBALAMIN (VITAMIN B-12) 1,000 MCG TAB 1,000 MICROGRAM ORAL DAILY. POLYVINYL ALCOHOL (ARTIFICIAL TEARS 1.4% SOLN) 1 .4 % OPHTH.SOLN 2 DROPS EACH EYE TWICE DAILY NEEDED. as need ed for DRY EYES Start taking the following new medications: ACETAMINOPHEN/CODEINE (TYLENOL WITH CODEINE #3 3 00/30 MG) 300 MG-30 MG TAB 1 TABLET ORAL EVERY 4 HOURS NEEDED. as neede d for PAIN SCALE 7-10 Qty = 20 No Refills Objective VS/I O Last Documented: Result Date Time Pulse Ox 96 11/04 650 B/P 165/72 11/04 650 Temp 96.4 11/04 650 Pulse 63 11/04 650 Resp 14 11/04 0651 24 hour I O ending at 0700: 11/04 0700 11/03 1900 Intake Total Output Total Balance Patient 95.455 kg Weight Weight Stated/Reported Measurement Method Brief Discharge Note w/Med Rec PCP: PCP: No Primary or Family Physician Discharge to: home Activity: as tolerated Diet: cardiac Wound/dressing care: Change dressing daily, Keep wound clean and dry, OK to shower tomorrow Pt. condition on discharge: stable Follow-up appointment(s): 1-2 weeks Electronically Signed by Calvin Goss MD on 0 11/05/19 at 0815 RPT #:[id number] END OF REPORT 2019-11-01 11:35:00-00:00 [id number] [place] [address] PATIENT NAME: CHRIS WILEY ADMIT DATE: ACCOUNT NO: [id number] ROOM NO: AGE: 69 REPORT TYPE: eELECTROCARDIOGRAM REPORT SEX: F ADMITTING PHYSICIAN: ATTENDING PHYSICIAN:Calvin Goss MD Order: [id number] Test Reason : PRE-OP Test Date/Time Stamp: TueNov 01 2019 11:35:08 Blood Pressure : / mmHG Vent. Rate : 059 BPM Atrial Rate : 059 BPM P-R Int : 156 ms QRS Dur : 084 ms QT Int : 418 ms P-R-T Axes : 064 042 075 degree s QTc Int : 413 ms Sinus bradycardia Septal infarct , age undetermined Abnormal ECG PRE_OP Confirmed by KELLEE PRASAD MD ([id number]) on 11/01/19 11:53:00 AM Referred By: Calvin Goss Confirmed by:KELLEE PRASAD MD at 1153 PATIENT NAME: CHRIS WILEY 571"
--- NOTE | 2022-11-20 16:03 | EDPHYS ---
Physician Documentation [facility] Name: Patricia Michael Age: 72 yrs Sex: Female : 1950 Arrival Date: 11/20/2022 Time: 15:05 Bed 16 Private MD: ED Physician Jim Judge HPI: 11/20 16:03 This 72 yrs old Female presents to ER via Ambulatory with complaints of Vision Problem. snw 16:03 The patient is experiencing redness, visual change, mason veil over vision today. Onset: snw The symptoms/episode began/occurred acutely. Duration: the symptoms are continuous. Severity of symptoms: At their worst the symptoms were moderate. recent herpes zoster opthal, steroid eye drop, treated afterward for Uveitis, today had sudden visual loss today in her garden. Historical: - Allergies: 15:15 cefepime; ss 15:15 Fosamax; ss 15:15 Vancomycin; ss - Home Meds: 15:15 atorvastatin 20 mg Oral tab 1 tab once daily [Active]; ss - PMHx: 15:15 Asthma; Glaucoma; macular degeneration; Pneumonia; Rheumatoid Arthritis; ss ROS: 15:55 Constitutional: Negative for fever, chills, and weight loss, ENT: Negative for injury, snw pain, and discharge, Neck: Negative for injury, pain, and swelling, Cardiovascular: Negative for chest pain, palpitations, and edema, Respiratory: Negative for shortness of breath, cough, wheezing, and pleuritic chest pain, Abdomen/GI: Negative for abdominal pain, nausea, vomiting, diarrhea, and constipation, Back: Negative for injury and pain, : Negative for injury, bleeding, discharge, and swelling, MS/Extremity: Negative for injury and deformity, Skin: Negative for injury, rash, and discoloration, Neuro: Negative for headache, weakness, numbness, tingling, and seizure, Psych: Negative for depression, anxiety, suicide ideation, homicidal ideation, and hallucinations. 15:55 ENT: Positive for mason veil over vision while outdoors . Exam: 15:56 Constitutional: This is a well developed, well nourished patient who is awake, alert, snw and in no acute distress. Head/Face: Normocephalic, atraumatic. ENT: Nares patent. No nasal discharge, no septal abnormalities noted. Tympanic membranes are normal and external auditory canals are clear. Oropharynx with no redness, swelling, or masses, exudates, or evidence of obstruction, uvula midline. Mucous membranes moist. Neck: Trachea midline, no thyromegaly or masses palpated, and no cervical lymphadenopathy. Supple, full range of motion without nuchal rigidity, or vertebral point tenderness. No Meningismus. Chest/axilla: Normal chest wall appearance and motion. Nontender with no deformity. No lesions are appreciated. Cardiovascular: Regular rate and rhythm with a normal S1 and S2. No gallops, murmurs, or rubs. Normal PMI, no JVD. No pulse deficits. Abdomen/GI: Soft, non-tender, with normal bowel sounds. No distension or tympany. No guarding or rebound. No evidence of tenderness throughout. Back: No spinal tenderness. No costovertebral tenderness. Full range of motion. Skin: Warm, dry with normal turgor. Normal color with scattered area of excoriation, no lesions, and no evidence of cellulitis. MS/ Extremity: Pulses equal, no cyanosis. Neurovascular intact. Full, normal range of motion. Lymphedema to bilat lower ext Neuro: Awake and alert, GCS 15, oriented to person, place, time, and situation. Cranial nerves II-XII grossly intact. Motor strength 5/5 in all extremities. Sensory grossly intact. Cerebellar exam normal. Normal gait. Psych: Awake, alert, with orientation to person, place and time. Behavior, mood, and affect are within normal limits. 15:56 Eyes: Periorbital structures: appear normal, Pupils: no acute changes, Extraocular movements: no acute changes, Conjunctiva: injected, bilaterally, Lids and lashes: drainage, from both eyes, green thick mucoid dc. 15:56 Respiratory: the patient does not display signs of respiratory distress, Respirations: normal, Breath sounds: bronchial sounds, that are moderate, are heard diffusely. Vital Signs: 15:10 Pulse 65; Resp 18; Temp 99(TE); Pulse Ox 97% ; Weight 94.35 kg; Height 5 ft. 2 in. ; ss Pain 5/10; 15:15 BP 118 / 59; ss 15:10 Body Mass Index 38.04 (94.35 kg, 157.48 cm) ss 15:10 Pain Scale: Adult ss Visual Acuity: 15:26 Left Eye Visual acuity 20/200, ; Right Eye Visual acuity 20/40, ; Both Eyes Visual ss acuity 20/80; Without Lenses; MDM: 15:54 Patient medically screened. snw 15:58 Differential diagnosis: viral Infection, bacterial infection, retinal detachment. Data snw reviewed: vital signs, nurses notes. Management of patient was discussed with the following: Dr. Melendrez, [facility]. Dr. Melendrez willing to see patient today or tomorrow at [place] location. Pt states she will go tomorrow at 11am. Dr. Melendrez will kindly see her at that time. Care significantly affected by the following chronic conditions: RA, Zoster Opthal, Uveitis. Counseling: I had a detailed discussion with the patient and/or guardian regarding: the historical points, exam findings, and any diagnostic results supporting the discharge/admit diagnosis, the need for outpatient follow up, Retinal specialist. Special discussion: Based on the history and exam findings, there is no indication for further emergent testing or inpatient evaluation. I discussed with the patient/guardian the need to see the opthamologist for further evaluation of the symptoms, appt made for tomorrow at 11am with Dr. Melendrez at [place] location. Administered Medications: No medications were administered Disposition: 16:49 Co-signature as Attending Physician, Jim Judge MD I reviewed the patient's care rn provided by the Advanced Practice Provider and agree with the diagnosis and treatment plan. Disposition Summary: 11/20/22 16:03 Discharge Ordered Location: Home snw Condition: Stable snw Diagnosis - Other visual disturbances snw - Sudden visual loss, left eye snw Followup: snw - With: Private Physician - When: Dr. Melendrez at 11am at [address] [place] [address] - Reason: Recheck today's complaints, Continuance of care, Re-evaluation by your physician Discharge Instructions: - Discharge Summary Sheet snw - Visual Disturbances snw Forms: - Medication Reconciliation Form snw - Thank You Letter snw - Antibiotic Education snw - Prescription Opioid Use snw - [email or web address] snw Signatures: Dorcas Smtih FNP-C CONTAINERS SALES REPRESENTATIVE-Csnw Jim Judge MD MD rn Blanchard, Shelby, RN RN ss
--- NOTE | 2022-11-20 16:03 | ER ---
Nurse's Notes [facility] Name: Patricia Michael Age: 72 yrs Sex: Female : 1950 Arrival Date: 11/20/2022 Time: 15:05 Bed 16 Private MD: Diagnosis: Other visual disturbances;Sudden visual loss, left eye Presentation: 11/20 15:10 Chief complaint: Patient states: "Seen recently for shingles to face and then stopped ss taking eye steroids after seeing Dr. Archer. This morning I was outside and my eyes started burning and they were scarlet red. I put a drop of the steroids in each eye and my vision is very blurry and finnegan in both eyes. I have Macular degeneration, but it's doing well.". Coronavirus screen: Client denies travel out of the [place] in the last 14 days. Ebola Screen: Patient denies exposure to infectious person. Patient denies travel to an Ebola-affected area in the 21 days before illness onset. Initial Sepsis Screen: Does the patient meet any 2 criteria? No. Patient's initial sepsis screen is negative. Does the patient have a suspected source of infection? No. Patient's initial sepsis screen is negative. Risk Assessment: Do you want to hurt yourself or someone else? Patient reports no desire to harm self or others. Onset of symptoms was November 20, 2022. 15:10 Method Of Arrival: Ambulatory 15:10 Acuity: KAVEH 3 ss Historical: - Allergies: 15:15 cefepime; 15:15 Fosamax; 15:15 Vancomycin; ss - Home Meds: 15:15 atorvastatin 20 mg Oral tab 1 tab once daily [Active]; ss - PMHx: 15:15 Asthma; Glaucoma; macular degeneration; Pneumonia; Rheumatoid Arthritis; ss Screenin:28 [facility] ED Fall Risk Assessment (Adult) History of falling in the last 3 months, kc6 including since admission No falls in past 3 months (0 pts) Confusion or Disorientation No (0 pts) Intoxicated or Sedated No (0 pts) Impaired Gait No (0 pts) Mobility Assist Device Used No (0 pt) Altered Elimination No (0 pt) Score/Fall Risk Level 0 - 2 = Low Risk Oriented to surroundings, Maintained a safe environment, Educated pt \\T\\ family on fall prevention, incl call for assistance when getting out of bed, Assessed \\T\\ reinforced patient's understanding of fall precautions, Hourly rounding (assess needs \\T\\ fall precautionary measures) done. Abuse screen: Denies threats or abuse. Denies injuries from another. Nutritional screening: No deficits noted. Tuberculosis screening: No symptoms or risk factors identified. Assessment: 15:48 General: Appears in no apparent distress. comfortable, Behavior is calm, cooperative, kc6 appropriate for age. Pain: Denies pain. Neuro: Blue Agitation-Sedation Scale (RASS): 0 - Alert and Calm Level of Consciousness is awake, alert, obeys commands, Oriented to person, place, time, situation, Appropriate for age. Cardiovascular: Capillary refill < 3 seconds. Respiratory: Airway is patent Trachea midline Respiratory effort is even, unlabored, Respiratory pattern is regular, symmetrical. GI: No signs and/or symptoms were reported involving the gastrointestinal system. : No signs and/or symptoms were reported regarding the genitourinary system. Derm: No signs and/or symptoms reported regarding the dermatologic system. Skin is intact, Skin is pink, warm \\T\\ dry. Musculoskeletal: No signs and/or symptoms reported regarding the musculoskeletal system. Circulation, motion, and sensation intact. Capillary refill < 3 seconds, Range of motion: intact in all extremities. Vital Signs: 15:10 Pulse 65; Resp 18; Temp 99(TE); Pulse Ox 97% ; Weight 94.35 kg; Height 5 ft. 2 in. ; ss Pain 5/10; 15:15 BP 118 / 59; ss 15:10 Body Mass Index 38.04 (94.35 kg, 157.48 cm) ss 15:10 Pain Scale: Adult ss Visual Acuity: 15:26 Left Eye Visual acuity 20/200, ; Right Eye Visual acuity 20/40, ; Both Eyes Visual ss acuity 20/80; Without Lenses; ED Course: 15:08 Patient arrived in ED. ts1 15:10 Dorcas Smith FNP-C is PHCP. snw 15:10 Jim Judge MD is Attending Physician. snw 15:14 Triage completed. ss 15:15 Arm band placed on right wrist. ss 15:17 Fatou Meier, CAMACHO is Primary Nurse. kc6 15:28 Patient has correct armband on for positive identification. Bed in low position. Call kc6 light in reach. Side rails up X 1. 15:59 No provider procedures requiring assistance completed. Patient did not have IV access kc6 during this emergency room visit. Administered Medications: No medications were administered Medication: 15:59 VIS not applicable for this client. kc6 Outcome: 15:59 Discharged to home ambulatory. kc6 15:59 Condition: stable 15:59 Discharge instructions given to patient, Instructed on discharge instructions, follow up and referral plans. Demonstrated understanding of instructions, follow-up care. 16:03 Discharge ordered by MD. abad 16:03 Patient left the ED. kc6 Signatures: Dorcas Smith, PHARMACY INFORMATICIST-C PHARMACY INFORMATICIST-Csnw Lisa Hoskins RN RN ss Fatou Meier RN RN kc6 Emily Cruz, PATRICIO PAS ts1
[2022-11-20 16:09] VITALS: TEMP 99; O2SAT 97
[2022-11-20 16:10] VITALS: BP 118/59
== END 2022-11-20 16:03 | disposition home or self-care (01) ==
LOC: ER 15:05
DX: H53.8 Other visual disturbances (principal); H53.132 Sudden visual loss, left eye; Z88.3 Allergy status to other anti-infective agents; Z88.8 Allergy status to other drugs, medicaments and biological substances
CPT/HCPCS: 99283

== ENCOUNTER 2022-12-31 10:51 | Emergency (ER) | payer OTHER ==
--- OUTSIDE RECORDS SUMMARY | 2022-12-31 11:02 | XMS REPORT | Continuity of Care Document ---
:1950 Author Organization [facility] t Address [address] [facility]. [address] [place] [address] Care Team Providers Name Role Phone Unknown, Physician Primary Care Physician Unavailable BILL FOFANA Attending Clinician Unavailable BILL FOFANA Attending Clinician Unavailable Calvin Goss Attending Clinician Unavailable RADIOLOGY Attending Clinician Unavailable Radiology Attending Clinician Unavailable Doctor Unassigned, [place] Attending Clinician Unavailable Cira Guerrero Attending Clinician Unavailable Coral Nava Attending Clinician ALLISON Attending Clinician Unavailable Jimy Cancino Attending Clinician JIMY CANCINO Attending Clinician Unavailable Mary Alvarez Attending Clinician Unavailable Jean Paul Carranza RN Attending Clinician Unavailable IHSAN MARQUEZ Attending Clinician Unavailable IHSAN MARQUEZ Attending Clinician Unavailable Fred Glynn Attending Clinician Ryan Hernandez DO Attending Clinician Roberto NG, Kaiser Attending Clinician Valerio Laws MD Attending Clinician DeondreRyan osorio CRNA Attending Clinician TRINITY SELF Attending Clinician Unavailable Vanessa Ocampo Attending Clinician Unavailable Glenny Jones MD Attending Clinician Addie Holbrook Attending Clinician [phone] Carlene Dempsey MD Attending Clinician [email or web address]_[email or web address] Attending Clinician Unavailable RENNY CAVAZOS Attending Clinician Unavailable BILL FOFANA Admitting Clinician Unavailable Physician, No Primary or Family Admitting Clinician Unavaillexi HOLBROOK_Lexi Admitting Clinician Unavailable Mary Alvarez Admitting Clinician Unavailable KAISER MEJIA Admitting Clinician Unavailable [email or web address] Admitting Clinician Unavailable ADDIE HOLBROOK Admitting Clinician Unavailable RENNY CAVAZOS Admitting Clinician Unavailable Payers Payer Name Policy Type Policy Number Effective Date Expiration Date S katya MAKTJIM [id number] 2021 2021 00:00:00 00:00:00 MEDICARE PART A \\T\\ [id number] 2013 B 00:00:00 [employer] [id number] 2014 00:00:00 MEDIC[place] B-[place]: [id number] 2013 [employer] 00:00:00 [employer] LIFE [id number] INSURANCE (MEDICARE SUPPLEMENT) MEDICARE PART A AND [id number] 2013 B 00:00:00 KAZAKH [id number] CONTINENTAL INS CO - PLAN F (MEDICARE SUPPLEMENT) Problems Condition Condition Condition Status Onset Resolution Last Treating Co mments Source Name Details Category Date Date Treatment Clinician Date I89.0 I89.0 Diagnosis Active 2022-11-08 Mem oria Active 10-27 09:15:00 l 10/27/2022 08:00: Cr TELLEZ T[facility] 00 Herpes Herpes Problem Active [place] zoster Zoster -17 Communi 00:00: ty [facility] LYMPHEDEMA Diagnosis Active 2022-08-12 Memoria LEFT LEG LYMPHEDEMA 3-10 10:39:00 l LEFT LEG 00:00: Abundio Active 00 07/30/2022 [facility] Paroxysmal Paroxysmal Problem Active S [facility] atrial Atrial 2-07 Communi flutter Flutter 00:00: ty 00 [facility] Paroxysmal Paroxysmal Disease Active Overview : Univers atrial atrial 2-03 Formattin ity of fibrillati fibrillati 00:00: g of this [place] on on 00 note Medical might be Branch different from the original. Added automatic ally from request for surgery [id number] Atrial Atrial Disease Active Univers fibrillati fibrillati -24 it y of on with on with 00:00: [place] RVR RVR 00 Medical Branch Screening Screening Problem Active Swe eboni for for 6-16 Communi malignant Malignant 00:00: ty neoplasm Neoplasm 00 Hospit a of breast of Breast [facility] Early dry Early dry [...] Commun i limb Limb 00:00: ty 00 [facility] Lymphedema Lymphedema Problem Active 2019-05 S [place] 2-17 Communi 00:00: ty 00 [facility] Long-term Long-term Problem Active 2019-05 Swe eboni drug Drug 2-17 Communi therapy Therapy 00:00: ty 00 [facility] Cough Cough Problem Active [place] 1-07 Communi 00:00: ty 00 [facility] Right Right Problem Active [place] flank pain Flank Pain 1-07 Co mmuni 00:00: ty 00 Hospita l Clinics Seasonal Seasonal Problem Active [place] [facility] allergic Allergic 02-05 Commun i rhinitis Rhinitis 00:00: ty 00 [facility]osp[facility] Clin[facility] Asthma Asthma Problem Active [place] 16 Communi 00:00: ty 00 [facility] Impaired Impaired Problem Active [place] [facility] glucose Glucose 02-05 Communi tolerance Tolerance 00:00: ty 00 [facility]ospita [facility] Clinics Hyperlipid Hyperlipid Problem Active S gold emia emia 3-12 Communi 00:00: ty 00 [facility]osp[facility] Clin[facility] Rheumatoid Rheumatoid Problem Active S gold arthritis Arthritis 3-12 Comm uni 00:00: ty 00 [facility]ospita [facility] Clinics Hyperglyce Hyperglyce Problem Active S gold faustino faustino -12 Communi 00:00: ty 00 [facility] Pain of Pain of Problem Active [place] right Right -12 Communi shoulder Shoulder 00:00: ty joint Joint [...] y of d type d type 00:00: [place] 00 Medical Branch Hypovitami Hypovitami Disease Active U nivers nosis D nosis D 11-16 ity of 00:00: [place] 00 Medical Branch Knee joint Knee joint Disease Active U nivers replacemen replacemen 5-12 it y of t status t status 00:00: [place] 00 Medical Branch Pain in Pain in Disease Active Univers both hands both hands 5-12 it y of 00:00: [place] [facility] H/O H/O Disease Active Univers rheumatoid rheumatoid 5-12 it y of arthritis arthritis 00:[place] Lymphedema Lymphedema Disease Active U nivers 5-12 ity of 00:00: [place] [facility] Knee joint Knee joint Disease Active U nivers replacemen replacemen 5-12 it y of t status t status 00:00: [place] [facility] At risk At risk Disease Active Univers for bone for bone -12 ity of density density 00:00: [place] loss loss 00 Medical Branch Rheumatoid Rheumatoi Problem Active 2022-10-29 Memoria arthritis d - 09:11:18 l (disorder) arthritis 00:00: Her delgado (disorder) 00 Active 06/12/2014 Problem 10/29/2022 Data migrated from [employer] on 06/09/15. Originally documented as Rheumatoid [facility] LYMPHEDEMA LYMPHEDEM Diagnosis Active 2022-08-18 Memoria , NOT A, NOT 08:07:00 l ELSEWHERE ELSEWHERE [facility] CLASSIFIED CLASSIFIED Active [facility] Allergies, Adverse Reactions, Alerts Allergy Allergy Status Severity Reaction(s) Onset Inactive Treating Comm ents Source Name Type Date Date Clinician vancomyc DA Active SV SKIN TURNS 2022-0 [facility] in RED AND 6-13 Clear PEELS OFF 00:00: Diaz 00 [facility] cefepime DA Active SV SKIN TURNS [facility] RED AND 6-13 Clear PEELS OFF 00:00: [place] 00 [facility] vancomyc DA Active SV 2020-0 [facility] in 6-11 Clear 00:00: [place] 00 [facility] cefepime DA Active SV 2020-0 [facility] 6-11 Clear 00:00: [place] 00 [facility] vancomyc DA Active SV SKIN TURNS 2019-0 [facility] in RED AND 6-11 Clear PEELS OFF 00:00: [place] 00 [facility] cefepime DA Active SV SKIN TURNS 2020-0 [facility] RED AND 6-11 Clear PEELS OFF 00:00: [place] 00 [facility] Cefepime Propensi Active Rash 2019-0 Red and Metho di ty to 2-[address] adverse 00:00: skin on Hospita reaction 00 face, l s to arms, and drug abdomen, swollen face and eyes CEFEPIME DRUG Active High Hives 2020-0 Univers INGREDI 2-07 ity of 00:00: [place] 00 Medical Branch VANCOMYC DRUG Active High Hives 2020-0 Univers IN INGREDI 2-07 ity of 00:00: [place] 00 Medical Branch Cefepime Propensi Active Rash 2019- Red and Unive rs ty to 2-07 scalding ity of adverse 00:00: skin on [place] reaction face, Medical s arms, and Branch abdomen, swollen face and eyes Vancomyc Propensi Active Rash 2019-0 Severe Univer s in ty to 207 redness ity of adverse 00:00: and skin [place] reaction scaling Medical s on face, Branch arms, and abdomen Vancomyc Propensi Active Rash Severe Method i in ty to [address] adverse 00:00: and skin Hospita reaction 00 scaling l s to on face, drug [...] INGREDI 5-12 ity of SODIUM 00:00: [place] 00 Medical Branch Ibandron Propensi Active Unknown - Uni vers ate ty to See comments 5-12 ity of adverse 00:00: [place] reaction 00 Medical s Branch Pravasta Propensi Active Unknown - Uni vers tin ty to See comments 5-12 ity of Sodium adverse 00:00: [place] reaction 00 Medical s Branch ALENDRON DRUG Active Unknown-Cmnt Un lelia ATE INGREDI 8-30 ity of SODIUM 00:00: [place] 00 Medical Branch Chris Propi Active Unknown - Uni vers ate ty to See comments 830 ity of Sodium adverse 00:00: [place] reaction 00 Medical s Branch chris arce Active Memori a ate<sup> ate<sup> l 1</sup> 1</sup> Abundio Boniva Allergy Active [place] to Communi substanc ty e Hospita l Clinics Cefepime Allergy Active Severe Anaphylaxis Sw eeny to Communi substanc ty e Hospita l Clinics Fosamax Allergy Active [place] to Communi substanc ty e Hospita [facility] Clinics Vancomyc Allergy Active Moderate Anaphylaxis [place] in to to severe Communi substanc ty e Hospita l Clinics Family History Family Member Diagnosis Comments Start Date Stop Date Source Maternal aunt Breast cancer [facility] Paternal aunt Breast cancer [facility] Paternal aunt Colon cancer [facility] Paternal grandmother Breast cancer [facility] Paternal grandmother Colon cancer [facility] Natural [facility] mother [facility] Social History Social Habit Start Date Stop Date Quantity Comments Source History SDOH Social Unive rsity of Connections [facility] Med ical Together Branch History SDOH Social Unive rsity of Connections [facility] Medical Branch History SDOH Social Unive rsity of Connections [place] [facility] Membership Branch History SDOH Social Unive rsity of Connections [place] [facility] Meetings Branch [facility] orientation [facility] Exposure to 2022-06-05 2022-06-15 Not sure University of SARS-CoV-2 (event) 00:00:00 11:36:00 [place] [facility] History SDOH 2022-06-15 2022-06-15 2 University o f Alcohol Frequency 00:00:00 00:00:00 [place] M edical Branch History SDOH 2022-06-15 2022-06-15 1 University o f Alcohol Std Drinks 00:00:00 00:00:00 [place] [facility] History SDOH 2022-06-15 2022-06-15 1 University o f Alcohol Binge 00:00:00 00:00:00 [place] Medic al Branch History SDOH Social 2022-06-15 2022-06-15 5 Unive rsity of Connections Phone 00:00:00 00:00:00 [place] M edical Branch History SDOH Social 2022-06-15 2022-06-15 7 Unive rsity of Connections Living 00:00:00 00:00:00 [place] [facility] History SDOH 2022-06-15 2022-06-15 0 University o f Physical Activity 00:00:00 00:00:00 [facility] edical DPW Branch History SDOH 2022-06-15 2022-06-15 0 University o f Physical Activity 00:00:00 00:00:00 [facility] edical MPS Branch History SDOH 2022-06-15 2022-06-15 5 University o f Financial 00:00:00 00:00:00 [place] [facility] History SDOH Food 2022-06-15 2022-06-15 1 Univers ity of Worry 00:00:00 00:00:00 [place] [facility] History SDOH Food 2022-06-15 2022-06-15 1 Univers ity of Scarcity 00:00:00 00:00:00 [place] [facility] History SDOH 2022-06-15 2022-06-15 2 University o f Transport Med 00:00:00 00:00:00 [place] Medic al Branch History SDOH 2022-06-15 2022-06-15 2 University o f Transport Non-Med 00:00:00 00:00:00 [facility] edical Branch History of Social 2021-12-24 2021-12-[address] function 00:00:00 00:00:00 Hospital Alcohol intake 2018-05-12 2018-05-12 [facility] (finding[facility] Alcohol Comment 2018-04-26 2018-04-[address] [facility] 00:00[facility]00 00:00:00 [facility] Tobacco use and 2017-05-09 2017-05-09 Smokeless tobacco [facility] exposure 00:00:00 00:00:00 non-user Hospital Sex Assigned At [address] [facility] 00:00:00 00:00:00 [facility] Center Smoking Status Start Date Stop Date Source Never smoked tobacco Mandaen [facility]spital Medications Ordered Filled Start Stop Current Ordering Indication Dosage Frequency Signature Comments Components Source Medication Medication Date Date Medication? Clinician (SIG) Name Name vitamin 2023-0 Yes [id number] 1000ug Take 1 Univers B-12 1,000 2-01 9109 tablet by ity of mcg tablet 00:00: mouth [place] the Medical morning. Branch vitamin 2023-0 Yes [id number] 1000ug Take 1 Univers B-12 1,000 2- 9109 tablet by ity of mcg tablet 00:00: mouth in [place] 00 the Medical morning. Branch vitamin 2023-0 Yes [id number] 1000ug Take 1 Univers B-12 1,000 2- 9109 tablet by ity of mcg tablet 00:00: mouth in [place] 00 the Medical morning. Branch vitamin 2023-0 Yes [id number] 1000ug Take 1 Univers B-12 1,000 2- 9109 tablet by ity of mcg tablet 00:00: mouth in [place] 00 the Medical morning. Branch vitamin 3-0 2023- No [id number] 1000ug Take 1 Univers B-12 1,000 2- 03-04 9109 tablet by ity of mcg tablet 00:00: 05:59 [place] :[place] the Medical morning Branch for 30 days. vitamin 3-0 2023- No [id number] 1000ug Take 1 Univers B-12 1,000 2-06-22 9109 tablet by ity of mcg tablet 00:00: 00:00 [place] :[place] the Medical morning Branch for 30 days. heparin 2022-0 2023- No 500U 500 Units, Uni vers lock flush 06-22 IV Push, ity of (HEPARIN 22:45: 22:11 ONCE, 1 [place] LOCKFLUSH(P 00 :00 dose, On Medi angie ORCINE)(PF) Tue Branch ) 100 06/22/22 at unit/mL 1645, injection Routine 500 Units Cetirizine 0 Yes Take by Univ ers (ZYRTEC) 10 06-22 mouth. ity of mg capsule 16:36: [place] 46 [facility] Branch Cholecalcif 2022-0 Yes Take by Uni vers evelin, 06-22 mouth. ity of Vitamin D3, 16:36: [place] 2,000 unit 46 Medical capsule Branch NaCl 0.9% Yes Inject Univer s (NS) 0.9 % 06-22 intravenou ity of SolP 100 mL 16:36: sly. [place] with 46 Medical abatacept Branch 250 mg SolR Cetirizine 2022-0 Yes Take by [facility] ers ([facility]) 10 - mouth. ity of mg capsule 16:36: [place] 46 Medical Branch Cholecalcif 0 Yes Take by Uni vers evelin, 06-22 mouth. ity of Vitamin D3, 16:36: [place] 2,000 unit 46 Medical capsule Branch NaCl 0.9% 2022-0 Yes Inject Univer s (NS) 0.9 % 06-22 intravenou ity of SolP 100 mL 16:36: sly. [place] with 46 Medical abatacept Branch 250 mg SolR Cetirizine 2022-0 Yes Take by [facility] ers ([facility]) 10 06-22 mouth. ity of mg capsule 16:36: [place] 46 Medical Branch Cholecalcif 0 Yes Take by Uni vers evelin, 06-22 mouth. ity of Vitamin D3, 16:36: [place] 2,000 unit 46 Medical capsule Branch NaCl 0.9% 2022-0 Yes Inject Univer s (NS) 0.9 % 06-22 intravenou ity of SolP 100 mL 16:36: sly. [place] with 46 Medical abatacept Branch 250 mg SolR Cetirizine 0 Yes Take by [facility] ers ([facility]) 10 - mouth. ity of mg capsule 16:36: [place] 46 Medical Branch Cholecalcif 0 Yes Take by Uni vers evelin, 06-22 mouth. ity of Vitamin D3, 16:36: [place] 2,000 unit 46 Medical capsule Branch NaCl 0.9% 2022-0 Yes Inject Univer s (NS) 0.9 % 06-22 intravenou ity of SolP 100 mL 16:36: sly. [place] with 46 Medical abatacept Branch 250 mg SolR Cetirizine 2022-0 Yes Take by [facility] ers ([facility]) 10 - mouth. ity of mg capsule 11:36: [place] 40 Medical Branch Cholecalcif 2022-0 Yes Take by Uni vers evelin, 06-22 mouth. ity of Vitamin D3, 11:36: [place] 2,000 unit 40 Medical capsule Branch NaCl 0.9% 2023-0 Yes Inject Univer s (NS) 0.9 % 1-31 intravenou ity of SolP 100 mL 11:36: sly. [place] with 40 Medical abatacept Branch 250 mg SolR metoprolol Yes 25mg 25 mg, Unive rs tartrate 1-31 Oral, BID, ity o f (LOPRESSOR) 02:00: First dose [place] tablet 25 00 (after Medical mg last Branch modificati on) on Tue06/21/22 at 1999, Until Discontinu ed, Routine apixaban 0 Yes 1358 5mg Take 1 Unive rs mg tablet 1-31 tablet by ity o f 00:00: mouth in [place] 00 the Medical morning Branch and 1 tablet in the evening. Indication s: atrial fibrillati on metoprolol Yes [id number] 25mg Take 1 Univers tartrate 25 1-31 9109 tablet by ity [facility] mg tablet [facility] Branch and 1 tablet in the evening. apixaban 0 Yes 1358 5mg Take 1 Unive rs mg tablet 1-31 tablet by ity o f 00:00: mouth in [place] 00 the Medical morning Branch and 1 tablet in the evening. Indication s: atrial fibrillati on metoprolol Yes [id number] 25mg Take 1 Univers tartrate 25 1-31 9109 tablet by ity of mg tablet 00:00: [place] 00 the Medical morning Branch and 1 tablet in the evening. apixaban 0 Yes 1358 5mg Take 1 Unive rs mg tablet 1-31 tablet by ity o f 00:00: mouth in [place] 00 the Medical morning Branch and 1 tablet in the evening. Indication s: atrial fibrillati on metoprolol 0 Yes [id number] 25mg Take 1 Univers tartrate 25 1-31 9109 tablet by ity of mg tablet 00:00: [place] 00 the Medical morning Branch and 1 tablet in the evening. apixaban 5 0 Yes 1358 5mg Take 1 Unive rs mg tablet 1-31 tablet by ity o f 00:00: mouth in [place] 00 the Medical morning Branch and 1 tablet in the evening. Indication s: atrial fibrillati on metoprolol 2023-0 Yes [id number] 25mg Take 1 Univers tartrate 25 06-22 9109 tablet by ity of mg tablet 00:00: [place] 00 the Medical morning Branch and 1 tablet in the evening. metoprolol 2022- No [id number] 25mg Take 1 Univers tartrate 25 06-22 9109 tablet by it y of mg tablet 00:00: 04:59 mouth in [place] 00 :00 the Medical morning Branch and 1 tablet in the evening. Do all this for 60 days. apixaban 5 2022- No 1358 5mg Take 1 Univ ers mg tablet 06-2218 tablet by ity of 00:00: 04:59 mouth [...] s: atrial fibrillati on metoprolol 2022- No [id number] 25mg Take 1 Univers tartrate 25 06-22 9109 tablet by it y of mg tablet 00:00: 00:00 mouth in [place] 00 :00 the Medical morning Branch and 1 tablet in the evening. Do all this for 60 days. apixaban Yes 5mg 5 mg, Univers (ELIQUIS) 06-20 Oral, BID, ity of tablet 5 mg 02:00: First dose [place] 00 on Tue Medical 06/19/22 at [place] 1999, Until Discontinu ed, Routine
Indicatio ns: Non-Valvul ar Atrial Fibrillati on amiodarone 2022- No 200mg 200 mg, Un lelia (PACERONE) 06-19 Oral, BID, it y of tablet 200 02:00: 22:38 First dose [place] mg 00 :11 on Tue [facility] 06/18/22 at [place] 1999, Until Discontinu ed, Routine aspirin 2022- No 81mg 81 mg, Univers chewable 06-17 Oral, ity of tablet 81 15:00: 18:29 DAILY, [place] mg 00 :50 First dose Medical on [place] Branch 06/17/22 at 0900, Until Discontinu ed, Routine metoprolol 2022- No 75mg 75 mg, [facility] ers tartrate 06-17 Oral, BID, ity of (LOPRESSOR) 14:00: 22:38 First dose [place] tablet 75 00 :11 (after Medical mg last Branch modificati on) on [place] 06/17/22 at 0800, Until Discontinu ed, Routine metoprolol 2022- No 50mg 50 mg, [facility] ers tartrate 06-17 Oral, BID, ity of (LOPRESSOR) 02:00: 13:44 First dose [place] tablet 50 00 :09 (after Medical mg last Branch modificati on) on 06/16/22 at 2000, Until Discontinu ed, Routine perflutren No [id number] 3mL 3 mL, IV Univers protein-A 06-16 9109 Push, ity of microsphr 18:45: 17:06 ONCE, 1 [place] (OPTISON) 00 :00 dose, On Medica l injection 3 [facility] Branch mL 06/16/22 at 1245, Routine metoprolol No 25mg 25 mg, [facility] ers tartrate 06-16 Oral, ity of (LOPRESSOR) 16:30: 16:09 ONCE, 1 [place] tablet 25 00 :00 dose, On Medica l mg [facility] Branch 06/16/22 at 1030, Routine dextrose Yes 250mL 250 mL, IV Un lelia 10% (D10W) 06-16 Infusion, ity of bolus 15:47: PRN - SEE [place] infusion 20 INSTRUCTIO Medic al 250 mL [...] glucose is < 80 mg/dL, repeat.
glucagon 0 Yes 1mg 1 mg, Univers (GLUCAGEN 1-25 Intramuscu ity of DIAGNOSTIC 15:47: lar, PRN, [place] KIT) 15 Starting Medical injection 1 on Tue Branch mg 06/16/22 at 0947, Until Discontinu ed, MARYCHUY, Blood Glucose < or = 70 mg/dL and patient is NPO, unable to swallow or has mental changes. vitamin 0 Yes 1000ug 1,000 mcg, Un lelia B-12 25 Oral, ity of (CYANOCOBAL 15:00: DAILY, [place] DA SILVA) 00 First dose Medical tablet on Tue 1,000 mcg 06/16/22 at 0900, Until Discontinu ed, Routine cholecalcif 0 Yes 2000U 2,000 [facility] ers evelin 1-25 Units, ity of (vitamin 15:00: Oral, [place] D3) tablet 00 DAILY, Medical 2,000 Units First dose Br anch on Tue06/16/22 at 0900, Until Discontinu ed fluticasone 0 Yes 1{spray 1 [place], Univers propionate 25 } Nasal, ity of 50 15:00: DAILY, [place] mcg/actuati 00 First dose Me dical on nasal on Tue spray 1 06/16/22 at [place] 0900, Until Discontinu ed, Routine cetirizine Yes 10mg 10 mg, Unive rs (ZYRTEC) 25 Oral, ity of tablet 10 15:00: DAILY, [place] mg 00 First dose Medical on Tue Branch 06/16/22 at 0900, Until Discontinu ed enoxaparin 0 2022- No 1mg/kg 90 mg Uni vers (LOVENOX) 06-16 (rounded ity o f injection 14:00: 18:40 [place] 94.3 [place] 90 mg 00 :44 mg = 1 Medical mg/kg Branch ?94.3 kg), Subcutaneo us, Q12H, First dose on Tue06/16/22 at 0800, Until Discontinu ed, Routine montelukast Yes 10mg 10 mg, Univ ers (SINGULAIR) -25 Oral, QHS, it y of tablet 10 03:00: First dose [place] mg 00 on [facility] 06/15/22 at Branch 2100, Until Discontinu ed, Routine atorvastati Yes 40mg 40 mg, [facility] ers n (LIPITOR) 25 Oral, QHS, it y of tablet 40 03:00: First dose [place] mg 00 on [facility] 06/15/22 at Branch 2100, Until Discontinu ed, Routine budesonide- 0 Yes 2{puff} 2 Puff, Univers formoteroL 06-16 Inhalation ity of (SYMBICORT) 02:00: , BID, [place] 160-4.5 00 First dose Medica l mcg/actuati on [facility] on inhaler 06/15/22 at 2 Puff 1999, Until Discontinu ed, Routine metoprolol 2022- No 25mg 25 mg, [facility] ers tartrate 06-16 Oral, BID, ity of (LOPRESSOR) 02:00: 15:37 First dose [place] tablet 25 00 :30 on [facility] 06/15/22 at Branch 2000, Until Discontinu ed, Routine acetaminoph Yes 650mg 650 mg, Un lelia en 06-15 Oral, ity of (TYLENOL) 20:01: Q6HPRN, [place] tablet 650 50 Starting Medic al mg on [facility] 06/15/22 at 1401, Until Discontinu ed, Routine, Pain (scale 1-3) metoprolol 0 2022- No 50mg 50 mg, Univ ers succinate 06-15 Oral, ity of XL (TOPROL 19:45: 19:22 ONCE, 1 [place] XL) tablet 00 :00 dose, On Medic al 50 mg [facility] 06/15/22 at 1345, Routine metoprolol 0 2022- No 5mg 5 mg, [facility] ([facility]) 06-15 Intravenou i ty of injection 5 18:15: 18:16 s, ONCE, 1 [place] mg 00 :00 dose, On [facility] 06/15/22 at 1215, STAT abatacept 2021-0 Yes 1mL 1 mL. Methodi (Orencia) 8-04 st 125 mg/mL 12:19: Hospita injection 41 l bacitracin 2-0 Yes bacitracin M ethodi ophthalmic 8-[address] ointment 12:19: unit/gram Hosp gene 41 eye l ointment doxycycline 2021-0 Yes doxycyclin Methodi (VIBRAMYCIN 8-[address] ) 100 MG 12:19: 100 mg Hospita capsule 41 capsule l abatacept 2021-0 Yes 1mL 1 mL. Methodi (Orencia) 8-04 st 125 mg/mL 12:19: Hospita injection 41 l bacitracin 2021-0 Yes bacitracin M ethodi ophthalmic 8-[address] ointment 12:19: unit/gram Hosp gene 41 eye l ointment doxycycline 2021-0 Yes doxycyclin Methodi (VIBRAMYCIN 8-[address] ) 100 MG 12:19: 100 mg Hospita capsule 41 capsule l abatacept 2021-0 Yes 1mL 1 mL. Methodi ([place]rencia) 8-04 st 125 mg/mL 12:19: Hospita injection 41 l bacitracin 2021-0 Yes bacitracin M ethodi ophthalmic 8-[address] ointment 12:19: unit/gram Hosp gene 41 eye l ointment doxycycline 2021-0 Yes doxycyclin Methodi (VIBRAMYCIN 8-[address] ) 100 MG 12:19: 100 mg Hospita capsule 41 capsule l abatacept 2021-0 Yes 1mL 1 mL. Methodi ([place]cia) 8-04 st 125 mg/mL 12:19: Hospita injection 41 l bacitracin 2-0 Yes bacitracin M ethodi ophthalmic 8-[address] ointment 12:19: unit/gram Hosp gene 41 eye l ointment doxycycline 2021-0 Yes doxycyclin Methodi (VIBRAMYCIN 8-[address] ) 100 MG 12:19: 100 mg [facility] capsule 41 capsule l abatacept 2021-0 Yes 1mL 1 mL. [facility] ([facility] 8-04 st 125 mg/mL 12:19: [facility] injection 41 l bacitracin 0 Yes bacitracin [facility] ophthalmic 8-[address] ointment 12:19: unit/gram Hosp gene 41 eye l ointment doxycycline Yes doxycyclin [facility] (VIBRAMYCIN 8-[address] ) 100 MG 12:19: 100 mg [facility] capsule 41 capsule l abatacept Yes 1mL 1 mL. [facility] ([facility] 8-04 st 125 mg/mL 12:19: [facility] injection 41 l bacitracin 0 Yes bacitracin [facility] ophthalmic 8-[address] ointment 12:19: unit/gram [facility]osp gene 41 eye l ointment doxycycline Yes doxycyclin [facility] (VIBRAMYCIN 8-[address] ) 100 MG 12:19: 100 mg [facility] capsule 41 capsule l nystatin 2021- No [id number] Q.25D Take 5 mL [facility] (MYCOSTATIN 6-02 06-10 (500,000 st ) 100,000 00:00: 04:59 Units Hospit a unit/mL 00 :00 total) by l suspension mouth 4 (four) times a day for 7 days. Swish in mouth nystatin 2021-0 2021- No [id number] Q.25D Take 5 mL [facility] (MYCOSTATIN 6-02 06-10 (500,000 st ) 100,000 00:00: 04:59 Units Hospit a unit/mL 00 :00 total) by l suspension mouth 4 (four) times a day for 7 days. Swish in mouth nystatin 2021-0 2021- No [id number] Q.25D Take 5 mL [facility] (MYCOSTATIN 6-02 06-10 (500,000 st ) 100,000 00:00: 04:59 Units Hospit a unit/mL 00 :00 total) by l suspension mouth 4 (four) times a day for 7 days. Swish in mouth fluticasone Yes 1{spray QD 1 spray by [facility] propionate 5-10 } Each Nare st (FLONASE) 00:00: route [facility]ospita 50 00 daily. l mcg/actuati on nasal spray fluticasone 2022-0 Yes 1{spray QD 1 spray by [facility] [...] week. guaiFENesin Yes codeine 10 UT -codeine 9-01 mg-guaifen Healt [facility] (Robitussin 13:34: esin 100 -AC) 100-10 48 mg/5 mL MG/5ML oral syrup liquid montelukast Yes montelukas [facility] (Singulair) 9-01 t 10 mg [facility]alt [facility] 10 MG 13:34: tablet tablet 48 guaiFENesin Yes codeine 10 UT -codeine 9-01 mg-guaifen [facility]alt [facility] (Robitussin 13:34: esin 100 -AC) 100-10 48 mg/5 mL MG/5ML oral syrup liquid montelukast 2021-0 Yes montelukas [facility] (Singulair) 01-21 t 10 mg [facility]alt [facility] 10 MG 13:34: tablet tablet 48 albuterol 2020-0 Yes ProAir HFA [facility] (ProAir 01-21 90 Health HFA) 108 13:34: mcg/actuat (90 Base) 47 ion MCG/ACT aerosol inhaler inhaler atorvastati 2020-0 Yes QD 1 (one) [facility] n (Lipitor) 9 time each Hea lth 20 MG 13:34: day. tablet 47 Cetirizine 0 Yes Take by UT HCl 10 MG 01-21 mouth. Health capsule 13:34: 47 Cholecalcif 0 Yes Take by [facility] evelin 01-21 mouth. Health (Vitamin 13:34: D-3) 1999 47 unit capsule cyanocobala 2020-0 Yes QD 1 (one) [facility] min 01-21 time each Health (Vitamin 13:34: day. B-12) 1000 47 MCG tablet fluticasone 2020-0 Yes fluticason [facility] (Flonase) 01-21 e Health 50 MCG/ACT 13:34: propionate nasal spray 47 50 mcg/actuat ion nasal spray,susp ension albuterol 0 Yes ProAir HFA [facility] (ProAir 01-21 90 Health HFA) 108 13:34: mcg/actuat (90 Base) 47 ion MCG/ACT aerosol inhaler inhaler atorvastati 2020-0 Yes QD 1 (one) [facility] n (Lipitor) 9 time each Hea lth 20 MG 13:34: day. tablet 47 Cetirizine 0 Yes Take by UT HCl 10 MG 01-21 mouth. Health capsule 13:34: 47 Cholecalcif 0 Yes Take by [facility] evelin 01-21 mouth. Health (Vitamin 13:34: D-3) 1999 47 unit capsule cyanocobala 2020-0 Yes QD 1 (one) UT min 9- time each Health (Vitamin 13:34: day. B-12) 1000 47 MCG tablet fluticasone 2020-0 Yes fluticason [facility] (Flonase) 01-21 e Health 50 MCG/ACT 13:34: propionate nasal spray 47 50 mcg/actuat ion nasal spray,susp ension Symbicort 2020-0 Yes 2{puff} Q.5D Inhale 2 U T [...] ROUTE NEEDED FOR 3 DAYS. aspirin 81 0 Yes 162mg 162 mg. UT MG EC 2-10 Health tablet 00:00: 00 aspirin 81 0 Yes 162mg 162 mg. UT MG EC 2-10 Health tablet 00:00: 00 atorvastati 2019-0 Yes Q24H daily. [facility] umer n (LIPITOR) 2-11 st 20 mg 00:00: Hospita tablet 00 l atorvastati 2019-0 Yes Q24H daily. [facility] umer n (LIPITOR) 2-11 st 20 mg 00:00: Hospita tablet 00 l atorvastati 2019-0 Yes Q24H daily. Meth umer n (LIPITOR) 2-11 st 20 mg 00:00: Hospita tablet 00 l atorvastati 2019-0 Yes Q24H daily. Meth umer n (LIPITOR) 2-11 st 20 mg 00:00: Hospita tablet 00 l atorvastati 2019-0 Yes Q24H daily. Meth umer n (LIPITOR) 2-11 st 20 mg 00:00: [facility]ospita tablet 00 l atorvastati 2019-0 Yes Q24H daily. [facility] umer n (LIPITOR) 2-11 st 20 mg 00:00: Hospita tablet 00 l atorvastati 2017-05 Yes 20mg QD Take [address] [facility] n (LIPITOR) 2-26 by mouth [facility] 20 MG 14:19: daily. Medical tablet 49 Center cholecalcif 2017-05 Yes Take by [facility] evelin, 2-26 [facility] D3, 14:19: Medica l 2,000 unit 49 [facility] budesonide- 2017-05 Yes 2{puff} Q.5D Inhale [address] [facility] formoterol 2-26 puffs by [facility] (SYMBICORT) 14:19: mouth via M edical 160-4.5 49 inhaler 2 Center mcg/actuati (two) on inhaler times daily. montelukast 2017-05 Yes 10mg QD Take [address] [facility] (SINGULAIR) 2-26 by mouth [facility] 10 mg 14:19: nightly. Medical tablet 49 [place] cetirizine 2017-05 Yes 10mg QD Take [address] (ZYRTEC) 10 2-26 by mouth [facility] MG tablet 14:19: daily. Medica l [address] [place] atorvastati 2017-05 Yes 20mg QD Take [address] [facility] n (LIPITOR) 2-26 by mouth [facility] 20 MG 14:19: daily. Medical tablet [address] [place] [address] cholecalcif 2017-05 Yes Take by [facility] evelin, 2-26 mouth. [facility] vitamin D3, 14:19: Medica l 2,000 unit 49 [facility] budesonide- 2017-05 Yes 2{puff} Q.5D Inhale [address] [address] formoterol 2-26 puffs by [facility] (SYMBICORT) 14:19: mouth via M edical 160-4.5 49 inhaler 2 Center mcg/actuati (two) on inhaler times daily. montelukast 2017- Yes 10mg QD Take [address] [facility] (SINGULAIR) 2-26 by mouth [facility] 10 mg 14:19: nightly. Medical tablet 49 [place] cetirizine 2017-05 Yes 10mg QD Take [address] (ZYRTEC) 10 2-26 by mouth [facility] MG tablet 14:19: daily. Medica l [address] [place] atorvastati 2017-05 Yes 20mg QD Take [address] [facility] n (LIPITOR) 2-26 by mouth [facility] 20 MG 14:19: daily. Medical tablet 49 [place] cholecalcif 2017-05 Yes Take by [facility] evelin, 2-26 mouth. [facility] vitamin D3, 14:19: Medica l 2,000 unit 49 [facility] budesonide- 2017-05 Yes 2{puff} Q.5D Inhale [address] [facility] [address] formoterol 2-26 puffs by [facility] (SYMBICORT) 14:19: mouth via M edical 160-4.5 49 inhaler 2 Center mcg/actuati (two) on inhaler times daily. montelukast 2017-05 Yes 10mg QD Take [address] [facility] (SINGULAIR) 2-26 by mouth [facility] 10 mg 14:19: nightly. Medical tablet 49 [place] cetirizine 2017-05 Yes 10mg QD Take [address] (ZYRTEC) 10 2-26 by mouth [facility] MG tablet 14:19: daily. Medica l [address] [place] [address] atorvastati 2017-05 Yes 20mg QD Take [address] [facility] n (LIPITOR) 2-26 by mouth [facility] 20 MG 14:19: daily. Medical tablet [address] [place] [address] cholecalcif 2017-05 Yes Take by [facility] evelin, 2-26 mouth. [facility] vitamin D3, 14:19: Medica l 2,000 unit 49 [facility] budesonide- 2017-05 Yes 2{puff} Q.5D Inhale [address] formoterol 2-26 puffs by [facility] (SYMBICORT) 14:19: mouth via M edical 160-4.5 49 inhaler 2 Center mcg/actuati (two) on inhaler times daily. montelukast 2017-05 Yes 10mg QD Take [address] [facility] [address] (SINGULAIR) 2-26 by mouth [facility] 10 mg 14:19: nightly. Medical tablet 49 [place] cetirizine 2017-05 Yes 10mg QD Take [address] (ZYRTEC) 10 2-26 by mouth [facility] MG tablet 14:19: daily. Medica l [address] [place] [address] atorvastati 2017-05 Yes 20mg QD Take [address] [facility] n (LIPITOR) 2-26 by mouth [facility] 20 MG 14:19: daily. Medical tablet [address] [place] [address] cholecalcif 2017-05 Yes Take by [facility] evelin, 2-26 mouth. [facility] vitamin D3, 14:19: Medica l 2,000 unit 49 [facility] budesonide- 2017-05 Yes 2{puff} Q.5D Inhale [address] formoterol 2-26 puffs by [facility] (SYMBICORT) 14:19: mouth via M edical 160-4.5 49 inhaler 2 Center mcg/actuati (two) on inhaler times daily. montelukast 2017-05 Yes 10mg QD Take [address] [facility] (SINGULAIR) 2-26 by mouth [facility] 10 mg 14:19: nightly. Medical tablet 49 [place] cetirizine 2017-05 Yes 10mg QD Take [address] (ZYRTEC) 10 2-26 by mouth [facility] MG tablet 14:19: daily. Medica l [address] [place] atorvastati 2017-05 Yes 20mg QD Take [address] [facility] n (LIPITOR) 2-26 by mouth [facility] 20 MG 14:19: daily. Medical tablet 49 [place] cholecalcif 2017-05 Yes Take by [facility] evelin, 2-26 mouth. [facility] vitamin D3, 14:19: Medica l 2,000 unit 49 [facility] budesonide- 2017-05 Yes 2{puff} Q.5D Inhale [address] formoterol 2-26 puffs by [facility] (SYMBICORT) 14:19: mouth via M edical 160-4.5 49 inhaler 2 Center mcg/actuati (two) on inhaler times daily. montelukast 2017-05 Yes 10mg QD Take [address] [facility] [address] (SINGULAIR) 2-26 by mouth [facility] 10 mg 14:19: nightly. Medical tablet 49 [place] cetirizine 2017-05 Yes 10mg QD Take [address] (ZYRTEC) 10 2-26 by mouth [facility] MG tablet 14:19: daily. Medica l 49 [place] atorvastati 2017-05 Yes 20mg QD Take [address] [facility] n (LIPITOR) 2-26 by mouth [facility] 20 MG 14:19: daily. Medical tablet 49 [place] cholecalcif 2017-05 Yes Take by [facility] evelin, 2-26 mouth. [facility] vitamin D3, 14:19: Medica l 2,000 unit 49 [facility] budesonide- 2017-05 Yes 2{puff} Q.5D Inhale [address] formoterol 2-26 puffs by [facility] (SYMBICORT) 14:19: mouth via M edical 160-4.5 49 inhaler 2 Center mcg/actuati (two) on inhaler times daily. montelukast 2017-05 Yes 10mg QD Take [address] [facility] [address] (SINGULAIR) 2-26 by mouth [facility] 10 mg 14:19: nightly. Medical tablet 49 Center cetirizine 2017-05 Yes 10mg QD Take [address] (ZYRTEC) 10 2-26 by mouth [facility] MG tablet 14:19: daily. Medica l 49 Center cefePIME 2017-05 Yes 1g Inject 1 g [...] 10mL [address] [facility] chloride - Intracathe [facility] 0.9%, NS, 00:00: ter route Med ical injection 00 as needed Cente r (for PICC Lines). vancomycin 2017-05 Yes 1500mg Inject [facility] (VANCOCIN) 07-18 1,500 mg [facility] 1500 mg in 00:00: intravenou M edical NS 250 mL 00 sly every Cente r (V2B) IVPB 12 (twelve) hours. Cholecalcif Yes Take by Uni vers evelin, 11-16 mouth. ity of Vitamin D3, 14:32: [place] 2,000 unit 40 Medical capsule Branch NaCl 0.9% Yes Inject Univer s (NS) 0.9 % 11-16 intravenou ity of SolP 100 mL 14:32: sly. [facility] 40 Medical abatacept Branch 250 mg SolR Cetirizine Yes Take by [facility] ([facility]) 10 11-16 mouth. ity of mg capsule 14:32: [place] 40 Medical Branch Cholecalcif Yes Take by Uni vers evelin, 11-16 mouth. ity of Vitamin D3, 14:32: [place] 2,000 unit 40 Medical capsule Branch NaCl 0.9% Yes Inject Univer s (NS) 0.9 % 11-16 intravenou ity of SolP 100 mL 14:32: sly. [facility] 40 Medical abatacept Branch 250 mg SolR Cetirizine Yes Take by [facility] ([facility]) 10 11-16 mouth. ity of mg capsule 14:32: [place] 40 Medical Branch Cholecalcif Yes Take by Uni vers evelin, 11-16 mouth. ity of Vitamin D3, 14:32: [place] 2,000 unit 40 Medical capsule Branch NaCl 0.9% Yes Inject Univer s (NS) 0.9 % 11-16 intravenou ity of SolP 100 mL 14:32: sly. [facility] 40 Medical abatacept Branch 250 mg SolR Cetirizine Yes Take by [facility] ers ([facility]) 10 11-16 mouth. ity of mg capsule 14:32: [place] 40 Medical Branch Cholecalcif 2017 Yes Take by Uni vers evelin, 11-16 mouth. ity of Vitamin D3, 14:32: [place] 2,000 unit 40 Medical capsule Branch NaCl 0.9% 2017 Yes Inject Univer s (NS) 0.9 % 11-16 intravenou ity of SolP 100 mL 14:32: sly. [place] with 40 Medical abatacept Branch 250 mg SolR Cetirizine Yes Take by [facility] ers ([facility]) 10 11-16 mouth. ity of mg capsule 14:32: [place] 40 Medical Branch Cholecalcif Yes Take by Uni vers evelin, 11-16 mouth. ity of Vitamin D3, 14:32: [place] 2,000 unit 40 Medical capsule Branch NaCl 0.9% Yes Inject Univer s (NS) 0.9 % 11-16 intravenou ity of SolP 100 mL 14:32: sly. [place] with 40 Medical abatacept Branch 250 mg SolR Cetirizine Yes Take by [facility] ers [facility] 10 11-16 mouth. ity of mg capsule 14:32: [place] 40 Medical Branch Cetirizine Yes Take by [facility] ers (ZTE) 10 11-16 mouth. ity of mg capsule 09:32: [place] [address] Medical Branch Cholecalcif Yes Take by Uni vers evelin, 11-16 mouth. ity of Vitamin D3, 09:32: [place] 2,000 unit 40 Medical capsule Branch NaCl 0.9% Yes Inject Univer s (NS) 0.9 % 11-16 intravenou ity of SolP 100 mL 09:32: sly. [place] with 40 Medical abatacept Branch 250 mg SolR Cetirizine Yes Take by Univ ers (ZTE) 10 11-16 mouth. ity of mg capsule 09:32: [place] 40 Medical Branch Cholecalcif Yes Take by Uni vers evelin, 11-16 mouth. ity of Vitamin D3, 09:32: [place] 2,000 unit 40 Medical capsule Branch NaCl 0.9% Yes Inject Univer s (NS) 0.9 % 11-16 intravenou ity of SolP 100 mL 09:32: sly. [place] with 40 Medical abatacept Branch 250 mg SolR fluticasone [id number] Yes Univer s 50 6-04 ity of mcg/actuati 00:00: [place] on nasal 00 Medical spray Branch fluticasone 20170 Yes Univer s 50 6-04 ity of mcg/actuati 00:00: [place] on nasal 00 Medical spray Branch fluticasone 20170 Yes Univer s 50 6-04 ity of mcg/actuati 00:00: [place] on nasal 00 Medical spray Branch fluticasone 20170 Yes Univer s 50 6-04 ity of mcg/actuati 00:00: [place] on nasal 00 Medical spray Branch fluticasone 2017 Yes Univer s 50 6-04 ity of mcg/actuati 00:00: [place] on nasal 00 Medical spray Branch fluticasone 20170 Yes Univer s 50 6-04 ity of mcg/actuati 00:00: [place] on nasal 00 Medical spray Branch fluticasone 20170 Yes Univer s 50 6-04 ity of mcg/actuati 00:00: [place] on nasal 00 Medical spray Branch fluticasone 20170 Yes Univer s 50 6-04 ity of mcg/actuati 00:00: [place] on nasal 00 Medical spray Branch fluticasone 20170 Yes Univer s 50 6-04 ity of mcg/actuati 00:00: [place] on nasal 00 Medical spray Branch fluticasone 20170 Yes Univer s 50 6-04 ity of mcg/actuati 00:00: [place] on nasal 00 Medical spray Branch fluticasone 20170 Yes Univer s 50 6-04 ity of mcg/actuati 00:00: [place] on nasal 00 Medical spray Branch fluticasone 20170 Yes Univer s 50 6-04 ity of mcg/actuati 00:00: [place] on nasal 00 Medical spray Branch atorvastati 2017-0 Yes 10mg Take 1 Univ ers n 10 mg 5-12 tablet by ity of tablet 00:00: mouth at [place] 00 bedtime. Medical Branch montelukast 2017-0 Yes 10mg Take 1 Univ ers 10 mg 5-12 tablet by ity of tablet 00:00: mouth. [place] 00 Medical Branch albuterol 20170 Yes 2{puff} Inhale 2 U nivers (VENTOLIN 5-12 Puffs ity of HFA) 90 00:00: every 6 [place] mcg/actuati 00 (six) Medical on inhaler hours as Branc h needed for Wheezing or Shortness of Breath. atorvastati 2017-0 Yes 10mg Take 1 Univ ers n 10 mg 5-12 tablet by ity of tablet 00:00: mouth at [place] [address] bedtime. Medical Branch montelukast 2017-0 Yes 10mg Take 1 Univ ers 10 mg 5-12 tablet by ity of tablet 00:00: mouth. [place] [facility] Branch albuterol 2017-0 Yes 2{puff} Inhale 2 U nivers (VENTOLIN 5-12 Puffs ity of HFA) 90 00:00: every 6 [place] mcg/actuati 00 (six) Medical on inhaler hours as Branc h needed for Wheezing or Shortness of Breath. atorvastati 2017-0 Yes 10mg Take 1 Univ ers n 10 mg 5-12 tablet by ity of tablet 00:00: mouth at [place] [address] bedtime. Medical Branch montelukast 2017-0 Yes 10mg Take 1 Univ ers 10 mg 5-12 tablet by ity of tablet 00:00: mouth. [place] [facility] atorvastati 2017-0 Yes 10mg Take 1 Univ ers n 10 mg 5-12 tablet by ity of tablet 00:00: mouth at [place] [address] bedtime. Medical Branch montelukast 2017-0 Yes 10mg Take 1 Univ ers 10 mg 5-12 tablet by ity of tablet 00:00: mouth. Medical Branch atorvastati 2017-0 Yes 10mg Take 1 Univ ers n 10 mg 5-12 tablet by ity of tablet 00:00: mouth at [place] [address] bedtime. Medical Branch montelukast 2017-0 Yes 10mg Take 1 Univ ers 10 mg 5-12 tablet by ity of tablet 00:00: mouth. Medical Branch atorvastati 2017-0 Yes 10mg Take 1 Univ ers n 10 mg 5-12 tablet by ity of tablet 00:00: mouth at [place] [address] bedtime. Medical Branch atorvastati 2017-0 Yes 10mg Take 1 Univ ers n 10 mg 5-12 tablet by ity of tablet 00:00: mouth at [place] [address] bedtime. Medical Branch montelukast 2017-0 Yes 10mg Take 1 Univ ers 10 mg 5-12 tablet by ity of tablet 00:00: mouth. Medical Branch montelukast 2017-0 Yes 10mg Take 1 Univ ers 10 mg 5-12 tablet by ity of tablet 00:00: mouth. Medical Branch albuterol 2017-0 Yes 2{puff} Inhale 2 U nivers (VENTOLIN 5-12 Puffs ity of HFA) 90 00:00: every 6 [place] mcg/actuati (six) Medical on inhaler hours as Branc h needed for Wheezing or Shortness of Breath. atorvastati 2017-0 Yes 10mg Take 1 Univ ers n 10 mg 5-12 tablet by ity of tablet 00:00: mouth at [place] [address] bedtime. Medical Branch montelukast 2017-0 Yes 10mg Take 1 Univ ers 10 mg 5-12 tablet by ity of tablet 00:00: mouth. Medical Branch atorvastati 2017-0 Yes 10mg Take 1 Univ ers n 10 mg 5-12 tablet by ity of tablet 00:00: mouth at [place] [address] bedtime. Medical Branch montelukast 2017-0 Yes 10mg Take 1 Univ ers 10 mg 5-12 tablet by ity of tablet 00:00: mouth. Medical Branch albuterol 2017-0 Yes 2{puff} Inhale 2 U nivers (VENTOLIN 5-12 Puffs ity of HFA) 90 00:00: every 6 [place] mcg/actuati (six) Medical on inhaler hours as Branc h needed for Wheezing or Shortness of Breath. atorvastati 2017-0 Yes 10mg Take 1 Univ ers n 10 mg 5-12 tablet by ity of tablet 00:00: mouth at [place] [address] bedtime. Medical Branch montelukast 2017-0 Yes 10mg [...] by ity of tablet 00:00: mouth at [place] [address] bedtime. Medical Branch montelukast 2017-0 Yes 10mg Take 1 Univ ers 10 mg 5-12 tablet by ity of tablet 00:00: mouth. [place] [facility] albuterol 0 Yes 2{puff} Inhale 2 U nivers (VENTOLIN 5-12 Puffs ity of HFA) 90 00:00: every 6 [place] mcg/actuati 00 (six) Medical on inhaler hours as Branc h needed for Wheezing or Shortness of Breath. atorvastati [address] Yes 10mg Take 1 Univ ers n 10 mg 5-12 tablet by ity of tablet 00:00: mouth at [place] [address] bedtime. Medical Branch montelukast 0 Yes 10mg Take 1 Univ ers 10 mg 5-12 tablet by ity of tablet 00:00: mouth. [place] [facility] albuterol Yes 2{puff} Inhale 2 U nivers (VENTOLIN 5-12 Puffs ity of HFA) 90 00:00: every 6 [place] mcg/actuati 00 (six) Medical on inhaler hours [...] for Wheezing or Shortness of Breath. SYMBICORT Yes TAKE 2 Univer s 160-4.5 [...] TWICE A Medica l DAY Branch SYMBICORT 0 Yes TAKE 2 Univer s 160-4.5 4-20 PUFFS BY ity of mcg/actuati 00:00: MOUTH [place] on inhaler 00 TWICE A Medica l DAY Branch SYMBICORT 0 Yes TAKE 2 Univer s 160-4.5 4-20 PUFFS BY ity of mcg/actuati 00:00: MOUTH [place] on inhaler 00 TWICE A Medica l DAY Branch SYMBICORT 0 Yes TAKE 2 Univer s 160-4.5 4-20 [...] IN Unive rs 2.5 mg /3 4-10 -31 NEBULIZER ity of mL (0.083 00:00: 00:00 1 VIAL [place] %) 00 :00 EVERY 3 Medical nebulizer HOURS Branch solution NEEDED FOR COUGH/WHEE ZING/SHORT NESS OF BREATH albuterol 2022- No USE IN Unive rs 2.5 mg /3 4-10 -31 NEBULIZER ity of mL (0.083 00:00: 00:00 1 VIAL [place] %) 00 :00 EVERY 3 Medical nebulizer HOURS Branch solution NEEDED FOR COUGH/WHEE ZING/SHORT NESS OF BREATH budesonide- Yes Symbicort M ethodi formoteroL [address] (SYMBICORT) 00:00: mcg-4.5 Hos shakir [...] st Hospita l atorvastati atorvastati No atorvastat [place] n 20 mg n 20 mg in 20 mg Commu ni tablet TAKE tablet TAKE tablet ty 1 TABLET BY 1 TABLET BY TAKE 1 Hospita MOUTH EVERY MOUTH EVERY TABLET BY l DAY DAY MOUTH Clinics EVERY DAY D3-1999 one one No [facility] tablet tablet one tablet Commu ni daily daily daily ty [facility] fluticasone fluticasone No fluticason [facility] propionate propionate e Com gaby 50 50 propionate ty mcg/actuati mcg/actuati 50 H ospita on nasal on nasal mcg/actuat l spray,suspe spray,suspe ion nasal Clinics nsion SPRAY nsion SPRAY spray,susp 1 SPRAY 1 SPRAY ension INTO EACH INTO EACH SPRAY 1 NOSTRIL NOSTRIL SPRAY INTO EVERY DAY EVERY DAY EACH NOSTRIL EVERY DAY hydrocodone hydrocodone No hydrocodon [facility] 10 10 e 10 Communi mg-acetamin mg-acetamin mg-acetami ty ophen 325 ophen 325 nophen 325 Hospita mg tablet mg tablet mg tablet l TAKE 1 TAKE 1 TAKE 1 Clinics TABLET BY TABLET BY TABLET BY MOUTH EVERY MOUTH EVERY MOUTH 6 TO 8 6 TO 8 EVERY 6 TO HOURS HOURS 8 HOURS NEEDED NEEDED NEEDED hydrocodone hydrocodone No hydrocodon [facility] 5 5 e 5 Communi mg-acetamin mg-acetamin mg-acetami ty ophen 325 ophen 325 nophen 325 Hospita mg tablet mg tablet mg tablet l Clinics montelukast montelukast No montelukas [facility] 10 mg 10 mg t 10 mg Communi tablet TAKE tablet TAKE tablet ty 1 TABLET BY 1 TABLET BY TAKE 1 Hospita MOUTH EVERY MOUTH EVERY TABLET BY l DAY DAY MOUTH Clinics EVERY DAY multivitami multivitami No multivitam [facility] n one tab n one tab in one tab Communi daily daily daily ty [facility] Orencia Orencia No Orencia [facility] 1000 mg IV 1000 mg IV 1000 mg IV Communi q month q month q month ty [facility] sodium sodium No sodium [facility] chloride chloride chloride Com gaby 0.9 % 0.9 % 0.9 % ty irrigation irrigation irrigation [facility] solution solution solution [facility] Symbicort Symbicort No Symbicort [place] 160 mcg-4.5 160 mcg-4.5 160 C ommuni [...] needed. Vitamin Vitamin No 2 Q1D Vitamin [place] B-12 1,000 B-12 1,000 B-12 1,000 Communi mcg tablet mcg tablet mcg tablet ty Take 2 Take 2 Take 2 Hospita tablets tablets tablets l every day every day every day Clinics by oral by oral by oral route. route. route. Zyrtec 10 Zyrtec 10 No 1 Q1D Zyrtec 10 [facility] mg tablet mg tablet mg tablet Communi Take 1 Take 1 Take 1 ty tablet tablet tablet Hospita every day every day every day l by oral by oral by oral Clinic s route. route. route. atorvastati atorvastati No atorvastat [facility] n 40 mg n 40 mg in 40 mg Commu ni tablet TAKE tablet TAKE tablet ty 1 TABLET BY 1 TABLET BY TAKE 1 Hospita MOUTH EVERY MOUTH EVERY TABLET BY l DAY DAY MOUTH Clinics EVERY DAY D3-1999 one D3-1999 one No D3-1999 [facility] tablet tablet one tablet Commu ni daily daily daily ty Hospita l Clinics fluticasone fluticasone No fluticason [place] propionate propionate e Com gaby 50 50 propionate ty mcg/actuati mcg/actuati 50 H ospita on nasal on nasal mcg/actuat l spray,suspe spray,suspe ion nasal Clinics nsion SPRAY nsion SPRAY spray,susp 1 SPRAY 1 SPRAY ension INTO EACH INTO EACH SPRAY 1 NOSTRIL NOSTRIL SPRAY INTO EVERY DAY EVERY DAY EACH NOSTRIL EVERY DAY hydrocodone hydrocodone No hydrocodon [facility] 10 10 e 10 Communi mg-acetamin mg-acetamin mg-acetami ty ophen 325 ophen 325 nophen 325 Hospita mg tablet mg tablet mg tablet l TAKE 1 TAKE 1 TAKE 1 Clinics TABLET BY TABLET BY TABLET BY MOUTH EVERY MOUTH EVERY MOUTH 6 TO 8 6 TO 8 EVERY 6 TO HOURS HOURS 8 HOURS NEEDED NEEDED NEEDED hydrocodone hydrocodone No hydrocodon [facility] 5 5 e 5 Communi mg-acetamin mg-acetamin mg-acetami ty ophen 325 ophen 325 nophen 325 Hospita mg tablet mg tablet mg tablet l Clinics montelukast montelukast No montelukas [facility] 10 mg 10 mg t 10 mg Communi tablet TAKE tablet TAKE tablet ty 1 TABLET BY 1 TABLET BY TAKE 1 Hospita MOUTH EVERY MOUTH EVERY TABLET BY l DAY DAY MOUTH Clinics EVERY DAY multivitami multivitami No multivitam [facility] n one tab n one tab in one tab Communi daily daily daily ty Hospita l [facility] Orencia Orencia No Orencia [facility] 1000 mg IV 1000 mg IV 1000 mg IV Communi q month q month q month ty Hospita [facility] sodium sodium No sodium [place] chloride chloride chloride Com gaby 0.9 % 0.9 % 0.9 % ty irrigation irrigation irrigation Hospita solution solution solution l [facility] sulfamethox sulfamethox No sulfametho [facility] azole 800 azole 800 xazole 800 Communi mg-trimetho mg-trimetho mg-trimeth ty prim 160 mg prim 160 mg oprim 160 Hospita tablet TAKE tablet TAKE mg tablet l 1 TABLET BY 1 TABLET BY TAKE 1 Clinics MOUTH TWICE MOUTH TWICE TABLET BY A DAY FOR A DAY FOR MOUTH 10 DAYS 10 DAYS TWICE A DAY FOR 10 DAYS Symbicort Symbicort No Symbicort [place] 160 mcg-4.5 160 mcg-4.5 160 C ommuni [...] needed. Vitamin Vitamin No 2 Q1D Vitamin [place] B-12 1,000 B-12 1,000 B-12 1,000 Communi mcg tablet mcg tablet mcg tablet ty Take 2 Take 2 Take 2 Hospita tablets tablets tablets l every day every day every day Clinics by oral by oral by oral route. route. route. Zyrtec 10 Zyrtec 10 No 1 Q1D Zyrtec 10 [facility] mg tablet mg tablet mg tablet [facility] Take 1 Take 1 Take 1 ty tablet tablet tablet [facility]osp[facility] every day every day every day l by oral by oral by oral Clinic s route. route. route. atorvastati atorvastati No atorvastat [facility] n 40 mg n 40 mg in 40 mg Com[facility] ni tablet TAKE tablet TAKE tablet ty 1 TABLET BY 1 TABLET BY TAKE 1 [facility]ospita MOUTH EVERY MOUTH EVERY TABLET BY l DAY DAY MOUTH Clinics EVERY DAY D3-1999 one D3-1999 one No D3-1999 [facility] tablet tablet one tablet Commu ni daily daily daily ty [facility]osp[facility] l Clinics fluticasone fluticasone No fluticason [facility] propionate propionate e Com gaby 50 50 propionate ty mcg/actuati mcg/actuati 50 [facility] on nasal on nasal mcg/actuat l spray,suspe spray,suspe ion nasal Clinics nsion SPRAY nsion SPRAY spray,susp 1 SPRAY 1 SPRAY ension INTO EACH INTO EACH SPRAY 1 NOSTRIL NOSTRIL SPRAY INTO EVERY DAY EVERY DAY EACH NOSTRIL EVERY DAY hydrocodone hydrocodone No hydrocodon [facility] 10 10 e 10 [facility] mg-acetamin mg-acetamin mg-acetami ty ophen 325 ophen 325 nophen 325 [facility] mg tablet mg tablet mg tablet l TAKE 1 TAKE 1 TAKE 1 Clinics TABLET BY TABLET BY TABLET BY MOUTH EVERY MOUTH EVERY MOUTH 6 TO 8 6 TO 8 EVERY 6 TO HOURS HOURS 8 HOURS NEEDED NEEDED NEEDED montelukast montelukast No montelukas [facility] 10 mg 10 mg t 10 mg [facility] tablet TAKE tablet TAKE tablet ty 1 TABLET BY 1 TABLET BY TAKE 1 [facility]osp[facility] MOUTH EVERY MOUTH EVERY TABLET BY l DAY DAY MOUTH Clinics EVERY DAY multivitami multivitami No multivitam [facility] n one tab n one tab in one tab [facility] daily daily daily ty [facility]osp[facility] l Clinics Orencia Orencia No Orencia [facility] 1000 mg IV 1000 mg IV 1000 mg IV [facility] q month q month q month ty [facility]ospita l Clinics sodium sodium No sodium [facility] chloride chloride chloride Com gaby 0.9 % 0.9 % 0.9 % ty irrigation irrigation irrigation [facility]osp[facility] solution solution solution l [facility] Symbicort Symbicort No Symbicort [facility] 160 mcg-4.5 160 mcg-4.5 160 [facility] [...] needed. Vitamin Vitamin No 2 Q1D Vitamin [facility] B-12 1,000 B-12 1,000 B-12 1,000 [facility] mcg tablet mcg tablet mcg tablet ty Take 2 Take 2 Take 2 [facility]osp[facility] tablets tablets tablets l every day every day every day Clinics by oral by oral by oral route. route. route. Zyrtec 10 Zyrtec 10 No 1 Q1D Zyrtec 10 [facility] mg tablet mg tablet mg tablet [facility] Take 1 Take 1 Take 1 ty tablet tablet tablet [facility]osp[facility] every day every day every day l by oral by oral by oral Clinic s route. route. route. atorvastati atorvastati No atorvastat [facility] n 40 mg n 40 mg in 40 mg Com[facility] ni tablet TAKE tablet TAKE tablet ty 1 TABLET BY 1 TABLET BY TAKE 1 [facility]ita MOUTH EVERY MOUTH EVERY TABLET BY l DAY DAY MOUTH Clinics EVERY DAY D3-1999 one D3-1999 one No D3-1999 [facility] tablet tablet one tablet Commu ni daily daily daily ty [facility]osp[facility] l Clinics fluticasone fluticasone No fluticason [facility] propionate propionate e Com gaby 50 50 propionate ty mcg/actuati mcg/actuati 50 [facility] on nasal on nasal mcg/actuat l spray,suspe spray,suspe ion nasal Clinics nsion SPRAY nsion SPRAY spray,susp 1 SPRAY 1 SPRAY ension INTO EACH INTO EACH SPRAY 1 NOSTRIL NOSTRIL SPRAY INTO EVERY DAY EVERY DAY EACH NOSTRIL EVERY DAY montelukast montelukast No montelukas [facility] 10 mg 10 mg t 10 mg [facility] tablet TAKE tablet TAKE tablet ty 1 TABLET BY 1 TABLET BY TAKE 1 [facility]ospita MOUTH EVERY MOUTH EVERY TABLET BY l DAY DAY MOUTH Clinics EVERY DAY multivitami multivitami No multivitam [facility] n one tab n one tab in one tab [facility] daily daily daily ty [facility] Orencia Orencia No Orencia [facility] 1000 mg IV 1000 mg IV 1000 mg IV [facility] q month q month q month ty [facility] prednisone prednisone No prednisone [facility] 5 mg tablet 5 mg tablet 5 mg [facility] TAKE 1 TAKE 1 tablet ty TABLET BY TABLET BY TAKE 1 [facility] MOUTH EVERY MOUTH EVERY TABLET BY l DAY DAY MOUTH Clinics NEEDED NEEDED EVERY DAY NEEDED sodium sodium No sodium [facility] chloride chloride chloride Com gaby 0.9 % 0.9 % 0.9 % ty irrigation irrigation irrigation [facility] solution solution solution l Clinics Symbicort Symbicort No Symbicort [facility] 160 mcg-4.5 160 mcg-4.5 160 [facility] [...] needed. Vitamin Vitamin No 2 Q1D Vitamin [facility] B-12 1,000 B-12 1,000 B-12 1,000 [facility] mcg tablet mcg tablet mcg tablet ty Take 2 Take 2 Take 2 [facility]osp[facility] tablets tablets tablets l every day every day every day Clinics by oral by oral by oral route. route. route. Zyrtec 10 Zyrtec 10 No 1 Q1D Zyrtec 10 [facility] mg tablet mg tablet mg tablet [facility] Take 1 Take 1 Take 1 ty tablet tablet tablet [facility]osp[facility] every day every day every day l by oral by oral by oral Clinic s route. route. route. atorvastati atorvastati No atorvastat [facility] n 40 mg n 40 mg in 40 mg Commu ni tablet TAKE tablet TAKE tablet ty 1 TABLET BY 1 TABLET BY TAKE 1 [facility]ospita MOUTH EVERY MOUTH EVERY TABLET BY l DAY DAY MOUTH Clinics EVERY DAY D3-1999 one D3-1999 one No D3-1999 [facility] tablet tablet one tablet Commu ni daily daily daily ty [facility]ospita l Clinics doxycycline doxycycline No doxycyclin [facility] monohydrate monohydrate e [facility] 100 mg 100 mg monohydrat ty capsule capsule e 100 mg Hospi ta TAKE 1 TAKE 1 capsule l CAPSULE BY CAPSULE BY TAKE 1 C linics MOUTH EVERY MOUTH EVERY CAPSULE BY DAY FOR 10 DAY FOR 10 MOUTH DAYS DAYS EVERY DAY FOR 10 DAYS fluticasone fluticasone No fluticason [facility] propionate propionate e Com gaby 50 50 propionate ty mcg/actuati mcg/actuati 50 [facility] on nasal on nasal mcg/actuat l spray,suspe spray,suspe ion nasal Clinics nsion SPRAY nsion SPRAY spray,susp 1 SPRAY 1 SPRAY ension INTO EACH INTO EACH SPRAY 1 NOSTRIL NOSTRIL SPRAY INTO EVERY DAY EVERY DAY EACH NOSTRIL EVERY DAY montelukast montelukast No montelukas [facility] 10 mg 10 mg t 10 mg [facility] tablet TAKE tablet TAKE tablet ty 1 TABLET BY 1 TABLET BY TAKE 1 [facility]ita MOUTH EVERY MOUTH EVERY TABLET BY l DAY DAY MOUTH Clinics EVERY DAY multivitami multivitami No multivitam [facility] n one tab n one tab in one tab [facility] daily daily daily ty [facility]ospita l Clinics Orencia Orencia No Orencia [facility] 1000 mg IV 1000 mg IV 1000 mg IV [facility] q month q month q month ty [facility]osp[facility] l Clinics prednisone prednisone No prednisone [facility] 5 mg tablet 5 mg tablet 5 mg [facility] TAKE 1 TAKE 1 tablet ty TABLET BY TABLET BY TAKE 1 [facility] MOUTH EVERY MOUTH EVERY TABLET BY l DAY DAY MOUTH Clinics NEEDED NEEDED EVERY DAY NEEDED Symbicort Symbicort No Symbicort [facility] 160 mcg-4.5 160 mcg-4.5 160 [facility] [...] needed. Vitamin Vitamin No 2 Q1D Vitamin [facility] B-12 1,000 B-12 1,000 B-12 1,000 [facility] mcg tablet mcg tablet mcg tablet ty Take 2 Take 2 Take 2 [facility]osp[facility] tablets tablets tablets l every day every day every day Clinics by oral by oral by oral route. route. route. Zyrtec 10 Zyrtec 10 No 1 Q1D Zyrtec 10 [facility] mg tablet mg tablet mg tablet [facility] Take 1 Take 1 Take 1 ty tablet tablet tablet [facility]osp[facility] every day every day every day l by oral by oral by oral Clinic s route. route. route. amiodarone amiodarone No amiodarone [facility] 200 mg 200 mg 200 mg [facility] tablet TAKE tablet TAKE tablet ty 1 TABLET BY 1 TABLET BY TAKE 1 [facility]ospita MOUTH TWICE MOUTH TWICE TABLET BY l A DAY A DAY MOUTH Clinics TWICE A DAY atorvastati atorvastati No atorvastat [facility] n 40 mg n 40 mg in 40 mg Commu ni tablet TAKE tablet TAKE tablet ty 1 TABLET BY 1 TABLET BY TAKE 1 [facility] MOUTH EVERY MOUTH EVERY TABLET BY l DAY DAY MOUTH Clinics EVERY DAY D3-1999 one D3-1999 one No D3 [facility] tablet tablet one tablet Commu ni daily daily daily ty [facility] Clinics Eliquis 5 Eliquis 5 No Eliquis 5 [facility] mg tablet mg tablet mg tablet [facility] TAKE 1 TAKE 1 TAKE 1 ty TABLET BY TABLET BY TABLET BY [facility]ospita MOUTH TWICE MOUTH TWICE MOUTH l A DAY A DAY TWICE A Clinics DAY fluticasone fluticasone No fluticason [facility] propionate propionate e Com gaby 50 50 propionate ty mcg/actuati mcg/actuati 50 [facility] on nasal on nasal mcg/actuat l spray,suspe spray,suspe ion nasal Clinics nsion SPRAY nsion SPRAY spray,susp 1 SPRAY 1 SPRAY ension INTO EACH INTO EACH SPRAY 1 NOSTRIL NOSTRIL SPRAY INTO EVERY DAY EVERY DAY EACH NOSTRIL EVERY DAY metoprolol metoprolol No metoprolol [facility] tartrate 25 tartrate 25 tartrate [facility] mg [...] FOR 60 DAYS. montelukast montelukast No montelukas [facility] 10 mg 10 mg t 10 mg [facility] tablet TAKE tablet TAKE tablet ty 1 TABLET BY 1 TABLET BY TAKE 1 [facility] MOUTH EVERY MOUTH EVERY TABLET BY l DAY DAY MOUTH Clinics EVERY DAY multivitami multivitami No multivitam [facility] n one tab n one tab in one tab [facility] daily daily daily ty [facility] Clinics Orencia Orencia No Orencia [facility] 1000 mg IV 1000 mg IV 1000 mg IV [facility] q month q month q month ty [facility] Clinics Symbicort Symbicort No Symbicort [facility] 160 mcg-4.5 160 mcg-4.5 160 [facility] mcg/actuati mcg/actuati mcg-4.5 ty on HFA on HFA mcg/actuat Hospi ta aerosol aerosol ion HFA l inhaler inhaler aerosol Clinic s TAKE 2 TAKE 2 inhaler PUFFS BY PUFFS BY TAKE 2 MOUTH TWICE MOUTH TWICE PUFFS BY A DAY A DAY MOUTH TWICE A DAY Vitamin Vitamin No 2 Q1D Vitamin [facility] B-12 1,000 B-12 1,000 B-12 1,000 [facility] mcg tablet mcg tablet mcg tablet ty Take 2 Take 2 Take 2 [facility]osp[facility] tablets tablets tablets l every day every day every day Clinics by oral by oral by oral route. route. route. Zyrtec 10 Zyrtec 10 No 1 Q1D Zyrtec 10 [facility] mg tablet mg tablet mg tablet [facility] Take 1 Take 1 Take 1 ty tablet tablet tablet [facility]osp[facility] every day every day every day l by oral by oral by oral Clinic s route. route. route. acetaminoph acetaminoph No acetaminop [facility] en 300 en 300 hen 300 [facility] mg-codeine mg-codeine mg-codeine ty 30 mg 30 mg 30 mg [facility]osp[facility] tablet TAKE tablet TAKE tablet l 1 TABLET BY 1 TABLET BY TAKE 1 [facility] MOUTH EVERY MOUTH EVERY TABLET BY 4 HOURS 4 HOURS MOUTH NEEDED FOR NEEDED FOR EVERY 4 PAIN PAIN HOURS NEEDED FOR PAIN amiodarone amiodarone No amiodarone [facility] 200 mg 200 mg 200 mg [facility] tablet TAKE tablet TAKE tablet ty 1 TABLET BY 1 TABLET BY TAKE 1 [facility]ospita MOUTH EVERY MOUTH EVERY TABLET BY l DAY FOR 90 DAY FOR 90 MOUTH Cl inics DAYS DAYS EVERY DAY FOR 90 DAYS atorvastati atorvastati No atorvastat [facility] n 40 mg n 40 mg in 40 mg Commu ni tablet TAKE tablet TAKE tablet ty 1 TABLET BY 1 TABLET BY TAKE 1 [facility]ospita MOUTH EVERY MOUTH EVERY TABLET BY l DAY FOR 90 DAY FOR 90 MOUTH Cl inics DAYS DAYS EVERY DAY FOR 90 DAYS D3-1999 one D3-1999 one No D3-1999 [facility] tablet tablet one tablet Commu ni daily daily daily ty [facility] doxycycline doxycycline No doxycyclin [facility] hyclate 100 hyclate 100 e hyclate [facility] mg tablet mg tablet 100 mg ty tablet [facility] Eliquis 5 Eliquis 5 No Eliquis 5 [facility] mg tablet mg tablet mg tablet [facility]i TAKE 1 TAKE 1 TAKE 1 ty TABLET BY TABLET BY TABLET BY Hospita MOUTH TWICE MOUTH TWICE MOUTH l A DAY A DAY TWICE A Clinics DAY fluticasone fluticasone No fluticason [facility] propionate propionate e Com gaby 50 50 propionate ty mcg/actuati mcg/actuati 50 [facility] on nasal on nasal mcg/actuat l spray,suspe spray,suspe ion nasal Clinics nsion SPRAY nsion SPRAY spray,susp 1 SPRAY 1 SPRAY ension INTO EACH INTO EACH SPRAY 1 NOSTRIL NOSTRIL SPRAY INTO EVERY DAY EVERY DAY EACH NOSTRIL EVERY DAY furosemide furosemide No furosemide [facility] 40 mg 40 mg 40 mg [facility] tablet TAKE tablet TAKE tablet ty 1 TABLET 1 TABLET TAKE 1 Hospi ta ORALLY ORALLY TABLET l NEEDED 30 NEEDED 30 ORALLY Clinics DAY(S) DAY(S) NEEDED 30 DAY(S) gabapentin gabapentin No 1capsul TID gabapentin [facility] 300 mg 300 mg e(s) 300 mg [facility] capsule capsule capsule ty Take 1 Take 1 Take 1 [facility]ospita capsule 3 capsule 3 capsule 3 l times a day times a day times a Clinics by oral by oral day by route. route. oral route. metoprolol metoprolol No metoprolol [facility] succinate succinate succinate [facility] ER 50 mg ER 50 mg ER 50 mg ty tablet,exte tablet,exte tablet,ext Hospita nded nded ended l release 24 release 24 release 24 Clinics hr TAKE 1 hr TAKE 1 hr TAKE 1 TABLET BY TABLET BY TABLET BY MOUTH TWICE MOUTH TWICE MOUTH A DAY A DAY TWICE A DAY montelukast montelukast No montelukas [facility] 10 mg 10 mg t 10 mg [facility] tablet TAKE tablet TAKE tablet ty 1 TABLET BY 1 TABLET BY TAKE 1 [facility] MOUTH EVERY MOUTH EVERY TABLET BY l DAY DAY MOUTH Clinics EVERY DAY multivitami multivitami No multivitam [facility] n one tab n one tab in one tab Communi daily daily daily ty [facility] mupirocin 2 mupirocin 2 No mupirocin [facility] % topical % topical 2 % Commu ni ointment ointment topical ty ointment [facility] Orencia Orencia No Orencia [facility] 1000 mg IV 1000 mg IV 1000 mg IV [facility]i q month q month q month ty [facility] sulfamethox sulfamethox No sulfametho [facility] azole 800 azole 800 xazole 800 [facility] mg-trimetho mg-trimetho mg-trimeth ty prim 160 mg prim 160 mg oprim 160 [facility]ospita tablet TAKE tablet TAKE mg tablet l 1 TABLET BY 1 TABLET BY TAKE 1 Clinics MOUTH EVERY MOUTH EVERY TABLET BY 12 HOURS 12 HOURS MOUTH FOR 7 DAYS FOR 7 DAYS EVERY 12 HOURS FOR 7 DAYS Symbicort Symbicort No Symbicort [facility] 160 mcg-4.5 160 mcg-4.5 160 [facility] mcg/actuati mcg/actuati mcg-4.5 ty on HFA on HFA mcg/actuat Hospi ta aerosol aerosol ion HFA l inhaler inhaler aerosol Clinic s TAKE 2 TAKE 2 inhaler PUFFS BY PUFFS BY TAKE 2 MOUTH TWICE MOUTH TWICE PUFFS BY A DAY A DAY MOUTH TWICE A DAY valacyclovi valacyclovi No valacyclov [facility] r 1 gram r 1 gram ir 1 gram Co [facility] tablet TAKE tablet TAKE tablet ty 1 TABLET BY 1 TABLET BY TAKE 1 [facility]ita MOUTH EVERY MOUTH EVERY TABLET BY l 8 HOURS FOR 8 HOURS FOR MOUTH Clinics 7 DAYS 7 DAYS EVERY 8 HOURS FOR 7 DAYS Vitamin Vitamin No 2 Q1D Vitamin [facility] B-12 1,000 B-12 1,000 B-12 1,000 [facility] mcg tablet mcg tablet mcg tablet ty Take 2 Take 2 Take 2 [facility]osp[facility] tablets tablets tablets l every day every day every day Clinics by oral by oral by oral route. route. route. Zyrtec 10 Zyrtec 10 No 1 Q1D Zyrtec 10 [facility] mg tablet mg tablet mg tablet [facility] Take 1 Take 1 Take 1 ty tablet tablet tablet [facility]osp[facility] every day every day every day l by oral by oral by oral Clinic s route. route. route. atorvastati atorvastati No atorvastat [facility] n 40 mg n 40 mg in 40 mg Commu ni tablet TAKE tablet TAKE tablet ty 1 TABLET BY 1 TABLET BY TAKE 1 [facility]ita MOUTH EVERY MOUTH EVERY TABLET BY l DAY FOR 90 DAY FOR 90 MOUTH Cl inics DAYS DAYS EVERY DAY FOR 90 DAYS D3-2000 one D3-2000 one No D3-1999 [facility] tablet tablet one tablet Commu ni daily daily daily ty [facility]osp[facility] l Clinics Eliquis 5 Eliquis 5 No Eliquis 5 [facility] mg tablet mg tablet mg tablet [facility] TAKE 1 TAKE 1 TAKE 1 ty TABLET BY TABLET BY TABLET BY [facility]ospita MOUTH TWICE MOUTH TWICE MOUTH l A DAY A DAY TWICE A Clinics DAY fluticasone fluticasone No fluticason [facility] propionate propionate e Com gaby 50 50 propionate ty mcg/actuati mcg/actuati 50 H [facility]sp[facility] on nasal on nasal mcg/actuat l spray,suspe spray,suspe ion nasal Clinics nsion SPRAY nsion SPRAY spray,susp 1 SPRAY 1 SPRAY ension INTO EACH INTO EACH SPRAY 1 NOSTRIL NOSTRIL SPRAY INTO EVERY DAY EVERY DAY EACH NOSTRIL EVERY DAY furosemide furosemide No furosemide [facility] 40 mg 40 mg 40 mg [facility] tablet TAKE tablet TAKE tablet ty 1 TABLET 1 TABLET TAKE 1 Hospi ta ORALLY ORALLY TABLET l NEEDED 30 NEEDED 30 ORALLY Clinics DAY(S) DAY(S) NEEDED 30 DAY(S) gabapentin gabapentin No 1capsul QID gabapentin [facility] 300 mg 300 mg e(s) 300 mg [facility] capsule capsule capsule ty Take 1 Take 1 Take 1 [facility]osp[facility] capsule 4 capsule 4 capsule 4 l times a day times a day times a Clinics by oral by oral day by route. route. oral route. metoprolol metoprolol No metoprolol [facility] succinate succinate succinate [facility] ER 50 mg ER 50 mg ER 50 mg ty tablet,exte tablet,exte tablet,ext [facility]ospita nded nded ended l release 24 release 24 release 24 Clinics hr TAKE 1 hr TAKE 1 hr TAKE 1 TABLET BY TABLET BY TABLET BY MOUTH TWICE MOUTH TWICE MOUTH A DAY A DAY TWICE A DAY montelukast montelukast No montelukas [facility] 10 mg 10 mg t 10 mg [facility] tablet TAKE tablet TAKE tablet ty 1 TABLET BY 1 TABLET BY TAKE 1 [facility] MOUTH EVERY MOUTH EVERY TABLET BY l DAY DAY MOUTH Clinics EVERY DAY multivitami multivitami No multivitam [facility] n one tab n one tab in one tab [facility] m[facility]cin 2 mupirocin 2 No mupirocin [facility] % topical % topical 2 % Commu ni ointment ointment topical ty ointment [facility] Clinics Orencia Orencia No Orencia [facility] 1000 mg IV 1000 mg IV 1000 mg IV [facility] q month q month [facility] Symbicort Symbicort No Symbicort [facility] 160 mcg-4.5 160 mcg-4.5 160 [facility] mcg/actuati mcg/actuati mcg-4.5 ty on HFA on HFA mcg/actuat Hospi ta aerosol aerosol ion HFA l inhaler inhaler aerosol Clinic s TAKE 2 TAKE 2 inhaler PUFFS BY PUFFS BY TAKE 2 MOUTH TWICE MOUTH TWICE PUFFS BY A DAY A DAY MOUTH TWICE A DAY valacyclovi valacyclovi No valacyclov [facility] r 1 gram r 1 gram ir 1 gram Co [facility] tablet TAKE tablet TAKE tablet ty ONE BY ONE BY TAKE ONE [facility]ospita MOUTH 3X MOUTH 3X BY MOUTH l DAILY FOR 7 DAILY FOR 7 3X DAILY Clinics DAYS DAYS FOR 7 DAYS Vitamin Vitamin No 2 Q1D Vitamin [facility] B-12 1,000 B-12 1,000 B-12 1,000 [facility] mcg tablet mcg tablet mcg tablet ty Take 2 Take 2 Take 2 [facility]osp[facility] tablets tablets tablets l every day every day every day Clinics by oral by oral by oral route. route. route. Zyrtec 10 Zyrtec 10 No 1 Q1D Zyrtec 10 [facility] mg tablet mg tablet mg tablet [facility] Take 1 Take 1 Take 1 ty tablet tablet tablet [facility]ospita every day every day every day l by oral by oral by oral Clinic s route. route. route. atorvastati atorvastati No atorvastat [facility] n 40 mg n 40 mg in 40 mg Commu ni tablet TAKE tablet TAKE tablet ty 1 TABLET BY 1 TABLET BY TAKE 1 [facility]ospita MOUTH EVERY MOUTH EVERY TABLET BY l DAY FOR 90 DAY FOR 90 MOUTH Cl inics DAYS DAYS EVERY DAY FOR 90 DAYS D3-1999 one D3-1999 one No D3-1999 [facility] tablet tablet one tablet Commu ni daily daily daily ty [facility]osp[facility] l Clinics Eliquis 5 Eliquis 5 No Eliquis 5 [facility] mg tablet mg tablet mg tablet [facility]i TAKE 1 TAKE 1 TAKE 1 ty TABLET BY TABLET BY TABLET BY [facility]ospita MOUTH TWICE MOUTH TWICE MOUTH l A DAY A DAY TWICE A Clinics DAY fluticasone fluticasone No fluticason [facility] propionate propionate e Com gaby 50 50 propionate ty mcg/actuati mcg/actuati 50 H [facility]sp[facility] on nasal on nasal mcg/actuat l spray,suspe spray,suspe ion nasal Clinics nsion SPRAY nsion SPRAY spray,susp 1 SPRAY 1 SPRAY ension INTO EACH INTO EACH SPRAY 1 NOSTRIL NOSTRIL SPRAY INTO EVERY DAY EVERY DAY EACH NOSTRIL EVERY DAY furosemide furosemide No furosemide [facility] 40 mg 40 mg 40 mg [facility] tablet TAKE tablet TAKE tablet ty 1 TABLET BY 1 TABLET BY TAKE 1 [facility]ospita MOUTH MOUTH TABLET BY l NEEDED NEEDED MOUTH Clinics NEEDED gabapentin gabapentin No gabapentin [facility] 300 mg 300 mg 300 mg [facility] capsule capsule capsule ty TAKE 1 TAKE 1 TAKE 1 [facility] CAPSULE BY CAPSULE BY CAPSULE BY l MOUTH FOUR MOUTH FOUR MOUTH FOUR Clinics TIMES A DAY TIMES A DAY TIMES A DAY metoprolol metoprolol No 1 Q1D metoprolol [facility] succinate succinate succinate [facility] ER 50 mg ER 50 mg ER 50 mg ty tablet,exte tablet,exte tablet,ext [facility]ospita nded nded ended l release 24 release 24 release 24 Clinics hr Take 1 hr Take 1 hr Take 1 tablet tablet tablet every day every day every day by oral by oral by oral route. route. route. metoprolol metoprolol No metoprolol [facility] tartrate 25 tartrate 25 tartrate [facility] mg [...] FOR 60 DAYS. montelukast montelukast No montelukas [facility] 10 mg 10 mg t 10 mg [facility] tablet TAKE tablet TAKE tablet ty 1 TABLET BY 1 TABLET BY TAKE 1 [facility]osp[facility] MOUTH EVERY MOUTH EVERY TABLET BY l DAY DAY MOUTH Clinics EVERY DAY multivitami multivitami No multivitam [facility] n one tab n one tab in one tab [facility] mupirocin 2 mupirocin 2 No mupirocin [facility] % topical % topical 2 % Commu ni ointment ointment topical ty ointment [facility] Orencia Orencia No Orencia [facility] 1000 mg IV 1000 mg IV 1000 mg IV Communi q month q month q month ty [facility] Symbicort Symbicort No Symbicort [facility] 160 mcg-4.5 160 mcg-4.5 160 [facility] mcg/actuati mcg/actuati mcg-4.5 ty on HFA on HFA mcg/actuat Hospi ta aerosol aerosol ion HFA l inhaler inhaler aerosol Clinic s TAKE 2 TAKE 2 inhaler PUFFS BY PUFFS BY TAKE 2 MOUTH TWICE MOUTH TWICE PUFFS BY A DAY A DAY MOUTH TWICE A DAY valacyclovi valacyclovi No valacyclov [facility] r 1 gram r 1 gram ir 1 gram Co [facility] tablet TAKE tablet TAKE tablet ty ONE BY ONE BY TAKE ONE [facility]ospita MOUTH 3X MOUTH 3X BY MOUTH l DAILY FOR 7 DAILY FOR 7 3X DAILY Clinics DAYS DAYS FOR 7 DAYS Vitamin Vitamin No 2 Q1D Vitamin [facility] B-12 1,000 B-12 1,000 B-12 1,000 [facility]i mcg tablet mcg tablet mcg tablet ty Take 2 Take 2 Take 2 [facility]osp[facility] tablets tablets tablets l every day every day every day Clinics by oral by oral by oral route. route. route. Zyrtec 10 Zyrtec 10 No 1 Q1D Zyrtec 10 [facility] mg tablet mg tablet mg tablet [facility] Take 1 Take 1 Take 1 ty tablet tablet tablet Hospita every day every day every day l by oral by oral by oral Clinic s route. route. route. aspirin 81 aspirin 81 No aspirin 81 [facility] mg mg mg [facility] tablet,nahed tablet,nahed tablet,del ty yed release yed release ayed H [facility]spita TAKE 1 TAKE 1 release l TABLET BY TABLET BY TAKE 1 Cli nics MOUTH EVERY MOUTH EVERY TABLET BY DAY DAY MOUTH EVERY DAY atorvastati atorvastati No atorvastat [facility] n 40 mg n 40 mg in 40 mg Commu ni tablet TAKE tablet TAKE tablet ty 1 TABLET BY 1 TABLET BY TAKE 1 [facility]ospita MOUTH EVERY MOUTH EVERY TABLET BY l DAY FOR 90 DAY FOR 90 MOUTH Cl inics DAYS DAYS EVERY DAY FOR 90 DAYS clopidogrel clopidogrel No clopidogre [facility] 75 mg 75 mg l 75 mg [facility]i tablet TAKE tablet TAKE tablet ty 1 TABLET BY 1 TABLET BY TAKE 1 [facility]ospita MOUTH EVERY MOUTH EVERY TABLET BY l DAY DAY MOUTH Clinics EVERY DAY D3-2000 one D3-2000 one No D3-2000 [facility] tablet tablet one tablet Commu ni daily daily daily ty Hospita l Clinics fluticasone fluticasone No fluticason [facility] propionate propionate e Com gaby 50 50 propionate ty mcg/actuati mcg/actuati 50 H [facility]sp[facility] on nasal on nasal mcg/actuat l spray,suspe spray,suspe ion nasal Clinics nsion SPRAY nsion SPRAY spray,susp 1 SPRAY 1 SPRAY ension INTO EACH INTO EACH SPRAY 1 NOSTRIL NOSTRIL SPRAY INTO EVERY DAY EVERY DAY EACH NOSTRIL EVERY DAY furosemide furosemide No furosemide [facility] 40 mg 40 mg 40 mg [facility] tablet TAKE tablet TAKE tablet ty 1 TABLET BY 1 TABLET BY TAKE 1 [facility]ospita MOUTH MOUTH TABLET BY l NEEDED NEEDED MOUTH Clinics NEEDED gabapentin gabapentin No 1capsul QID gabapentin [facility] 300 mg 300 mg e(s) 300 mg [facility]i capsule capsule capsule ty Take 1 Take 1 Take 1 [facility]osp[facility] capsule 4 capsule 4 capsule 4 l times a day times a day times a Clinics by oral by oral day by route as route as oral route needed. needed. as needed. metoprolol metoprolol No metoprolol [facility] succinate succinate succinate [facility] ER 50 mg ER 50 mg ER 50 mg ty tablet,exte tablet,exte tablet,ext [facility]ospita nded nded ended l release 24 release 24 release 24 Clinics hr TAKE 1 hr TAKE 1 hr TAKE 1 TABLET BY TABLET BY TABLET BY MOUTH EVERY MOUTH EVERY MOUTH DAY DAY EVERY DAY montelukast montelukast No montelukas [facility] 10 mg 10 mg t 10 mg [facility]i tablet TAKE tablet TAKE tablet ty 1 TABLET BY 1 TABLET BY TAKE 1 [facility]ospita MOUTH EVERY MOUTH EVERY TABLET BY l DAY DAY MOUTH Clinics EVERY DAY multivitami multivitami No multivitam [facility] n one tab n one tab in one tab Communi daily daily daily ty [facility]ospita l Clinics Orencia Orencia No Orencia [facility] 1000 mg IV 1000 mg IV 1000 mg IV Communi q month q month q month ty [facility]ospita l Clinics Symbicort Symbicort No Symbicort [facility] 160 mcg-4.5 160 mcg-4.5 160 [facility] mcg/actuati mcg/actuati mcg-4.5 ty on HFA on HFA mcg/actuat Hospi ta aerosol aerosol ion HFA l inhaler inhaler aerosol Clinic s TAKE 2 TAKE 2 inhaler PUFFS BY PUFFS BY TAKE 2 MOUTH TWICE MOUTH TWICE PUFFS BY A DAY A DAY MOUTH TWICE A DAY Vitamin Vitamin No 2 Q1D Vitamin [facility] B-12 1,000 B-12 1,000 B-12 1,000 Communi mcg tablet mcg tablet mcg tablet ty Take 2 Take 2 Take 2 Hospita tablets tablets tablets l every day every day every day Clinics by oral by oral by oral route. route. route. Zyrtec 10 Zyrtec 10 No 1 Q1D Zyrtec 10 [facility] mg tablet mg tablet mg tablet Communi Take 1 Take 1 Take 1 ty tablet tablet tablet Hospita every day every day every day l by oral by oral by oral Clinic s route. route. route. atorvastati atorvastati No atorvastat [facility] n 20 mg n 20 mg in 20 mg Commu ni tablet TAKE tablet TAKE tablet ty 1 TABLET BY 1 TABLET BY TAKE 1 Hospita MOUTH EVERY MOUTH EVERY TABLET BY l DAY DAY MOUTH Clinics EVERY DAY Bactrim DS Bactrim DS No 1 Q12H Bactrim DS [facility] 800 mg-160 800 mg-160 800 mg-160 Communi mg tablet mg tablet mg tablet ty Take 1 Take 1 Take 1 Hospita tablet tablet tablet l every 12 every 12 every 12 Cli nics hours by hours by hours by oral route. oral route. oral route. D3-1999 one D3-1999 one No D3 [facility] tablet tablet one tablet Commu ni daily daily daily ty [facility] Clinics fluticasone fluticasone No fluticason [facility] propionate propionate e Com gaby 50 50 propionate ty mcg/actuati mcg/actuati 50 H ospita on nasal on nasal mcg/actuat l spray,suspe spray,suspe ion nasal Clinics nsion USE 1 nsion USE 1 spray,susp SPRAY IN SPRAY IN ension USE EACH EACH 1 SPRAY IN NOSTRIL NOSTRIL EACH EVERY DAY EVERY DAY NOSTRIL EVERY DAY hydrocodone hydrocodone No hydrocodon [facility] 10 10 e 10 Communi mg-acetamin mg-acetamin mg-acetami ty ophen 325 ophen 325 nophen 325 Hospita mg tablet mg tablet mg tablet l TAKE 1 TAKE 1 TAKE 1 Clinics TABLET BY TABLET BY TABLET BY MOUTH EVERY MOUTH EVERY MOUTH 6 TO 8 6 TO 8 EVERY 6 TO HOURS HOURS 8 HOURS NEEDED NEEDED NEEDED montelukast montelukast No montelukas [facility] 10 mg 10 mg t 10 mg Communi tablet TAKE tablet TAKE tablet ty 1 TABLET BY 1 TABLET BY TAKE 1 Hospita MOUTH EVERY MOUTH EVERY TABLET BY l DAY DAY MOUTH Clinics EVERY DAY multivitami multivitami No multivitam [facility] n one tab n one tab in one tab Communi daily [facility] mupirocin 2 mupirocin 2 No mupirocin [facility] % topical % topical 2 % Commu [...] TIMES PER DAY Orencia Orencia No Orencia [facility] 1000 mg IV 1000 mg IV 1000 mg IV Communi q month q month q month ty Hospita l Clinics Symbicort Symbicort No Symbicort [facility] 160 mcg-4.5 160 mcg-4.5 160 C ommuni [...] needed. Vitamin Vitamin No 2 Q1D Vitamin [facility] B-12 1,000 B-12 1,000 B-12 1,000 Communi mcg tablet mcg tablet mcg tablet ty Take 2 Take 2 Take 2 Hospita tablets tablets tablets l every day every day every day Clinics by oral by oral by oral route. route. route. Zyrtec 10 Zyrtec 10 No 1 Q1D Zyrtec 10 [facility] mg tablet mg tablet mg tablet Communi Take 1 Take 1 Take 1 ty tablet tablet tablet Hospita every day every day every day l by oral by oral by oral Clinic s route. route. route. atorvastati atorvastati No atorvastat [facility] n 20 mg n 20 mg in 20 mg Commu ni tablet TAKE tablet TAKE tablet ty 1 TABLET BY 1 TABLET BY TAKE 1 Hospita MOUTH EVERY MOUTH EVERY TABLET BY l DAY DAY MOUTH Clinics EVERY DAY Bactrim DS Bactrim DS No 1 Q12H Bactrim DS [facility] 800 mg-160 800 mg-160 800 mg-160 Communi mg tablet mg tablet mg tablet ty Take 1 Take 1 Take 1 Hospita tablet tablet tablet l every 12 every 12 every 12 Cli nics hours by hours by hours by oral route. oral route. oral route. D3-1999 one D3-1999 one No D3-1999 [facility] tablet tablet one tablet Commu ni daily daily daily [facility] fluticasone fluticasone No fluticason [facility] propionate propionate e Com gaby 50 50 propionate ty mcg/actuati mcg/actuati 50 H ospita on nasal on nasal mcg/actuat l spray,suspe spray,suspe ion nasal Clinics nsion USE 1 nsion USE 1 spray,susp SPRAY IN SPRAY IN ension USE EACH EACH 1 SPRAY IN NOSTRIL NOSTRIL EACH EVERY DAY EVERY DAY NOSTRIL EVERY DAY hydrocodone hydrocodone No hydrocodon [facility] 10 10 e 10 Communi mg-acetamin mg-acetamin mg-acetami ty ophen 325 ophen 325 nophen 325 Hospita mg tablet mg tablet mg tablet l TAKE 1 TAKE 1 TAKE 1 Clinics TABLET BY TABLET BY TABLET BY MOUTH EVERY MOUTH EVERY MOUTH 6 TO 8 6 TO 8 EVERY 6 TO HOURS HOURS 8 HOURS NEEDED NEEDED NEEDED montelukast montelukast No montelukas [facility] 10 mg 10 mg t 10 mg Communi tablet TAKE tablet TAKE tablet ty 1 TABLET BY 1 TABLET BY TAKE 1 Hospita MOUTH EVERY MOUTH EVERY TABLET BY l DAY DAY MOUTH Clinics EVERY DAY multivitami multivitami No multivitam [facility] n one tab n one tab in one tab Communi daily daily daily ty [facility] Clinics mupirocin 2 mupirocin 2 No mupirocin [facility] % topical % topical 2 % Commu [...] TIMES PER DAY Orencia Orencia No Orencia [facility] 1000 mg IV 1000 mg IV 1000 mg IV Communi q month q month q month ty Hospita l Clinics Symbicort Symbicort No Symbicort [facility] 160 mcg-4.5 160 mcg-4.5 160 C ommuni [...] needed. Vitamin Vitamin No 2 Q1D Vitamin [facility] B-12 1,000 B-12 1,000 B-12 1,000 Communi mcg tablet mcg tablet mcg tablet ty Take 2 Take 2 Take 2 Hospita tablets tablets tablets l every day every day every day Clinics by oral by oral by oral route. route. route. Zyrtec 10 Zyrtec 10 No 1 Q1D Zyrtec 10 [facility] mg tablet mg tablet mg tablet Communi Take 1 Take 1 Take 1 ty tablet tablet tablet Hospita every day every day every day l by oral by oral by oral Clinic s route. route. route. Immunizations Ordered Immunization Filled Immunization Date Status Commen ts Source Name Name influenza, influenza, 2021-03-03 Completed [facility] quadrivalent quadrivalent influenza, influenza, 2021-03-03 [facility] high-dose, high-dose, 00:00:00 [facility] quadrivalent quadrivalent influenza, influenza, 2021-03-03 Completed [facility] high-dose, high-dose, 00:00:00 [facility] quadrivalent quadrivalent influenza, influenza, 2021-03-03 Completed [facility] high-dose, high-dose, 00:00:00 [facility] quadrivalent quadrivalent influenza, influenza, 2021-03-03 Completed [facility] high-dose, high-dose, 00:00:00 [facility] quadrivalent quadrivalent influenza, influenza, 2021-03-03 Completed [facility] high-dose, high-dose, 00:00:00 [facility] quadrivalent quadrivalent influenza, influenza, 2021-03-03 Completed [facility] high-dose, high-dose, 00:00:00 [facility] quadrivalent quadrivalent influenza, influenza, 2021-03-03 Completed [facility] high-dose, high-dose, 00:00:00 [facility] quadrivalent quadrivalent Vital Signs Vital Name Observation Time Observation Value Comments Source BP Diastolic 2022-11-17 00:00:00 80 mm[facility]Hg[facility] Height 2022-11-17 00:00:00 62 [in_i] [facility] s BP Systolic 2022-11-17 00:00:00 138 mm[Hg] [facility] BP Diastolic 2022-10-06 00:00:00 62 mm[Hg] [facility] Height 2022-10-06 00:00:00 62 [in_i] [facility] s BMI (Body Mass 2022-10-06 00:00:00 37.9 kg/m2 [facility]) [facility] s BP Systolic 2022-10-06 00:00:00 128 mm[Hg] [facility] s Body Weight 2022-10-06 00:00:00 3312 [oz_av] [facility] BP Diastolic 2022-09-16 00:00:00 72 mm[Hg] [facility] Height 2022-09-16 00:00:00 62 [in_i] [facility] s BMI (Body Mass 2022-09-16 00:00:00 0.5 kg/m2 [facility]) [facility] s BP Systolic 2022-09-16 00:00:00 120 mm[Hg] [facility] Body Weight 2022-09-16 00:00:00 47.36 [oz_av] [facility] s BP Diastolic 2022-09-06 00:00:00 60 mm[Hg] [facility] Height 2022-09-06 00:00:00 62 [in_i] [facility] s BMI (Body Mass 2022-09-06 00:00:00 38.2 kg/m2 [facility]) [facility] s BP Systolic 2022-09-06 00:00:00 139 mm[Hg] [facility] s Body Weight 2022-09-06 00:00:00 3344 [oz_av] [facility] s BP Diastolic 2022-06-29 00:00:00 58 mm[Hg] [facility] s Height 2022-06-29 00:00:00 62 [in_i] [facility] s BMI (Body Mass 2022-06-29 00:00:00 38.8 kg/m2 [facility]) [facility] s BP Systolic 2022-06-29 00:00:00 112 mm[Hg] [facility] s Body Weight 2022-06-29 00:00:00 3392 [oz_av] [facility] Systolic blood 2022-06-22 21:55:00 138 mm[Hg] Univer sity of pressure [facility] Diastolic blood 2022-06-22 21:55:00 105 mm[Hg] Unive rsity of pressure [facility] Heart rate 2022-06-22 21:55:00 60 /min [facility] Body temperature 2022-06-22 21:55:00 36.89 Amie [facility] Respiratory rate 2022-06-22 21:55:00 17 /min [facility] Oxygen saturation in 2022-06-22 21:55:00 97 /min [facility] Arterial blood by [facility] Pulse oximetry Branch Body height 2022-06-16 13:19:00 157.5 cm [facility] Body weight 2022-06-16 13:19:00 94.3 kg [facility] BMI 2022-06-16 13:19:00 38.01 kg/m2 [facility] BP Diastolic 2022-05-06 00:00:00 80 mm[Hg] [facility] Height 2022-05-06 00:00:00 62 [in_i] [facility] BMI (Body Mass 2022-05-06 00:00:00 39.1 kg/m2 [facility]) [facility] s BP Systolic 2022-05-06 00:00:00 122 mm[Hg] [facility] s Body Weight 2022-05-06 00:00:00 3424 [oz_av] [facility] s BP Diastolic 2021-11-05 00:00:00 72 mm[Hg] [facility] Height 2021-11-05 00:00:00 62 [in_i] [facility] s BMI (Body Mass 2021-11-05 00:00:00 37.9 kg/m2 [facility]) [facility] s BP Systolic 2021-11-05 00:00:00 158 mm[Hg] [facility] s Body Weight 2021-11-05 00:00:00 3312 [oz_av] [facility] s BP Diastolic 2021-05-04 00:00:00 68 mm[Hg] [facility] Height 2021-05-04 00:00:00 62 [in_i] [facility] BMI (Body Mass 2021-05-04 00:00:00 38 kg/m2 [facility]) [facility] s BP Systolic 2021-05-04 00:00:00 140 mm[Hg] [facility] Body Weight 2021-05-04 00:00:00 3328 [oz_av] [facility] Height 2021-01-15 00:00:00 62 [in_i] [facility] BMI (Body Mass 2021-01-15 00:00:00 37.7 kg/m2 [facility] s Body Weight 2021-01-15 00:00:00 3296 [oz_av] [facility] BP Diastolic 2020-11-10 00:00:00 80 mm[Hg] [facility] Height 2020-11-10 00:00:00 62 [in_i] [facility] BMI (Body Mass 2020-11-10 00:00:00 37.8 kg/m2 [facility] Clinic s BP Systolic 2020-11-10 00:00:00 112 mm[Hg] [facility] Body Weight 2020-11-10 00:00:00 3308.8 [oz_av] [facility] s BP Diastolic 2020-09-17 00:00:00 60 mm[Hg] [facility] Height 2020-09-17 00:00:00 62 [in_i] [facility] BMI (Body Mass 2020-09-17 00:00:00 38.4 kg/m2 [facility]) [facility] s BP Systolic 2020-09-17 00:00:00 136 mm[Hg] [facility] s Body Weight 2020-09-17 00:00:00 3360 [oz_av] [facility] BP Diastolic 2020-09-15 00:00:00 68 mm[Hg] [facility] Height 2020-09-15 00:00:00 62 [in_i] [facility] BMI (Body Mass 2020-09-15 00:00:00 38.2 kg/m2 [facility] Clinic s BP Systolic 2020-09-15 00:00:00 148 mm[Hg] [facility] Body Weight 2020-09-15 00:00:00 3344 [oz_av] [facility] Systolic blood 2022-06-22 17:43:00 129 mm[Hg] [email or web address] Diastolic blood 2022-06-22 17:43:00 70 mm[Hg] Unive rsity of [email or web address] Heart rate 2022-06-22 17:43:00 53 /min [facility] Body temperature 2022-06-22 17:43:00 36.94 Amie [facility] Respiratory rate 2022-06-22 17:43:00 17 /min Univ [facility] Oxygen saturation in 2022-06-22 17:43:00 98 /min [facility] Arterial blood by [facility] Pulse oximetry [place] Body height 2022-06-16 13:19:00 157.5 cm [facility] Body weight 2022-06-16 13:19:00 94.3 kg [facility] BMI 2022-06-16 13:19:00 38.01 kg/m2 [facility] Heart rate 2021-12-24 17:19:00 71 /min [facility] Oxygen saturation in 2021-12-24 17:19:00 97 /min [facility] Arterial blood by Pulse oximetry Body height 2021-12-24 16:56:00 157.5 cm [facility] Body weight 2021-12-24 16:56:00 94.348 kg [facility] BMI 2021-12-24 16:56:00 38.04 kg/m2 [facility] Systolic blood 2021-10-22 15:06:00 130 mm[Hg] Method ist [facility] pressure Diastolic blood 2021-10-22 15:06:00 63 mm[Hg] [facility] pressure Body temperature 2021-10-22 15:06:00 36.89 Amie [facility] Procedures Procedure Date / Time Performing Clinician Source Performed CONSENT/REFUSAL FOR 2022-12-27 13:47:00 Doctor Unassigned, Unive [facility] DIAGNOSIS AND TREATMENT [place] [facility] MAMMO, screening, digital, 2022-11-17 00:00:00 S [facility] Transesophageal 2022-11-02 00:00:00 [facility] Clinic s [id number] 2022-08-24 00:00:00 [email or web address] [facility] BASIC METABOLIC PANEL (NA, 2022-06-22 10:34:00 Heidari, Ihsan [facility] K, CL, CO2, GLUCOSE, BUN, Medica l Branch CREATININE, CA) BASIC METABOLIC PANEL (NA, 2022-06-22 10:34:00 Heidari, Ihsan [facility] K, CL, CO2, GLUCOSE, BUN, Medica l Branch CREATININE, CA) CARDIOVERSION EXTERNAL 2022-06-21 22:06:10 [facility] [place] CARDIOVERSION EXTERNAL 2022-06-21 22:06:10 BarssoSveta wright [facility] TRANSESOPHAGEAL ECHO (DEYSI) 2022-06-21 22:05:49 Ca [facility] COMPLETE W/ DOPPLER AND Medical Branch COLOR TRANSESOPHAGEAL ECHO (DEYSI) 2022-06-21 22:05:[address] [facility] COMPLETE W/ DOPPLER AND Medical Branch COLOR CBC WITHOUT DIFF 2022-06-21 11:44:00 Kaiser Mejia [facility] BASIC METABOLIC PANEL (NA, 2022-06-21 11:44:00 Goldy Mejia [facility] K, CL, CO2, GLUCOSE, BUN, Medica l Branch CREATININE, CA) BASIC METABOLIC PANEL (NA, 2022-06-21 11:44:00 Goldy Mejia [facility] K, CL, CO2, GLUCOSE, BUN, Medica l Branch CREATININE, CA) CBC WITHOUT DIFF 2022-06-21 11:44:00 Kaiser Mejia [facility] Cardioversion 2022-06-21 00:00:00 [facility] CBC WITHOUT DIFF 2022-06-19 10:22:00 Kaiser Mejia [facility] BASIC METABOLIC PANEL (NA, 2022-06-19 10:22:00 Goldy Mejia [facility] K, CL, CO2, GLUCOSE, BUN, Medica l Branch CREATININE, CA) BASIC METABOLIC PANEL (NA, 2022-06-19 10:22:00 Goldy Mejia [facility] K, CL, CO2, GLUCOSE, BUN, Medica l Branch CREATININE, CA) CBC WITHOUT DIFF 2022-06-19 10:22:00 [facility] 2022-06-18 10:07[facility]00 [facility]FF 2022-06-18 10:07:00 Roberto [facility] BASIC METABOLIC PANEL (NA, 2022-06-18 10:07:00 Goldy Mejia [facility] K, CL, CO2, GLUCOSE, BUN, Medica l Branch CREATININE, CA) MAGNESIUM 2022-06-18 10:07:00 [facility]IC [facility]EL (NA, 2022-06-18 10:07:00 Goldy Mejia [facility] K, CL, CO2, GLUCOSE, BUN, Medica l Branch CREATININE, CA) CBC WITHOUT DIFF 2022-06-18 10:07:00 Roberto [facility] POCT GLUCOSE (AUTOMATED) 2022-06-17 13:56:00 Roberto [facility] POCT GLUCOSE (AUTOMATED) 2022-06-17 13:56:00 Roberto [facility] CBC WITHOUT DIFF 2022-06-17 11:00:00 Roberto [facility] BASIC METABOLIC PANEL (NA, 2022-06-17 11:00:00 Goldy Mejia [facility] K, CL, CO2, GLUCOSE, BUN, Medica l Branch CREATININE, CA) BASIC METABOLIC PANEL (NA, 2022-06-17 11:00:00 Goldy Mejia [facility] K, CL, CO2, GLUCOSE, BUN, Medica l Branch CREATININE, CA) CBC WITHOUT DIFF 2022-06-17 11:00:00 Roberto [facility] POCT GLUCOSE (AUTOMATED) 2022-06-17 02:58:00 Roberto [facility] POCT GLUCOSE (AUTOMATED) 2022-06-17 02:58:00 Roberto [facility] POCT GLUCOSE (AUTOMATED) 2022-06-16 23:07:00 Kaiser Mejia [facility] POCT GLUCOSE (AUTOMATED) 2022-06-16 23:07:00 Kaiser Mejia [facility] POCT GLUCOSE (AUTOMATED) 2022-06-16 17:50:00 Ryan Hernandez [facility] POCT GLUCOSE (AUTOMATED) 2022-06-16 17:50:00 AsamoRyan elmore Uni [facility] TRANSTHORACIC ECHO (TTE) 2022-06-16 17:10:00 AsamoRyan elmore [facility] COMPLETE W/ CONTRAST [facility] TRANSTHORACIC ECHO (TTE) 2022-06-16 17:10:00 AsamoaRyan [facility] COMPLETE W/ CONTRAST [facility] POCT GLUCOSE (AUTOMATED) 2022-06-16 02:44:00 Ryan Hernandez [facility] POCT GLUCOSE (AUTOMATED) 2022-06-16 02:44:00 AsamoRyan elmore [facility] COVID-19 (ID NOW RAPID 2022-06-15 20:32:00 Ryan Hernandez [facility] TESTING) [facility] RAPID INFLUENZA A/B 2022-06-15 20:32:00 Elodia Hernandezshua [facility] LAB ONLY COVID 2022-06-15 20:32:00 Ryan Hernandez [facility] RAPID INFLUENZA A/B 2022-06-15 20:32:00 Elodia Hernandezshua [facility] COVID-19 (ID NOW RAPID 2022-06-15 20:32:00 Elodia Hernandezshua [facility] TESTING) Medical Branch LAB ONLY COVID 2022-06-15 20:32:00 Ryan Hernandez [place] [facility] INTERPRETATION [facility] CBC WITH DIFF 2022-06-15 18:11:00 Fred Dyer [facility] COMP. METABOLIC PANEL 2022-06-15 18:11:00 Fred Dyer [facility] ([id number] [place] [address] TROPONIN I 2022-06-15 18:11:00 Fred Dyer [facility] N-TERMINAL PRO-BNP 2022-06-15 18:11:00 Fred Dyer [facility] PROTHROMBIN TIME / INR 2022-06-15 18:11:00 [facility] Dyer [facility] GLYCOSYLATED HEMOGLOBIN 2022-06-15 18:11:00 Fernando Lala [facility] (A1C) [facility] TROPONIN I 2022-06-15 18:11:00 Fred Dyer [facility] COMP. METABOLIC PANEL 2022-06-15 18:11:00 Fred Dyer [facility] ([id number]) [facility] CBC WITH DIFF 2022-06-15 18:11:00 Fred Dyer [facility] GLYCOSYLATED HEMOGLOBIN 2022-06-15 18:11:00 Fernando Lala [facility] (A1C) [facility] PROTHROMBIN TIME / INR 2022-06-15 18:11:00 Fred Dyer [facility] N-TERMINAL PRO-BNP 2022-06-15 18:11:00 Fred Dyer [facility] XR CHEST 1 VW 2022-06-15 18:04:00 Fred Dyer [facility] XR CHEST 1 VW 2022-06-15 18:04:00 Fred Dyer [facility] HB ECG ROUTINE & RHYTHM 2022-06-15 17:37:44 Fred Dyer Uni [facility] HB ECG ROUTINE & RHYTHM 2022-06-15 17:37:44 Fred Dyer Uni [facility] CONSENT/REFUSAL FOR 2022-06-15 17:30:05 [facility] DIAGNOSIS AND TREATMENT [place] [facility] CONSENT/REFUSAL FOR 2022-06-15 17:30:05 Doctor [facility] DIAGNOSIS AND TREATMENT [place] [facility] Orthopedic Surgery 2022-04-09 00:00:[address] [facility] PULMONARY FUNCTION TEST 2021-12-24 16:25:41 Glenny Jones [facility] DEXA AXIAL (HIP AND SPINE) 2021-12-03 14:41:18 Requisition, Gerald fraga [facility] Medical [place] NOTICE OF PRIVACY 2021-12-03 14:02:27 Doctor Unassigned, [facility] PRACTICES [place] [facility] CONSENT/REFUSAL FOR 2021-12-03 14:02:09 Doctor Unassigned, [facility] DIAGNOSIS AND TREATMENT [place] [facility] ASSIGNMENT OF BENEFITS 2021-12-03 14:01:56 Doctor Unassigned, [facility] [place] [facility] MAMMO, screening, digital, 2021-11-05 00:00:00 [facility] Biopsy of Skin 2021-11-04 00:00:00 [facility] XR WRIST 3+ VW LEFT 2021-11-03 14:49:17 [facility] XR HAND 3+ VW LEFT 2021-11-03 14:49:04 [facility] XR ELBOW 3+ VW LEFT 2021-11-03 14:48:47 [facility] OCT, RETINA - OU - BOTH 2021-01-21 15:04:21 [facility] EYES OCT, RETINA - OU - BOTH 2021-01-21 15:04:21 [facility] E[facility] CT ABDOMEN PELVIS WO 2021-01-09 17:43:44 Requisition, Paper [facility] CONTRAST Medical Branch CT, abdomen + pelvis, w/o 2021-01-05 00:00:00 [facility] BI SCREENING TOMOSYNTHESIS 2020-12-03 15:19:00 Requisition, Gerald fraga [facility] BILATERAL Medical Branch CONSENT/REFUSAL FOR 2020-12-03 14:55:00 Doctor Unasyed, [facility] DIAGNOSIS AND TREATMENT [place] [facility] ASSIGNMENT OF BENEFITS 2020-12-03 14:54:43 Doctor Unassigned, [facility] [place] [facility] Surgical Debridement of 2020-10-01 00:00:00 [facility] DEXA AXIAL (HIP AND SPINE) 2019-12-03 16:54:00 Requisition, Gerald r [facility] ASSIGNMENT OF BENEFITS 2019-06-28 18:39:07 Doctor Unassigned, [facility] [place] [facility] Total Hysterectomy [facility] Eye Surgery [facility] Plan of Care Planned Activity Planned Date Details Comments Source Future Scheduled Test 2022-12-23 Screening [facility] 09:41:25 malignant neoplasm of colon (procedure) [code = 081985041] Future Scheduled Test 2022-12-23 Screening [facility] 09:41:25 malignant neoplasm of colon (procedure) [code = 298931922] Future Scheduled Test 2022-12-23 COVID-19 VACCINE (#1) [facility] 09:41:25 [code = COVID-19 VACCINE (#1)] Future Scheduled Test 2022-12-23 Hepatitis C screening [facility] 09:41:25 (procedure) [code = 867592422] Future Scheduled Test 2022-12-23 Screening [facility] 09:41:25 malignant neoplasm of colon (procedure) [code = 634506342] Future Scheduled Test 2022-12-23 SHINGLES VACCINES (1 [facility] 09:41:25 of 2) [code = SHINGLES VACCINES (1 of 2)] Future Scheduled Test 2022-12-23 65+ PNEUMOCOCCAL Me [facility] 09:41:25 VACCINE (3 - PPSV23 if available, else PCV20) [code = 65+ PNEUMOCOCCAL VACCINE (3 - PPSV23 if available, else PCV20)] Future Scheduled Test 2022-12-23 BREAST CANCER [facility] 09:41:25 SCREENING [code = BREAST CANCER SCREENING] Future Scheduled Test 2022-12-23 Screening [facility] 09:41:25 malignant neoplasm of colon (procedure) [code = 366176423] Future Scheduled Test 2022-12-23 Screening for [facility] 09:41:25 malignant neoplasm of colon (procedure) [code = 508453660] Future Scheduled Test 2022-12-23 [facility]ZA [facility]ACCINE [facility] 09:41:25 [code = INFLUENZA VACCINE] Future Scheduled Test 2022-11-18 Screening [facility] 16:11:57 malignant neoplasm of colon (procedure) [code = 238123582] Future Scheduled Test 2022-11-18 Screening for [facility] 16:11:57 malignant neoplasm of colon (procedure) [code = 150172238] Future Scheduled Test 2022-11-18 COVID-19 VACCINE (#1) [facility] 16:11:57 [code = COVID-19 VACCINE (#1)] Future Scheduled Test 2022-11-18 Hepatitis C screening [facility] 16:11:57 (procedure) [code = 144258758] Future Scheduled Test 2022-11-18 Screening for [facility] 16:11:57 malignant neoplasm of colon (procedure) [code = 017526617] Future Scheduled Test 2022-11-18 SHINGLES VACCINES (1 [facility] 16:11:57 of 2) [code = SHINGLES VACCINES (1 of 2)] Future Scheduled Test 2022-11-18 65+ PNEUMOCOCCAL [facility] 16:11:57 VACCINE (3 - PPSV23 if available, else PCV20) [code = 65+ PNEUMOCOCCAL VACCINE (3 - PPSV23 if available, else PCV20)] Future Scheduled Test 2022-11-18 BREAST CANCER [facility] 16:11:57 SCREENING [code = BREAST CANCER SCREENING] Future Scheduled Test 2022-11-18 Screening for [facility] 16:11:57 malignant neoplasm of colon (procedure) [code = 722607844] Future Scheduled Test 2022-11-18 Screening for [facility] 16:11:57 malignant neoplasm of colon (procedure) [code = 104842273] Future Scheduled Test 2022-11-18 INFLUENZA VACCINE [facility] 16:11:57 [code = INFLUENZA VACCINE] Diagnostic Test 2022-11-17 HbA1c (hemoglobin [facility] Pending 00:00:00 A1c), blood [code = Hospital Clinics HbA1c (hemoglobin A1c), blood] Diagnostic Test 2022-11-17 lipid panel[facility] [code = lipid panel, Hospita l Clinics serum] Diagnostic Test 2022-11-17 TSH + T4, serum [code [facility] 00:00:00 = TSH + T4, serum] Hospital Clinics Diagnostic Test 2022-11-17 vitamin D, [facility] 00:00:00 25-hydroxy, total, Hospital Clinics serum [code = vitamin D, 25-hydroxy, total, serum] Diagnostic Test 2022-11-17 vitamin B12 + folate, Swe [facility] Pending 00:00:00 serum or blood [code Hospita l Clinics = vitamin B12 + folate, serum or blood] Diagnostic Test 2022-11-17 urinalysis complete, [facility] Pending 00:00:00 reflex culture [code Hospita l Clinics = urinalysis complete, reflex culture] Diagnostic Test 2022-11-17 microalbumin, urine [facility] Pending 00:00:00 [code = microalbumin, Hospit ma Clinics urine] Future Scheduled Test 2022-10-28 Screening for [facility] 01:16:42 malignant neoplasm of colon (procedure) [code = 201060136] Future Scheduled Test 2022-10-28 Screening for [facility] 01:16:42 malignant neoplasm of colon (procedure) [code = 204054690] Future Scheduled Test 2022-10-28 COVID-19 VACCINE (#1) [facility] 01:16:42 [code = COVID-19 VACCINE (#1)] Future Scheduled Test 2022-10-28 Hepatitis C screening [facility] 01:16:42 (procedure) [code = 539011386] Future Scheduled Test 2022-10-28 SHINGLES VACCINES (1 [facility] 01:16:42 of 2) [code = SHINGLES VACCINES (1 of 2)] Future Scheduled Test 2022-10-28 65+ PNEUMOCOCCAL [facility] 01:16:42 VACCINE (3 - PPSV23 if available, else PCV20) [code = 65+ PNEUMOCOCCAL VACCINE (3 - PPSV23 if available, else PCV20)] Future Scheduled Test 2022-10-28 BREAST CANCER [facility] 01:16:42 SCREENING [code = BREAST CANCER SCREENING] Future Scheduled Test 2022-10-28 Screening for [facility] 01:16:42 malignant neoplasm of colon (procedure) [code = 495134439] Future Scheduled Test 2022-10-28 INFLUENZA VACCINE [facility] 01:16:42 [code = INFLUENZA VACCINE] Future Scheduled Test 2022-10-28 Screening for [facility] 01:16:42 malignant neoplasm of colon (procedure) [code = 337357164] Future Scheduled Test 2022-10-28 Screening for [facility] 01:16:42 malignant neoplasm of colon (procedure) [code = 165797770] Future Scheduled Test 2022-08-26 BREAST CANCER [facility] 18:51:04 SCREENING [code = BREAST CANCER SCREENING] Future Scheduled Test 2022-08-26 INFLUENZA VACCINE [facility] 18:51:04 [code = INFLUENZA VACCINE] Future Scheduled Test 2022-08-26 COVID-19 VACCINE (#1) [facility] 18:51:04 [code = COVID-19 VACCINE (#1)] Future Scheduled Test 2022-08-26 Hepatitis C screening [facility] 18:51:04 (procedure) [code = 321063966] Future Scheduled Test 2022-08-26 COLONOSCOPY SCREENING [facility] 18:51:04 [code = COLONOSCOPY SCREENING] Future Scheduled Test 2022-08-26 SHINGLES VACCINES (1 [facility] 18:51:04 of 2) [code = SHINGLES VACCINES (1 of 2)] Future Scheduled Test 2022-08-26 65+ PNEUMOCOCCAL [facility] 18:51:04 VACCINE (3 - PPSV23 if available, else PCV20) [code = 65+ PNEUMOCOCCAL VACCINE (3 - PPSV23 if available, else PCV20)] Future Scheduled Test 2022-08-26 BREAST CANCER [facility] 18:51:04 SCREENING [code = BREAST CANCER SCREENING] Future Scheduled Test 2022-08-26 INFLUENZA VACCINE [facility] 18:51:04 [code = INFLUENZA VACCINE] Future Scheduled Test 2022-08-26 COVID-19 VACCINE (#1) [facility] 18:51:04 [code = COVID-19 VACCINE (#1)] Future Scheduled Test 2022-08-26 Hepatitis C screening [facility] 18:51:04 (procedure) [code = 162273235] Future Scheduled Test 2022-08-26 COLONOSCOPY SCREENING [facility] 18:51:04 [code = COLONOSCOPY SCREENING] Future Scheduled Test 2022-08-26 SHINGLES VACCINES (1 [facility] 18:51:04 of 2) [code = SHINGLES VACCINES (1 of 2)] Future Scheduled Test 2022-08-26 65+ PNEUMOCOCCAL [facility] 18:51:04 VACCINE (3 - PPSV23 if available, else PCV20) [code = 65+ PNEUMOCOCCAL VACCINE (3 - PPSV23 if available, else PCV20)] Future Scheduled Test 2022-08-26 BREAST CANCER [facility] 18:51:04 SCREENING [code = BREAST CANCER SCREENING] Future Scheduled Test 2022-08-26 INFLUENZA VACCINE [facility] 18:51:04 [code = INFLUENZA VACCINE] Future Scheduled Test 2022-08-26 COVID-19 VACCINE (#1) [facility] 18:51:04 [code = COVID-19 VACCINE (#1)] Future Scheduled Test 2022-08-26 Hepatitis C screening [facility] 18:51:04 (procedure) [code = 907039944] Future Scheduled Test 2022-08-26 COLONOSCOPY SCREENING [facility] 18:51:04 [code = COLONOSCOPY SCREENING] Future Scheduled Test 2022-08-26 SHINGLES VACCINES (1 [facility] 18:51:04 of 2) [code = SHINGLES VACCINES (1 of 2)] Future Scheduled Test 2022-08-26 65+ PNEUMOCOCCAL [facility] 18:51:04 VACCINE (3 - PPSV23 if available, else PCV20) [code = 65+ PNEUMOCOCCAL VACCINE (3 - PPSV23 if available, else PCV20)] Future Scheduled Test 2020-01-[address] [facility] 00:[facility]:00 (#1) [code = Medical Center INFLUENZA VACCINE (#1)] Future Scheduled Test 2019-05-11 [facility] ne[facility] of [facility] Center breast (procedure) [code = 304631968] Future Scheduled Test [facility] [code = 576829198] Future Scheduled Test COVID-19 VACCINE (1) [facility] [code = COVID-19 VACCINE (1)] Future Scheduled Test COLONOSCOPY SCREENING [facility] [code = COLONOSCOPY SCREENING] Future Scheduled Test SHINGLES VACCINES [facility] (#1) [code = SHINGLES VACCINES (#1)] Future Scheduled Test 65+ PNEUMOCOCCAL [facility] VACCINE (1 of 1 - PPSV23) [code = 65+ PNEUMOCOCCAL VACCINE (1 of 1 - PPSV23)] Future Scheduled Test BREAST CANCER [facility] SCREENING [code = BREAST CANCER SCREENING] Future Scheduled Test INFLUENZA VACCINE [facility] [code = INFLUENZA VACCINE] Future Appointment 2023-02-[address] 00:00:00 [address]; [facility], [place] [address] Instructions [facility] s Encounters Start End Encounter Admission Attending Care Care Encounter Source Date/Time Date/Time Type Type Clinicians Facility Department ID 2022-09-02 Outpatient [id number] Memoria 08:47:08 [id number] Bryan [id number] FEC 1DAFEC 2022-08-30 Outpatient [facility] [id number] [place] 13:11:27 [id number] [facility] 2022-08-21 Outpatient [facility] [id number] [place] 12:18:44 [id number] [facility] 2022-07-30 Outpatient [facility] [id number] [place] 08:54:06 [id number] [facility] 2022-06-28 Outpatient R BILL FOFANA [facility] [id number] Univers 14:33:17 BILL FOFANA [facility] 2022-01-13 Outpatient [facility] [id number] [place] 10:14:45 [id number] [facility] 2021-01-21 Outpatient [facility] [id number] [place] 09:44:08 [facility] 2019-11-01 Inpatient Wolfgang, HCACL DAYS [id number] [facility] 15:00:00 Calvin 71 [facility] 2022-12-27 2022-12-27 Outpatient R RADIOLOGY [facility] [id number] Univers 08:47:46 23:59:00 ity of [facility] 2022-12-27 2022-12-27 Hospital Radiology [facility] 1.2.840.114 [id number] Univers 08:47:46 23:59:00 Encounter [place] 350.1.13.10 ity of [place] 4.2.7.2.686 [facility] [id number] [facility] [address] 2022-12-27 2022-12-27 Orders Doctor DWIGHT 1.2.840.114 [id number] Univers 00:00:00 00:00:00 Only Unassigned, MIK 350.1.13.10 ity of [place] [facility] 4.2.7.2.686 [place] [id number] [facility] [address] 2022-11-17 2022-11-17 Addei Cantrell [facility] 00:00:00 00:00:00 Sweta Holbrook MD: [address] [facility] a [address], [facility] l [address], [facility], [address] DAPHNE , Ph. 2022-11-02 2022-11-02 Outpatient SHAWNA Guerrero, RICHYCL OUTD G00 [id number] [facility] 06:14:00 06:14:00 Fethi 75 [facility] 2022-09-27 2022-10-27 Tots MHIE TIRR [id number] Memoria 13:41:00 04:59:[address] 2022-09-27 2022-10-27 Tots MHIE TIRR [id number] [facility] 13:41:00 04:59:[address] 2022-09-27 2022-10-26 Outpatient GEOFF NavaTIRMarisol MHTIRR [id number] 08:41:00 23:59:00 [place] [address] 2022-10-08 2022-10-08 Outpatient [facility] [id number] [facility] 00:00:00 00:00:00 628 Commun i ty [facility]ics 2022-10-06 2022-10-06 Addie Cantrell [facility] [place] [facility] 517 [facility] 00:00:00 00:00:00 Sweta Holbrook MD: [address] [facility] [place] [facility] a [address], COMMUNITY l [address], [facility], [address] DAPHNE , Ph. 2022-09-30 2022-09-30 Outpatient [facility] [id number] [facility] 00:00:00 00:00:00 511 Commun i ty [facility]osp[facility] Clinics 2022-09-30 2022-09-30 Outpatient [facility] [id number] [facility] 00:00:00 00:00:00 517 Commun i ty [facility]osp[facility] Clinics 2022-08-18 2022-09-17 Tots MHIE TIRR [id number] [facility] 12:59:00 04:59:00 Therapy [facility] 05 pérez Del Cast[place] 2022-08-18 2022-09-17 Tots MHIE TIRR [id number] Memoria 12:59:00 04:59:00 Therapy [facility] 05 pérez [place] Castillo 2022-08-18 2022-09-16 Outpatient Asombang, MHTIRR MHTIRR [id number] 07:59:00 23:59:00 [place] [address] 2022-09-16 2022-09-16 Addie Cantrell [facility] [place] [facility] 427 [facility] 00:00:00 00:00:00 Sweta Holbrook MD: [address] Hospital - [place] Hospit a [address], COMMUNITY l [address], [facility], [address] DAPHNE , Ph. 2022-09-06 2022-09-06 Addie Cantrell [facility] [place] [id number] [facility] 00:00:00 00:00:00 Sweta Holbrook MD: [address] [facility] [place] Hospit a [address], COMMUNITY l [address], HOSPITAL [place], [place] CLINIC, [address] DAPHNE , Ph. 2022-08-04 2022-09-03 Wound Care [facility] [id number] Memoria 12:50:00 04:59:[address] 2022-08-04 2022-09-03 Wound Care [facility] [id number] Memoria 12:50:00 04:59:[address] 2022-08-04 2022-09-02 Outpatient [facility], [facility] [id number] 07:50:00 23:59:00 Jimy 2022-08-04 2022-09-02 Outpatient CANCINO, [facility] [id number] [facility] 07:50:00 23:59:00 JIMY 2022-08-24 2022-08-25 Inpatient SHAWNA Alvarez HCACL INTE.02 [id number] [facility] 11:58:00 11:47:00 Shafraz 70 [facility] 2022-08-20 2022-08-20 Outpatient SHAWNA Alvarez HCACL 3DAY [id number] [facility] 08:00:00 09:00:00 [facility] 2022-06-29 2022-06-29 Addie Cantrell [facility] 00:00:00 00:00:00 Sweta Holbrook MD: [address] - ty [place] Hospit a [address], COMMUNITY l [address], [place], [place] CLINIC, [address] DAPHNE , Ph. 2022-06-23 2022-06-23 Transition TASHA Carranza 1.2.840.114 [id number] Univers 00:00:00 00:00:00 of Care Jean Paul CHAIREZ 350.1.13.10 [place] [id number] [address] 2022-06-15 2022-06-22 Inpatient X IHSAN MARQUEZ [facility] [id number] Univers 11:34:00 16:36:00 IHSAN MARQUEZ ity of [facility] 2022-06-15 2022-06-22 [facility] Fred Dyer [facility] 1.2.840. 114 [id number] Univers 11:34:00 16:36:00 Encounter Ryan Hernandez [facility] 350.1.13.10 ity of [facility] 4.2.7.2.686 [place] DuctIhsan [facility] [id number] [address] ([facility]) 2022-06-21 2022-06-21 Anesthesia Valerio Laws 1.2.840.1 [id number] Univers 14:43:00 15:26:00 Event DeondreRyan 08185.1.1 ity of 3.104.2.7 [place] .3.770342 Medica l .8 [place] 2022-06-15 2022-06-15 Travel 1.2.840.1 1.2.024.333 [id number] Univers 00:00:00 00:00:00 96731.1.1 350.1.13.10 ity of 3.104.2.7 4.[place].3.698 [place] .3.686888 084.8 Medica l .8 [place] 2022-05-06 2022-05-06 Outpatient [facility] [id number] [facility] 00:00:00 00:00:00 215 Commun i ty [facility]ics 2022-05-06 2022-05-06 Outpatient [facility] [id number] 0230 [facility] 00:00:00 00:00:00 207 Commun i ty Hospita [facility] Clinics 2022-05-06 2022-05-06 Outpatient [facility] [id number] 0230 [facility] 00:00:00 00:00:00 417 Commun i ty Hospita [facility] Clinics 2022-05-06 2022-05-06 Outpatient [facility] [id number] 0230 [facility] 00:00:00 00:00:00 427 Commun i ty Hospita l Clinics 2022-05-06 2022-05-06 Addie Cantrell [facility] [place] [facility] 00:00:00 00:00:00 Sweta Holbrook MD: [address] [facility] - ty [place], [facility] Hospit a [address], COMMUNITY l [address], HOSPITAL Clinic [place], [place] CLINIC, [address] DAPHNE , Ph. 2022-05-05 2022-05-05 Outpatient DAPHNE_Lexi [facility] [id number] [facility] 00:00:00 00:00:00 214 Commun i ty Hospita l Clinics 2022-01-27 2022-01-27 Outpatient [facility] [id number] [place] 08:45:00 08:45:00 [facility] 2021-12-24 2021-12-25 Clinical Terrence, 1.2.840.1 [id number] Methodi 11:45:00 15:31:50 Support Vanessa 58777.1.[address] 3.430.2.7 Hospit a .3.328004 l .8 2021-12-24 2021-12-24 Clinical Terrence, 1.2.840.1 [id number] Methodi 11:00:00 16:56:00 Support Vanessa 49145.1.[address] 3.430.2.7 Hospit a .3.310302 l .8 2021-12-24 2021-12-24 Office Robert, 1.2.840.1 [id number] 4554 Methodi 12:00:00 12:26:16 Visit Glenny 91676.1.[address] 3.430.2.7 Hospit a .3.176807 l .8 2021-12-24 2021-12-24 Travel 1.2.840.1 1.2.703.881 1157 [id number] Methodi 00:00:00 00:00:[address] 3.430.2.7 0.2.7.3.698 Ho spita .3.075222 084.8 l .8 2021-12-03 2021-12-03 Hospital Radiology [facility] 1.2.840.114 [id number] Univers 09:06:32 23:59:00 Encounter [place] 350.1.13.10 [facility] 4.2.7.2.686 [facility] [id number] [facility] [address] 2021-12-03 2021-12-03 Outpatient R RADIOLOGY [facility] [id number] Univers 09:03:38 09:05:00 ity of [facility] 2021-12-03 2021-12-03 [facility] Radiology [facility] 1.2.840.114 [id number] Univers 09:03:38 09:05:00 Encounter [place] 350.1.13.10 ity of [place] 4.2.7.2.686 [facility] [id number] [facility] [address] 2021-11-05 2021-11-05 Outpatient ALLISON [facility] [id number] [place] 11:57:00 11:57:00 616 Commun i ty Hospita [facility] 2021-11-05 2021-11-05 Addie Cantrell [facility] - Atlantic [facility] 00:00:00 00:00:00 Sweta Holbrook MD: [address] [facility] Hospit a [address], COMMUNITY l [address], HOSPITAL Clinic [facility], [place] CLINIC, [address] DAPHNE , Ph. 2021-11-05 2021-11-05 Outpatient Addie Holbrook [facility] [id number] 00:00:00 00:00:00 Tamia [id number] 2021-11-03 2021-11-03 Office Tino, 1.2.840.1 [id number] Methodi 10:20:00 10:20:00 Visit Carlene Kamara 04025.1.[address] 3.430.2.7 Hospit a .3.472157 l .8 2021-11-03 2021-11-03 Outpatient DOMINY, [facility] [id number] 158 [place] 00:00:00 00:00:00 CARLENE [address] 2021-11-03 2021-11-03 Outpatient DOMANDZREJ, [facility] [id number] 158 [place] 00:00:00 00:00:[address]LEN[address] 2021-11-03 2021-11-03 Outpatient TINO, [facility] [id number] 158 [place] 00:00:00 00:00:[address] 2021-11-03 2021-11-03 Travel 1.2.840.1 1.2.219.702 [id number] Methodi 00:00:00 00:00:[address] 3.430.2.7 0.2.7.3.698 Ho spita .3.586414 084.8 l .8 2021-10-22 2021-10-22 [facility] 1.2.840.1 [id number] 6012 Methodi 10:30:00 10:41:31 Visit Glenny 74310.1.[address] 3.430.2.7 Hospit a .3.089319 l .8 2021-10-22 2021-10-22 Travel 1.2.840.1 1.2.457.978 9521 664181 Methodi 00:00:00 00:00:[address] 3.430.2.7 0.2.7.3.698 Ho spita .3.748441 084.8 l .8 2021-09-24 2021-09-24 Travel 1.2.840.1 1.2.562.147 8919 664732 Methodi 00:00:00 00:00:[address] 3.430.2.7 0.2.7.3.698 Ho spita .3.423488 084.8 l .8 2021-06-17 2021-06-17 Outpatient KEFFER_A [facility] [id number] [place] 08:51:00 08:51:00 126 Commun i ty Hospita [facility] Clinics 2021-05-04 2021-05-04 Outpatient DAPHNE_Lexi [facility] [id number] 210 [place] 02:07:00 02:07:00 213 Commun i ty Hospita l Clinics 2021-05-04 2021-05-04 Addie Cantrell [facility] [place] 213 [place] 00:00:00 00:00:00 Sweta Holbrook MD: [address] [facility], [place] Hospit a [address], COMMUNITY l [address], HOSPITAL Clinic s [place] CL[place], [address] DAPHNE , Ph. 2021-05-04 2021-05-04 Outpatient Addie Holbrook [facility] 133 [id number] 00:00:00 00:00:00 Tamia [id number] 2021-01-21 2021-01-21 Office [facility] 6400 1.2.840.114 [id number] [place] 08:09:55 10:13:47 Visit [facility] CHATMANSami LEE 350.1.13.58 Health 9.2.7.2.686 [id number] 4 2021-01-21 2021-01-21 Office [facility] 6400 1.2.840.114 [id number] [place] 08:09:55 10:13:[address] 350.1.13.58 Health 9.2.7.2.686 [id number] 4 2021-01-16 2021-01-16 Outpatient DAPHNE_Lexi [facility] [id number] 0 [place] 02:18:00 02:18:00 827 Commun i ty Hospita l Clinics 2021-01-15 2021-01-15 Outpatient DAPHNE_Lexi [facility] [id number] 0 [place] 03:18:00 03:18:00 826 Commun i ty Hospita l Clinics 2021-01-15 2021-01-15 Addie Cantrell [facility] [place] 826 [place] 00:00:00 00:00:00 Sweta Holbrook MD: [address] [facility] - [facility] [place] Hospit a [address], COMMUNITY l [address], HOSPITAL [facility], [address] DAPHNE , Ph. 2021-01-15 2021-01-15 Outpatient Addie Holbrook [facility] [id number] 00:00:00 00:00:00 Tamia [id number] 2021-01-09 2021-01-09 Hospital Radiology [facility] 1.2.840.114 [id number] Univers 12:33:01 23:59:00 Encounter [place] 350.1.13.10 ity [facility] 4.2.7.2.686 [facility] [id number] [facility] [address] 2021-01-09 2021-01-09 Outpatient R RADIOLOGY [facility] [id number] Univers 00:00:00 00:00:00 ity of [facility] 2020-12-03 2020-12-03 [facility] Radiology [facility] 1.2.840.114 [id number] Univers 09:55:29 23:59:00 Encounter [place] 350.1.13.10 ity [facility] 4.2.7.2.686 [facility] [id number] [facility] [address] 2020-12-03 2020-12-03 Outpatient R RADIOLOGY [facility] [id number] Univers 00:00:00 00:00:00 ity of [facility] 2020-11-10 2020-11-10 Outpatient [facility] [id number] [place] 10:14:00 10:14:00 621 Commun i ty Hospita l Clinics 2020-11-10 2020-11-10 Addie Cantrell [facility] [place] - [place] 62 [place] 00:00:00 00:00:00 Sweta Holbrook MD: [address] [facility] [address], COMM[facility] [address], HOSPITAL [facility], [id number] DAPHNE , Ph. 2020-11-10 2020-11-10 Outpatient Daphne Addie [facility] [place] [id number] 00:00:00 00:00:00 Tamia [id number] 2020-09-17 2020-09-17 Outpatient KEFFER_A [facility] [place] [id number] [place] 03:53:00 03:53:00 428 Commun i ty Hospita [facility] Clinics 2020-09-17 2020-09-17 Outpatient Daphne Addie [facility] [place] [id number] 00:00:00 00:00:00 Tamia [id number] 2020-09-17 2020-09-17 Addie Cantrell [facility] [place] - [place] 428 [place] 00:00:00 00:00:00 Sweta Holbrook MD: [address] [facility] Hospit a [address], COMMUNITY l [address], HOSPITAL [facility], [phone] DAPHNE , Ph. 2020-09-16 2020-09-16 Outpatient KEFFER_A [facility] [place] [id number] [place] 10:13:00 10:13:00 427 Commun i ty Hospita l Clinics 2020-09-15 2020-09-15 Outpatient KEFFER_A [facility] & [facility] [place] [place] 4728-2 0 [place] 05:05:00 05:05:00 426 [facility] 2020-09-15 2020-09-15 Outpatient Daphne Addie [facility] [place] 196 5cefb-[id number] 00:00:00 00:00:00 Tamia [id number] 2020-09-15 2020-09-15 Addie Cantrell [facility] [place] - [place] 426 [place] 00:00:00 00:00:00 Sweta Holbrook MD: [address] [facility] Hospit a [address], COMMUNITY l [address], H[facility] [place] [facility], [address] DAPHNE , Ph. 2020-05-08 2020-05-08 Outpatient KEFFER_A [facility] [place] 4728-2 020 [place] 04:04:00 04:04:00 217 Commun i ty Hospita l [facility] 2020-04-09 2020-04-09 Outpatient keffer_a [facility] 2019 [place] 02:20:00 02:20:00 1118 Medical Group 2019-12-03 2019-12-03 Hospital Radiology [facility] 1.2.840.114 [id number] Univers 11:11:00 23:59:00 Encounter [place] 350.1.13.10 ity of [place] 4.2.7.2.686 [facility] [id number] [address] 2019-12-03 2019-12-03 [facility] Radiology [facility] 1.2.840.114 [id number] Univers 10:28:00 11:10:00 Encounter [place] 350.1.13.10 ity of [place] 4.2.7.2.686 [facility] [id number] [address] 2019-12-03 2019-12-03 Outpatient R RADIOLOGY [facility] [id number] Univers 00:00:00 00:00:00 ity of [facility] 2019-07-03 2019-07-03 Outpatient keffer_a [facility] 2019 [place] 12:19:00 12:19:00 0211 Medical Group 2019-07-03 2019-07-03 Outpatient keffer_a [facility] 2019 [place] 12:19:00 12:19:00 0218 Medical Group 2019-06-28 2019-06-28 Orders Doctor DWIGHT 1.2.840.114 [id number] 00:00:00 00:00:00 Only Unassigned, MIK 350.1.13.10 [place] [facility] 4.2.7.2.686 [id number] 009 2019-06-28 2019-06-28 Orders Doctor QUINTANILLA 1.2.840.114 [id number] Univers 00:00:00 00:00:00 Only Unassigned, MIK 350.1.13.10 ity of [place] [facility] 4.2.7.2.686 [place] [id number] [place] [address] [place] 2019-06-01 2019-06-01 Outpatient R RADIOLOGY [facility] [id number] [facility] 08:16:50 08:17:00 ity of [facility] Results Test Description Test Time Test Comments [...] = CA) 9.0 mg/dL 8.0-10.5 N PROTHROMBIN [id number] 15:54:00 Test Item Value Reference Range Interpretation Comments PROTHROMBIN TIME 13.1 SECONDS 9.3-12.9 H PATIENT (test code = PTP) INTERNATIONAL NORMAL 1.2 0.8-1.2 N TARGET INR BY RATIO (test code = INDICATIO N Indication INR) INR1. Prophylax is of venous thrombos is 2.0 - 3.0 (orthoped ic surgery), Proph ylaxis of venous thro mbosis (other than hig h-risk surgery), Treat ment [...] (to prevent recurrent infar ct). CBC W/AUTO [id number] 15:35:00 Test Item Value Reference Range Interpretation [...] x10 3/uL 0.0-0.1 N NRBC#) BASIC METABOLIC [id number] 04:17:00 Test Item Value Reference Range Interpretation [...] the recommended for abhishek for GFRby the Natformerly [facility] Kidney Foundati on for Adults.The GFR will not calculate if th e sex is unknown or if thepatient's ag e is <18 years. 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 [facility] [id number] 12:03:00 Test Item Value Reference Range Interpretation Comments ACT-ISTAT (test code 203 SEC 74-137 H Perform ed by certified = ACTI) 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 automatic at [facility] - XR CHEST 1 [id number] 00:00:00 [facility] : 1950 Sex: F FAX:Deandre Rodriguez [phone] Louise: St: ADM FAX: Steve Beltran [phone] -------- Name: PATRICIA WILEY [facility] : 1950 Age/S: 72/F [address] [place] [address] Unit #: [id number] Loc: [place] [address] 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 at 1421 Reported and signed by: Sona Jay M.D. Report PROCEDURE INFORMATION: Exam: XR Chest Exam date and time: 08/24/2022 12:57 PM Age: 72 years old Clinical indication: Device placement; Other: Watchman TECHNIQUE: Imaging protocol: Radiologic exam of the chest. Views: 1 view. COMPARISON: DX XR CHEST 2 V 08/20/2022 11:08 AM FINDINGS: Tubes, catheters and devices: Right IJ Port-A-Cath tip overlying the distal SVC. Lungs: Hypoinflation with increasing central pulmonary vascular congestion and increasing interstitial prominence that may be related to increasing hypoinflation versusmild interstitial pulmonary edema. Pleural spaces: Unremarkable. No pleural effusion. No pneumothorax. Heart/Mediastinum: Mild cardiomegaly. Bones/joints: No acute fracture or dislocation. Incompletelyvisualized right shoulder prosthesis. IMPRESSION: 1. Hypoinflation with increasing central pulmonaryvascular congestion and increasing interstitial prominence that may be related to increasing hypoinflation versus mild interstitial pulmonary edema. 2. Mild cardiomegaly. PAGE 1 Signed Report (CONTINUED) FAX: Deandre Rodriguez [phone] Louise: St: ADM FAX: Steve Beltran [phone] - Name: PATRICIA WILEY [facility] : 1950 Age/S: 72/F [address] [place] [address] Unit #: [id number] Loc: [place] [address] Phys: Steve Beltran Acct: [id number] Dis Date: Status: ADM IN PHONE #: Exam Date: 08/24/2022 1300 FAX #: [phone] Reason: WATCHMAN Report Has Been Amended EXAMS: CPT CODE: [id number] XR CHEST 1 V 23957 (Continued) at 1420 Reported and signed by: Sona Jay M.D. CC: Deandre Wisdom MD; Steve Beltran Technologist: RT Lauren(Marisol) Trnscrd Date/Time/By: 08/24/2022 (142) : By: [email or web address] Orig Print D/T: S: 08/24/2022 (1419) PAGE 2 Signed ReportBASIC METABOLIC [id number] 11:50:00 Test Item Value Reference Range Interpretation [...] code = 9.0 mg/dL 8.0-10.5 N CA) [id number] 11:50:00 Test Item Value Reference Range Interpretation Comments PREALBUMIN (test code = PREALB) 18.7 mg/dL 16.0-40.0 N PROTHROMBIN [id number] 11:40:00 Test Item Value Reference Range Interpretation [...] (to prevent recurrent infar ct). CBC W/AUTO [id number] 11:31:00 Test Item Value Reference Range Interpretation [...] DIFF REQUIRED (test code NO = MDIFF) - XR CHEST 2 [id number] 00:00:00 [facility] : 1950 Sex: F FAX:Deandre Rodriguez [phone] Louise: St: PRE Name: PATRICIA WILEY [facility] : 1950 Age/S: 72/F [address] [place] [address] Unit #: [id number] Loc: [place] [address] Phys: Deandre Devlin MD Acct: [id number] Dis Date: Status: PRE [facility] PHONE #: [phone] Exam Date: 08/20/2022 110 FAX #: Reason: PREOP EXAMS: CPT CODE: [id number] XR CHEST 2 V 47187 PROCEDURE INFORMATION: Exam:XR Chest Exam date and time: 08/20/2022 11:08 AM Age: 72 years old Clinical indication: Pre-operativeexam; Respiratory screening exam; Additional info: Preop TECHNIQUE: Imaging protocol: Radiologic exam of the chest. Views: 2 views. PA and Lateral COMPARISON: CR XR CHEST 1V 11/05/2019 9:31 AM FINDINGS: Lungs: There are slightly increased reticular markings bilaterally. A right IJ port catheter remains in place. Pleural spaces: Unremarkable. No pleural effusion. No pneumothorax. Heart/Mediastinum: The heart size is normal. The mediastinal contour is normal. The trachea is midline. Bones/joints: Previ ous total right shoulder replacement. IMPRESSION: Findings suggesting minimal chronic interstitial change. at 1238 Reported andsigned by: Kennedy Tobias M.D. CC: Deandre Wisdom MD Technologist: Sagrario Vasquez RT(R) Trnscrd Date/Time/By: 08/20/2022 (1238) : By: Ophelia Orig Print D/T: S: 08/20/2022 (8617) PAGE 1 Signed ReportBASIC METABOLIC PANEL (NA, K, CL, CO2, GLUCOSE, BUN, CREATININE, CA)2022-06-19 10:59:12 Test Item Value Reference Range Interpretation Comments NA (test code = 137 mmol/L 135-145 2818801352) K (test code = 4.4 mmol/L 3.5-5.0 8066630667) CL (test code = 106 mmol/L 98-108 8903166876) CO2 TOTAL (test code 26 mmol/L 23-31 = 7999098467) AGAP (test code = 5 2-16 6689358872) BUN (test code = 20 mg/dL 7-23 6262469294) GLUCOSE (test code = 106 mg/dL 70-110 2110349125) CREATININE (test code 0.76 mg/dL 0.50-1.04 = 2192380890) CALCIUM (test code = 8.9 mg/dL 8.6-10.6 7083689836) eGFR (test code = 74.4 mL/min/1.73m2 5237512424) ROMA (test code = ROMA) Association of [...] or urine or abnormalities in imaging tests). [facility] WITHOUT [id number] 10:36:49 Test Item Value Reference Range Interpretation Comments WBC (test code = 5.90 See_Comment [Automated message] The 6690-2) system which [employer] nerated this result tra nsmitted reference range : 4.30 - 11.10 10*3/?L. The reference range was not used to interpr et this result as normal/abnormal . RBC (test code = 4.54 See_Comment [Automated message] The 789-8) system which [employer] nerated this result tra nsmitted reference range [...] MPV (test code = 10.3 fL 9.5-12.9 00280-7) RDW-CV (test code = 13.5 % 12.0-15.5 788-0) RDW-SD (test code = 45.8 fL 39.0-49.9 87194-6) NRBC x10^3 (test See_Comment [Automated message] The code = 5199863330) system [facility] generated this result tra nsmitted reference range : 10*3/?L. The reference r ab was not used to int erpret this result as normal/abnormal . NRBC/100 WBC (test 0.0 See_Comment [Automat ed message] The code = 7262714354) system [facility] generated this result tra nsmitted reference range : 0.0 - 10.0 /100 WBCs. The reference range was not used to interpr et this result as normal/abnormal . IPF % (test code = 5843416482) [facility] GLUCOSE (AUTOMATED)2022-06-17 13:57:37 Test Item Value Reference Range Interpretation Comments POCT GLU (test code = 0216529065) 142 mg/dL 70-110 H Lab Interpretation (test code = Abnormal 96269-3) [facility] GLUCOSE (AUTOMATED)2022-06-17 13:57:37 Test Item Value Reference Range Interpretation Comments POCT GLU (test code = 2104991273) 142 mg/dL 70-110 H Lab Interpretation (test code = Abnormal 93014-9) [facility]22-[facility]-17 02:59:59 Test Item Value Reference Range Interpretation Comments POCT GLU (test code = 3229119390) 112 mg/dL 70-110 H Lab Interpretation (test code = Abnormal 57252-1) [facility]2022-06-16 23:31:44 Test Item Value Reference Range Interpretation Comments Height (test code = 62 in 6438703094) Weight (test code = 207 lbs 5077131676) Systolic BP (test code 149 mmHg = 3989054603) Diastolic BP (test code 87 mmHg = 0997743143) Heart Rate (test code = 106 bpm 1427403035) LVOT stroke volume 51.90 cm3 (test code = 9858939899) EF(Teich) (test code = 51.50 % 2687302283) LVIDD (test code = 4.70 cm 2948955591) LVIDS (test code = 3.40 cm 2391040060) Left Ventricular End 48.9 mL Systolic Volume by Teichholz Method (test code = 5490938) Left Ventricular End 100.9 mL Diastolic Volume by Teichholz Method (test code = 1999062) IVS (test code = 1.21 cm 6683040633) LVPWD (test code = 1.25 cm 2034020715) LVOT diameter (test 1.92 cm code = 0048068347) LVOT area (test code = 2.90 cm2 5499827118) FS (test code = 26 % 5842825129) MV Peak E Roland (test 120.3 cm/s code = 8018754257) E wave decelartion time 0.17 s (test code = 1067723054) LA Volume Index (BP) 45.0 mL/m2 (test code = 9816779326) LA volume (BP) (test 87.3 mL code = 4192456807) LVOT peak roland (test 96.7 cm/s code = 8895800635) LVOT mn grad (test code 2.0 mmHg = 2436809687) BSA (test code = 1.94 m2 9526579601) LA size (test code = 5.2 cm 4953200075) LAV(MOD-sp2) (test code 85.50 mL = 1955731726) LAV(MOD-sp4) (test code 89.40 mL = 5852429927) Tapse (test code = 1.60 cm 4716885054) Ao peak roland (test code 136.3 cm/s = 2427847019) AV LVOT peak gradient 3.7 mmHg (test code = 3567731636) LVOT peak VTI (test 18.0 cm code = 9833204981) AV area peak roland (test 2.0 cm2 code = 9231509216) LV V1 mean (test code = 66.90 cm/s 8283501623) Ao max PG (test code = 7.50 mm[Hg] 6288323139) MV Prop V (test code = 28.00 cm/s 3482030173) Ao root diam (test code 3.30 cm = 0874853120) AV peak gradient (test 7.5 mmHg code = 5450052257) Aortic root (test code 3.3 cm = 8833919118) Ao root annulus (test 3.3 cm code = 3362788778) PW (test code = 1.25 cm 0.6-1.0 0019015856) EF - 2D (test code = 51.50 % 99273536) Interventricular Septum 1.21 cm Diastolic Thickness by 2D (test code = 3273662) Radiology Study observation (narrative) (test code = 94034-1) ROMA (test code = ROMA) ?Left?Ventricle: Left [...] mL of Optison ultrasound enhancing agent used. [facility] GLUCOSE (AUTOMATED)2022-06-16 23:08:12 Test Item Value Reference Range Interpretation Comments POCT GLU (test code = 5857228141) 99 mg/dL 70-110 Lab Interpretation (test code = Normal 76527-8) [facility] GLUCOSE (AUTOMATED)2022-06-16 17:51:58 Test Item Value Reference Range Interpretation Comments POCT GLU (test code = 6692287952) 140 mg/dL 70-110 H Lab Interpretation (test code = Abnormal 09794-9) [facility] (A1C)2022-06-16 16:42:47 Test Item Value Reference Range Interpretation Comments HGB A1C (test code = 6.8 % 4.0-5.7 H 4548-4) ROMA (test code = ROMA) Reference RangesNormal: <5.7%Prediabetes: 5.7 - 6.4%Diabetes: > 6.5% Lab Interpretation (test Abnormal code = 26535-6) [facility] (A1C)2022-06-16 16:42:47 Test Item Value Reference Range Interpretation Comments HGB A1C (test code = 6.8 % 4.0-5.7 H 4548-4) ROMA (test code = ROMA) Reference RangesNormal: <5.7%Prediabetes: 5.7 - 6.4%Diabetes: > 6.5% Lab Interpretation (test Abnormal code = 76561-2) [facility]2022-06-16 02:45:24 Test Item Value Reference Range Interpretation Comments POCT GLU (test code = 0511809091) 138 mg/dL 70-110 H Lab Interpretation (test code = Abnormal 56880-3) [facility] [id number] 18:45:50 Test Item Value Reference Interpretation Comments Range TROPONIN I (test 0.004 ng/mL See_Comment [Automated code = 0738205797) message] The system which generated this result [...] biotin. Lab Interpretation Normal (test code = 03433-9) [facility] [id number] 18:45:50 Test Item Value Reference Range Interpretation Comments NT-proBNP (test code 1100 pg/mL See_Comment H [Autom ated = 8517821615) message] The system which generated this result transmitted reference range : <=125. The reference range was not used to interpret this result as normal/abnormal . ROMA (test code = ROMA) Biotin has been reported to cause a negative bias, interpret results relative to patient's use of biotin. Lab Interpretation Abnormal (test code = 61179-5) [facility] [id number] 18:45:50 Test Item Value Reference Interpretation Comments Range TROPONIN I (test 0.004 ng/mL See_Comment [Automated code = 2145986721) message] The system which generated this result [...] biotin. Lab Interpretation Normal (test code = 38200-1) [facility] [id number] 18:45:50 Test Item Value Reference Range Interpretation Comments NT-proBNP (test code 1100 pg/mL See_Comment H [Autom ated = 5199980847) message] The system which generated this result transmitted reference range : <=125. The reference range was not used to interpret this result as normal/abnormal . ROMA (test code = ROMA) Biotin has been reported to cause a negative bias, interpret results relative to patient's use of biotin. Lab Interpretation Abnormal (test code = 11619-4) [facility] METABOLIC PANEL (57440)2022-06-15 18:34:07 Test Item Value Reference Range Interpretation Comments NA (test code = 137 mmol/L 135-145 0340429730) K (test code = 4.0 mmol/L 3.5-5.0 4703623867) CL (test code = 104 mmol/L 98-108 5381958589) CO2 TOTAL (test code = 29 mmol/L 23-31 3525594226) AGAP (test code = 4 2-16 6519322598) BUN (test code = 15 mg/dL 7-23 0710408197) GLUCOSE (test code = 151 mg/dL 70-110 H 4336820072) CREATININE (test code = 0.74 mg/dL 0.50-1.04 9603618015) TOTAL BILI (test code = 0.6 mg/dL 0.1-1.4 3143449815) CALCIUM (test code = 8.7 mg/dL 8.6-10.6 1610054591) T PROTEIN (test code = 6.5 g/dL 6.3-8.2 8702526488) ALBUMIN (test code = 3.6 g/dL 3.5-5.0 2349627912) ALK PHOS (test code = 114 U/L 34-122 0681223015) ALTv (test code = 39 U/L 5-35 H 1742-6) AST(SGOT) (test code = 27 U/L 13-40 3251055335) eGFR (test code = 76.7 mL/min/1.73m2 6627791925) ROMA (test code = ROMA) Association of [...] tests). Lab Interpretation Abnormal (test code = 33790-1) [facility]. METABOLIC PANEL (97248)2022-06-15 18:34:07 Test Item Value Reference Range Interpretation Comments NA (test code = 137 mmol/L 135-145 6117064287) K (test code = 4.0 mmol/L 3.5-5.0 7453327853) CL (test code = 104 mmol/L 98-108 4088171882) CO2 TOTAL (test code = 29 mmol/L 23-31 7690399344) AGAP (test code = 4 2-16 6974374050) BUN (test code = 15 mg/dL 7-23 3115189675) GLUCOSE (test code = 151 mg/dL 70-110 H 4214346961) CREATININE (test code = 0.74 mg/dL 0.50-1.04 8257611812) TOTAL BILI (test code = 0.6 mg/dL 0.1-1.4 2544968781) CALCIUM (test code = 8.7 mg/dL 8.6-10.6 7400018466) T PROTEIN (test code = 6.5 g/dL 6.3-8.2 4590199084) ALBUMIN (test code = 3.6 g/dL 3.5-5.0 2148209331) ALK PHOS (test code = 114 U/L 34-122 4419149767) ALTv (test code = 39 U/L 5-35 H 1742-6) AST(SGOT) (test code = 27 U/L 13-40 1490088066) eGFR (test code = 76.7 mL/min/1.73m2 6414271818) ROMA (test code = ROMA) Association of [...] tests). Lab Interpretation Abnormal (test code = 54579-7) [facility] Center[facility] / [id number] 18:30:07 Test Item Value Reference Range Interpretation Comments PROTIME PATIENT (test 18.6 See_Comment H [Auto mated message] code = 5964-2) The system Than[employer] generated this result transmitted ref erence range: 10.1 - 1 2.6 Seconds. The reference range was not used to int erpret this result as normal/abnormal . INR (test code = 6301-6) 1.6 Nor mal INR <1.1; Warfarin Therap eutic range 2.0 to 3. 0 or 2.5 to 3.5, dep ending upon the indica tions. Lab Interpretation (test Abnormal code = 31016-8) [facility] Center[facility] / [id number] 18:30:07 Test Item Value Reference Range Interpretation Comments PROTIME PATIENT (test 18.6 See_Comment H [Auto mated message] code = 5964-2) The system Thanx generated this result transmitted ref erence range: 10.1 - 1 2.6 Seconds. The reference range was not used to int erpret this result as normal/abnormal . INR (test code = 6301-6) 1.6 Nor mal INR <1.1; Warfarin Therap eutic range 2.0 to 3. 0 or 2.5 to 3.5, dep ending upon the indica tions. Lab Interpretation (test Abnormal code = 87326-5) [facility] WITH [id number] 18:22:28 Test Item Value Reference Range Interpretation Comments WBC (test code = 5.99 See_Comment [Automated 6690-2) message] The sy stem which generated this [...] RDW-SD (test code = 45.5 fL 39.0-49.9 28969-1) RDW-CV (test code = 13.4 % 12.0-15.5 788-0) PLT (test code = 254 See_Comment [Automated 777-3) message] The sy stem which generated this result transmitted reference range : 166 - 358 10*3/ ?L. The reference r ab was not used to interpret this result as normal/abnormal . MPV (test code = 10.2 fL 9.5-12.9 09267-6) NRBC/100 WBC (test 0.0 See_Comment [Automat ed code = 7615638407) message] The system which generated this result transmitted reference range : 0.0 - 10.0 /100 WBCs. The refer ence range was not u sed to interpret th is result as normal/abnormal . NRBC x10^3 (test code See_Comment [Auto mated = 8453950810) message] The s ystem which generated this result transmitted reference range : 10*3/?L. The reference range was not used to interpret this result as normal/abnormal . GRAN MAT (NEUT) % 70.3 % (test code = 770-8) IMM GRAN % (test code 0.30 % = 8177718912) LYMPH % (test code = 20.5 % 736-9) MONO % (test code = 8.3 % 5905-5) EOS % (test code = 0.3 % 713-8) BASO % (test code = 0.3 % 706-2) GRAN MAT x10^3(ANC) 4.20 10*3/uL 1.88-7.09 (test code = 0542050368) IMM GRAN x10^3 (test 0.00-0.06 code = 7810547079) LYMPH x10^3 (test code 1.23 10*3/uL 1.32-3.29 L = 731-0) MONO x10^3 (test code 0.50 10*3/uL 0.33-0.92 = 742-7) EOS x10^3 (test code = 0.03-0.39 L 711-2) BASO x10^3 (test code 0.01-0.07 = 704-7) Lab Interpretation Abnormal (test code = 45885-8) [facility] WITH [id number] 18:22:28 Test Item Value Reference Range Interpretation Comments WBC (test code = 5.99 See_Comment [Automated 6690-2) message] The sy stem which generated this result transmitted reference range : 4.30 - 11.10 10*3/?L. The reference range was not used to interpret this result as normal/abnormal . RBC (test code = 4.45 See_Comment [Automated 179-8) message] The sy stem which generated this [...] RDW-SD (test code = 45.5 fL 39.0-49.9 27209-1) RDW-CV (test code = 13.4 % 12.0-15.5 788-0) PLT (test code = 254 See_Comment [Automated 777-3) message] The sy stem which generated this result transmitted reference range : 166 - 358 10*3/ ?L. The reference r ab was not used to interpret this result as normal/abnormal . MPV (test code = 10.2 fL 9.5-12.9 44949-9) NRBC/100 WBC (test 0.0 See_Comment [Automat ed code = 7864794890) message] The system which generated this result transmitted reference range : 0.0 - 10.0 /100 WBCs. The refer ence range was not u sed to interpret th is result as normal/abnormal . NRBC x10^3 (test code See_Comment [Auto mated = 9732630001) message] The s ystem which generated this result transmitted reference range : 10*3/?L. The reference range was not used to interpret this result as normal/abnormal . GRAN MAT (NEUT) % 70.3 % (test code = 770-8) IMM GRAN % (test code 0.30 % = 6750504299) LYMPH % (test code = 20.5 % 736-9) MONO % (test code = 8.3 % 5905-5) EOS % (test code = 0.3 % 713-8) BASO % (test code = 0.3 % 706-2) GRAN MAT x10^3(ANC) 4.20 10*3/uL 1.88-7.09 (test code = 7499966835) IMM GRAN x10^3 (test 0.00-0.06 code = 4680343859) LYMPH x10^3 (test code 1.23 10*3/uL 1.32-3.29 L = 731-0) MONO x10^3 (test code 0.50 10*3/uL 0.33-0.92 = 742-7) EOS x10^3 (test code = 0.03-0.39 L 711-2) BASO x10^3 (test code 0.01-0.07 = 704-7) Lab Interpretation Abnormal (test code = 24981-0) [facility], [id number] 16:25:41 Test Item Value Reference Range Interpretation [...] [Automated message] code = 5514) The system [email or web address] generated this result transmitted ref erence range: [...] See_Comment [Autom ated message] 5507) The system [email or web address] generated this result transmitted ref erence range: [...] ated message] code = 5528) The system [email or web address] generated this result transmitted ref erence range: [...] [Automa ismael message] = 5423) The system [email or web address] generated this result transmitted ref erence range: [...] [Autom ated message] = 5437) The system [email or web address] generated this result transmitted ref erence range: [...] 96 % Predicted (test code = 5445) [facility], [id number] 16:25:41 Test Item Value Reference Range Interpretation [...] [Automated message] code = 5514) The system [email or web address] generated this result transmitted ref erence range: [...] See_Comment [Autom ated message] 5507) The system [email or web address] generated this result transmitted ref erence range: [...] ated message] code = 5528) The system [email or web address] generated this result transmitted ref erence range: [...] [Automa ismael message] = 5423) The system [email or web address] generated this result transmitted ref erence range: [...] [Autom ated message] = 5437) The system [email or web address] generated this result transmitted ref erence range: [...] 96.0 % Predicted (test code = 5445) [facility], [id number] 16:25:41 Test Item Value Reference Range Interpretation [...] [Automated message] code = 5514) The system [email or web address] generated this result transmitted ref erence range: [...] See_Comment [Autom ated message] 5507) The system [email or web address] generated this result transmitted ref erence range: [...] ated message] code = 5528) The system [email or web address] generated this result transmitted ref erence range: [...] [Automa ismael message] = 5423) The system [email or web address] generated this result transmitted ref erence range: [...] [Autom ated message] = 5437) The system [email or web address] generated this result transmitted ref erence range: [...] 96.0 % Predicted (test code = 5445) [facility], [id number] 16:25:41 Test Item Value Reference Range Interpretation [...] [Automated message] code = 5514) The system [email or web address] generated this result transmitted ref erence range: [...] See_Comment [Autom ated message] 5507) The system [email or web address] generated this result transmitted ref erence range: [...] ated message] code = 5528) The system [email or web address] generated this result transmitted ref erence range: [...] [Automa ismael message] = 5423) The system [email or web address] generated this result transmitted ref erence range: [...] [Autom ated message] = 5437) The system [email or web address] generated this result transmitted ref erence range: [...] 96 % Predicted (test code = 5445) [facility], [id number] 16:25:41 Test Item Value Reference Range Interpretation [...] [Automated message] code = 5514) The system [email or web address] generated this result transmitted ref erence range: [...] See_Comment [Autom ated message] 5507) The system [email or web address] generated this result transmitted ref erence range: [...] ated message] code = 5528) The system [employer] generated this result transmitted ref erence range: [...] [Automa ismael message] = 5423) The system [employer] generated this result transmitted ref erence range: [...] [Autom ated message] = 5437) The system [email or web address] generated this result transmitted ref erence range: [...] 96 % Predicted (test code = 5445) [facility] - Both [id number] 15:04:21Right EyeQuality was good. Progression has been [...] drusen, no SRF/HUT HealthCT ABDOMEN PELVIS WO [id number] 21:09:59 1. 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 Lumbar [...] for each 1.5 SD below the mean. [facility], Radiant Results Inft User - 12/03/2019 12:18 [...] at slightly increased risk for compression fractures.2. RightHip:The calculated T-score at the femoral neck is -0.8, and the Z-score is 0.3,normal.The calculatedtotal T-score is -0.5, and the Z-score is 0.3, which isnormal. The total bone mineral density is calculated at 0.939 g/cm2. There is no increased risk for femoral neck fractures.[facility]- XR FLUOROSCOPY 0-60 [id number] 16:32:00 FAX: Calvin Preciado MD [phone] Louise: St: REG Name: PATRICIA WILEY [facility] : 1950 Age/S: 69/F [address] [place] [address] Unit #: [id number] Loc: [place] [address] Phys: Calvin Goss MD Acct: [id number] Dis Date: [facility] PHONE #: [phone] Exam Date: 11/05/2019 0900 FAX #: [phone] Reason: RA EXAMS: CPT CODE: [id number] XR FLUOROSCOPY 0-60 MIN 84873 Intraprocedural fluoroscopy was provided by the Department of Radiology. Any images obtained were interpreted by the surgeon intraoperatively. FLUOROSCOPY TIME: 20 seconds REFERENCE AIR KERMA : 4.4 mGy SL: [id number] at 1632 Reported and signed by:John Borden M.D. CC: Calvin Goss MD Technologist: RT Cassie(Marisol) Trngonzalez Date/Time/By: 11/05/2019 (163) : By: [email or web address] Orig Print D/T: S: 11/05/2019 (9207) PAGE 1 Signed Report- XR CHEST 1 [id number] 10:08:00 FAX: Calvin Preciado MD [phone] Louise: St: REG Name: PATRICIA WILEY [facility] : 1950 Age/S: 69/F[address] Unit #: [id number] Loc: [place] [address] Phys: Calvin Goss MD Acct: [id number] Dis Date: Status: REG [facility] PHONE #: [phone] Exam Date: 11/05/2019 0945 FAX #: [phone] Reason: Post Op EXAMS: CPT CODE: [id number] XR CHEST 1 V 97667 PROCEDURE: CHEST SINGLE VIEWINDICATION: Postoperative exam COMPARISON: Chest x-ray 11/01/2019 FINDINGS: The cardiomediastinal silhouette is within normal limits. Tortuosity and calcification of the aorta. Right port catheter with tip at the mid superior vena cava. Mild pulmonary vascular congestion. No focal consolidation. No pneu mothorax or pleural effusion. Right humeral replacement. Degenerative changes of the spine. IMPRESSION: Mild pulmonary vasculature congestion SL: [id number] at 1008 Reported and signed by: Mona Saucedo M.D. CC: Calvin Goss MD Technologist: RT Lidya(Marisol) Trnscrd Date/Time/By: 11/05/2019 (1008) : By: [email or web address] Orig Print D/T: S: 11/05/2019 (1011) PAGE 1 Signed ReportNovel Coronavirus 2019 [id number] 03:19:00 Test Item Value Reference Range Interpretation Comments Novel Coronavirus 2019 Inhouse (test Negative Negative code = COVNONPUI) CBC W/AUTO [id number] 12:09:00 Test Item Value Reference Range Interpretation [...] (test code NO = MDIFF) BASIC METABOLIC [id number] 12:05:00 Test Item Value Reference Range Interpretation [...] 9.4 mg/dL 8.0-10.5 N CA) BASIC METABOLIC [id number] 12:03:00 Test Item Value Reference Range Interpretation [...] mg/dL 8.0-10.5 N - XR CHEST 2 [id number] 11:47:00 FAX: Calvin Preciado MD [phone] Louise: MIQUEL St: PRE Name: PATRICIA WILEY [facility] [place] : 1950 Age/S: 69/F[address] Unit #: [id number] Loc: [place] [address] Phys: Calvin Goss MD Acct: [id number] Dis Date: Status: PRE SDC PHONE #: [phone] Exam Date: 11/01/2019 1146 FAX #: [phone] Reason: PRE-OP PORT PLACEMENT EXAMS: CPT CODE: [id number] XR CHEST 2 V 92307 EXAM: PA andlateral chest. EXAM DATE: November 01, 2019 CLINICAL [...] M.D. CC: Calvin Goss MD Technologist: RT Zohra(R) Trnscrd Date/Time/By: 11/01/2019 (9887) : By: [email or web address] Orig Print D/T: S: 11/01/2019 (0541) PAGE 1 Signed ReportAFB CULTURE + SMEAR 2018-06-28 12:46:00 Test Item Value Reference Range Interpretation Comments CULTURE (BEAKER) (test No acid-fast bacilli code = 1095) isolated in 42 days AFB SMEAR (BEAKER) No acid fast bacilli (test code = 994) seen AFB CULTURE + [id number] 12:46:00 Test Item Value Reference Range Interpretation Comments CULTURE (BEAKER) (test No acid-fast bacilli code = 1095) isolated in 42 days AFB SMEAR (BEAKER) No acid fast bacilli (test code = 994) seen ANAEROBIC [id number] 17:30:00 Test Item Value Reference Range Interpretation Comments CULTURE (BEAKER) (test No anaerobes isolated code = 1095) ANAEROBIC [id number] 03:45:00 Test Item Value Reference Range Interpretation Comments CULTURE (BEAKER) (test No anaerobes isolated code = 1095) FUNGUS CULTURE + [id number] 15:26:00 Test Item Value Reference Range Interpretation Comments CULTURE (BEAKER) (test No fungus isolated in code = 1095) 28 days FUNGUS SMEAR (BEAKER) No fungi seen (test code = 1406) FUNGUS CULTURE + [id number] 15:26:00 Test Item Value Reference Range Interpretation Comments CULTURE (BEAKER) (test No fungus isolated in code = 1095) 28 days FUNGUS SMEAR (BEAKER) No fungi seen (test code = 1406) VANCOMYCIN LEVEL, [id number] 15:05:00 Test Item Value Reference Range Interpretation Comments VANCOMYCIN TROUGH (BEAKER) (test 20.7 ug/mL 10.0-20.0 H code = 522) RAD, CHEST, PA OR AP, 1 [id number] 18:32:00VAT/Infusion Therapy Nurse to Call Radiology Department [...] MDReport Verified Date/Time: 05/14/2018 18:32:41 Reading Location: [facility] C013X Ortho Consult Reading Room PROTHROMBIN TIME/[id number] 15:27:00 Test Item Value Reference Range Interpretation Comments PROTIME (BEAKER) (test code = 13.2 seconds 11.7-14.7 759) INR (BEAKER) (test code = 370) 1.0 <=5.9 RECOMMENDED COUMADIN/WARFARIN INR THERAPY RANGESSTANDARD DOSE: 2.0 - 3.0 Includes: PROPHYLAXIS for venous thrombosis, systemic embolization; TREATMENT for venous thrombosis and/or pulmonary embolus.HIGH RISK: Target INR is 2.5-3.5 for patients with mechanical heart valves.CBC W/PLT COUNT & AUTO [id number] 15:11:00 Test Item Value Reference Range Interpretation [...] = 2801) SURGICALLY OBTAINED CULTURE + GRAM [id number] 12:05:00 Test Item Value Reference Range Interpretation Comments CULTURE (BEAKER) (test code No growth = 1095) GRAM STAIN RESULT (BEAKER) <1+ WBCs (test code = 1123) GRAM STAIN RESULT (BEAKER) No organisms seen (test code = 30168) SURGICALLY OBTAINED CULTURE + GRAM [id number] 11:25:00 Test Item Value Reference Range Interpretation Comments CULTURE (BEAKER) (test code No growth = 1095) GRAM STAIN RESULT (BEAKER) <1+ WBCs (test code = 1123) GRAM STAIN RESULT (BEAKER) No organisms seen (test code = 59639) BASIC METABOLIC [id number] 10:06:00 Test Item Value Reference Range Interpretation [...] PATIEN TS. CBC W/PLT COUNT & AUTO [id number] 09:47:00 Test Item Value Reference Range Interpretation [...] PERCENT (BEAKER) (test code = 2801) SPIN/CONCENTRATION [id number] 15:32:00 Test Item Value Reference Range Interpretation Comments CONCENTRATION CHARGED (BEAKER) (test Done code = 4857) SPIN/CONCENTRATION [id number] 15:31:00 Test Item Value Reference Range Interpretation Comments CONCENTRATION CHARGED (BEAKER) (test Done code = 9967) C-REACTIVE [id number] 11:56:00 Test Item Value Reference Range Interpretation Comments C-REACTIVE PROTEIN (BEAKER) (test 0.53 mg/dL 0.00-0.50 H code = 676) CBC W/PLT COUNT & AUTO [id number] 11:43:00 Test Item Value Reference Range Interpretation [...] (BEAKER) (test code = 2801) HEMOGLOBIN AND [id number] 06:00:00 Test Item Value Reference Range Interpretation Comments HEMOGLOBIN (BEAKER) (test code = 9.2 GM/DL 11.2-15.7 L 410) HEMATOCRIT (BEAKER) (test code = 29.6 % 34.1-44.9 L 411) FL, CORE FEEDER IN OR/30 MINUTE [id number] 21:07:00Reason for exam:- >Fracture of humeral head, closed, rightFINAL REPORT Fluoroscopy 1 view intraoperative 04/27/2018 9:06 PM CLINICAL HISTORY: Instrument localization COMPARISON: None available IMPRESSION: Please correlate imaging report findings with the procedure note prepared by Dr. Cavazos, as an intra- procedure imaging consultation wasnot requested. Reported fluoroscopy time: 2.4 seconds. Signed: Sona Oliver MDRmacario Verified Date/Time: 04/27/2018 21:07:27 Reading Location: [facility] Radiology Reading Room BLOOD GAS, ARTERIAL 2018-04-27 [...] code = 1819) 60.0 % BUN AND [id number] 15:18:00 Test Item Value Reference Range Interpretation Comments BLOOD UREA NITROGEN 15 mg/dL 7-21 (BEAKER) (test code = 354) CREATININE (BEAKER) 0.72 mg/dL 0.57-1.25 (test code = 358) EGFR (BEAKER) (test 80 mL/min/1.73 ESTIMA ISMAEL GFR IS code = 1092) sq m NOT ACCURATE CREATININE CLEARANCE IN PREDICTING GLOMERULAR FILTRATION RATE . ESTIMATED GFR I S NOT APPLICABLE FOR DIALYSIS PATIEN TS. [id number] 15:06:00 Test Item Value Reference Range Interpretation Comments SODIUM (BEAKER) (test code = 381) 139 meq/L 136-145 POTASSIUM (BEAKER) (test code = 4.1 meq/L 3.5-5.1 379) CHLORIDE (BEAKER) (test code = 382) 102 meq/L 98-107 CO2 (BEAKER) (test code = 355) 25 meq/L 22-29 [id number] 14:25:00 Test Item Value Reference Range Interpretation Comments HEMOGLOBIN (BEAKER) (test code = 11.3 GM/DL 11.2-15.7 410) Notes Date/Time Note Provider Source 2022-12-08 12:55:00-00:00 [id number] [place] [address] PATIENT NAME: PATRICIA WILEY ADMIT DATE: 11/02/22 ACCOUNT NO: [id number] ROOM NO: AGE: 72 REPORT TYPE: eTRANSESOPHAGEAL ECHO REPORT SEX: F ADMITTING PHYSICIAN: ATTENDING PHYSICIAN:Cira Guerrero MD *[address] [place] [address] Transesophageal Echocardiogram Patient: Patricia Wiley Study Date: 11/02/2022 BP: 118 / 77 Location: [facility] URN: [id number] 73 : 1950 Age: 72 Height: 62 in / 157.5 cm Gender: F Weight: 205 lb / 93.2 kg BMI/BSA: 37.6 kg/m 2 / 2.07 m 2 *Ordering Physician: * Cira Guerrero MD *Interpreting Physician: Cira Cai MD *Professor Of Literature: * Amy Schmid Indications: Post WATCHMAN. Study data: Consent: The risks, benefits, and al ternatives to the procedure were explained to the patient and info rmed consent was obtained. Procedure: Initial setup: The patient was brought to the laboratory in the fasting state.Intravenous acce ss was obtained. Surface ECG leads and pulse oximetric signals were monit ored. Sedation. Moderate sedation was administered by cardiology staff. T ransesophageal echocardiography was performed. Topical anesthes ia was obtained using viscous lidocaine. A transesophageal probe (SN: [id number]) was inserted by the attending tissue technologist without difficulty . Images were obtained using a Siemens cardiac ultrasound machine. Imag e quality was adequate. The transesophageal probe was removed. Limited 2 D, 3D, limited spectral Doppler, and color Doppler. Location: [facility]. Gibran menezes status: Outpatient. Patient room number: [place] 17. Study s tatus: Routine. Study completion: The patient tolerated the procedure well. There were no complications. Rhythm: Normal sinus rhythm. PATIENT NAME: PATRICIA WILEY 5875 Findings Left ventricle: The cavity size is normal. Systo lic function is normal. Right ventricle: The cavity size is normal. Syst olic function is normal. Left atrium: The atrium is normal in size. Post Watchman: The Watchman LUCINDA occluder device is well seated. There is no evidence of residual flow around the Watchman occluder device. There is a thrombus. Right atrium: The atrium is normal in size. Ther e is no evidence of a thrombus in the atrial cavity or appendage. Atrial septum: No defect or patent foramen ovale is identified. Doppler and echo contrast study shows no right-t o-left atrial level shunt. Aorta: Aortic root: The aortic root is normal in size. There is no atheroma. There is no evidence for a neurysm. There is no evidence for dissection. Aortic valve: The valve is structurally normal. The valve is trileaflet. Cusp separation is normal. There is no evidence of stenosis. There is no regurgitation. Mitral valve: The valve is structurally normal. There is no evidence of a vegetation. There is mild regurgit ation. Tricuspid valve: The valve is structurally von l. There is no evidence of a vegetation. There is no regurgitat ion. Pulmonic valve: No thickening. Cusp separation i s normal. There is no evidence of a vegetation. There is no regurgi tation. Systemic veins: Superior vena cava: The vessel is normal in size . Conclusions Summary: 1. Left ventricle: The cavity size is normal. Sy stolic function is normal. 2. Left atrium: Post Watchman: The Watchman LUCINDA occluder device is well seated. There is no evidence of residual flow a round the Watchman occluder device. There is a thrombus. 3. Right atrium: There is no evidence of a throm bus in the atrial cavity or appendage. 4. Atrial septum: No defect or patent foramen ov vero is identified. Doppler and echo contrast study shows no right- to-left atrial level shunt. 5. Mitral valve: There is no evidence of a veget ation. There is mild regurgitation. 6. Tricuspid valve: There is no evidence of a ve getation. 7. Pulmonic valve: There is no evidence of a veg etation. Prepared and electronically signed by PATIENT NAME: PATRICIA WILEY 5875 Cira Guerrero MD 12/08/2022 12:55 at 1255 PATIENT NAME: PATRICIA WILEY 875 2022-10-29 14:27:00-00:00 [id number] [place] [address] PATIENT NAME: PATRICIA WILEY ADMIT DATE: ACCOUNT NO: [id number] ROOM NO: AGE: 72 REPORT TYPE: eELECTROCARDIOGRAM REPORT SEX: F ADMITTING PHYSICIAN: ATTENDING PHYSICIAN:Cira Guerrero MD Order: [id number] Test Reason : PRE OP Test Date/Time [...] by:MAURISIO PRASAD MD at 1454 PATIENT NAME: PATRICIA WILEY 875 2022-10-04 02:03:00-00:00 HCACL [facility] ([facility]) Discharge Summary REPORT#:[id number] REPORT STATUS: Signed DATE:10/04/22 TIME: 0203 PATIENT: PATRICIA WILEY UNIT #: [id number] ROOM/BED: [place] [address] : 48 AGE: 72 SEX: F ATTEND: Carlos Alvarez MD ADM AUTHOR: Mary Alvarez MD * ALL edits or amendments must be made on the Lulu/computer document * General Information Problem List/A P: [...] timeframe: In 1-2 weeks at 0204 RPT #:[id number] END OF REPORT 2022-08-25 12:34:00-00:00 [facility]ACL [facility] ([facility]) EP Progress Note REPORT#:[id number] REPORT STATUS: Signed DATE:08/25/22 TIME: 1234 PATIENT: PATRICIA WILEY UNIT #: [id number] ROOM/BED: [place] [address] : [birth year] AGE: 72 SEX: F ATTEND: Carlos Alvarze MD ADM AUTHOR: Tish Dye COLD MEAT CHEF * ALL edits or amendments must be made on the Lulu/computer document * Nunu Dye 08/25/22 1234: Subjective [...] BID 08/24 2100 DCD 08/25 PO 09/23 Atorvastatin Calcium 40 MG BEDTIME 08/24 2100 D CD PO 09/23 2058 Fluticasone 1 SPRAY BEDTIME 08/24 2100 DCD Propionate NASAL 09/23 2058 Loratadine 10 MG BEDTIME 08/24 2100 DCD 08/24 PO 09/23 2058 195 Metoprolol Tartrate 50 MG BID 08/24 2100 DCD 0 08/24 PO 09/23 2058 194 Albuterol Sulfate 2.5 [...] PACU ONCE PRN 08/24 1045 DC IV 08/24 203 Fentanyl Citrate 100 MCG PACU Q10MIN PRN PRN 1045 DC IV 08/24 203 Fentanyl Citrate 50 MCG PACU Q10MIN PRN PRN 1045 DC IV 08/24 203 Hydralazine HCl 5 MG PACU Q10MIN PRN PRN 08/24 1045 DC IV 08/25 2031 Hydrocodone Bitart/ 1 TAB PACU ONCE 08/24 1045 DC Acetaminophen PO 08/24 203 Hydromorphone HCl 1 MG PACU Q10MIN PRN [...] edema, dry, moves all Musculoskeletal: normal inspection Neuro/WAXING MACHINE OPERATOR: alert, oriented X 3 Skin: dry Psychiatry: [...] - Patient is to follow up with tissue technologist for the 45-day DEYSI, and for anticoagulation [...] Dye NP. at 1448 at 0904 RPT #:[id number] END OF REPORT 2022-08-25 12:07:00-00:00 [facility]L [facility] ([facility]) EP Progress Note REPORT#:[id number] REPORT STATUS: Signed DATE:08/25/22 TIME: 1207 PATIENT: PATRICIA WILEY UNIT #: [id number] ROOM/BED: [place] [address] : 48 AGE: 72 SEX: F ATTEND: Carlos Alvarez MD ADM AUTHOR: Steve Beltran * ALL edits or amendments must be made on the [employer]ulu/computer document * Objective General VS/I O Last [...] BEDTIME PO (DCD) Fluticasone Propionate (Flonase Nasal [place]) 1 S PRAY BEDTIME NASAL (DCD) Loratadine (CLARITIN) 10 MG BEDTIME PO (DCD) Metoprolol Tartrate (LOPRESSOR) 50 MG BID PO (DC D) Albuterol Sulfate (ALBUTEROL SULFATE) 2.5 MG RTQ 6H NEB (DCD) Furosemide (LASIX) 40 MG DAILY PRN PRN PO (DCD) Sodium Chloride (SODIUM CHLORIDE) 5 ML ASDIR PRN IV (DCD) Sodium Chloride (SODIUM CHLORIDE) 10 ML ASDIR [place] N IV (DCD) Sodium Chloride (SODIUM CHLORIDE [...] Hydralazine HCl (APRESOLINE) 5 MG PACU Q10MIN [place] N PRN IV (DC) Hydrocodone Bitart/Acetaminophen (NORCO 5/325) 1 TAB PACU ONCE PO (DC) Hydromorphone HCl (DILAUDID) 1 MG PACU Q10MIN [place] N PRN IV (DC) Hydromorphone HCl (DILAUDID) [...] distress Abdomen: soft, non-tender Extremities: moves all Neuro/WAXING MACHINE OPERATOR: alert, oriented X 3 Skin: dry Wound/incision: [...] (Auto) (14.0 - 32.0 %) 9.7 L Garrett % (Auto) (4.8 - 9.0 %) 2.9 L Eos % (Auto) (0.3 - 3.7 %) 0.0 L Baso % (Auto) (0.0 - 2.0 %) 0.0 Neut # (Auto) (2.0 - 7.6 x10 3/uL) 7.30 Lymph # (Auto) (1.0 - 3.8 x10 3/uL) 0.81 L Garrett # (Auto) (0.1 - 0.8 x10 3/uL) [...] (0.0 - 0.1 x10 3/uL) 0.0 0 Recent Impressions: RADIOLOGY - XR CHEST 1 [...] hem atoma. [facility]. Patient is to follow up with PCP and tissue technologist in 1 to 2 we eks post discharge. Patient is to follow up with tissue technologist for th e 45-day DEYSI, and for [...] breath, lightheadedness, or dizzi ness to the tissue technologist. Electronically Signed by Steve Beltran 08/25/22 at 1211 at 1143 [facility] #:[id number] END OF REPORT 2022-08-25 09:23:00-00:00 [facility]L [facility] ([facility]) History Physical - Adult REPORT#:[id number] REPORT STATUS: Signed DATE:08/25/22 TIME: 922 PATIENT: PATRICIA WILEY UNIT #: [id number] ROOM/BED: [place] [address] : 48 AGE: 72 SEX: F ATTEND: Carlos Alvarez MD ADM AUTHOR: Mary Alvarez MD * ALL edits or amendments must be made on the el [employer]/computer document * History of Present Illness Free [...] guarding Extremities: moves all Musculoskeletal: normal inspection Neuro/WAXING MACHINE OPERATOR: alert, oriented X 3 Diagnosis, Assessment Plan Problem List/A P: 1. HTN (hypertension) 2. HLD (hyperlipidemia) 3. CAD (coronary artery disease) 4. A-fib Free Text DxA P Notes Free Text DxA P Notes: medications reviewed, continue same post op care resume home meds follow labs supportive care d/c planning at 0203 RPT #:[id number] END OF REPORT 2022-08-25 09:21:00-00:00 [facility]L [facility] ([facility] Cardiology Progress Note REPORT#:[id number] REPORT STATUS: Signed DATE:08/25/22 TIME: 920 PATIENT: PATRICIA WILEY UNIT #: [id number] ROOM/BED: 3349-1 : 48 AGE: 72 SEX: F ATTEND: Carlos Alvarez MD ADM AUTHOR: Leonela Chen * ALL edits or amendments must be made on the [employer]ulu/computer document * Leonela Chen 08/25/22 0921: Subjective [...] 117/59 85 04/04 2100 69 89 04/04 2000 73 36 114/58 82 04/04 1999 72 04/04 1856 97.9 84 20 127/60 [...] MG BEDTIME PO Fluticasone Propionate (Flonase Nasal [place]) 1 S PRAY BEDTIME NASAL (CKD) Loratadine (CLARITIN) 10 MG BEDTIME PO Metoprolol Tartrate (LOPRESSOR) 50 MG BID PO Albuterol Sulfate (ALBUTEROL SULFATE) 2.5 MG RTQ 6H NEB Furosemide (LASIX) 40 MG DAILY PRN PRN PO Sodium Chloride (SODIUM CHLORIDE) 5 ML ASDIR PRN IV Sodium Chloride (SODIUM CHLORIDE) 10 ML ASDIR [place] N IV Sodium Chloride (SODIUM CHLORIDE 0.9%) [...] Hydralazine HCl (APRESOLINE) 5 MG PACU Q10MIN [place] N PRN IV (DC) Hydrocodone Bitart/Acetaminophen (NORCO 5/325) 1 TAB PACU ONCE PO (DC) Hydromorphone HCl (DILAUDID) 1 MG PACU Q10MIN [place] N PRN IV (DC) Hydromorphone HCl (DILAUDID) [...] ML . STK-MED ONE IV (DC) Rocuronium [place] (ZEMURON) 0 .STK-MED ONE IV ( DC) [...] no clubbing, no cyanosis, 2+ peripheral pulses Neuro/WAXING MACHINE OPERATOR: alert, oriented X 3 Skin: dry, intact [...] (Auto) (14.0 - 32.0 %) 9.7 L Garrett % (Auto) (4.8 - 9.0 %) 2.9 L Eos % (Auto) (0.3 - 3.7 %) 0.0 L Baso % (Auto) (0.0 - 2.0 %) 0.0 Neut # (Auto) (2.0 - 7.6 x10 3/uL) 7.30 Lymph # (Auto) (1.0 - 3.8 x10 3/uL) 0.81 L Garrett # (Auto) (0.1 - 0.8 x10 3/uL) [...] assessment and plan as documented by the COLD MEAT CHEF. Patient is a 72 year old female [...] Chen 08/25/22 at 2016 at 1834 RPT #:[id number] END OF REPORT 2022-08-24 17:59:00-00:00 [id number] [place] [address] PATIENT NAME: PATRICIA WILEY ADMIT DATE: 08/24/22 ACCOUNT NO: [id number] ROOM NO: G.3349 AGE: 72 REPORT TYPE: OPERATIVE REPORT SEX: [...] Routine postop monitoring on telemetry. PATIENT NAME: PATRICIA WILEY 670 2. Continue oral anticoagulation for [address] Wilian Ozuna to arrange for transesophageal echo in 6 weeks. Dictated By: Deandre Wisdom MD Date Dictated: 08/24/2022 17:59:30 Date Transcribed: 08/24/2022 20:35:38 [facility] Receipt ID: [id number] Authenticated and Edited by Deandre Wisdom MD On 08/25/22 9:53:26 AM at 0955 PATIENT NAME: PATRICIA WILEY 670 2022-08-24 13:44:00-00:00 [id number] [place] [address] PATIENT NAME: PATRICIA WILEY ADMIT DATE: 08/24/22 ACCOUNT NO: [id number] ROOM NO: [id number] AGE: 72 REPORT TYPE: [...] sterile fashion technique. Access established in the [facility] common femoral vein. The patient was [...] Dictated: 08/24/2022 13:44:26 Date Transcribed: 08/24/2022 14:17:09 FB/ROB/CONCEPCION/Emiliana PATIENT NAME: ZAC WILEYCYNDEE [place] 670 Receipt ID: [id number] Authenticated by Cira Guerrero MD On 023 02:30:02 PM at 0230 PATIENT NAME: ZAC WILEYNE Brad 670 2022-08-24 12:57:00-00:00 [id number] [place] [id number] PATIENT NAME: PATRICIA WILEY ADMIT DATE: 08/24/22 ACCOUNT NO: [id number] ROOM NO: [facility] AGE: 72 REPORT TYPE: eELECTROCARDIOGRAM REPORT SEX: F ADMITTING PHYSICIAN:Mary Alvarez MD ATTENDING PHYSICIAN:Mary Alvarez MD Order: [id number] Test Reason : WATCHMAN Test Date/Time Stamp: [...] Porras MD on at 1525 PATIENT NAME: PATRICIA WILEY 670 2022-08-21 08:33:00-00:00 [facility] Consultation Note - Brief REPORT#:[id number] REPORT STATUS: Signed DATE:08/21/22 TIME: 832 PATIENT: PATRICIA WILEY UNIT #: [id number] ROOM/BED: : 48 AGE: 72 SEX: F ATTEND: Deandre Ramirez MD ADM AUTHOR: Johnson Pa MD * ALL edits or amendments must be made on the Lulu/computer document * History of Present Illness HPI [...] no guarding, no rebou nd, no distention Neuro/WAXING MACHINE OPERATOR: alert, oriented X 3, normal speech, n [...] watchman insertion. N ice questionnaire was filled. [id number] score - 3 HAS-BLED score - 3 Time spent: Time spent on patient care (minutes): 15 at 0844 RPT #:[id number] END OF REPORT 2022-08-20 11:25:00-00:00 [id number] [place] [address] PATIENT NAME: PATRICIA WILEY ADMIT DATE: ACCOUNT NO: [id number] ROOM NO: AGE: 72 REPORT TYPE: eELECTROCARDIOGRAM REPORT SEX: F ADMITTING PHYSICIAN: ATTENDING PHYSICIAN:Deandre Devlin MD Order: [id number] Test Reason : PRE OP Test Date/Time [...] MD on 07/15 at 1115 PATIENT NAME: PATRICIA WILEY 670 2019-11-05 08:19:00-00:00 [facility] ([facility]) Operative Note - Full REPORT#:[id number] REPORT STATUS: Signed DATE:11/05/19 TIME: 818 PATIENT: PATRICIA WILEY UNIT #: [id number] ROOM/BED: : 48 AGE: 69 SEX: F ATTEND: Casper Goss MD ADM AUTHOR: Calvin Goss MD * ALL edits or amendments must be made on the Lulu/computer document * Operative Report ORM Surgeries: Surgery Date and Time: 11/05/2019 0800 Proposed Primary Procedure: INS OF JUGULAR PORT A CATH Start date: 11/05/19 Start time: 829 Pre-procedure diagnosis: 1. Rheumatoid arthritis 2. Need for chronic infusions with therapy 3. Lack of peripheral access Post-procedure diagnosis: same Procedures performed: Placement of right internal jugular Port-A-Cath, tunneled central line with subcutaneous port [id number] Technique/Procedure: The patient was brought into the [...] to PACU. Primary Surgeon: Dr. Calvin Goss Field Support Specialist(s): none Anesthesia: general anesthesia Operative findings: Good flush and withdrawal through port and good placement of port at right atrium without kinking or twisting. Complications: none Estimated blood loss in ml's: none Specimens removed/altered: none Implant(s): port-a-cath Electronically Signed by Calvin Goss MD on 0 11/05/19 at 0911 RPT #:[id number] END OF REPORT 2019-11-05 08:15:00-00:00 [facility] ([facility]) Brief Op Note REPORT#:[id number] REPORT STATUS: Signed DATE:11/05/19 TIME: 814 PATIENT: PATRICIA WILEY UNIT #: [id number] ROOM/BED: : 48 AGE: 69 SEX: F ATTEND: Casper Goss MD ADM AUTHOR: Calvin Goss MD * ALL edits or amendments must be made on the el Crunched/computer document * Op/Inv Proc Note - Brief ORM Surgeries: Surgery Date and Time: 11/05/2019 0800 Proposed Primary Procedure: INS OF JUGULAR PORT A CATH Pre-procedure diagnosis: 1. Rheumatoid arthritis 2. Need for chronic infusions with therapy 3. Lack of peripheral access Post-procedure diagnosis: same as pre procedure dx Procedures performed: Placement of right internal jugular Port-A-Cath, tunneled central line with subcutaneous port [id number] Primary Surgeon: Dr. Calvin Goss Field Support Specialist(s): none Anesthesia: general anesthesia Findings: Good flush and withdrawal through port and good placement of port at right atrium without kinking or twisting. Complications: none Estimated blood loss in ml's: none Specimens removed/altered: none Electronically Signed by Calvin Goss MD on 0 11/05/19 at 0912 RPT #:[id number] END OF REPORT 2019-11-05 08:14:00-00:00 [facility] ([facility] Brief Discharge Note w/Med Rec REPORT#:[id number] REPORT STATUS: Signed DATE:11/05/19 TIME: 813 PATIENT: PATRICIA WILEY UNIT #: [id number] ROOM/BED: : 48 AGE: 69 SEX: F ATTEND: Casper Goss MD ADM AUTHOR: Calvin Goss MD * ALL edits or amendments must be made on the el Crunched/computer document * Med Rec Med Rec Discharge [...] Temp 96.4 11/04 650 Pulse 63 11/04 0651 Resp 14 11/04 650 24 hour I O ending at 0700: [...] Goss MD on 0 11/05/19 at 0815 [facility] #:[id number] END OF REPORT 2019-11-01 11:35:00-00:00 [id number] [place] [address] PATIENT NAME: PATRICIA WILEY ADMIT DATE: ACCOUNT NO: [id number] ROOM NO: AGE: 69 REPORT TYPE: eELECTROCARDIOGRAM REPORT SEX: F ADMITTING PHYSICIAN: ATTENDING PHYSICIAN:Calvin Goss MD Order: [id number] Test Reason : PRE-OP Test Date/Time Stamp: [...] by:KELLEE PRASAD MD at 1153 PATIENT NAME: PATRICIA WILEY 571"
[2022-12-31] MEDS ORDERED: MORPHINE 2 MG/ML SYR ONE (11:39)
[2022-12-31] MEDS ORDERED: MORPHINE 4 MG/ML SYR ONE (11:39)
[2022-12-31] MEDS ORDERED: ONDANSETRON 4 MG/2 ML VIAL ONE (11:40)
--- NOTE | 2022-12-31 12:22 | RAD REPORT ---
EXAM DESCRIPTION: RAD - Tib Fib Right - 12/31/2022 12:14 pm CLINICAL HISTORY: PAIN COMPARISON: Femur Right dated 12/31/2022 FINDINGS/IMPRESSION: Partially imaged femur fracture. No fracture of the tibia or fibula. No malalig nment. No significant focal degenerative changes. Right knee arthroplasty.
--- NOTE | 2022-12-31 12:23 | RAD REPORT ---
EXAM DESCRIPTION: RAD - Femur Right - 12/31/2022 12:16 pm CLINICAL HISTORY: PAIN COMPARISON: No comparisons FINDINGS/IMPRESSION: Obliquely oriented fracture of the distal femoral diaphysis. The fracture exten ds into the vicinity of the knee arthroplasty but without definite involvement. CT could confirm this finding.There is a component of foreshortening. The fracture is displaced by up to 1/2 shaft width.
[2022-12-31] MEDS ORDERED: HYDROMORPHONE HCL 1 MG/ML INJ ONE ×2 (12:45→14:57)
[2022-12-31 13:07] LABS: Absolute Lymphocytes (CBC) 0.9 K/uL (0.7-4.9); Hematocrit 34.7 % (36.0-45.0); Lymphocytes % 7.7 % (15.3-44.8); MCV 92.2 fL (80-100); MPV 7.9 fL (7.6-11.3); Platelets 296 thou/uL (152-406); RBC Red Blood Cell Count 3.76 M/uL (3.86-4.86)
[2022-12-31 13:16] LABS: Protime INR 1.03
[2022-12-31 13:23] LABS: Potassium 3.8 mEq/L (3.5-5.1)
--- NOTE | 2022-12-31 13:27 | ER ---
Nurse's Notes [facility] Name: Patricia Michael Age: 72 yrs Sex: Female : 1950 Arrival Date: 12/31/2022 Time: 10:51 Bed 8 Private MD: Diagnosis: Pain in knee-Distal Femur Fracture;Fall on same level, unspecified Presentation: 12/31 10:56 Chief complaint: EMS states: pt tripped over her dog and fell, c/o severe right knee iw pain, hx of knee replacement in that knee. Coronavirus screen: At this time, the client does not indicate any symptoms associated with coronavirus-19. Ebola Screen: Patient negative for fever greater than or equal to 101.5 degrees Fahrenheit, and additional compatible Ebola Virus Disease symptoms Patient denies exposure to infectious person. Patient denies travel to an Ebola-affected area in the 21 days before illness onset. No symptoms or risks identified at this time. Initial Sepsis Screen: Does the patient meet any 2 criteria? No. Patient's initial sepsis screen is negative. Does the patient have a suspected source of infection? No. Patient's initial sepsis screen is negative. Risk Assessment: Do you want to hurt yourself or someone else? Patient reports no desire to harm self or others. Onset of symptoms was December 31, 2022. 10:56 Method Of Arrival: EMS: [facility] iw 10:56 Acuity: KAVEH 3 iw Historical: - Allergies: 10:57 cefepime; iw 10:57 Fosamax; iw 10:57 Vancomycin; iw - PMHx: 10:57 Asthma; Glaucoma; macular degeneration; Pneumonia; Rheumatoid Arthritis; iw - Family history:: not pertinent. - Social history:: Smoking status: unknown. Screenin:19 [facility] ED Fall Risk Assessment (Adult) Score/Fall Risk Level. Abuse screen: Denies iw threats or abuse. Denies injuries from another. Nutritional screening: No deficits noted. Tuberculosis screening: No symptoms or risk factors identified. Assessment: 10:50 General: Appears uncomfortable, Behavior is cooperative, anxious, crying. Pain: iw Complains of pain in right knee. Neuro: Level of Consciousness is awake, alert, obeys commands, Oriented to person, place, time, situation, Moves all extremities. Cardiovascular: Patient's skin is warm and dry. Respiratory: Respiratory effort is even, unlabored, Respiratory pattern is regular, symmetrical. Derm: Skin is intact, is healthy with good turgor. Musculoskeletal: Range of motion: limited in right knee. 11:35 Reassessment: Patient is alert, oriented x 3, equal unlabored respirations, skin aa5 warm/dry/pink. 11:40 Reassessment: Pt took Plavix 75mg PO, gabapentin 300mg PO, ASA 81mg PO, and metoprolol aa5 50mg PO from her home medications, okay 'd by . . 11:42 Reassessment: Patient is alert, oriented x 3, equal unlabored respirations, skin aa5 warm/dry/pink. Pt to radiology via stretcher. 12:30 Reassessment: Pt reports increased pain, MD was notified. . aa5 12:30 General: Appears uncomfortable. Pain: Pain currently is 10 out of 10 on a pain scale. aa5 Noted to be resistant to movement. 12:35 General: Appears uncomfortable, Behavior is cooperative, anxious. Pain: Pain currently aa5 is 10 out of 10 on a pain scale. Vital Signs: 10:56 BP 105 / 93; Pulse 71; Resp 18; Temp 97.9; Pulse Ox 100% on R/A; Weight 89.81 kg; iw Height 5 ft. 2 in. ; Pain 10/10; 11:30 BP 128 / 78; Pulse 72; Resp 17 S; Pulse Ox 100% on R/A; aa5 12:30 BP 124 / 42; Pulse 70; Resp 20 S; Pulse Ox 100% on R/A; aa5 14:58 BP 123 / 50; Pulse 89; Resp 16; Pulse Ox 98% on R/A; Pain 8/10; iw 10:56 Body Mass Index 36.21 (89.81 kg, 157.48 cm) iw 10:56 Pain Scale: Adult iw 14:58 Pain Scale: Adult iw ED Course: 10:55 Patient arrived in ED. aa5 10:55 Denisse Lester, RN is Primary Nurse. iw 10:56 Del Leblanc MD is Attending Physician. rt 10:56 Triage completed. iw 10:57 Arm band placed on. iw 11:00 Patient has correct armband on for positive identification. iw 11:02 Attending Physician role handed off by Del Leblanc MD cp3 11:02 Amara Worley MD is Attending Physician. cp3 11:30 Accessed Port-a-Cath. using accessed w/ # 20 Prakash needle, ,sterile technique, per aa5 hospital protocol. Clean \T\ dry. Dressing intact. Good blood return. Flushes easily. 12:16 Tib Fib Right XRAY In Process Unspecified. EDMS 12:16 Femur Right XRAY In Process Unspecified. EDMS 13:16 initiated a transfer with Rachele from the [facility]. eb 13:36 administrative approval given by Rachele Lucas Rn/ patient has been accepted to [facility] ER/ Dr. Bill Jacinto has accepted the patient in transfer/ report to be called to [phone]. 13:40 Provided Education on: . iw 14:59 No provider procedures requiring assistance completed. Patient transferred, IV remains iw in place. Administered Medications: 11:35 Drug: morphine IVP or IV 5 mg Route: IVP; Infused Over: 4 mins; Site: Port-a-cath; aa5 11:40 Follow up: Response: No adverse reaction; Pain is decreased aa5 11:35 Drug: Ondansetron IVP 4 mg Route: IVP; Site: Port-a-cath; aa5 12:39 Follow up: Response: No adverse reaction aa5 12:36 Drug: HYDROmorphone IVP 1 mg Route: IVP; Site: Port-a-cath; aa5 12:39 Follow up: Response: Pain is decreased aa5 14:58 Drug: HYDROmorphone IVP 1 mg Route: IVP; Site: Port-a-cath; iw 15:10 Follow up: Response: No adverse reaction iw Medication: 11:19 VIS not applicable for this client. iw Outcome: 13:26 ER care complete, transfer ordered by . cp3 14:59 Transferred by [facility]. to [facility], Transfer form completed. iw X-rays sent w/ patient. 14:59 Condition: good 14:59 Discharge instructions given to patient, Instructed on the need for transfer. 14:59 Patient left the ED. iw Signatures: Dispatcher [employer] EDMS Amara Worley MD MD cp3 Denisse Lester RN RN iw Marisela Leggett RN RN aa5 Gianna Casillas Ryan, MD MD rt Corrections: (The following items were deleted from the chart) 11:19 10:56 BP 105 / 93; Pulse 71bpm; Resp 18bpm; Pulse Ox 100% RA; 89.81 kg; Height 5 ft. 2 iw in.; BMI: 36.2; Pain 03/01, Adult; iw
--- NOTE | 2022-12-31 13:27 | EDPHYS ---
Physician Documentation [facility] Name: Patricia Michael Age: 72 yrs Sex: Female : 1950 Arrival Date: 12/31/2022 Time: 10:51 Bed 8 Private MD: ED Physician Amara Worley HPI: 12/31 11:24 This 72 yrs old Female presents to ER via EMS with complaints of Knee Pain. cp3 11:24 The patient is a 72-year-old female with a history of rheumatoid arthritis and has an cp3 associated port for infusions, atrial fibrillation status post Watchman device implantation for which the patient takes metoprolol, aspirin, Plavix. The patient endorses that she had a mechanical slip and fall which she describes as her knee twisting which caused her to slide down the wall and sit on her bottom. The patient denies any head trauma, LOC., Altered mental status. The patient denies neck pain, back pain, chest wall pain, abdominal pain and endorses the pain is isolated to her right knee. Risk factors include bilateral knee replacements. Per EMS patient was awake and alert on arrival and given fentanyl 50 mcg for pain prior to arrival. Historical: - Allergies: 10:57 cefepime; iw 10:57 Fosamax; iw 10:57 Vancomycin; iw - PMHx: 10:57 Asthma; Glaucoma; macular degeneration; Pneumonia; Rheumatoid Arthritis; iw - Family history:: not pertinent. - Social history:: Smoking status: unknown. ROS: 11:27 Constitutional: Negative for fever, chills, and weight loss, Eyes: Negative for injury, cp3 pain, redness, and discharge, ENT: Negative for injury, pain, and discharge, Neck: Negative for injury, pain, and swelling, Cardiovascular: Negative for chest pain, palpitations, and edema, Respiratory: Negative for shortness of breath, cough, wheezing, and pleuritic chest pain, Abdomen/GI: Negative for abdominal pain, nausea, vomiting, diarrhea, and constipation, Back: Negative for injury and pain, Skin: Negative for injury, rash, and discoloration, Neuro: Negative for headache, weakness, numbness, tingling, and seizure, Psych: Negative for depression, anxiety, suicide ideation, homicidal ideation, and hallucinations, Allergy/Immunology: Negative for hives, rash, and allergies, Endocrine: Negative for neck swelling, polydipsia, polyuria, polyphagia, and marked weight changes, Hematologic/Lymphatic: Negative for swollen nodes, abnormal bleeding, and unusual bruising. 11:27 MS/extremity: Positive for injury or acute deformity, pain, swelling, tenderness, Patient with focal right knee tenderness with associated soft tissue swelling. Exam: 11:27 Constitutional: This is a well developed, well nourished patient who is awake, alert, cp3 and in no acute distress. Head/Face: Normocephalic, atraumatic. Eyes: Pupils equal round and reactive to light, extra-ocular motions intact. Lids and lashes normal. Conjunctiva and sclera are non-icteric and not injected. Cornea within normal limits. Periorbital areas with no swelling, redness, or edema. ENT: Nares patent. No nasal discharge, no septal abnormalities noted. Tympanic membranes are normal and external auditory canals are clear. Oropharynx with no redness, swelling, or masses, exudates, or evidence of obstruction, uvula midline. Mucous membranes moist. Neck: Trachea midline, no thyromegaly or masses palpated, and no cervical lymphadenopathy. Supple, full range of motion without nuchal rigidity, or vertebral point tenderness. No Meningismus. Chest/axilla: Normal chest wall appearance and motion. Nontender with no deformity. No lesions are appreciated. Cardiovascular: Regular rate and rhythm with a normal S1 and S2. No gallops, murmurs, or rubs. Normal PMI, no JVD. No pulse deficits. Respiratory: Lungs have equal breath sounds bilaterally, clear to auscultation and percussion. No rales, rhonchi or wheezes noted. No increased work of breathing, no retractions or nasal flaring. Abdomen/GI: Soft, non-tender, with normal bowel sounds. No distension or tympany. No guarding or rebound. No evidence of tenderness throughout. Back: No spinal tenderness. No costovertebral tenderness. Full range of motion. Skin: Warm, dry with normal turgor. Normal color with no rashes, no lesions, and no evidence of cellulitis. Neuro: Awake and alert, GCS 15, oriented to person, place, time, and situation. Cranial nerves II-XII grossly intact. Motor strength 5/5 in all extremities. Sensory grossly intact. Cerebellar exam normal. Normal gait. Psych: Awake, alert, with orientation to person, place and time. Behavior, mood, and affect are within normal limits. 11:27 Musculoskeletal/extremity: Extremities: Right knee with marked soft tissue swelling that is prepatellar, bruising over the knee. Patient has significant pain with movement or any range of motion. Positive for tenderness to the mid thigh and proximal tib-fib on the right. Neurovascular intact cap refill less than 2. Vital Signs: 10:56 BP 105 / 93; Pulse 71; Resp 18; Temp 97.9; Pulse Ox 100% on R/A; Weight 89.81 kg; iw Height 5 ft. 2 in. ; Pain 10/10; 11:30 BP 128 / 78; Pulse 72; Resp 17 S; Pulse Ox 100% on R/A; aa5 12:30 BP 124 / 42; Pulse 70; Resp 20 S; Pulse Ox 100% on R/A; aa5 14:58 BP 123 / 50; Pulse 89; Resp 16; Pulse Ox 98% on R/A; Pain 8/10; iw 10:56 Body Mass Index 36.21 (89.81 kg, 157.48 cm) iw 10:56 Pain Scale: Adult iw 14:58 Pain Scale: Adult iw MDM: 11:02 Patient medically screened. cp3 11:27 Differential Diagnosis The differential diagnosis includes: Mechanical fall, right knee cp3 fracture, right knee strain, right knee contusion, tib-fib fracture, distal femur fracture. Data reviewed: vital signs, nurses notes, EMS record. ED course: X-rays of the right knee, tib-fib, femur on the right have been ordered along with IV morphine and Zofran for pain. 12:33 I considered the following discharge prescriptions or medication management in the 3 emergency department Medications were administered in the Emergency Department. See MAR. Independent interpretation of the following test(s) in the Emergency Department X-Ray: My interpretation is Right femur x-ray interpreted by me: Oblique distal femur fracture, right tib-fib x-ray interpreted by me and is negative acute for injury. 12:59 ED course: Orthopedics patient. 3 13:20 Consideration of Admission/Observation Escalation of care including 3 admission/observation considered. Discussed case with orthopedics on-call Dr. Cooper who advised that the patient has a periprosthetic fracture and recommends transfer. Management of patient was discussed with the following: Orthopedics as noted above. ED course: We will transfer for definitive treatment secondary to complexity of case per orthopedics. 13:28 Response to treatment: the patient's symptoms have mildly improved after treatment. cp3 13:47 ED course: Patient accepted by . cp3 12/31 12:33 Order name: CBC with Diff; Complete Time: 13:46 cp3 12/31 13:27 Interpretation: Within normal limits. cp3 12/31 12:33 Order name: Basic Metabolic Panel; Complete Time: 13:27 cp3 12/31 13:28 Interpretation: Within normal limits. cp3 12/31 12:33 Order name: PT-INR; Complete Time: 13:20 cp3 12/31 13:17 Order name: CBC Smear Scan; Complete Time: 13:46 EDMS 12/31 11:12 Order name: Tib Fib Right XRAY; Complete Time: 12:30 cp3 12/31 11:12 Order name: Femur Right XRAY; Complete Time: 12:30 cp3 12/31 12:32 Interpretation: Oblique distal femur fracture. cp3 12/31 11:12 Order name: Ice pack; Complete Time: 11:25 cp3 12/31 11:12 Order name: Misc. Order: please access port; Complete Time: 11:25 cp3 12/31 12:33 Order name: Knee Immobilizer cp3 Administered Medications: 11:35 Drug: morphine IVP or IV 5 mg Route: IVP; Infused Over: 4 mins; Site: Port-a-cath; aa5 11:40 Follow up: Response: No adverse reaction; Pain is decreased aa5 11:35 Drug: Ondansetron IVP 4 mg Route: IVP; Site: Port-a-cath; aa5 12:39 Follow up: Response: No adverse reaction aa5 12:36 Drug: HYDROmorphone IVP 1 mg Route: IVP; Site: Port-a-cath; aa5 12:39 Follow up: Response: Pain is decreased aa5 14:58 Drug: HYDROmorphone IVP 1 mg Route: IVP; Site: Port-a-cath; iw 15:10 Follow up: Response: No adverse reaction iw Disposition Summary: 12/31/22 13:26 Transfer Ordered Transfer Location: [facility] cp3 Reason: Higher level of care cp3 Condition: Stable cp3 Problem: new cp3 Symptoms: are unchanged cp3 Accepting Physician: Dr. Bill Jacinto(12/31/22 14:59) Diagnosis - Pain in knee - Distal Femur Fracture cp3 - Fall on same level, unspecified cp3 Forms: - Medication Reconciliation Form cp3 - SBAR form cp3 Signatures: Dispatcher [employer] EDMS Amara Worley MD MD cp3 Denisse Lester RN RN iw Marisela Leggett RN RN aa5 Gianna Casillas Corrections: (The following items were deleted from the chart) 12:16 11:13 Knee Right 3 View+RAD.RAD.BRZ ordered. EDSD EDSD 13:40 13:26 [facility] 13:47 13:47 ED course: Patient excepted by . cp3 cp3 14:59 13:40 Dr. Bill Jacinto [facility]
[2022-12-31 13:40] LABS: Blood Morphology Comment NOT SEEN (NOT SEEN); Platelet Estimate ADEQ; White Blood Cell Scan OK (OK)
[2022-12-31 15:05] VITALS: TEMP 97.9
[2022-12-31 15:09] VITALS: BP 123/50; O2SAT 98
== END 2022-12-31 14:59 | disposition short-term general hospital (02) ==
LOC: ER 10:51
DX: S72.491A Other fracture of lower end of right femur, initial encounter for closed fracture (principal); W18.30XA Fall on same level, unspecified, initial encounter; Z88.3 Allergy status to other anti-infective agents; Z88.8 Allergy status to other drugs, medicaments and biological substances
CPT/HCPCS: 85025; 80048; 36415; 85610; 73552; 73590; 96375; 96374; 99285; J2270; J1170 ×2; J2405

== ENCOUNTER 2025-02-15 06:33 | Day surgery (SDC) | payer OTHER ==
[2025-02-11 16:30] LABS: Absolute Lymphocytes (CBC) 1.9 K/uL (0.7-4.9); Hematocrit 40.5 % (36.0-45.0); Hemoglobin 13.4 g/dL (12.0-15.0); MCH 30.1 pg (27.0-35.0); MCHC 33.1 g/dL (32.0-36.0); MCV 91.0 fL (80-100); MPV 8.2 fL (7.6-11.3); Nucleated RBC Absolute Count 0.0 (0-0); Nucleated Red Blood Cells % 0.1 % (0-0); RBC Red Blood Cell Count 4.45 M/uL (3.86-4.86); White Blood Count 7.60 thou/uL (4.3-10.9)
[2025-02-11 16:51] LABS: Anion Gap 9.2 mEq/L (5.0-15.0); BUN Blood Urea Nitrogen 20.0 mg/dL (7-18); Glucose Level 115.0 mg/dL (74-106); Potassium 4.2 mEq/L (3.5-5.1)
[2025-02-15] MEDS ORDERED: NA CHLORIDE 0.9% 0 ML ONE (07:04)
[2025-02-15] MEDS ORDERED: LIDOCAINE 1% MPF 5 ML VIAL ONE (07:44)
[2025-02-15] MEDS: Ringers Lactate 1,000 ML IV ONE (07:53)
[2025-02-15 08:34] VITALS: O2SAT 100
[2025-02-15] MEDS ORDERED: HEPARIN 500 UNIT/5 ML SYR IV ONE (08:48)
[2025-02-15] MEDS ORDERED: HEPARIN 5000 UNIT/ML 1 ML VIAL ONE (09:02)
[2025-02-15 10:51] VITALS: BP 134/50; TEMP 97.8
== END 2025-02-15 10:04 | disposition home or self-care (01) ==
LOC: OR 06:33
PROVIDERS: ATTEND Surgery
PROC: 0DBN8ZX Excision of Sigmoid Colon, Via Natural or Artificial Opening Endoscopic, Diagnostic (ICD-10-PCS; 2025-02-15)
PROC: 0DBK8ZX Excision of Ascending Colon, Via Natural or Artificial Opening Endoscopic, Diagnostic (ICD-10-PCS; principal; 2025-02-15 08:00)
DX: Z12.11 Encounter for screening for malignant neoplasm of colon (principal); K57.30 Diverticulosis of large intestine without perforation or abscess without bleeding; K64.8 Other hemorrhoids; D12.2 Benign neoplasm of ascending colon; D12.5 Benign neoplasm of sigmoid colon
CPT/HCPCS: 93005; 85025; 80048; 36415; 88305; 45385; J1644 ×2; J2704; J2003; J7120; J1642; J7040

== ENCOUNTER 2025-03-06 19:52 | Emergency (ER) | payer OTHER ==
[2025-03-06] MEDS ORDERED: HYDROCODONE/APAP 5/325 MG TAB ONE (20:22)
[2025-03-06] MEDS ORDERED: DIPHENHYDRAMINE 25 MG TAB/CAP ONE ×2 (20:29→20:49)
[2025-03-06] MEDS ORDERED: ONDANSETRON 4 MG (ODT) TAB ONE (20:29)
[2025-03-06] MEDS ORDERED: ACETAMINOPHEN 500 MG TAB ONE (20:29)
--- NOTE | 2025-03-06 20:36 | EDPHYS ---
Physician Documentation [facility] Name: Patricia Michael Age: 74 yrs Sex: Female : 1950 Arrival Date: 03/06/2025 Time: 19:52 Bed 20 Private MD: Addie Meng ED Physician Robbie Rojas HPI: 03/06 20:39 This 74 yrs old Female presents to ER via Ambulatory with complaints of Insect Bite. tt7 20:39 3 hours ago patient was reportedly stung by the hairs of a caterpillar on the volar tt7 aspect of her right wrist, she reports severe burning pain to the area and development of a red rash with some mild swelling, no fever, wheezing, shortness of breath, or throat swelling. She tried treating her symptoms at home with a baking soda slurry, topical lidocaine, and an ice pack. Came into the emergency department for evaluation due to the pain. Historical: - Allergies: 20:10 cefepime; dd2 20:10 Fosamax; dd2 20:10 Vancomycin; dd2 - PMHx: 20:10 Asthma; Glaucoma; macular degeneration; Pneumonia; Rheumatoid Arthritis; dd2 - PSHx: 20:10 None; dd2 - Immunization history:: Adult Immunizations Client reports having NOT received the Covid vaccine. Last tetanus immunization: up to date Flu vaccine is not up to date. - Infectious Disease History:: Denies. - Social history:: Smoking status: Patient denies any tobacco usage or history of. ROS: 20:38 Constitutional: negative for fever. Cardiovascular: negative for chest pain. tt7 Respiratory: negative for shortness of breath. Abdomen/GI: negative for abdominal pain, nausea, vomiting, diarrhea. MS/Extremity: negative for injury and deformity. Neuro: negative for focal weakness. 20:38 Skin: Positive for rash, swelling, Exam: 23:55 Constitutional: Constitutional: vital signs reviewed, well appearing Head: tt7 normocephalic Eyes: no conjunctival injection, anicteric sclerae ENMT: mucus membranes moist Neck: trachea midline, no JVD Respiratory: normal respiratory effort, no accessory muscle use, no audible wheezing Cardiovascular: Regular rate and rhythm, no lower extremity edema Abdomen: nondistended MSK: normal ROM of extremities, no gross deformities Skin: warm, dry, intact, 2 cm x 2 cm erythematous grid-like tender rash to the volar aspect of the right wrist with mild amount of edema, neurovascularly intact distally and proximally Neuro: alert and oriented with appropriate mental status, normal speech, follows commands, no focal neurologic deficits Psych: appropriate mood and affect Vital Signs: 20:08 BP 103 / 55; Pulse 64; Resp 17; Temp 98.4; Pulse Ox 100% on R/A; Pain 9/10; dd2 20:08 Pain Scale: Adult dd2 MDM: 20:13 Medical Screening Exam initiated tt7 20:38 Differential diagnosis: insect envenomation, urticaria, shingles. Data reviewed: vital tt7 signs, nurses notes. 23:54 ED course: Patient well-appearing with stable vital signs, has a localized reaction to tt7 caterpillar envenomation, patient treated with oral opioid, Tylenol, and antihistamine. Discussed outpatient management of her pain symptoms at home. Discussed return precautions. After completion of the patient's emergency department evaluation, I do not suspect a life-threatening or disabling process. Patient is medically stable and not in need of emergent medical intervention. I had a detailed discussion with the patient regarding the historical points, exam findings, emergency department evaluation, diagnostic results, and the discharge diagnosis. I instructed the patient on outpatient management of their condition. I discussed the need for outpatient follow-up with a primary care physician. I informed the patient on return precautions, including the need to return to the ED if symptoms do not improve, worsen, or if there are any questions or concerns that arise at home. The patient was discharged in stable condition. Administered Medications: 20:35 Drug: Acetaminophen PO 650 mg PO once Route: PO; km10 20:53 Follow up: Response: No adverse reaction 10 20:35 Drug: Ondansetron Oral Disintegrating Tablet Oral Disintegrating Tablet 4 mg PO once km10 Route: PO; 20:53 Follow up: Response: No adverse reaction 10 20:35 Drug: diphenhydrAMINE PO 25 mg PO once Route: PO; km10 20:52 Follow up: Response: No adverse reaction 10 20:36 Drug: HYDROcodone-acetaminophen PO 5 mg-325 mg 1 tabs PO once Route: PO; km10 20:53 Follow up: Response: No adverse reaction 10 20:37 Not Given (noot available, provider notifiedd): hydrocortisone Ointment 1 % 1 km10 application Topical once Disposition: 23:56 Co-signature as Attending Physician, Robbie Rojas DO. tt7 Disposition Summary: 03/06/25 20:36 Discharge Ordered Notes: Location: Home tt7 Problem: new tt7 Symptoms: have improved tt7 Condition: Stable tt7 Diagnosis - Toxic effect of venom of caterpillars, accidental (unintentional), initial encountertt7 Followup: tt7 - With: Emergency Department - When: As needed - Reason: Followup: tt7 - With: Addie Meng MD - When: 1 - 2 days - Reason: Recheck today's complaints, Continuance of care, Re-evaluation by your physician Discharge Instructions: - Discharge Summary Sheet tt7 - Insect Bite, Adult, [id number] tt7 Forms: - Medication Reconciliation Form tt7 - Antibiotic Education tt7 - Prescription Opioid Use tt7 - Patient Portal Instructions tt7 - Leadership Thank You Letter tt7 Signatures: ANNITA GONZALEZ RN RN dd2 Liliana Lynn RN RN km10 Robbie Rojas DO DO tt7
--- NOTE | 2025-03-06 20:36 | ER ---
Nurse's Notes [facility] Name: Patricia Michael Age: 74 yrs Sex: Female : 1950 Arrival Date: 03/06/2025 Time: 19:52 Bed 20 Private MD: Addie Meng Diagnosis: Toxic effect of venom of caterpillars, accidental (unintentional), initial encounter Presentation: 03/06 20:08 Chief complaint: Patient states: STUNG BY ASP ON RT ARM, LT HAND. REPORTS BURNING PAIN dd2 TRAVELING UP LT ARM AND RT ARM. Coronavirus screen: At this time, the client does not indicate any symptoms associated with coronavirus-19. Ebola Screen: No symptoms or risks identified at this time. Onset: The symptoms/episode began/occurred suddenly. Anaphylaxis evaluation, no signs or symptoms of anaphylaxis were noted. Initial Sepsis Screen: Does the patient meet any 2 criteria? No. Patient's initial sepsis screen is negative. Does the patient have a suspected source of infection? No. Patient's initial sepsis screen is negative. Risk Assessment: Do you want to hurt yourself or someone else? Patient reports no desire to harm self or others. Onset of symptoms was March 06, 2025. 20:08 Method Of Arrival: Ambulatory dd2 20:08 Acuity: KAVEH 4 dd2 Triage Assessment: 20:10 General: Appears in no apparent distress. uncomfortable, Behavior is cooperative, dd2 appropriate for age, anxious. Pain: Complains of pain in right wrist, palmar aspect of right forearm and left hand. Derm: REDDENED AREA TO RT LOWER FOREARM, LT HAND. Historical: - Allergies: 20:10 cefepime; dd2 20:10 Fosamax; dd2 20:10 Vancomycin; dd2 - PMHx: 20:10 Asthma; Glaucoma; macular degeneration; Pneumonia; Rheumatoid Arthritis; dd2 - PSHx: 20:10 None; dd2 - Immunization history:: Adult Immunizations Client reports having NOT received the Covid vaccine. Last tetanus immunization: up to date Flu vaccine is not up to date. - Infectious Disease History:: Denies. - Social history:: Smoking status: Patient denies any tobacco usage or history of. Screenin:19 [facility] ED Fall Risk Assessment (Adult) History of falling in the last 3 months, km10 including since admission No falls in past 3 months (0 pts) Confusion or Disorientation No (0 pts) Intoxicated or Sedated No (0 pts) Impaired Gait No (0 pts) Mobility Assist Device Used No (0 pt) Altered Elimination No (0 pt) Score/Fall Risk Level 0 - 2 = Low Risk Oriented to surroundings, Maintained a safe environment, Educated pt \T\ family on fall prevention, incl call for assistance when getting out of bed, Hourly rounding (assess needs \T\ fall precautionary measures) done. Abuse screen: Denies threats or abuse. Denies injuries from another. Nutritional screening: No deficits noted. Tuberculosis screening: No symptoms or risk factors identified. Assessment: 20:19 Pain: Complains of pain in right arm Quality of pain is described as stinging, Pain km10 began 4 hours ago. Is continuous. Neuro: Level of Consciousness is awake, alert, obeys commands, Oriented to person, place, time, situation, Appropriate for age Gait is steady. Respiratory: Airway is patent Respiratory effort is even, unlabored, Breath sounds are clear bilaterally. Derm: red, nickel size, flat insect bite to right anterior forearm. 21:10 Reassessment: Patient appears in no apparent distress at this time. Patient and/or km10 family updated on plan of care and expected duration. Pain level reassessed. Patient is alert, oriented x 3, equal unlabored respirations, skin warm/dry/pink. Patient states feeling better. Vital Signs: 20:08 BP 103 / 55; Pulse 64; Resp 17; Temp 98.4; Pulse Ox 100% on R/A; Pain 9/10; dd2 20:08 Pain Scale: Adult dd2 ED Course: 19:55 Patient arrived in ED. gm2 19:56 Addie Meng MD is Private Physician. gm2 20:05 Liliana Lynn RN is Primary Nurse. km10 20:10 Triage completed. dd2 20:10 Arm band placed on right wrist. dd2 20:10 Patient has correct armband on for positive identification. Call light in reach. Side km10 rails up X 1. 20:10 Provided Education on: plan of care. km10 20:13 Robbie Rojas DO is Attending Physician. tt7 20:33 Addie Meng MD is Referral Physician. tt7 21:11 No provider procedures requiring assistance completed. Patient did not have IV access km10 during this emergency room visit. Administered Medications: 20:35 Drug: Acetaminophen PO 650 mg PO once Route: PO; km10 20:53 Follow up: Response: No adverse reaction km10 20:35 Drug: Ondansetron Oral Disintegrating Tablet Oral Disintegrating Tablet 4 mg PO once km10 Route: PO; 20:53 Follow up: Response: No adverse reaction km10 20:35 Drug: diphenhydrAMINE PO 25 mg PO once Route: PO; km10 20:52 Follow up: Response: No adverse reaction km10 20:36 Drug: HYDROcodone-acetaminophen PO 5 mg-325 mg 1 tabs PO once Route: PO; km10 20:53 Follow up: Response: No adverse reaction km10 20:37 Not Given (noot available, provider notifiedd): hydrocortisone Ointment 1 % 1 km10 application Topical once Medication: 21:12 VIS not applicable for this client. km10 Outcome: 20:36 Discharge ordered by . tt7 21:11 Discharged to home ambulatory, km10 21:11 Condition: stable 21:11 Discharge instructions given to patient, Instructed on discharge instructions, follow up and referral plans. medication usage, Demonstrated understanding of instructions, follow-up care, 21:12 Patient left the ED. km10 Signatures: Mony Riggins gm2 ANNITA GONZALEZ RN RN dd2 Liliana Lynn RN RN km10 Robbie Rojas DO DO tt7
[2025-03-06 21:29] VITALS: BP 103/55; TEMP 98.4; O2SAT 100
== END 2025-03-06 21:12 | disposition home or self-care (01) ==
LOC: ER 19:52
DX: T63.431A Toxic effect of venom of caterpillars, accidental (unintentional), initial encounter (principal)
CPT/HCPCS: 99283; Q0162